=== PATIENT | female | born 1940 | race Caucasian/White ===

== ENCOUNTER → 2016-09-27 | Outpatient (CLI) | payer OTHER ==
[~2016-09-27] MED LIST: AMLO-110 PO; ASPI325T39 PO; CALCTAB5 PO; CLON0.2T11 PO; FURO20TA PO; HYDR25TA5 PO; METO25TA56 PO; MONT1TAB3 PO; POTA12PO5 PO; PRLSR20 PO
--- NOTE | 2016-09-27 10:23 | DIAGNOSTIC IMAGING REPORT ---
CHEST 2 VIEWS ROUTINE CLINICAL HISTORY: 785.6,793.11 adenopathy. Lung nodule. COMPARISON STUDY: 09/01/2015 FINDINGS: Potential subtle increase of a 6 mm nodule peripheral aspect right upper lung. Clinical nodularity peripheral aspect left upper lung. Repeat CT of chest is suggested as follow-up. IMPRESSION: Possible progressive pulmonary nodularity versus overlap artifact. CT of chest is suggested as follow-up. Electronically signed by: Lance Mac M.D. 09/27/2016 10:21 AM Dictated Date/Time: 09/27/2016 10:01 AM
== END | disposition home or self-care (01) ==
LOC: C.RADBBURG 23:49
PROVIDERS: ATTEND Physician Assistant
DX: R59.0 Localized enlarged lymph nodes (principal); R91.1 Solitary pulmonary nodule

== ENCOUNTER → 2016-10-11 | Outpatient (CLI) | payer OTHER ==
[~2016-10-11] MED LIST changes: +OPTIRAY 320 IV PRN
--- NOTE | 2016-10-11 15:12 | DIAGNOSTIC IMAGING REPORT ---
CHEST CT WITH CONTRAST CT DOSE: 602.13 mGy.cm HISTORY: Hilar lymphadenopathy. TECHNIQUE: Multiaxial CT images of the chest were performed following the intravenous administration of contrast. COMPARISON: Chest CT 06/20/2014. FINDINGS: There is a new irregular density within the right upper lobe on image 66 of 276 which demonstrates both a linear and multinodular components. The dominant nodule measures 1 cm and appear slightly spiculated. Stable 3 mm nodule within the right upper lobe on image 79 and a stable 4 mm nodule within the superior segment of the right lower lobe on image 89. Decrease in size in the linear and nodular density within the right middle lobe which abuts the major fissure. The central airways are patent. No pleural effusions. No pneumothorax. Normal caliber thoracic aorta. A few scattered hypodense lesions within the liver are not significantly changed. Dominant lesion measures 1.5 cm. These favor cysts. The spleen and adrenal glands are unremarkable. Stable 1.8 cm left breast nodule. The heart is normal in size. Mitral and aortic valve calcifications. The main pulmonary arteries are patent. No significant mediastinal or hilar lymphadenopathy. Stable heterogeneous thyroid gland. IMPRESSION: 1. There is a new irregular density within the right upper lobe which demonstrates both linear and multinodular components. This has a similar appearance to the previously described nodules and may represent a small focus of inflammatory/infectious change. However, [address] follow-up is recommended to ensure resolution. 2. Decrease in size of the linear/nodular density within the right middle lobe. Therefore, this is likely benign. 3. No change in 1.7 cm left breast nodule. Electronically signed by: Omar Orourke M.D. 10/11/2016 3:10 PM Dictated Date/Time: 10/11/2016 2:58 PM
--- NOTE | 2016-10-17 17:17 | Procedure Note ---
Procedure Note Date of Service Oct 17, 2016. Procedure Note Pulmonary function study Date of Study: 10/11/2016 Reading is based off ATS criteria. Spirometry: Mild obstructive ventilatory disease with an FEV1 98% Bronchodilator response: No significant bronchodilator response noted Lung Volumes: Signs of severe hyperinflation with a total lung capacity of 220 % and RV of 380% Diffusion: Within normal limits Interpretation: Mild obstructive ventilatory disease with notable signs of hyperinflation
== END | disposition home or self-care (01) ==
LOC: C.RC 13:40
PROVIDERS: ATTEND Physician Assistant
DX: R59.0 Localized enlarged lymph nodes (principal); R91.8 Other nonspecific abnormal finding of lung field; N63 Unspecified lump in breast

== ENCOUNTER → 2017-06-19 | Outpatient (CLI) | payer OTHER ==
--- NOTE | 2017-06-19 11:40 | DIAGNOSTIC IMAGING REPORT ---
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 Images are reviewed in the axial, sagittal, and coronal planes. IV contrast was administered without complication. A dose lowering technique was utilized adhering to the principles of ALARA. CT DOSE: 1007.71 mGy.cm FINDINGS: Thyroid: There is a 3.5 cm substernal thyroid nodule. Thoracic aorta: The ascending thoracic aorta measures 3.8 cm. Pulmonary vasculature: The pulmonary trunk is normal in caliber. There are no central filling defects identified to suggest pulmonary embolus. Note that this examination was not protocoled for the evaluation of pulmonary emboli. HEART: The heart is normal in size and configuration, without pericardial effusion. Lungs and pleural spaces: There is an irregularly marginated 1 cm right upper lobe pulmonary nodule, unchanged from the preceding examination. There is a stable 2.5 mm right middle lobe pulmonary nodule. There is no lobar consolidation. There are no significant pleural effusions. There is mild subpleural reticulation. Mediastinum: Mediastinal lymph nodes remain the upper limits of normal in size [place]: Hilar lymph nodes are the upper limits of normal in size Axilla: There is no evidence of pathologic axillary lymphadenopathy Upper abdomen: There is stable hypodense hepatic lesions, likely represent cysts. Skeletal structures: There are no lytic or blastic osseous lesions. There is a stable left breast nodule. IMPRESSION: 1. Stable irregularly marginated right upper lobe pulmonary nodule measuring 1 cm 2. Mediastinal and hilar lymph nodes remain at the upper limits of normal in size Electronically signed by: Roc Brantley M.D. 06/19/2017 11:38 AM Dictated Date/Time: 06/19/2017 11:32 AM
== END | disposition home or self-care (01) ==
LOC: C.CTS 10:36
PROVIDERS: ATTEND Physician Assistant
DX: D86.9 Sarcoidosis, unspecified (principal); R91.1 Solitary pulmonary nodule

== ENCOUNTER 2020-02-24 14:31 | Inpatient (IN) ==
[2020-02-24] MEDS ORDERED: dilTIAZem HCl 5 MG/ML 5 ML VIAL IV STA ×2 (14:50→16:24)
[2020-02-24] MEDS ORDERED: SODIUM CHLORIDE 0.9% 1000ML 1,000 ML IV SCH (15:00)
[2020-02-24 15:08] LABS: Basophils # (auto) 0.01 K/uL (0-0.2); Basophils % (auto) 0.1 %; Eosinophils # (auto) 0.09 K/uL (0-0.5); Eosinophils % (auto) 1.3 %; Hematocrit (blood only) 41.3 % (37-47); Immature Granulocytes # (auto) 0.01 K/uL (0.00-0.02); Immature Granulocytes % (auto) 0.1 %; Lymphocytes # (auto) 1.23 K/uL (1.2-3.4); Mean Corpuscular Hemoglobin 31.7 pg (25-34); Mean Corpuscular Hgb Conc 33.9 g/dL (32-36); Mean Corpuscular Volume 93.4 fL (80-100); Mean Platelet Volume 10.5 fL (7.4-10.4); Monocytes # (auto) 0.54 K/uL (0.11-0.59); Monocytes % (auto) 7.9 %; Neutrophils # (auto) 4.94 K/uL (1.4-6.5); Neutrophils % (auto) 72.6 %; Platelet Count 250 K/uL (130-400); RDW Coefficient of Variation 13.2 % (11.5-14.5); RDW Standard Deviation 45.3 fL (36.4-46.3); Red Blood Count 4.42 M/uL (4.2-5.4); White Blood Count 6.82 K/uL (4.8-10.8)
--- NOTE | 2020-02-24 15:17 | XRay Report ---
XR chest 1V portable CLINICAL HISTORY: atrial flutter COMPARISON STUDY: 05/06/2019 FINDINGS: The heart is normal in size. There is calcification of the mitral valve annulus. There is s ubtle interstitial thickening. There is no lobar consolidation. There are no pleural effusions.[ IMPRESSION: 1. Subtle interstitial thickening likely chronic. No evidence of lobar consolidation ACT 112: Negative or not required by law. Electronically signed by: Roc Brantley M.D. 02/24/2020 3:16 PM
[2020-02-24 15:38] LABS: Albumin Level 3.6 gm/dl (3.4-5.0); BUN Creatinine Ratio 17.2 (10-20); Calcium 9.1 mg/dl (8.5-10.1); Creatinine Clr Calc Pharmacy 51.6 ml/min; Est GFR (African American) 58.7; Est GFR (Non-African American) 50.6; Magnesium 1.9 mg/dl (1.8-2.4); Potassium 3.9 mmol/L (3.5-5.1)
[2020-02-24 15:49] LABS: Bilirubin,Total 0.5 mg/dl (0.2-1); Globulin 3.7 gm/dl (2.5-4.0); Phosphorus 3.2 mg/dl (2.5-4.9); Thyroid Stimulating Hormone 0.876 uIu/ml (0.300-4.500); Total Protein 7.3 gm/dl (6.4-8.2)
--- NOTE | 2020-02-24 16:49 | Electrocardiogram Report ---
Test Reason : Blood Pressure : / mmHG Vent. Rate : 141 BPM Atrial Rate : 141 BPM P-R Int : 124 ms QRS Dur : 078 ms QT Int : 304 ms P-R-T Axes : 080 050 087 degrees QTc Int : 465 ms Atrial flutter with 2 to 1 block Low voltage QRS Cannot rule out Anterior infarct , age undetermined Abnormal ECG When compared with ECG of 19-FEB-1997 09:31, Atrial flutter is now Present Vent. rate has increased BY 90 BPM Confirmed by Jimbo Ferraro ([id number]) on 02/24/2020 4:49:20 PM Referred By: Confirmed By:Jimbo Ferraro
[2020-02-24] MEDS ORDERED: dilTIAZem HCl 5 MG/ML 5 ML VIAL IV ONE (17:58)
[2020-02-24] MEDS ORDERED: METOPROLOL TARTRATE 1 MG/ML VIAL IV STA (18:21)
--- NOTE | 2020-02-24 18:53 | Emergency Department Note ---
History of Present Illness General Chief complaint: Tachycardia Stated complaint: TACHYCARDIA Source: patient, family ( at bedside) and RN notes reviewed Mode of arrival: ambulatory Limitations: no limitations History of Present Illness Provider complaint: Tachycardia Maximum Pain Intensity: 2 This patient is a 79-year-old female who presents emergency department with complaints of elevated heart rate. Patient states she noticed it several days ago because of her Fitbit. She notices only shortness of breath with exertion such as climbing up the hill in front of her house. She denies any chest discomfort or palpitations. She denies any nausea, vomiting or diaphoresis. The patient does admit to some discomfort in the right jaw "only when my heart rate is very high." Patient follows with Dr. Leos of cardiology for a history of atrial flutter. She states she had an ablation 2 years ago. Patient states she has been taking her medications as prescribed and does not believe she is missed any dosing. She is anticoagulated with apixaban. Home Medications Home Medications Medication Instructions Recorded Confirmed Type omega-3 acid ethyl esters 1 gram 1 cap PO HS cap 12/20/18 02/24/20 History capsule potassium chloride 10 mEq 10 meq PO QAM tab 12/20/18 02/24/20 History tablet,extended release multivitamin 1 tab PO QAM 02/04/19 02/24/20 History nystatin 100,000 unit/gram topical 1 appln TOP BID #30 gm 02/04/19 02/24/20 Rx powder apixaban 5 mg tablet 5 mg PO BID tab 04/24/19 02/24/20 History hydrochlorothiazide 25 mg tablet 25 mg PO QAM tab 04/24/19 02/24/20 History metoprolol succinate 100 mg 100 mg PO HS tab 04/24/19 02/24/20 History tablet,extended release 24 hr pantoprazole 20 mg tablet,delayed 20 mg PO QAM tab 04/24/19 02/24/20 History release furosemide 20 mg tablet 20 mg PO DAILY PRN 04/29/19 02/24/20 History amlodipine 10 mg tablet 10 mg PO QAM #90 tab 12/05/19 02/24/20 Rx montelukast 10 mg tablet 10 mg PO QAM #90 tab 01/06/20 02/24/20 Rx tamsulosin 0.4 mg PO QAM 02/24/20 02/24/20 History timolol maleate 1 drp OPB HS 02/24/20 02/24/20 History valsartan 80 mg PO QAM 02/24/20 02/24/20 History amiodarone 200 mg PO BIDM 30 Days #60 tab 02/26/20 Rx amoxicillin 500 mg PO BID 5 Days #10 cap 02/26/20 Rx cephalexin [Keflex] 500 mg PO Q12H 5 Days #10 cap 02/27/20 Rx Allergies Allergy/AdvReac Type Severity Reaction Status Date / Time lisinopril Allergy Unknown Cough Verified 02/24/20 16:12 codeine AdvReac Mild NAUSEA AND Verified 02/24/20 16:12 VOMITING morphine AdvReac Mild NAUSEA AND Verified 02/24/20 16:12 VOMITING Past Med/Surg History Medical History Bladder tumor CAD (coronary artery disease) Mild on cardiac cath (2013) Dyslipidemia GERD (gastroesophageal reflux disease) controlled Glaucoma History of cardioversion History of kidney stones Hypertension Morbid obesity Osteoarthritis Paroxysmal atrial fibrillation Prediabetes Renal lesion UTI (urinary tract infection) Surgical History History of cardiac cath 2013 & 2005 - [facility] - NO STENTS History of cardiac radiofrequency ablation History of cholecystectomy History of colonoscopy History of esophagogastroduodenoscopy (EGD) History of hysterectomy with unilateral oophorectomy History of left knee surgery History of lithotripsy History of surgery on left wrist X 2 History of tooth extraction History of total bilateral knee replacement S/P bladder tumor excision with fulguration Family History Mother Atrial fibrillation Stroke Father No problems noted. Brother Lung cancer Brother Lung cancer Sister Lung cancer Other No family history of adverse response to anesthesia Social History Smoking Status: Never smoker Second Hand Exposure: No; Hx Alcohol Use: No Hx Substance Use: No Preferred Language: Yakut Communication Ability: Effective Printing Agent Required: No Beliefs That Will Affect Care: None Current Living Situation: Spouse Feels Safe at Home: Yes Assistive Devices: Glasses Review of Systems See HPI for pertinent positives & negatives. and A total of 10 systems reviewed and were otherwise negative Physical Exam Vital Signs Vital Signs - 24 hr 02/24/20 14:34 02/24/20 14:40 02/24/20 14:50 Temperature 36.9 C Temperature Source Oral Oral Pulse Rate 144 H Pulse Rate from SpO2 Sensor Pulse Rhythm Regular Pulse Strength Normal Respiratory Rate 20 Respiratory Effort / Characteristics Non-Labored Spontaneous Respiratory Depth Normal Respiratory Pattern Regular Blood Pressure 109/76 Blood Pressure Mean 87 Blood Pressure Position Sitting Pulse Oximetry 96 Oxygen Delivery Method Room Air Room Air Room Air Sepsis Recent Fever Within 48 Hours No Sepsis New/Unexplained Change in Mental Status No Sepsis Action Taken by Nursing No Action Required 02/24/20 14:57 02/24/20 15:00 02/24/20 15:15 Temperature Temperature Source Pulse Rate 139 H 140 H 139 H Pulse Rate from SpO2 Sensor Pulse Rhythm Pulse Strength Respiratory Rate 20 15 22 Respiratory Effort / Characteristics Respiratory Depth Respiratory Pattern Blood Pressure 102/76 107/74 103/75 Blood Pressure Mean 84 90 88 Blood Pressure Position Pulse Oximetry Oxygen Delivery Method Sepsis Recent Fever Within 48 Hours Sepsis New/Unexplained Change in Mental Status Sepsis Action Taken by Nursing 02/24/20 15:30 02/24/20 15:45 02/24/20 16:00 Temperature Temperature Source Pulse Rate 139 H 139 H 138 H Pulse Rate from SpO2 Sensor Pulse Rhythm Pulse Strength Respiratory Rate 17 16 16 Respiratory Effort / Characteristics Respiratory Depth Respiratory Pattern Blood Pressure 117/87 113/86 111/82 Blood Pressure Mean 95 92 98 Blood Pressure Position Pulse Oximetry Oxygen Delivery Method Sepsis Recent Fever Within 48 Hours Sepsis New/Unexplained Change in Mental Status Sepsis Action Taken by Nursing 02/24/20 16:15 02/24/20 16:49 02/24/20 17:00 Temperature Temperature Source Pulse Rate 139 H 137 H 137 H Pulse Rate from SpO2 Sensor 139 H 137 H Pulse Rhythm Pulse Strength Respiratory Rate 21 19 18 Respiratory Effort / Characteristics Respiratory Depth Respiratory Pattern Blood Pressure 116/86 121/93 135/96 Blood Pressure Mean 92 104 103 Blood Pressure Position Pulse Oximetry 97 97 Oxygen Delivery Method Sepsis Recent Fever Within 48 Hours Sepsis New/Unexplained Change in Mental Status Sepsis Action Taken by Nursing 02/24/20 17:15 02/24/20 17:30 02/24/20 17:45 Temperature Temperature Source Pulse Rate 136 H 136 H 137 H Pulse Rate from SpO2 Sensor 136 H 137 H 137 H Pulse Rhythm Pulse Strength Respiratory Rate 23 12 19 Respiratory Effort / Characteristics Respiratory Depth Respiratory Pattern Blood Pressure 119/95 110/85 125/99 Blood Pressure Mean 105 103 110 Blood Pressure Position Pulse Oximetry 97 99 97 Oxygen Delivery Method Room Air Room Air Sepsis Recent Fever Within 48 Hours Sepsis New/Unexplained Change in Mental Status Sepsis Action Taken by Nursing 02/24/20 18:00 02/24/20 18:15 02/24/20 18:30 Temperature Temperature Source Pulse Rate 137 H 118 H 118 H Pulse Rate from SpO2 Sensor 137 H 107 H 117 H Pulse Rhythm Pulse Strength Respiratory Rate 19 19 16 Respiratory Effort / Characteristics Respiratory Depth Respiratory Pattern Blood Pressure 116/93 100/77 109/81 Blood Pressure Mean 99 84 93 Blood Pressure Position Pulse Oximetry 97 97 96 Oxygen Delivery Method Sepsis Recent Fever Within 48 Hours Sepsis New/Unexplained Change in Mental Status Sepsis Action Taken by Nursing 02/24/20 18:45 02/24/20 19:00 02/24/20 19:15 Temperature Temperature Source Pulse Rate 125 H 117 H 135 H Pulse Rate from SpO2 Sensor 119 H 130 H 135 H Pulse Rhythm Pulse Strength Respiratory Rate 24 21 20 Respiratory Effort / Characteristics Respiratory Depth Respiratory Pattern Blood Pressure 108/86 119/78 126/92 Blood Pressure Mean 90 89 96 Blood Pressure Position Pulse Oximetry 97 95 96 Oxygen Delivery Method Sepsis Recent Fever Within 48 Hours Sepsis New/Unexplained Change in Mental Status Sepsis Action Taken by Nursing Vital signs reviewed. General: Well-appearing 79 yo female, in no significant distress. HEENT: No scleral icterus, PERRLA, neck supple. Atraumatic. Cardiovascular: Tachycardic and regular, no extra sounds. Pulmonary: Clear to auscultation bilaterally, normal work of breathing. Abdomen: Soft, obese, nontender, nondistended, positive bowel sounds. Musculoskeletal: Atraumatic, no peripheral edema. Neurologic: Patient awake alert and oriented x 3 Skin: Warm, dry, no rash Course Administered Medications Discontinued Medications Acetaminophen (Acetaminophen 325 Mg Tab) 650 mg PO Q4H PRN PRN Reason: Pain or Fever Stop: 03/25/20 21:29 Last Admin: 02/26/20 06:16 Dose: 650 mg Documented by: [id number] Admin: 02/25/20 14:44 Dose: 650 mg Documented by: [id number] Amiodarone HCl (Amiodarone Iv Bolus & Drip) 1 ea IV NOW STA; Protocol Stop: 02/24/20 20:08 Last Admin: 02/24/20 22:15 Dose: Not Given Documented by: [id number] Amlodipine Besylate (Amlodipine Besylate 5 Mg Tab) 10 mg PO QAM RESHMA Stop: 03/26/20 08:59 Last Admin: 02/26/20 09:46 Dose: 10 mg Documented by: [id number] Admin: 02/25/20 07:49 Dose: 10 mg Documented by: [id number] Apixaban (Apixaban 5 Mg Tablet) 5 mg PO BID RESHMA Stop: 03/25/20 21:29 Last Admin: 02/26/20 09:46 Dose: 5 mg Documented by: [id number] Admin: 02/25/20 19:57 Dose: 5 mg Documented by: [id number] Admin: 02/25/20 07:48 Dose: 5 mg Documented by: [id number] Admin: 02/24/20 22:24 Dose: 5 mg Documented by: [id number] Diltiazem HCl (Diltiazem Hcl 5 Mg/Ml 5 Ml Vial) 10 mg IV NOW STA Stop: 02/24/20 14:51 Last Admin: 02/24/20 14:57 Dose: 10 mg Documented by: [id number] Cosigned by: [id number] Diltiazem HCl (Diltiazem Hcl 5 Mg/Ml 5 Ml Vial) 20 mg IV NOW STA Stop: 02/24/20 16:25 Last Admin: 02/24/20 17:25 Dose: 10 mg Documented by: [id number] Cosigned by: [id number] Diltiazem HCl (Diltiazem Hcl 5 Mg/Ml 5 Ml Vial) 10 mg IV ONCE ONE Stop: 02/24/20 17:59 Last Admin: 02/24/20 17:59 Dose: 10 mg Documented by: [id number] Cosigned by: [id number] Fish Oil ([place]-3 (Purified Fish Oil) 1 Gm Cap) 1 gm PO HS RESHMA Stop: 03/25/20 21:39 Last Admin: 02/25/20 19:59 Dose: 1 gm Documented by: [id number] Admin: 02/24/20 22:25 Dose: 1 gm Documented by: [id number] Sodium Chloride (Nss 1000ml) 1,000 mls @ 100 mls/hr IV .Q10H RESHMA Stop: 02/25/20 00:59 Last Infusion: 02/25/20 01:09 Dose: 0 mls/hr Documented by: [id number] Admin: 02/24/20 14:57 Dose: 100 mls/hr Documented by: [id number] Amiodarone HCl/Dextrose (Nexterone / D5w) 150 mg in 100 mls @ 600 mls/hr IV NOW STA Stop: 02/24/20 20:16 Last Infusion: 02/24/20 21:07 Dose: 0 mls/hr Documented by: [id number] Cosigned by: [id number] Admin: 02/24/20 20:56 Dose: 600 mls/hr Documented by: [id number] Cosigned by: [id number] Amiodarone HCl/Dextrose (Nexterone / D5w) 360 mg in 200 mls @ 33.333 mls/hr IV ONE ONE Stop: 02/25/20 02:06 Last Infusion: 02/25/20 03:39 Dose: 0 mls/hr Documented by: [id number] Cosigned by: [id number] Admin: 02/24/20 21:13 Dose: 33.3 mls/hr Documented by: [id number] Cosigned by: [id number] Amiodarone HCl/Dextrose (Nexterone / D5w) 360 mg in 200 mls @ 16.667 mls/hr IV .Q12H RESHMA Stop: 03/26/20 02:01 Last Infusion: 02/26/20 10:00 Dose: 0 mg/min, 0 mls/hr Documented by: [id number] Cosigned by: [id number] Admin: 02/26/20 01:32 Dose: 0.5 mg/min, 16.7 mls/hr Documented by: [id number] Cosigned by: [id number] Infusion: 02/26/20 01:30 Dose: 0.5 mg/min, 16.7 mls/hr Documented by: [id number] Cosigned by: [id number] Admin: 02/25/20 13:31 Dose: 0.5 mg/min, 16.7 mls/hr Documented by: [id number] Cosigned by: [id number] Infusion: 02/25/20 13:31 Dose: 0.5 mg/min, 16.7 mls/hr Documented by: [id number] Cosigned by: [id number] Admin: 02/25/20 02:02 Dose: 0.5 mg/min, 16.7 mls/hr Documented by: [id number] Cosigned by: [id number] Metoprolol Succinate (Metoprolol Succ 50mg Ext Rel Tab) 100 mg PO HS [facility] Stop: 03/25/20 21:29 Last Admin: 02/25/20 19:58 Dose: 100 mg Documented by: [id number] Admin: 02/24/20 22:25 Dose: 100 mg Documented by: [id number] Metoprolol Tartrate (Metoprolol Tartrate 1 Mg/Ml Vial) 5 mg IV NOW STA Stop: 02/24/20 18:22 Last Admin: 02/24/20 18:41 Dose: 5 mg Documented by: [id number] Miscellaneous (Stat Iv Infusion Titration Per Protocol) 1 ea N/A NOW STA Stop: 02/24/20 20:08 Last Admin: 02/24/20 22:15 Dose: Not Given Documented by: [id number] Montelukast Sodium (Montelukast Sodium 10 Mg Tablet) 10 mg PO [facility] Stop: 03/26/20 08:59 Last Admin: 02/26/20 09:48 Dose: 10 mg Documented by: [id number] Admin: 02/25/20 07:49 Dose: 10 mg Documented by: [id number] Multivitamins (Multivitamin Tab) 1 tab PO [facility] Stop: 03/26/20 08:59 Last Admin: 02/26/20 09:46 Dose: 1 tab Documented by: [id number] Admin: 02/25/20 07:49 Dose: 1 tab Documented by: [id number] Nystatin (Nystatin Powder 15gm Btl) 1 appln EXT BID [facility] Stop: 03/25/20 21:29 Last Admin: 02/26/20 09:48 Dose: 1 appln Documented by: [id number] Admin: 02/25/20 19:57 Dose: 1 appln Documented by: [id number] Admin: 02/25/20 07:50 Dose: 1 appln Documented by: [id number] Admin: 02/24/20 22:23 Dose: 1 appln Documented by: [id number] Ondansetron HCl (Ondansetron Inj 2 Mg/Ml 2 Ml Vial) 4 mg IV Q6H PRN PRN Reason: Nausea Stop: 03/25/20 21:29 Last Admin: 02/25/20 15:36 Dose: 4 mg Documented by: [id number] Pantoprazole Sodium (Pantoprazole 40 Mg Tab) [facility] [place] Stop: 03/26/20 08:59 Last Admin: 02/26/20 09:47 Dose: 20 mg Documented by: [id number] Admin: 02/25/20 07:49 Dose: 20 mg Documented by: [id number] Potassium Chloride (Potassium Chloride 10 Meq Tabcr) 10 meq PO [facility] Stop: 03/26/20 08:59 Last Admin: 02/26/20 09:47 Dose: 10 meq Documented by: [id number] Admin: 02/25/20 09:52 Dose: 10 meq Documented by: [id number] Tamsulosin HCl (Tamsulosin Hcl 0.4 Mg Cap) 0.4 mg PO [facility] Stop: 03/26/20 08:59 Last Admin: 02/26/20 09:46 Dose: 0.4 mg Documented by: [id number] Admin: 02/25/20 07:49 Dose: 0.4 mg Documented by: [id number] Timolol Maleate (Timolol Maleate 0.25% Op Soln 5 Ml Btl) 1 drops OPB HS [facility] Stop: 03/25/20 21:29 Last Admin: 02/25/20 19:58 Dose: 1 drops Documented by: [id number] Admin: 02/24/20 22:23 Dose: 1 drops Documented by: [id number] Valsartan (Valsartan 80 Mg Tab) 80 mg PO [facility] Stop: 03/26/20 08:59 Last Admin: 02/26/20 09:48 Dose: 80 mg Documented by: [id number] Admin: 02/25/20 07:49 Dose: 80 mg Documented by: [id number] Critical Care Time Critical Care Time: Yes Total Critical Care Time: 45 I have personally spent greater than 45 minutes of critical care time in the direct management of this patient. This includes bedside care, interpretation of diagnostic studies, and testing, discussion with consultants, patient, and family members, and other required patient management activities. This 45 minutes is in excess of all separately billable procedures. Medical Decision Making Differential Diagnosis Premature contractions, electrolyte abnormality, cardiac dysrhythmia, thyroid dysfunction, pulmonary embolism, infection, gastrointestinal, as well as other p athologies. Medical Records Attestation: I reviewed the patient's medical records. Home Medications Current Medication List: was personally reviewed by me Laboratory Data Attestation: I reviewed the patient's lab results. Result diagrams: 02/26/20 05:26 02/26/20 05:26 Lab Results 02/24/20 02/24/20 02/24/20 Range/Units 14:50 14:50 14:50 WBC 6.82 (4.8-10.8) K/uL RBC 4.42 (4.2-5.4) M/uL Hgb 14.0 (12.0-16.0) g/dL Hct 41.3 (37-47) % MCV 93.4 (80-100) fL MCH 31.7 (25-34) pg MCHC 33.9 (32-36) g/dL RDW Std Deviation 45.3 (36.4-46.3) fL RDW Coeff of Twan 13.2 (11.5-14.5) % Plt Count 250 (130-400) K/uL MPV 10.5 H (7.4-10.4) fL Immature Gran % (Auto) 0.1 % Neut % (Auto) 72.6 % Lymph % (Auto) 18.0 % [place] % (Auto) 7.9 % Eos % (Auto) 1.3 % Baso % (Auto) 0.1 % Neut # (Auto) 4.94 (1.4-6.5) K/uL Lymph # (Auto) 1.23 (1.2-3.4) K/uL [place] # (Auto) 0.54 (0.11-0.59) K/uL Eos # (Auto) 0.09 (0-0.5) K/uL Baso # (Auto) 0.01 (0-0.2) K/uL Immature Gran # (Auto) 0.01 (0.00-0.02) K/uL Sodium 137 (136-145) mmol/L Potassium 3.9 (3.5-5.1) mmol/L Chloride 105 (98-107) mmol/L Carbon Dioxide 25 (21-32) mmol/L Anion Gap 8.0 (3-11) BUN 18 (7-18) mg/dl Creatinine 1.06 (0.6-1.2) mg/dl Est Cr Clr Drug Dosing 51.6 ml/min Est GFR ( Amer) 58.7 Est GFR (Non-Af Amer) 50.6 BUN/Creatinine Ratio 17.2 (10-20) Glucose 118 H (70-99) mg/dl Calcium 9.1 (8.5-10.1) mg/dl Phosphorus 3.2 (2.5-4.9) mg/dl Magnesium 1.9 (1.8-2.4) mg/dl Total Bilirubin 0.5 (0.2-1) mg/dl AST 12 L (15-37) U/L ALT 20 (12-78) U/L Alkaline Phosphatase 57 (45-117) U/L Troponin I < 0.015 (0-0.045) ng/ml Total Protein 7.3 (6.4-8.2) gm/dl Albumin 3.6 (3.4-5.0) gm/dl Globulin 3.7 (2.5-4.0) gm/dl Albumin/Globulin Ratio 1.0 (0.9-2) TSH 0.876 (0.300-4.500) uIu/ml Imaging Data Radiologist's Impression: XR chest 1V portable CLINICAL HISTORY: atrial flutter COMPARISON STUDY: 05/06/2019 FINDINGS: The heart is normal in size. There is calcification of the mitral valve annulus. There is subtle interstitial thickening. There is no lobar consolidation. There are no pleural effusions.[ IMPRESSION: 1. Subtle interstitial thickening likely chronic. No evidence of lobar consolidation ACT 112: Negative or not required by law. Electronically signed by: Roc Brantley M.D. 02/24/2020 3:16 PM Dictated: 02/24/201514Transcribed: 02/24/201514 ECG Data Attestation: I personally reviewed and interpreted this ECG as follows: Indication: + tachycardia Rate (beats per minute): 141 Rhythm: + atrial flutter (2:1) ECG Intervals/blocks: + Normal QT-c (465); no Normal QRS (low voltage) ECG [place]: + Normal ECG Findings: + Q waves (Anterior); no PACs and no PVCs Blood Pressure Blood Pressure Findings: Normal blood pressure Blood Pressure Disposition: did not require urgent referral MDM Narrative This pt was evaluated and appeared to be in no distress. IV access was obtained and lab work was drawn. An order for cardiac monitoring was placed and pt was noted to be in a rapid atrial flutter at 140 bpm. She was medicated with Cardizem 10 mg IV with little response. A second dose of Cardizem 20 mg IV was given with some improvement. Pt remained in a rapid atrial flutter. Pt's labwork is reassuring with normal magnesium and potassium. Troponin in neg. CXR is significant for subtle interstitial thickening, likely chronic. EKG confirms rapid atrial flutter, no acute ischemia. Pt was given 5 mg IV metoprolol. The hospitalist service was consulted for admission. Pt is already anticoagulated. She is aware of the plan and agrees. Impression & Plan Atrial flutter with rapid ventricular response Discharge Plan Visit Data Chief Complaint: Tachycardia Stated Complaint: TACHYCARDIA ED Provider: Bailey Jacome Discharge Problem: Atrial flutter with rapid ventricular response Patient Disposition: Admitted As Inpatient Discharge Instructions Interventions: ED Discharge Assessment Last Done: 02/24/20 21:15
--- NOTE | 2020-02-24 19:01 | History & Physical Report ---
Date of Service February 24, 2020 Assessment & Plan (1) Atrial flutter with rapid ventricular response: Start Amiodarone IV bolus and drip NPO after midnight in case she requires cardioversion tomorrow if she doesn't spontaneously convert Continue metoprolol succinate 100mg PO HS Anticoagulation with Eliquis 5mg PO BID Consult cardiology (2) CAD (coronary artery disease): Mild per prior coronary angiogram. No significant worsening of symptoms to day therefore I do not suspect ACS. (3) Sarcoidosis: Weaned off prednisone approximately 1 year ago and significant increase in fatigue and morning stiffness since then. Recommend outpatient follow up with PCP, consider rheumatology referral. (4) Fatigue: As above for sarcoidosis. No significant worsening over last 2 days to suspect atrial flutter causing this but difficult to rule out. (5) GERD (gastroesophageal reflux disease): Continue pantoprazole 20mg PO daily (6) Sleep apnea: Mild per patient although significant weight gain since testing approximately 1 year ago. Did not tolerated CPAP (7) Renal lesion: Currently under investigation by urology. Continue tamsulosin - presumably for ureteral outlet obstruction. (8) DVT prophylaxis: Continue her susual Eliquis 5mg PO BID History of Present Illness Chief Complaint: Atrial flutter with RVR Primary Care Provider: [place] Effie Barba is a 79 year old female who presents to the ER on the advice of her sales trainee (Dr Leos) for ongoing intermittent jaw pain for the past 2 days and atrial flutter with rapid ventricular response. She has known paroxysmal atrial flutter which started 3 years ago. Approximately 2 years ago she [facility] few days in hospital couldn't get her rate controlled. She subsequently had an ablation following this and has no known atrial flutter episodes up until this Spring. In the Spring her longest episode was 4 hours however and spontaneously felt she converted at home. The only way she can tell her heart rate is going fast a lot of the time is through her fitbit watch which she recently started wearing again. Previous episodes have been triggered by drinking cold drinks. On this occasion she has been having occasional dry heaving episodes related to right sided back pain possibly related to muscle spasms vs. ongoing renal ureteral problems under urology. She reports intermittent jaw pain over the last 2 days concerning for anginal equivalent pain by her sales trainee although there was not worsening of pain today, initial troponin negative and she is not having any pain at the present time which appears to occur when her heart rate goes under 135-140 bpm. In the ER she was given a total 30mg IV diltiazem and 5mg IV metoprolol with change in rate due to more variable block to 110-120 bpm. I discussed her case with Dr Jiang and advised starting on IV amiodarone drip which will be started in the ER. Allergies Allergy/AdvReac Type Severity Reaction Status Date / Time lisinopril Allergy Unknown Cough Verified 02/24/20 16:12 codeine AdvReac Mild NAUSEA AND Verified 02/24/20 16:12 VOMITING morphine AdvReac Mild NAUSEA AND Verified 02/24/20 16:12 VOMITING Home Medications Home Medications Medication Instructions Recorded Confirmed Type omega-3 acid ethyl esters 1 gram 1 cap PO HS cap 12/20/18 02/24/20 History capsule potassium chloride 10 mEq 10 meq PO QAM tab 12/20/18 02/24/20 History tablet,extended release multivitamin 1 tab PO QAM 02/04/19 02/24/20 History nystatin 100,000 unit/gram topical 1 appln TOP BID #30 gm 02/04/19 02/24/20 Rx powder apixaban 5 mg tablet 5 mg PO BID tab 04/24/19 02/24/20 History hydrochlorothiazide 25 mg tablet 25 mg PO QAM tab 04/24/19 02/24/20 History metoprolol succinate 100 mg 100 mg PO HS tab 04/24/19 02/24/20 History tablet,extended release 24 hr pantoprazole 20 mg tablet,delayed 20 mg PO QAM tab 04/24/19 02/24/20 History release furosemide 20 mg tablet 20 mg PO DAILY PRN 04/29/19 02/24/20 History amlodipine 10 mg tablet 10 mg PO QAM #90 tab 12/05/19 02/24/20 Rx montelukast 10 mg tablet 10 mg PO QAM #90 tab 01/06/20 02/24/20 Rx tamsulosin 0.4 mg PO QAM 02/24/20 02/24/20 History timolol maleate 1 drp OPB HS 02/24/20 02/24/20 History valsartan 80 mg PO QAM 02/24/20 02/24/20 History Past Med/Surg History Medical History Bladder tumor CAD (coronary artery disease) Mild on cardiac cath (2013) Dyslipidemia GERD (gastroesophageal reflux disease) controlled Glaucoma History of cardioversion History of kidney stones Hypertension Morbid obesity Osteoarthritis Paroxysmal atrial fibrillation Prediabetes Renal lesion UTI (urinary tract infection) Surgical History History of cardiac cath 2013 & 2005 - [facility] - NO STENTS History of cardiac radiofrequency ablation History of cholecystectomy History of colonoscopy History of esophagogastroduodenoscopy (EGD) History of hysterectomy with unilateral oophorectomy History of left knee surgery History of lithotripsy History of surgery on left wrist X 2 History of tooth extraction History of total bilateral knee replacement S/P bladder tumor excision with fulguration Family History Mother Atrial fibrillation Stroke Father No problems noted. Brother Lung cancer Brother Lung cancer Sister Lung cancer Other No family history of adverse response to anesthesia Social History Smoking Status: Never smoker Second Hand Exposure: No; Do You Dip or Chew Tobacco: No; Tobacco Cessation Education Requested by Patient: No Hx Alcohol Use: No Hx Substance Use: No Preferred Language: [place] Communication Ability: Effective Electrician Chief Required: No Beliefs That Will Affect Care: None Current Living Situation: Spouse Other Information That Helps Us Care for You: No Feels Safe at Home: Yes Safety Concerns: Feels Safe At This Time Assistive Devices: Glasses Assistive Devices Comment: On patients face Review of Systems Review of Systems: All systems reviewed & are unremarkable except as noted in HPI & below Constitutional: + fatigue Cardiovascular: Additional Comments: Intermittent jaw pain, none so far in ER at rest Musculoskeletal: + joint pain and + stiffness Morning stiffness of joints Physical Exam Constitutional: well developed and well nourished; no acute distress Eyes: PERRL, conjunctivae normal, anicteric sclerae ENMT: external ear and nose normal, oropharynx normal Neck: trachea midline, no thyromegaly Respiratory: normal respiratory effort, lungs clear to auscultation Cardiovascular: Rate/Rhythm: + tachycardic and + irregularly irregular Heart Sounds: no murmur Vessels: no JVD Extremities: normal capillary refill and + pedal edema (trace ankles); no calf tenderness Gastrointestinal (Abdomen): normal bowel sounds, soft, nontender, no hepatosplenomegaly Musculoskeletal: no cyanosis or clubbing, extremities motor strength 5/5 Skin: no rashes, warm and dry Neurologic: moves all extremities and awake; not confused Psychiatric: A+Ox3, euthymic affect Lymphatic: no cervical or axillary lymphadenopathy Results & Data Results & [facility] ([facility]) Vital Signs (Past 12 Hours) Vital Signs Temp Pulse Resp BP Pulse Ox 02/24/20 18:30 118 H 16 109/81 96 02/24/20 18:15 118 H 19 100/77 97 02/24/20 18:00 137 H 19 116/93 97 02/24/20 17:45 137 H 19 125/99 97 02/24/20 17:30 136 H 12 110/85 99 02/24/20 17:15 136 H 23 119/95 97 02/24/20 17:00 137 H 18 135/96 97 02/24/20 16:49 137 H 19 121/93 97 02/24/20 16:15 139 H 21 116/86 02/24/20 16:00 138 H 16 111/82 02/24/20 15:45 139 H 16 113/86 02/24/20 15:30 139 H 17 117/87 02/24/20 15:15 139 H 22 103/75 02/24/20 15:00 140 H 15 107/74 02/24/20 14:57 139 H 20 102/76 02/24/20 14:34 36.9 C 144 H 20 109/76 96 Diagnostic Findings XR chest 1V portable IMPRESSION: 1. Subtle interstitial thickening likely chronic. No evidence of lobar consolidation ECG Rate (beats per minute): 141 Rhythm: atrial flutter (2:1 blok) Findings: no acute ischemic change Comparison ECG Date: from (March 01, 1997) Change: the following changes noted (Atrial flutter now present) Code Status & VTE Plan Code Status Full as discussed with the patient VTE Prophylaxis Plan VTE Prophylaxis will be ordered: Yes PG Care Time/CCT Total # of Minutes Spent Total Time Spent with Patient: Total time spent is greater than 50% in coordination of care (as documented) at patient's floor/unit and/or counseling patient: Coding Level of Care Code 15175 Initial Inpt Care Lvl 3 Diagnoses Atrial flutter with rapid ventricular response I48.92 CAD (coronary artery disease) I25.10 Sarcoidosis D86.9 Fatigue R53.83 GERD (gastroesophageal reflux disease) K21.9 Sleep apnea G47.30 Renal lesion N28.9 DVT prophylaxis Z29.9
[2020-02-24] MEDS ORDERED: AMIODARONE IV BOLUS & DRIP IV STA (20:07)
[2020-02-24] MEDS ORDERED: STAT IV Infusion **Titration per Protocol STA (20:07)
[2020-02-24] MEDS ORDERED: AMIODARONE / D5W 360 MG/200 ML BAG IV ONE (20:07)
[2020-02-24] MEDS ORDERED: 0.2 MICRON FILTER SET 1 EA IV ONE (20:07)
[2020-02-24] MEDS ORDERED: AMIODARONE / D5W 150 MG/100 ML BAG IV STA (20:07)
[2020-02-24] MEDS ORDERED: ONDANSETRON INJ 2 MG/ML 2 ML VIAL IV PRN (21:30)
[2020-02-24] MEDS ORDERED: ALUMINUM/MAGNESIUM SUSP 30 ML UDC PO PRN (21:30)
[2020-02-24] MEDS ORDERED: INFLUENZA VIRUS QUAD VACCINE 0.5 ML SYR IM ONE (22:10)
[2020-02-24] MEDS ORDERED: INFLUENZA ADMINISTRATION CHARGE ONE (22:10)
[2020-02-24] MEDS: NYSTATIN POWDER 15GM BTL EXT SCH (22:23)
[2020-02-24] MEDS: TIMOLOL MALEATE 0.25% OP SOLN 5 ML BTL OPB SCH (22:23)
[2020-02-24] MEDS: APIXABAN 5 MG TABLET PO SCH (22:24)
[2020-02-24] MEDS: METOPROLOL SUCC 50MG EXT REL TAB PO SCH (22:25)
[2020-02-24] MEDS: OMEGA-3 (PURIFIED FISH OIL) 1 GM CAP PO SCH (22:25)
[2020-02-25] MEDS: AMIODARONE / D5W 360 MG/200 ML BAG IV SCH ×2 (02:02→13:31)
--- NOTE | 2020-02-25 07:37 | Hospitalist Progress Note ---
Date of Service February 25, 2020 Assessment & Plan (1) Atrial flutter with rapid ventricular response: Patient is a 79F with PMhx Atrial Flutter s/p ablation, Hypotension, Sarcoidosis, GERD who presented initially after a 2 day history of elevated heart rates. She had been seen by her wood crafter Dr. Leos who noted her to be in Atrial flutter with RVR on 02/24/20 and was directed to the ED for further evaluation and treatment. Atrial Flutter with RVR -History of A flutter with RVR with prior ablation 2 years ago -Was found to be in A flutter in office and ED -Given IV Diltiazem and Lopressor in ED which did not necessarily slow her rate -Started on Amiodarone gtt after bolus -- since transitioned to IV amiodarone -Cardiology consulted -Patient underwent Cardioversion today to good effect and conversion to sinus -Patient already on chronic coagulation with Eliquis 5mg BID -Continue Metoprolol succinate 100mg qd CAD -Continue Metoprolol -Continue Fish oil -Continue Valsartan Hypertension -Continue Norvasc -Continue Metoprolol -Continue Valsartan GERD -Pantoprazole 20mg QD Asthma -Continue Singulair Dispo: PCU Tele FEN: HH diet DVT: Eliquis Code: Full Admission and Anticipated Discharge Date Admission Date: February 24, 2020 Supervising Physician Co-Signing Physician Notes I personally examined the patient and verified all partida points of history and exam, discussed case, and agree with decision making with Dr Oliveira. feeling ok but when i see her rates are still up. only real sx she could attribute is fatigue. later has cardioversion and feels better vitals noted nad heent nc at mmm breathing unlabored cardio irreg irreg tachy aflutter / RVR - failing meds for rate control, anticipate cardioversion today. otherwise as above Subjective Patient evaluated at the bedside. Patient noting that other than some fatigue, low back pain and possible burning with urination she has no other complaints. States she does not feel any chest pain, palpitations, or SOB. Notes a history of atrial flutter that required ablation roughly 2 years ago. Review of Systems Constitutional: + fatigue; no fever and no chills Eyes: no worsening vision Ear, Nose, Mouth, Throat: no dizziness Respiratory: no cough, no dyspnea and no pain on inspiration Cardiovascular: no chest pain, no dyspnea and no palpitations Gastrointestinal: no abdominal pain, no nausea, no vomiting, no constipation and no diarrhea/loose stools Genitourinary: Patient unsure whether or not fully having burning with urination. Musculoskeletal: + back pain Physical Exam Constitutional: well developed and well nourished; no acute distress Eyes: PERRL, conjunctivae normal, anicteric sclerae ENMT: external ear and nose normal, oropharynx normal Neck: trachea midline, no thyromegaly Respiratory: normal respiratory effort, lungs clear to auscultation Cardiovascular: Rate/Rhythm: + tachycardic Heart Sounds: normal S1 and normal S2; no murmur Vessels: no JVD Gastrointestinal (Abdomen): Inspection/Auscultation: abdomen normal to inspection and normal bowel sounds; abdomen not distended Percussion/Palpation: + abdomen tender (slight TTP in the lower R quadrant) Psychiatric: A+Ox3, euthymic affect Results & Data Results & Data ([facility]) Vital Signs (Past 12 Hours) Vital Signs Temp Pulse Pulse Resp BP BP Pulse Ox 02/25/20 04:05 36.5 C 129 H 18 123/82 95 02/25/20 00:16 135 H 02/24/20 23:20 36.5 C 91 H 18 110/77 94 02/24/20 21:42 36.6 C 135 H 18 136/89 02/24/20 21:01 139 H 13 123/98 02/24/20 20:45 138 H 22 120/97 97 02/24/20 20:30 136 H 17 127/91 96 02/24/20 20:15 136 H 18 131/91 95 02/24/20 20:00 137 H 18 120/92 96 02/24/20 19:45 135 H 26 H 120/94 95 Resident Activity Tracking Resident Involvement: Resident Care Provided Care Provided: Adult Hospital Medicine
[2020-02-25 07:39] LABS: Basophils # (auto) 0.02 K/uL (0-0.2); Basophils % (auto) 0.3 %; Eosinophils # (auto) 0.18 K/uL (0-0.5); Hematocrit (blood only) 38.4 % (37-47); Hemoglobin 12.7 g/dL (12.0-16.0); Immature Granulocytes # (auto) 0.01 K/uL (0.00-0.02); Immature Granulocytes % (auto) 0.2 %; Lymphocytes # (auto) 1.01 K/uL (1.2-3.4); Mean Corpuscular Hemoglobin 31.4 pg (25-34); Mean Platelet Volume 10.1 fL (7.4-10.4); Monocytes # (auto) 0.56 K/uL (0.11-0.59); Monocytes % (auto) 9.4 %; Neutrophils # (auto) 4.16 K/uL (1.4-6.5); Neutrophils % (auto) 70.1 %; Platelet Count 230 K/uL (130-400); RDW Coefficient of Variation 13.4 % (11.5-14.5); RDW Standard Deviation 46.8 fL (36.4-46.3); Red Blood Count 4.04 M/uL (4.2-5.4); White Blood Count 5.94 K/uL (4.8-10.8)
[2020-02-25 07:41] LABS: Mean Corpuscular Hgb Conc 33.1 g/dL (32-36)
[2020-02-25] MEDS: APIXABAN 5 MG TABLET PO SCH ×2 (07:48→19:57)
[2020-02-25] MEDS: TAMSULOSIN HCL 0.4 MG CAP PO SCH (07:49)
[2020-02-25] MEDS: VALSARTAN 80 MG TAB PO SCH (07:49)
[2020-02-25] MEDS: PANTOprazole 40 MG TAB PO SCH (07:49)
[2020-02-25] MEDS: MULTIVITAMIN TAB PO SCH (07:49)
[2020-02-25] MEDS: amLODIPine BESYLATE 5 MG TAB PO SCH (07:49)
[2020-02-25] MEDS: MONTELUKAST SODIUM 10 MG TABLET PO SCH (07:49)
[2020-02-25] MEDS: NYSTATIN POWDER 15GM BTL EXT SCH ×2 (07:50→19:57)
[2020-02-25 08:04] LABS: BUN Creatinine Ratio 16.1 (10-20); Blood Urea Nitrogen 16 mg/dl (7-18); Calcium 8.3 mg/dl (8.5-10.1); Carbon Dioxide 28 mmol/L (21-32); Chloride 104 mmol/L (98-107); Creatinine Clr Calc Pharmacy 53.6 ml/min; Est GFR (African American) 61.4; Glucose 129 mg/dl (70-99); Potassium 3.7 mmol/L (3.5-5.1); Sodium 137 mmol/L (136-145)
[2020-02-25 08:08] LABS: Troponin I < 0.015 ng/ml (0-0.045)
--- NOTE | 2020-02-25 09:38 | Cardiology Consultation ---
Date of Consultation February 25, 2020 Assessment & Plan (1) Atrial flutter with rapid ventricular response: Mrs. Barba is a 79-year-old female with a history of Paroxysmal Atrial Fibrillation, Paroxysmal Atrial Flutter, Hypertension, Type 2 Diabetes Mellitus, Obesity, Peripheral Vascular Disease, Sarcoidosis, Sleep Apnea, Mild Non- Obstructive CAD, Dyslipidemia, and GERD who seen acutely by Dr. Leos as an outpatient on 02/24/2020 secondary to Atrial Flutter with RVR -- she was tachycardic x 2 days with HR's in the 140's with an associated right jaw pain that was concerning for an anginal equivalent symptom. EKG was done in the office and it showed atrial flutter at a rate of [address] abnormalities. Thus she was referred for admission, further evaluation and treatment. Patient initially received IV diltiazem which did not slow her rate, and she also received IV Lopressor which did not necessarily slow her heart rate. She was subsequently started on IV Amiodarone bolus followed by an IV drip. Although she remains in atrial flutter, her ventricular rate is now in the 120's. she denies any jaw discomfort currently -- states that she does not feel poorly in any way today. She is chronically anticoagulated with Eliquis and has not missed any doses. She has not had any symptoms suggestive of stroke or mini stroke either. Fortunately, her ischemic work-up is unremarkable with troponin I levels being undetectable x 2 (<0.015 ng/ml). Her electrolytes are within normal limits as is her thyroid function. Telemetry over night shows atrial flutter with ventricular rates in the 120s. Recommend the following: -- Finish loading IV Amiodarone then convert to oral Amiodarione. -- Continue Eliquis 5 mg b.i.d. -- Continue Metoprolol Succinate ER 100 mg daily. -- Elective electrical cardioversion today if anesthesia able to participate. Present on Admission?: Yes (2) CAD (coronary artery disease): Mild Non-Obstructive CAD on Cardiac Catheterization 2013. -- No evidence of myocardial ischemia despite rapid atrial flutter. -- Continue Metoprolol Succinate ER 100 mg daily. -- Continue [place] 3 Fish Oil Capsules. -- Continue Valsartan 80 mg daily. (3) Chronic anticoagulation: -- On chronic Eliquis 5 mg b.i.d. to reduce the risk of thromboembolic phenomena associated with atrial arrhythmias. -- Patient has not missed any doses. -- Safe to proceed with elective cardioversion. Supervising Physician Co-Signing Physician Notes Patient was seen and examined in the cardiovascular area. Agree with Mr. Vu's assessment. She is in sustained flutter with 2-1 AV conduction, the rate is rapid and it appears to be an atypical flutter. Cardioversion is a reasonable option. I discussed the indications, procedure, risks and alternatives with her and she understands and agrees to proceed. Consent obtained. We will proceed with cardioversion today. History of Present Illness Reason for Consultation: Atrial Flutter with RVR. Attending Physician: Abdulkadir Hare DO History of Present Illness Mrs. Barba Is a 79-year-old female with a history of Paroxysmal Atrial Fibrillation, Paroxysmal Atrial Flutter, Hypertension, Type 2 Diabetes Mellitus, Obesity, Peripheral Vascular Disease, Sarcoidosis, Sleep Apnea, Mild Non- Obstructive CAD, Dyslipidemia, and GERD who seen acutely by Dr. Leos as an outpatient on 02/24/2020 secondary to Atrial Flutter with RVR. She was complaining of an elevated heart rates over the preceding 2 days. Each time she checked it, her heart rate was in the 140s. Along with this, she had an intermittent ache in her right jaw and at times mild lightheadedness. At times she would feel as though her heart rate slowed down, but then it would speed back up. Patient denies any other symptoms associated with this. She denies any associated chest pain, heaviness, tightness, pressure, or discomfort. She denies any associated nausea, vomiting, diaphoresis, or dyspnea. She denies any associated shortness of breath or dyspnea on exertion. EKG was done in the office and it showed atrial flutter at a rate of [address] abnormalities. Patient was referred to [facility] ER for admission and further evaluation. She apparently received IV diltiazem which did not slow her rate, and she also received IV Lopressor which did not necessarily slow her heart rate. She was subsequently started on IV Amiodarone bolus followed by an IV drip. Although she remains in atrial flutter, her ventricular rate is now in the 120's. she denies any jaw discomfort currently -- states that she does not feel poorly in any way today. She is chronically anticoagulated with Eliquis and has not missed any doses. She has not had any symptoms suggestive of stroke or mini stroke either. Thus far, her troponin I levels are undetectable x 2 (<0.015 ng/ml), electrolytes are within normal limits as is her thyroid function. Telemetry over night shows atrial flutter with ventricular rates in the 120s. HISTORICAL BACKGROUND: The patient had no history of a cardiac arrhythmia until February of 2017. At that time she had presented with complaints of chest and jaw pain. She had no palpitations. She was diagnosed with atrial fibrillation with rapid ventricular response. She thinks her heart rate was as high as 240 beats per minute. She was admitted to the hospital. She had spontaneous conversion of her rhythm. She had another episode of similar symptoms May 2017. She was again admitted to the hospital. After undergoing a transesophageal echocardiogram she underwent electrical cardioversion. She subsequently underwent an atrial fibrillation ablation procedure in August of 2017. The patient had received her care at [facility] and [facility]. She had previously been followed by [facility] cardiology. Additional cardiac history includes undergoing a cardiac catheterization procedure in March of 2014. She states she also underwent a cardiac catheterization prior to that. The catheterization in 2013 was reported to reveal only mild nonobstructive CAD. She has a history of hypertension, type 2 diabetes mellitus, and dyslipidemia. She has significant pulmonary disease including history of pulmonary sarcoidosis as well as sleep apnea. Her sleep apnea has been treated with CPAP therapy. She denies history of heart failure, CVA, or thromboembolic event. She has been treated with anticoagulation therapy since diagnosis of atrial fibrillation. She has had no bleeding complications with anticoagulation therapy. She does not smoke cigarettes. She does not drink alcohol. She states her prior episodes of atrial fibrillation were sometimes precipitated by consuming caffeinated beverages or drinking a cold beverage. Allergies Allergy/AdvReac Type Severity Reaction Status Date / Time lisinopril Allergy Unknown Cough Verified 02/24/20 16:12 codeine AdvReac Mild NAUSEA AND Verified 02/24/20 16:12 VOMITING morphine AdvReac Mild NAUSEA AND Verified 02/24/20 16:12 VOMITING Home Medications Home Medications Medication Instructions Recorded Confirmed Type omega-3 acid ethyl esters 1 gram 1 cap PO HS cap 12/20/18 02/24/20 History capsule potassium chloride 10 mEq 10 meq PO QAM tab 12/20/18 02/24/20 History tablet,extended release multivitamin 1 tab PO QAM 02/04/19 02/24/20 History nystatin 100,000 unit/gram topical 1 appln TOP BID #30 gm 02/04/19 02/24/20 Rx powder apixaban 5 mg tablet 5 mg PO BID tab 04/24/19 02/24/20 History hydrochlorothiazide 25 mg tablet 25 mg PO QAM tab 04/24/19 02/24/20 History metoprolol succinate 100 mg 100 mg PO HS tab 04/24/19 02/24/20 History tablet,extended release 24 hr pantoprazole 20 mg tablet,delayed 20 mg PO QAM tab 04/24/19 02/24/20 History release furosemide 20 mg tablet 20 mg PO DAILY PRN 04/29/19 02/24/20 History amlodipine 10 mg tablet 10 mg PO QAM #90 tab 12/05/19 02/24/20 Rx montelukast 10 mg tablet 10 mg PO QAM #90 tab 01/06/20 02/24/20 Rx tamsulosin 0.4 mg PO QAM 02/24/20 02/24/20 History timolol maleate 1 drp OPB HS 02/24/20 02/24/20 History valsartan 80 mg PO QAM 02/24/20 02/24/20 History Patient History Medical History Bladder tumor CAD (coronary artery disease) Mild on cardiac cath (2013) Dyslipidemia GERD (gastroesophageal reflux disease) controlled Glaucoma History of cardioversion History of kidney stones Hypertension Morbid obesity Osteoarthritis Paroxysmal atrial fibrillation Prediabetes Renal lesion UTI (urinary tract infection) Surgical History History of cardiac cath 2013 & 2005 - [facility] - NO STENTS History of cardiac radiofrequency ablation History of cholecystectomy History of colonoscopy History of esophagogastroduodenoscopy (EGD) History of hysterectomy with unilateral oophorectomy History of left knee surgery History of lithotripsy History of surgery on left wrist X 2 History of tooth extraction History of total bilateral knee replacement S/P bladder tumor excision with fulguration Family History Mother Atrial fibrillation Stroke Father No problems noted. Brother Lung cancer Brother Lung cancer Sister Lung cancer Other No family history of adverse response to anesthesia Social History Smoking Status: Never smoker Second Hand Exposure: No; Do You Dip or Chew Tobacco: No; Tobacco Cessation Education Requested by Patient: No Hx Alcohol Use: No Hx Substance Use: No Preferred Language: Pakistani Communication Ability: Effective Glass Sander Required: No Beliefs That Will Affect Care: None Current Living Situation: Spouse Other Information That Helps Us Care for You: No Feels Safe at Home: Yes Safety Concerns: Feels Safe At This Time Assistive Devices: Glasses Assistive Devices Comment: On patients face Physical Exam Physical Exam: GENERAL: Patient in no acute distress. HEENT: Head is atraumatic, normocephalic. EOM's intact. Facies symmetric. No perioral cyanosis. NECK: No JVD. JVP is at the level of the clavicle sitting upright. Carotid upstrokes are + 2 bilaterally. No bruits are noted. CHEST/LUNGS: Clear to auscultation throughout all lung pedro. No wheezes, rales, or crackles. CVS: S1 and S2 are regular, tachcardic at 128 bpm. No obvious murmurs, gallops, or rubs. PMI is nonpalpable. No lifts, heaves, or thrills. No abdominal aortic or renal bruits. ABDOMINAL EXAM: Bowel sounds are present. No masses, organomegaly, or tenderness. EXTREMITIES: No clubbing or cyanosis. Trace pretibial edema bilaterally. Intact radial pulses bilaterally. NEUROLOGIC EXAM: Patient is awake, alert, and oriented. Pleasant and cooperative. Answers questions appropriately. Speech is clear. Normal movement in all 4 extremities. Gait pattern not assessed. TELEMETRY: -- Atrial flutter at rates in the 120's to 130's. Results & Data ([facility]) Vital Signs (Past 12 Hours) Vital Signs Temp Pulse Pulse Resp BP Pulse Ox 02/25/20 07:56 36.6 C 128 H 18 110/81 95 02/25/20 04:05 36.5 C 129 H 18 123/82 95 02/25/20 00:16 135 H 02/24/20 23:20 36.5 C 91 H 18 110/77 94 11/09/20 21:42 36.6 C 135 H 18 136/89 Laboratory Results Laboratory Results - last 24 hr 02/24/20 02/24/20 02/24/20 14:50 14:50 14:50 WBC 6.82 RBC 4.42 Hgb 14.0 Hct 41.3 MCV 93.4 MCH 31.7 MCHC 33.9 RDW Std Deviation 45.3 RDW Coeff of Twan 13.2 Plt Count 250 MPV 10.5 H Immature Gran % (Auto) 0.1 Neut % (Auto) 72.6 Lymph % (Auto) 18.0 [place] % (Auto) 7.9 Eos % (Auto) 1.3 Baso % (Auto) 0.1 Neut # (Auto) 4.94 Lymph # (Auto) 1.23 [place] # (Auto) 0.54 Eos # (Auto) 0.09 Baso # (Auto) 0.01 Immature Gran # (Auto) 0.01 Sodium 137 Potassium 3.9 Chloride 105 Carbon Dioxide 25 Anion Gap 8.0 BUN 18 Creatinine 1.06 Est Cr Clr Drug Dosing 51.6 Est GFR ( Amer) 58.7 Est GFR (Non-Af Amer) 50.6 BUN/Creatinine Ratio 17.2 Glucose 118 H Calcium 9.1 Phosphorus 3.2 Magnesium 1.9 Total Bilirubin 0.5 AST 12 L ALT 20 Alkaline Phosphatase 57 Troponin I < 0.015 Total Protein 7.3 Albumin 3.6 Globulin 3.7 Albumin/Globulin Ratio 1.0 TSH 0.876 Urine Color Urine Appearance Urine pH Ur Specific [place] Urine Protein Urine Glucose (UA) Urine Ketones Urine Blood Urine Nitrite Urine Bilirubin Urine Urobilinogen Ur Leukocyte Esterase 02/25/20 02/25/20 02/25/20 07:28 07:28 08:45 WBC 5.94 RBC 4.04 L Hgb 12.7 Hct 38.4 MCV 95.0 MCH 31.4 MCHC 33.1 RDW Std Deviation 46.8 H RDW Coeff of Twan 13.4 Plt Count 230 MPV 10.1 Immature Gran % (Auto) 0.2 Neut % (Auto) 70.1 Lymph % (Auto) 17.0 [place] % (Auto) 9.4 Eos % (Auto) 3.0 Baso % (Auto) 0.3 Neut # (Auto) 4.16 Lymph # (Auto) 1.01 L [place] # (Auto) 0.56 Eos # (Auto) 0.18 Baso # (Auto) 0.02 Immature Gran # (Auto) 0.01 Sodium 137 Potassium 3.7 Chloride 104 Carbon Dioxide 28 Anion Gap 5.0 BUN 16 Creatinine 1.02 Est Cr Clr Drug Dosing 53.6 Est GFR ( Amer) 61.4 Est GFR (Non-Af Amer) 53.0 BUN/Creatinine Ratio 16.1 Glucose 129 H Calcium 8.3 L Phosphorus Magnesium Total Bilirubin AST ALT Alkaline Phosphatase Troponin I < 0.015 Total Protein Albumin Globulin Albumin/Globulin Ratio TSH Urine Color Pending Urine Appearance Pending Urine pH Pending Ur Specific [place] Pending Urine Protein Pending Urine Glucose (UA) Pending Urine Ketones Pending Urine Blood Pending Urine Nitrite Pending Urine Bilirubin Pending Urine Urobilinogen Pending Ur Leukocyte Esterase Pending Medications Administered Active Medications Generic Name Dose Route Start Last Admin Trade Name Freq PRN Reason Stop Dose Admin Acetaminophen 650 mg 02/24/20 21:30 Acetaminophen 325 Mg Tab PO 03/25/20 21:29 Q4H PRN Pain or Fever Al Hydrox/Mg Hydrox/Simethicone 15 ml 02/24/20 21:30 Aluminum/Magnesium Susp 30 Ml Udc PO 03/25/20 21:29 Q4H PRN Dyspepsia Amlodipine Besylate 10 mg 02/25/20 09:00 02/25/20 07:49 Amlodipine Besylate 5 Mg Tab PO 03/26/20 08:59 10 mg QAM RESHMA Administration Apixaban 5 mg 02/24/20 21:30 02/25/20 07:48 Apixaban 5 Mg Tablet PO 03/25/20 21:29 5 mg BID RESHMA Administration Fish Oil 1 gm 02/24/20 21:40 02/24/20 22:25 [place]-3 (Purified Fish Oil) 1 Gm Cap PO 03/25/20 21:39 1 gm HS RESHMA Administration Amiodarone HCl/Dextrose 360 mg in 200 mls @ 16.667 mls/hr 02/25/20 02:02 02/25/20 02:02 Nexterone / D5w IV 03/26/20 02:01 0.5 mg/min .Q12H RESHMA 16.7 mls/hr Administration 0.5 MG/MIN Metoprolol Succinate 100 mg 02/24/20 21:30 02/24/20 22:25 Metoprolol Succ 50mg Ext Rel Tab PO 03/25/20 21:29 100 mg HS RESHMA Administration Montelukast Sodium 10 mg 02/25/20 09:00 02/25/20 07:49 Montelukast Sodium 10 Mg Tablet PO 03/26/20 08:59 10 mg QAM RESHMA Administration Multivitamins 1 tab 02/25/20 09:00 02/25/20 07:49 Multivitamin Tab PO 03/26/20 08:59 1 tab QAM RESHMA Administration Nystatin 1 appln 02/24/20 21:30 02/25/20 07:50 Nystatin Powder 15gm Btl EXT 03/25/20 21:29 1 appln BID RESHMA Administration Ondansetron HCl 4 mg 02/24/20 21:30 Ondansetron Inj 2 Mg/Ml 2 Ml Vial IV 03/25/20 21:29 Q6H PRN Nausea Pantoprazole Sodium 20 mg 02/25/20 09:00 02/25/20 07:49 Pantoprazole 40 Mg Tab PO 03/26/20 08:59 20 mg QAM RESHMA Administration Potassium Chloride 10 meq 02/25/20 09:00 Potassium Chloride 10 Meq Tabcr PO 03/26/20 08:59 QAM RESHMA Tamsulosin HCl 0.4 mg 02/25/20 09:00 02/25/20 07:49 Tamsulosin Hcl 0.4 Mg Cap PO 03/26/20 08:59 0.4 mg QAM RESHMA Administration Timolol Maleate 1 drops 02/24/20 21:30 02/24/20 22:23 Timolol Maleate 0.25% Op Soln 5 Ml Btl OPB 03/25/20 21:29 1 drops HS RESHMA Administration Valsartan 80 mg 02/25/20 09:00 02/25/20 07:49 Valsartan 80 Mg Tab PO 03/26/20 08:59 80 mg QAM RESHMA Administration PG Care Time/CCT Total # of Minutes Spent Total Time Spent with Patient: Total time spent is greater than 50% in coordination of care (as documented) at patient's floor/unit and/or counseling patient:40 Coding Level of Care Code 68556 Initial Inpt Care Lvl 3 Diagnoses Atrial flutter with rapid ventricular response I48.92 CAD (coronary artery disease) I25.10 Chronic anticoagulation Z79.01
[2020-02-25] MEDS: POTASSIUM CHLORIDE 10 MEQ TABCR PO SCH (09:52)
[2020-02-25 10:14] LABS: Appearance Urine Clear (Clear); Bacteria Urine Automated 4+ (Negative); Bilirubin Urine Negative (Negative); Blood Urine Negative (Negative); Color Urine Yellow; Epithelial Cell Urine Auto >30 /lpf (0-5); Glucose Urine UA Negative (Negative); Ketones Urine Negative (Negative); Leukocyte Esterase Urine 1+ (Negative); Nitrite Urine Positive (Negative); Protein Urine Negative (Negative); RBC Urine Automated 0-4 /hpf (0-4); Specific Gravity Urine 1.026 (1.000-1.030); Urobilinogen Urine Negative (Negative); WBC Urine Automated >30 /hpf (0-5)
[2020-02-25] MEDS ORDERED: PROPOFOL IV EMULSION 10 MG/ML 20 ML VIAL IV ONE (11:49)
[2020-02-25] MEDS ORDERED: LIDOCAINE HCL 2% 2 ML VIAL/AMP(20MG/ML) INFIL ONE (11:49)
[2020-02-25] MEDS ORDERED: PHENYLEPHRINE 100MCG/ML 5ML SYR ONE (11:49)
--- NOTE | 2020-02-25 11:53 | XCELERA ---
[id number]
--- NOTE | 2020-02-25 12:21 | Anesthesiology Consultation ---
Date of Service February 25, 2020 Assessment & Plan Chart Review Chart Review: Acceptable Risk for Surgery and Patient NOT seen in Pre Admission Testing Consults Requested none ASA ASA4 Proposed Anesthesia Anesthesia Type: General History Surgery Operation Date: 02/25/20 12:30 Proposed Procedures p Cardioversion Tube Depatcher w/Anesthesia - Jimbo Ferraor MD Height/Weight Height: 5 ft 1 in Weight: 111.9 kg Allergies Allergy/AdvReac Type Severity Reaction Status Date / Time lisinopril Allergy Unknown Cough Verified 02/24/20 16:12 codeine AdvReac Mild NAUSEA AND Verified 02/24/20 16:12 VOMITING morphine AdvReac Mild NAUSEA AND Verified 02/24/20 16:12 VOMITING Medications Home Medications Medication Instructions Recorded Confirmed Last Taken omega-3 acid ethyl esters 1 gram 1 cap PO HS cap 12/20/18 02/24/20 05/04/19 capsule potassium chloride 10 mEq 10 meq PO QAM tab 12/20/18 02/24/20 05/16/19 08:30 tablet,extended release multivitamin 1 tab PO QAM 02/04/19 02/24/20 05/16/19 08:30 nystatin 100,000 unit/gram topical 1 appln TOP BID #30 gm 02/04/19 02/24/20 Unknown powder apixaban 5 mg tablet 5 mg PO BID tab 04/24/19 02/24/20 05/11/19 hydrochlorothiazide 25 mg tablet 25 mg PO QAM tab 04/24/19 02/24/20 05/16/19 08:30 metoprolol succinate 100 mg 100 mg PO HS tab 04/24/19 02/24/20 05/16/19 22:30 tablet,extended release 24 hr pantoprazole 20 mg tablet,delayed 20 mg PO QAM tab 04/24/19 02/24/20 05/17/19 08:30 release furosemide 20 mg tablet 20 mg PO DAILY PRN 04/29/19 02/24/20 Unknown amlodipine 10 mg tablet 10 mg PO QAM #90 tab 12/05/19 02/24/20 Unknown montelukast 10 mg tablet 10 mg PO QAM #90 tab 01/06/20 02/24/20 Unknown tamsulosin 0.4 mg PO QAM 02/24/20 02/24/20 Unknown timolol maleate 1 drp OPB HS 02/24/20 02/24/20 Unknown valsartan 80 mg PO QAM 02/24/20 02/24/20 Unknown Active Medications Generic Name Dose Route Start Last Admin Trade Name Siddhartha PRN Reason Stop Dose Admin Amlodipine Besylate 10 mg 02/25/20 09:00 02/25/20 07:49 Amlodipine Besylate 5 Mg Tab PO 03/26/20 08:59 10 mg QAM RESHMA Administration Apixaban 5 mg 02/24/20 21:30 02/25/20 07:48 Apixaban 5 Mg Tablet PO 03/25/20 21:29 5 mg BID RESHMA Administration Fish Oil 1 gm 02/24/20 21:40 02/24/20 22:25 [place]ath[place]-3 (Purified Fish Oil) 1 Gm Cap PO 03/25/20 21:39 1 gm HS RESHMA Administration Amiodarone HCl/Dextrose 360 mg in 200 mls @ 16.667 mls/hr 02/25/20 02:02 02/25/20 02:02 Nexterone / D5w IV 03/26/20 02:01 0.5 mg/min .Q12H RESHMA 16.7 mls/hr Administration 0.5 MG/MIN Metoprolol Succinate 100 mg 02/24/20 21:30 02/24/20 22:25 Metoprolol Succ 50mg Ext Rel Tab PO 03/25/20 21:29 100 mg HS RESHMA Administration Montelukast Sodium 10 mg 02/25/20 09:00 02/25/20 07:49 Montelukast Sodium 10 Mg Tablet PO 03/26/20 08:59 10 mg QAM RESHMA Administration Multivitamins 1 tab 02/25/20 09:00 02/25/20 07:49 Multivitamin Tab PO 03/26/20 08:59 1 tab QAM RESHMA Administration Nystatin 1 appln 02/24/20 21:30 02/25/20 07:50 Nystatin Powder 15gm Btl EXT 03/25/20 21:29 1 appln BID RESHMA Administration Pantoprazole Sodium 20 mg 02/25/20 09:00 02/25/20 07:49 Pantoprazole 40 Mg Tab PO 03/26/20 08:59 20 mg QAM RESHMA Administration Potassium Chloride 10 meq 02/25/20 09:00 02/25/20 09:52 Potassium Chloride 10 Meq Tabcr PO 03/26/20 08:59 10 meq QAM RESHMA Administration Tamsulosin HCl 0.4 mg 02/25/20 09:00 02/25/20 07:49 Tamsulosin Hcl 0.4 Mg Cap PO 03/26/20 08:59 0.4 mg QAM RESHMA Administration Timolol Maleate 1 drops 02/24/20 21:30 02/24/20 22:23 Timolol Maleate 0.25% Op Soln 5 Ml Btl OPB 03/25/20 21:29 1 drops HS RESHMA Administration Valsartan 80 mg 02/25/20 09:00 02/25/20 07:49 Valsartan 80 Mg Tab PO 03/26/20 08:59 80 mg QAM RESHMA Administration Past Medical History Medical History Bladder tumor CAD (coronary artery disease) Mild on cardiac cath (2013) Dyslipidemia GERD (gastroesophageal reflux disease) controlled Glaucoma History of cardioversion History of kidney stones Hypertension Morbid obesity Osteoarthritis Paroxysmal atrial fibrillation Prediabetes Renal lesion UTI (urinary tract infection) Exercise / Class Metabolic Activity III < 4 Walking/Shop/Light housework Past Family History Family History Mother Atrial fibrillation Stroke Father No problems noted. Brother Lung cancer Brother Lung cancer Sister Lung cancer Other No family history of adverse response to anesthesia Past Surgical History Surgical History History of cardiac cath 2013 & 2005 - [facility] - NO STENTS History of cardiac radiofrequency ablation History of cholecystectomy History of colonoscopy History of esophagogastroduodenoscopy (EGD) History of hysterectomy with unilateral oophorectomy History of left knee surgery History of lithotripsy History of surgery on left wrist X 2 History of tooth extraction History of total bilateral knee replacement S/P bladder tumor excision with fulguration Past Anesthesia History No Hx of Anesthesia Complications and No Family Hx of Anesthesia Complications History of PONV No Hx of PONV and No Hx of Motion Sickness Social History Smoking Status: Never smoker Do You Dip or Chew Tobacco: No Hx Alcohol Use: No Hx Substance Use: No Physical Exam Vital Signs Last Vital Signs Temp 36.4 C L 02/25/20 11:48 Pulse 128 H 11/10/20 11:48 Resp 18 02/25/20 11:48 BP 122/91 02/25/20 11:48 Pulse Ox 96 02/25/20 11:48 Testing Laboratory Results 02/25/20 07:28 02/25/20 07:28 Urine Color Yellow 02/25/20 08:45 Urine Appearance Clear (Clear) 02/25/20 08:45 Urine pH 5.0 (4.5-7.5) 02/25/20 08:45 Ur Specific [place] 1.026 (1.000-1.030) 02/25/20 08:45 Urine Protein Negative (Negative) 02/25/20 08:45 Urine Glucose (UA) Negative (Negative) 02/25/20 08:45 Urine Ketones Negative (Negative) 02/25/20 08:45 Urine Nitrite Positive (Negative) A 02/25/20 08:45 Ur Leukocyte Esterase 1+ (Negative) H 02/25/20 08:45 Urine WBC (Auto) >30 /hpf (0-5) H 02/25/20 08:45 Urine RBC (Auto) 0-4 /hpf (0-4) 02/25/20 08:45 U Hyaline Cast (Auto) 10-30 /lpf (0-5) H 02/25/20 08:45 U Epithel Cells (Auto) >30 /lpf (0-5) H 02/25/20 08:45 Urine Bacteria (Auto) 4+ (Negative) H 02/25/20 08:45 Electrocardiogram Date: 02/24/20 Findings: + AFIB @ (A flutter @ 141 w/ 2:1 block;low voltage QRS ) Chest X-Ray Date: 02/24/20 Findings: + NAD Echocardiogram Date: 02/25/20 EF: 60% LV Function: normal RWMA: + none Other Findings: + LVH and + diastolic dysfunction Valvular Disease: + MR (mild)
[2020-02-25] MEDS ORDERED: ATROPINE SULFATE 0.1 MG/ML 10ML SYR IV PRN (12:32)
[2020-02-25] MEDS ORDERED: ePHEDrine sulfate 50 MG/ML AMP IV PRN (12:32)
--- NOTE | 2020-02-25 12:35 | Cardioversion ---
Date of Service February 25, 2020 PG Electrical Cardioversion Rp Electrical Cardioversion Report The patient was brought to the laboratory being NPO after midnight and was identified in the laboratory, connected to the recording apparatus including electrocardiographic monitoring, noninvasive blood pressure monitoring and pulse oximetry. Anteroposterior patch electrodes were placed. The patient was anesthetized by the anesthesia department. Once adequate anesthesia was obtained a synchronized biphasic shock was delivered using 50 J with conversion to a sinus rhythm. The patient awoke from the anesthetic without sequela, will be observed briefly and then returned to her room. Coding Level of Care Code Cardioversion, elective Additional Codes Electrical Cardioversion Report ([id number])
--- NOTE | 2020-02-25 12:49 | Anesthesiology Progress Note ---
Date of Service February 25, 2020 Anesthesia Post Procedure Vital Signs Vital Signs: Temp Pulse Pulse Resp BP BP Pulse Ox 02/25/20 12:42 58 L 20 89/58 L 97 02/25/20 12:19 127 H 20 106/84 96 02/25/20 11:48 36.4 C L 128 H 18 122/91 96 02/25/20 07:56 36.6 C 128 H 18 110/81 95 02/25/20 04:05 36.5 C 129 H 18 123/82 95 02/25/20 00:16 135 H 02/24/20 23:20 36.5 C 91 H 18 110/77 94 02/24/20 21:42 36.6 C 135 H 18 136/89 02/24/20 21:01 139 H 13 123/98 02/24/20 20:45 138 H 22 120/97 97 02/24/20 20:30 136 H 17 127/91 96 02/24/20 20:15 136 H 18 131/91 95 02/24/20 20:00 137 H 18 120/92 96 02/24/20 19:45 135 H 26 H 120/94 95 02/24/20 19:30 135 H 21 134/103 H 96 02/24/20 19:15 135 H 20 126/92 96 02/24/20 19:00 117 H 21 119/78 95 02/24/20 18:45 125 H 24 108/86 97 02/24/20 18:30 118 H 16 109/81 96 02/24/20 18:15 118 H 19 100/77 97 02/24/20 18:00 137 H 19 116/93 97 02/24/20 17:45 137 H 19 125/99 97 02/24/20 17:30 136 H 12 110/85 99 02/24/20 17:15 136 H 23 119/95 97 02/24/20 17:00 137 H 18 135/96 97 02/24/20 16:49 137 H 19 121/93 97 02/24/20 16:15 139 H 21 116/86 02/24/20 16:00 138 H 16 111/82 02/24/20 15:45 139 H 16 113/86 02/24/20 15:30 139 H 17 117/87 02/24/20 15:15 139 H 22 103/75 02/24/20 15:00 140 H 15 107/74 02/24/20 14:57 139 H 20 102/76 02/24/20 14:34 36.9 C 144 H 20 109/76 96 Pain Intensity Lower Back: Pain Intensity: 2 Transfer of Care Handoff Completed per policy Notes Mental Status: alert / awake / arousable Patient Amnestic to Procedure: Yes Nausea / Vomiting: adequately controlled Pain: adequately controlled Airway Patency, RR, SpO2: stable & adequate BP & HR: stable & adequate Hydration State: stable & adequate Anesthetic Complications: no major complications apparent
[2020-02-25] MEDS: ACETAMINOPHEN 325 MG TAB PO PRN (14:44)
[2020-02-25] MEDS ORDERED: ONDANSETRON INJ 2 MG/ML 2 ML VIAL IV PRN (15:32)
--- NOTE | 2020-02-25 18:38 | Billing Data ---
Date of Service February 25, 2020 Coding Level of Care Code 00934 Subseq Hosp Care Lvl 3
[2020-02-25] MEDS: TIMOLOL MALEATE 0.25% OP SOLN 5 ML BTL OPB SCH (19:58)
[2020-02-25] MEDS: METOPROLOL SUCC 50MG EXT REL TAB PO SCH (19:58)
[2020-02-25] MEDS: OMEGA-3 (PURIFIED FISH OIL) 1 GM CAP PO SCH (19:59)
[2020-02-26] MEDS: AMIODARONE / D5W 360 MG/200 ML BAG IV SCH (01:32)
[2020-02-26] MEDS: ACETAMINOPHEN 325 MG TAB PO PRN (06:16)
--- NOTE | 2020-02-26 06:40 | Hospitalist Progress Note ---
Date of Service February 26, 2020 Assessment & Plan (1) Atrial flutter with rapid ventricular response: Patient is a 79F with PMhx Atrial Flutter s/p ablation, Hypotension, Sarcoidosis, GERD who presented initially after a 2 day history of elevated heart rates. She had been seen by her instructional design consultant Dr. Leos who noted her to be in Atrial flutter with RVR on 02/24/20 and was directed to the ED for further evaluation and treatment. Atrial Flutter with RVR -History of A flutter with RVR with prior ablation 2 years ago -Was found to be in A flutter in office and ED -Given IV Diltiazem and Lopressor in ED which did not necessarily slow her rate -Started on Amiodarone gtt after bolus -- since transitioned to IV amiodarone -Cardiology consulted -Patient underwent Cardioversion today to good effect and conversion to sinus -Patient already on chronic coagulation with Eliquis 5mg BID -Continue Metoprolol succinate 100mg qd CAD -Continue Metoprolol -Continue Fish oil -Continue Valsartan Hypertension -Continue Norvasc -Continue Metoprolol -Continue Valsartan GERD -Pantoprazole 20mg QD Asthma -Continue Singulair Dispo: PCU Tele FEN: diet DVT: Eliquis Code: Full Admission and Anticipated Discharge Date Admission Date: February 24, 2020 Results & Data Results & Data ([facility]) Vital Signs (Past 12 Hours) Vital Signs Temp Pulse Pulse Pulse Pulse Resp BP 02/26/20 03:25 36.7 C 67 16 115/68 02/26/20 01:12 63 02/25/20 23:42 36.7 C 66 18 103/57 L 02/25/20 19:04 36.6 C 64 18 113/74 Pulse Ox 02/26/20 03:25 94 02/26/20 01:12 02/25/20 23:42 94 02/25/20 19:04 97
[2020-02-26 07:07] LABS: Basophils # (auto) 0.01 K/uL (0-0.2); Basophils % (auto) 0.2 %; Eosinophils # (auto) 0.09 K/uL (0-0.5); Eosinophils % (auto) 1.4 %; Hematocrit (blood only) 36.2 % (37-47); Hemoglobin 12.1 g/dL (12.0-16.0); Immature Granulocytes # (auto) 0.01 K/uL (0.00-0.02); Immature Granulocytes % (auto) 0.2 %; Lymphocytes # (auto) 1.12 K/uL (1.2-3.4); Lymphocytes % (auto) 17.9 %; Mean Corpuscular Hemoglobin 31.9 pg (25-34); Mean Corpuscular Hgb Conc 33.4 g/dL (32-36); Mean Corpuscular Volume 95.5 fL (80-100); Mean Platelet Volume 10.9 fL (7.4-10.4); Monocytes # (auto) 0.61 K/uL (0.11-0.59); Monocytes % (auto) 9.8 %; Neutrophils % (auto) 70.5 %; Platelet Count 248 K/uL (130-400); RDW Coefficient of Variation 13.5 % (11.5-14.5); RDW Standard Deviation 46.9 fL (36.4-46.3); Red Blood Count 3.79 M/uL (4.2-5.4); White Blood Count 6.24 K/uL (4.8-10.8)
[2020-02-26 07:11] LABS: BUN Creatinine Ratio 16.9 (10-20); Calcium 8.5 mg/dl (8.5-10.1); Creatinine Clr Calc Pharmacy 43.6 ml/min; Est GFR (African American) 48.1; Est GFR (Non-African American) 41.5; Potassium 3.8 mmol/L (3.5-5.1)
[2020-02-26] MEDS: MULTIVITAMIN TAB PO SCH (09:46)
[2020-02-26] MEDS: amLODIPine BESYLATE 5 MG TAB PO SCH (09:46)
[2020-02-26] MEDS: TAMSULOSIN HCL 0.4 MG CAP PO SCH (09:46)
[2020-02-26] MEDS: APIXABAN 5 MG TABLET PO SCH (09:46)
[2020-02-26] MEDS: POTASSIUM CHLORIDE 10 MEQ TABCR PO SCH (09:47)
[2020-02-26] MEDS: PANTOprazole 40 MG TAB PO SCH (09:47)
[2020-02-26] MEDS: NYSTATIN POWDER 15GM BTL EXT SCH (09:48)
[2020-02-26] MEDS: VALSARTAN 80 MG TAB PO SCH (09:48)
[2020-02-26] MEDS: MONTELUKAST SODIUM 10 MG TABLET PO SCH (09:48)
--- NOTE | 2020-02-26 09:50 | Cardiology Progress Note ---
Date of Service February 26, 2020 Assessment & Plan (1) Atrial flutter with rapid ventricular response: Assessment & Plan (1) Atrial flutter with rapid ventricular response: Mrs. Barba is a 79-year-old female with a history of Paroxysmal Atrial Fibrillation, Paroxysmal Atrial Flutter, Hypertension, Type 2 Diabetes Mellitus, Obesity, Peripheral Vascular Disease, Sarcoidosis, Sleep Apnea, Mild Non- Obstructive CAD, Dyslipidemia, and GERD who seen acutely by Dr. Leos as an outpatient on 02/24/2020 secondary to Atrial Flutter with RVR -- she was tachycardic x 2 days with HR's in the 140's with an associated right jaw pain that was concerning for an anginal equivalent symptom. EKG was done in the office and it showed atrial flutter at a rate of [address] abnormalities. Thus she was referred for admission, further evaluation and treatment. Patient initially received IV diltiazem which did not slow her rate, and she also received IV Lopressor which did not necessarily slow her heart rate. She was subsequently started on IV Amiodarone bolus followed by an IV drip. Although she remains in atrial flutter, her ventricular rate is now in the 120's. she denies any jaw discomfort currently -- states that she does not feel poorly in any way today. She is chronically anticoagulated with Eliquis and has not missed any doses. She has not had any symptoms suggestive of stroke or mini stroke either. Fortunately, she underwent a successful Cardioversion from A-Flutter to NSR 02/25/2020 -- received 50 Joules of synchronized biphasic energy. No complications. She has maintained a normal sinus rhythm since that time. She offers no complaints today and is anxious to go home. Recommend the following: -- Convert to oral Amiodarione 200 mg daily. -- Continue Eliquis 5 mg b.i.d. -- Continue Metoprolol Succinate ER 100 mg daily. -- Stable for discharge to home today. -- Keep schedule appointment with Dr. Leos next week. Present on Admission?: Yes (2) CAD (coronary artery disease): Mild Non-Obstructive CAD on Cardiac Catheterization 2013. -- No evidence of myocardial ischemia despite rapid atrial flutter. -- Continue Metoprolol Succinate ER 100 mg daily. -- Continue [place] 3 Fish Oil Capsules. -- Continue Valsartan 80 mg daily. (3) Chronic anticoagulation: -- Continue chronic Eliquis 5 mg b.i.d. to reduce the risk of thromboembolic phenomena associated with atrial arrhythmias. Admission and Anticipated Discharge Date Admission Date: February 24, 2020 Supervising Physician Co-Signing Physician Notes Agree with Mr. Matt Vu's assessment. She has remained in sinus rhythm following cardioversion yesterday. Stable for discharge from my standpoint. Subjective Mrs. Barba underwent a successful Cardioversion from A-Flutter to NSR yesterday -- received 50 Joules of synchronized biphasic energy. No complications. She has maintained a normal sinus rhythm since that time. She offers no complaints today and is anxious to go home. Physical Exam Physical Exam: GENERAL: Patient in no acute distress. HEENT: Head is atraumatic, normocephalic. EOM's intact. Facies symmetric. No perioral cyanosis. NECK: No JVD. JVP is at the level of the clavicle sitting upright. Carotid upstrokes are + 2 bilaterally. No bruits are noted. CHEST/LUNGS: Clear to auscultation throughout all lung pedro. No wheezes, rales, or crackles. CVS: S1 and S2 are regular at 60 bpm. No obvious murmurs, gallops, or rubs. PMI is nonpalpable. No lifts, heaves, or thrills. No abdominal aortic or renal bruits. ABDOMINAL EXAM: Bowel sounds are present. No masses, organomegaly, or tenderness. EXTREMITIES: No clubbing or cyanosis. Trace pretibial edema bilaterally. Intact radial pulses bilaterally. NEUROLOGIC EXAM: Patient is awake, alert, and oriented. Pleasant and cooperative. Answers questions appropriately. Speech is clear. Normal movement in all 4 extremities. Gait pattern not assessed. TELEMETRY: -- NSR in 60 to 80 bpm range. Results & Data ([facility]) Vital Signs (Past 12 Hours) Vital Signs Temp Pulse Pulse Pulse Pulse Resp BP 02/26/20 07:35 36.7 C 63 18 114/64 02/26/20 03:25 36.7 C 67 16 115/68 02/26/20 01:12 63 02/25/20 23:42 36.7 C 66 18 103/57 L Pulse Ox 02/26/20 07:35 92 02/26/20 03:25 94 02/26/20 01:12 02/25/20 23:42 94 Laboratory Results Laboratory Results - last 24 hr 02/25/20 02/25/20 02/25/20 08:45 11:08 11:08 WBC RBC Hgb Hct MCV MCH MCHC RDW Std Deviation RDW Coeff of Twan Plt Count MPV Immature Gran % (Auto) Neut % (Auto) Lymph % (Auto) [place] % (Auto) Eos % (Auto) Baso % (Auto) Neut # (Auto) Lymph # (Auto) [place] # (Auto) Eos # (Auto) Baso # (Auto) Immature Gran # (Auto) Sodium Potassium Chloride Carbon Dioxide Anion Gap BUN Creatinine Est Cr Clr Drug Dosing Est GFR ( Amer) Est GFR (Non-Af Amer) BUN/Creatinine Ratio Glucose Calcium Urine Color Yellow Urine Appearance Clear Urine pH 5.0 Ur Specific [place] 1.026 Urine Protein Negative Urine Glucose (UA) Negative Urine Ketones Negative Urine Blood Negative Urine Nitrite Positive A Urine Bilirubin Negative Urine Urobilinogen Negative Ur Leukocyte Esterase 1+ H Urine WBC (Auto) >30 H Urine RBC (Auto) 0-4 U Hyaline Cast (Auto) 10-30 H U Epithel Cells (Auto) >30 H Urine Bacteria (Auto) 4+ H COVID-19 Eval Order Covid19 IDNow [facility] SARS-CoV-2, RNA, NAAT NEGATIVE 02/26/20 02/26/20 05:26 05:26 WBC 6.24 RBC 3.79 L Hgb 12.1 Hct 36.2 L MCV 95.5 MCH 31.9 MCHC 33.4 RDW Std Deviation 46.9 H RDW Coeff of Twan 13.5 Plt Count 248 MPV 10.9 H Immature Gran % (Auto) 0.2 Neut % (Auto) 70.5 Lymph % (Auto) 17.9 [place] % (Auto) 9.8 Eos % (Auto) 1.4 Baso % (Auto) 0.2 Neut # (Auto) 4.40 Lymph # (Auto) 1.12 L [place] # (Auto) 0.61 H Eos # (Auto) 0.09 Baso # (Auto) 0.01 Immature Gran # (Auto) 0.01 Sodium 137 Potassium 3.8 Chloride 102 Carbon Dioxide 28 Anion Gap 6.0 BUN 21 H Creatinine 1.25 H Est Cr Clr Drug Dosing 43.6 Est GFR ( Amer) 48.1 Est GFR (Non-Af Amer) 41.5 BUN/Creatinine Ratio 16.9 Glucose 112 H Calcium 8.5 Urine Color Urine Appearance Urine pH Ur Specific [place] Urine Protein Urine Glucose (UA) Urine Ketones Urine Blood Urine Nitrite Urine Bilirubin Urine Urobilinogen Ur Leukocyte Esterase Urine WBC (Auto) Urine RBC (Auto) U Hyaline Cast (Auto) U Epithel Cells (Auto) Urine Bacteria (Auto) COVID-19 Eval Order SARS-CoV-2, RNA, NAAT Medications Administered Active Medications Generic Name Dose Route Start Last Admin Trade Name Freq PRN Reason Stop Dose Admin Acetaminophen 650 mg 02/24/20 21:30 02/26/20 06:16 Acetaminophen 325 Mg Tab PO 03/25/20 21:29 650 mg Q4H PRN Administration Pain or Fever Al Hydrox/Mg Hydrox/Simethicone 15 ml 02/24/20 21:30 Aluminum/Magnesium Susp 30 Ml Udc PO 03/25/20 21:29 Q4H PRN Dyspepsia Amiodarone HCl 200 mg 02/26/20 17:00 Amiodarone 200 Mg Tab PO 03/27/20 16:59 BIDM RESHMA Amlodipine Besylate 10 mg 02/25/20 09:00 02/25/20 07:49 Amlodipine Besylate 5 Mg Tab PO 03/26/20 08:59 10 mg QAM RESHMA Administration Apixaban 5 mg 02/24/20 21:30 02/25/20 19:57 Apixaban 5 Mg Tablet PO 03/25/20 21:29 5 mg BID RESHMA Administration Fish Oil 1 gm 02/24/20 21:40 02/25/20 19:59 [place]-3 (Purified Fish Oil) 1 Gm Cap PO 03/25/20 21:39 1 gm HS RESHMA Administration Metoprolol Succinate 100 mg 02/24/20 21:30 02/25/20 19:58 Metoprolol Succ 50mg Ext Rel Tab PO 03/25/20 21:29 100 mg HS RESHMA Administration Montelukast Sodium 10 mg 02/25/20 09:00 02/25/20 07:49 Montelukast Sodium 10 Mg Tablet PO 03/26/20 08:59 10 mg QAM RESHMA Administration Multivitamins 1 tab 02/25/20 09:00 02/25/20 07:49 Multivitamin Tab PO 03/26/20 08:59 1 tab QAM RESHMA Administration Nystatin 1 appln 02/24/20 21:30 02/25/20 19:57 Nystatin Powder 15gm Btl EXT 03/25/20 21:29 1 appln BID RESHMA Administration Ondansetron HCl 4 mg 02/24/20 21:30 02/25/20 15:36 Ondansetron Inj 2 Mg/Ml 2 Ml Vial IV 03/25/20 21:29 4 mg Q6H PRN Administration Nausea Ondansetron HCl 4 mg 02/25/20 15:32 Ondansetron Inj 2 Mg/Ml 2 Ml Vial IV 03/26/20 15:31 Q6H PRN Nausea Pantoprazole Sodium 20 mg 02/25/20 09:00 02/25/20 07:49 Pantoprazole 40 Mg Tab PO 03/26/20 08:59 20 mg QAM RESHMA Administration Potassium Chloride 10 meq 02/25/20 09:00 02/25/20 09:52 Potassium Chloride 10 Meq Tabcr PO 03/26/20 08:59 10 meq QAM RESHMA Administration Tamsulosin HCl 0.4 mg 02/25/20 09:00 02/25/20 07:49 Tamsulosin Hcl 0.4 Mg Cap PO 03/26/20 08:59 0.4 mg QAM RESHMA Administration Timolol Maleate 1 drops 02/24/20 21:30 02/25/20 19:58 Timolol Maleate 0.25% Op Soln 5 Ml Btl OPB 03/25/20 21:29 1 drops HS RESHMA Administration Valsartan 80 mg 02/25/20 09:00 02/25/20 07:49 Valsartan 80 Mg Tab PO 03/26/20 08:59 80 mg QAM RESHMA Administration PG Care Time/CCT Total # of Minutes Spent Total Time Spent with Patient: Total time spent is greater than 50% in coordination of care (as documented) at patient's floor/unit and/or counseling patient:25 Coding Level of Care Code 01397 Subseq Hosp Care Lvl 3 Diagnoses Atrial flutter with rapid ventricular response I48.92
--- NOTE | 2020-02-26 10:52 | Discharge Summary ---
Date of Service February 26, 2020 Admission HPI Per Admitting Provider Effie Barba is a 79 year old female who presents to the ER on the advice of her slab worker (Dr Leos) for ongoing intermittent jaw pain for the past 2 days and atrial flutter with rapid ventricular response. She has known paroxysmal atrial flutter which started 3 years ago. Approximately 2 years [facility] couldn't get her rate controlled. She subsequently had an ablation following this and has no known atrial flutter episodes up until this Spring. In the Spring her longest episode was 4 hours however and spontaneously felt she converted at home. The only way she can tell her heart rate is going fast a lot of the time is through her fitbit watch which she recently started wearing again. Previous episodes have been triggered by drinking cold drinks. On this occasion she has been having occasional dry heaving episodes related to right sided back pain possibly related to muscle spasms vs. ongoing renal ureteral problems under urology. She reports intermittent jaw pain over the last 2 days concerning for anginal equivalent pain by her slab worker although there was not worsening of pain today, initial troponin negative and she is not having any pain at the present time which appears to occur when her heart rate goes under 135-140 bpm. In the ER she was given a total 30mg IV diltiazem and 5mg IV metoprolol with change in rate due to more variable block to 110-120 bpm. I discussed her case with Dr Jiang and advised starting on IV amiodarone drip which will be started in the ER. Admission Exam Per Admitting Provider Constitutional: well developed and well nourished; no acute distress Eyes: PERRL, conjunctivae normal, anicteric sclerae ENMT: external ear and nose normal, oropharynx normal Neck: trachea midline, no thyromegaly Respiratory: normal respiratory effort, lungs clear to auscultation Cardiovascular: Rate/Rhythm: + tachycardic and + irregularly irregular Heart Sounds: no murmur Vessels: no JVD Extremities: normal capillary refill and + pedal edema (trace ankles); no calf tenderness Gastrointestinal (Abdomen): normal bowel sounds, soft, nontender, no hepatosplenomegaly Musculoskeletal: no cyanosis or clubbing, extremities motor strength 5/5 Skin: no rashes, warm and dry Neurologic: moves all extremities and awake; not confused Psychiatric: A+Ox3, euthymic affect Lymphatic: no cervical or axillary lymphadenopathy Principal Diagnosis aflutter RVR Discharge Exam Constitutional well developed and well nourished; no acute distress Eyes PERRL, conjunctivae normal, anicteric sclerae ENMT external ear and nose normal, oropharynx normal Neck trachea midline, no thyromegaly Respiratory normal respiratory effort, lungs clear to auscultation Cardiovascular Rate/Rhythm: + tachycardic Heart Sounds: normal S1 and normal S2; no murmur Vessels: no JVD Gastrointestinal (Abdomen) Inspection/Auscultation: abdomen normal to inspection and normal bowel sounds; abdomen not distended Percussion/Palpation: abdomen soft; abdomen nontender Psychiatric A+Ox3, euthymic affect Discharge Data Allergies Allergy/AdvReac Type Severity Reaction Status Date / Time lisinopril Allergy Unknown Cough Verified 02/24/20 16:12 codeine AdvReac Mild NAUSEA AND Verified 02/24/20 16:12 VOMITING morphine AdvReac Mild NAUSEA AND Verified 02/24/20 16:12 VOMITING Consultations 02/24/20 18:22 ED Decision to Admit Stat 02/24/20 21:30 Consult Cardiology Routine 02/25/20 10:23 Consult Anesthesiology Routine Procedures Performed Operation Date: 02/25/20 12:30 Actual Procedures p Cardioversion - Jimbo Ferraro MD Hospital Course (1) Atrial flutter with rapid ventricular response: Patient is a 79F with PMhx Atrial Flutter s/p ablation, Hypotension, Sarcoidosis, GERD who presented initially after a 2 day history of elevated heart rates. She had been seen by her slab worker Dr. Leos who noted her to be in Atrial flutter with RVR on 02/24/20 and was directed to the ED for further evaluation and treatment. Atrial Flutter with RVR -History of A flutter with RVR with prior ablation 2 years ago -Was found to be in A flutter in office and ED -Given IV Diltiazem and Lopressor in ED which did not necessarily slow her rate -Started on Amiodarone gtt after bolus -- since transitioned to oral Amiodarone 200mg BID to continue after discharge -Cardiology consulted -Patient underwent Cardioversion to good effect and conversion to sinus -Patient already on chronic coagulation with Eliquis 5mg BID -Continued Metoprolol succinate 100mg qd UTI -Symptomatic with dysuria -+Nitrates and culture -Amoxicillin 500mg BID x5 days given after discharge CAD -Continue Metoprolol -Continue Fish oil -Continue Valsartan Hypertension -Continue Norvasc -Continue Metoprolol -Continue Valsartan GERD -Pantoprazole 20mg QD Asthma -Continue Singulair Total Time Total Time Spent Total Time Spent (In Minutes): <30 Discharge Plan Discharge Items Patient Disposition: Home - Self-Care Reason For Visit: ATRIAL FLUTTER WITH RVR Discharge Diagnosis: Atrial Flutter with AVR Activity: Per Instructions section Non-emergency contact: Primary Care Provider and Accounts Supervisor Call non-emergency contact if: you have any medication questions and your symptoms worsen Follow-up/Referrals: Ramakrishna Leos Jr, MD, [facility] [Physician] - 03/05/20 11:30 am [place] [Primary Care Provider] - (PLEASE CALL THE OFFICE TO SCHEDULE YOUR FOLLOW-UP APPOINTMENT) Diet: Regular Addtl Attending Provider Instructions: Ms. Barba, It was our pleasure caring for you at [facility] from 02/23- 02/26/20 for your atrial flutter with RVR. Please see below for a summary of your care. Atrial Flutter -You had presented to the hospital with a rapid heart rate, found to be Atrial Flutter -You were given IV medications to help lower your heart rate and were started on an Amiodarone drip to help with that as well. -You underwent a cardioversion which converted your heart rate to sinus -We are sending you home on oral Amiodarone, please take this as prescribed -Amiodarone 200mg by mouth twice a day until adjusted by Dr. Leos. UTI -You had noted that your urinary burning had worsened and that it felt like you had a UTI -Urinalysis showed nitrates and culture showed >100CFU of Gram Negative Bacteria on culture -Please order picker/assembler and take Amoxicillin 500mg twice a day by mouth for 5 days Coronary Artery Disease -Continue your home Metoprolol -Continue your home Fish Oil -Continue your home Valsartan GERD -Continue your home Pantoprazole 20mg Hypertension -Continue your home Norvasc -Continue your home Metoprolol -Continue your home Valsartan Asthma -Continue your home Singulair Please continue to take your other home medications as prescribed Please keep your appointment with Dr. Leos on 03/05/20 at 11:30AM Please follow up with your PCP in the next 1 week Pending Studies at Discharge: No Stand-Alone Forms: My [facility], Smoking Cessation Medications and DC Order Prescriptions: New amiodarone 200 mg Tablet 200 mg PO BIDM 30 Days Qty: 60 RF: 0 amoxicillin 500 mg capsule 500 mg PO BID 5 Days Qty: 10 RF: 0 Continued amlodipine 10 mg tablet 10 mg PO QAM Qty: 90 RF: 3 potassium chloride 10 mEq tablet extended release 10 meq PO QAM RF: 0 omega-3 acid ethyl esters 1 gram capsule 1 cap PO HS RF: 0 apixaban 5 mg tablet 5 mg PO BID RF: 0 hydrochlorothiazide 25 mg tablet 25 mg PO QAM RF: 0 metoprolol succinate 100 mg tablet extended release 24 hr 100 mg PO HS RF: 0 pantoprazole 20 mg tablet,delayed release (DR/EC) 20 mg PO QAM RF: 0 montelukast 10 mg tablet 10 mg PO QAM Qty: 90 RF: 1 multivitamin [Daily Multi-Vitamin] tablet 1 tab PO QAM RF: 0 nystatin 100,000 unit/gram powder 1 appln TOP BID Qty: 30 RF: 3 furosemide 20 mg tablet 20 mg PO DAILY PRN (Reason: Fluid Retention) RF: 0 timolol maleate 0.5 % drops 1 drp OPB HS RF: 0 valsartan 80 mg tablet 80 mg PO QAM RF: 0 tamsulosin 0.4 mg capsule 0.4 mg PO QAM RF: 0 Discharge Orders: Discharge Order (Routine); Ordered 02/26/20 Ordered By: Dyllan Oliveira Admission Data Admit Date/Time: 02/24/20 19:19 Attending Provider: Abdulkadir Hare Admit Provider: Oskar Xiao Primary Care Provider: [place] Other Providers: Oskar Xiao ; Fred Jiang ; Jessie Blue ; Josseline Hernández ; Khushboo Cmaacho ; Yamini Lora ; Elsa Guerin ; Cara Perdomo ; Dany Retana ; Jus Carl ; Leoncio Souza ; Omar Mcpherson ; Jes Mcpherson ; Ancelmo Mueller ; Mary Kay Candelaria ; Gilmar Hairston ; Neil Akhtar ; Young Bain ; Minesh Sweet ; Iraida Meade ; Lance Kent ; Lexi Oropeza ; Sherita Kent ; Eduardo Berry ; Ninoska Nunes ; Jt Aguilar ; Karla Funez ; Carri Hahn ; Ninoska Mcmahon ; Nuria Mijares ; Crow Dietz ; Etelvina Bradford ; Danni Banks ; Terri Blood ; Bailey Sheikh ; Govind Sheikh V ; Caleb Aquino ; Khushboo Mahoney ; Dedrick Marks ; Saud Kessler ; Eva Wilkerson ; Giovanna Prescott ; Govind Griffiths ; Julián Meade ; Nghia Hopkins ; Terri Miller ; Tigist Virgen ; Cricket Miranda ; Ino Sweet ; Adelaide Desouza ; Fred Haji ; Kady Stockton ; Shreyas Vanegas ; Brandon Joiner ; Sherita Uribe. Other Interventions: Discharge Summary Assessment (RN) Last Done: 02/26/20 11:06 Supervising Physician Co-Signing Physician Notes I personally examined the patient and verified all partida points of history and exam, discussed case, and agree with decision making with Dr Oliveira. feeling better feels up to going home cardiology input appreciated. vitals noted nad heent nc at mmm breathing unlabored sinus ~60 aflutter RVR - sx fatigue, maybe a little jaw discomfort. refractory to med management --> cardioverted - better/stable for home. discussed outpt monitoring. Resident Activity Tracking Resident Involvement: Resident Care Provided Care Provided: Adult Hospital Medicine
[2020-02-26 10:59] VITALS: BP 123/69; TEMP 97.9; O2SAT 93
[2020-02-26 11:10] VITALS: PULSE 63
--- NOTE | 2020-02-26 15:52 | Electrocardiogram Report ---
Test Reason : Blood Pressure : / mmHG Vent. Rate : 065 BPM Atrial Rate : 065 BPM P-R Int : 200 ms QRS Dur : 096 ms QT Int : 440 ms P-R-T Axes : 077 031 096 degrees QTc Int : 458 ms Sinus rhythm with Premature atrial complexes Abnormal QRS-T angle, consider primary T wave abnormality Abnormal ECG When compared with ECG of 24-FEB-2020 14:40, Sinus rhythm has replaced Atrial flutter with 2 to 1 block Confirmed by Jimbo Ferraro ([id number]) on 02/26/2020 3:51:51 PM Referred By: Ramakrishna Leos Confirmed By:Jimbo Ferraro
[2020-02-26] MEDS ORDERED: AMIODARONE 200 MG TAB PO SCH (17:00)
--- NOTE | 2020-02-26 17:41 | Billing Data ---
Date of Service February 26, 2020 Coding Level of Care Code D/C Day Management <30 mins
== END 2020-02-26 12:58 | disposition home or self-care (01) | DRG 309 ==
LOC: ED 14:31 → SUATTDRO 19:19 → 2E 19:19
DX: N28.9 Disorder of kidney and ureter, unspecified; I25.10 Atherosclerotic heart disease of native coronary artery without angina pectoris; Z68.42 Body mass index [BMI] 45.0-49.9, adult; G47.30 Sleep apnea, unspecified; Z88.8 Allergy status to other drugs, medicaments and biological substances; I48.92 Unspecified atrial flutter; Z79.899 Other long term (current) drug therapy; J45.909 Unspecified asthma, uncomplicated; Z98.890 Other specified postprocedural states; Z88.5 Allergy status to narcotic agent; I48.0 Paroxysmal atrial fibrillation; E66.9 Obesity, unspecified; Z79.01 Long term (current) use of anticoagulants; Z82.49 Family history of ischemic heart disease and other diseases of the circulatory system; K21.9 Gastro-esophageal reflux disease without esophagitis; N39.0 Urinary tract infection, site not specified; I10 Essential (primary) hypertension; D86.9 Sarcoidosis, unspecified

== ENCOUNTER 2021-03-21 01:01 | Inpatient (IN) ==
--- NOTE | 2021-03-21 01:12 | Emergency Department Note ---
Impression & Plan Chest pain Admission ED Provider Note HPI: The patient is a 80-year-old female with history of atrial fibrillation, on Eliquis, history of coronary artery disease (mild disease on catheterization in 2013), presents the emergency department with a chief complaint of chest pain. Patient states that she awoke approximately 2 hours ago with some substernal chest discomfort that radiated to the left side of her shoulder and jaw. She states it was relatively severe at the time. EMS was contacted, patient was given nitroglycerin x3 as well as aspirin, she was also given a subsequent dose of fentanyl for her pain. On arrival here to the ED she states that her pain is improved. EKG performed at the bedside shows evidence of mild ST elevation isolated to lead III. Patient is otherwise saturating well on room air, she is in no acute distress on my initial evaluation. ROS: -Cardio: Chest pain *10 point review systems was conducted and is otherwise negative unless stated above *Outpatient medications and allergy history reviewed PE: General: Alert, NAD HEENT: Normocephalic, atraumatic, trachea midline Eyes: Extraocular eye movement is intact, no scleral erythema Pulmonary: Clear to auscultation bilaterally, no wheezing Cardio: Regular rate and rhythm GI: Abdomen is soft, nontender : No suprapubic tenderness MSK: No evidence of trauma or malformation of the extremities, no edema Skin: No evidence of rash Neuro: Alert, no focal deficits Psychiatric: Cooperative feed adviser: - An order was placed for continuous cardiac monitoring - Patient was noted to be in sinus rhythm with rate of 70 EKG: Rate: 69 Rhythm: Sinus rhythm Intervals: Within normal limits ST changes: Less than [address] elevation in lead III, otherwise no ST elevation Time: 0107 Medical Decision Making: Patient presented to the emergency department the chief complaint of chest pain. On arrival here to the ED she states her pain is improved from previous. She was given aspirin and sublingual nitroglycerin in route via EMS. Arrival here to the ED she is saturating well on room air, she is otherwise in no acute distress. EKG does not show any acute ischemic changes, isolated minimal ST elevation in lead III appears similar to EKG obtained in February 2020, troponin returned negative x1 (detectable at 0.025). I do not see any evidence of widened mediastinum or pneumothorax on chest x-ray. On my reassessment the patient states that she feels improved from previous although she still does have some mild chest discomfort, at this time given her age and risk factors I do believe it would be appropriate to admit her to the hospital for serial tr ending of troponins and likely cardiology consultation. Case was discussed with the on-call hospitalist Dr. Morales, and the patient was admitted to a telemetry bed for further management. COVID-19 test is pending. * Diagnosis: Chest pain * Disposition: Admission Lance Franks DO Emergency Medicine Past Med/Surg History Medical History (Reviewed 01/14/21 @ 13:20 by Ramakrishna Leos Jr, MD, [facility]) Atrial flutter CAD (coronary artery disease) Dyslipidemia GERD (gastroesophageal reflux disease) Glaucoma History of cardioversion History of kidney stones Hypertension Morbid obesity Osteoarthritis Paroxysmal atrial fibrillation Prediabetes Recurrent UTI Renal lesion Sarcoidosis Sleep apnea Urge incontinence of urine Urinary frequency Urinary urgency Surgical History (Reviewed 01/14/21 @ 13:20 by Ramakrishna Leos Jr, MD, [facility]) History of cardiac cath History of cardiac radiofrequency ablation History of cholecystectomy History of colonoscopy History of esophagogastroduodenoscopy (EGD) History of hysterectomy with unilateral oophorectomy History of left knee surgery History of lithotripsy History of surgery on left wrist History of tooth extraction History of total bilateral knee replacement S/P bladder tumor excision with fulguration Family History Mother Atrial fibrillation Stroke Father No problems noted. Brother Lung cancer Brother Lung cancer Sister Lung cancer Other No family history of adverse response to anesthesia Social History (Reviewed 01/14/21 @ 13:20 by Ramakrishna Leos Jr, MD, [facility]) Smoking Status: Never smoker Second Hand Exposure: No; Hx Alcohol Use: No Hx Substance Use: No Preferred Language: Spanish Communication Ability: Effective Visual Impairment: No Limitations Dining Room Host/Hostess Required: No Beliefs That Will Affect Care: None Current Living Situation: Spouse Feels Safe at Home: Yes Assistive Devices: Glasses Allergies Allergies Allergy/AdvReac Type Severity Reaction Status Date / Time lisinopril Allergy Unknown Cough Verified 03/21/21 01:38 codeine AdvReac Mild NAUSEA AND Verified 03/21/21 01:38 VOMITING morphine AdvReac Mild NAUSEA AND Verified 03/21/21 01:38 VOMITING Home Meds Home Medications Medication Instructions Recorded Confirmed omega-3 acid ethyl esters 1 gram 1 cap PO HS cap 12/20/18 03/21/21 capsule multivitamin (Daily Multi-Vitamin) 1 tab PO QAM 02/04/19 03/21/21 hydrochlorothiazide 25 mg tablet 25 mg PO QAM tab 04/24/19 03/21/21 pantoprazole 20 mg tablet,delayed 20 mg PO QAM tab 04/24/19 03/21/21 release furosemide 20 mg tablet 20 mg PO DAILY PRN 04/29/19 03/21/21 timolol maleate 0.5 % eye drops 1 drp OPB HS 02/24/20 03/21/21 cholecalciferol (vitamin D3) 50 2,000 unit PO QAM cap 04/07/20 03/21/21 mcg (2,000 unit) capsule amiodarone 200 mg tablet 100 mg PO HS 11/18/20 03/21/21 cephalexin 250 mg capsule 250 mg PO HS 11/18/20 03/21/21 potassium citrate 10 mEq (1,080 10 meq PO QAM 03/21/21 03/21/21 mg) tablet,extended release Previous Rx's Medication Instructions Recorded nystatin 100,000 unit/gram topical 1 appln TOP BID #30 gm 02/04/19 powder oxybutynin chloride 5 mg tablet 5 mg PO Q8H PRN #20 tab 11/23/20 montelukast 10 mg tablet 10 mg PO HS #90 tab 11/30/20 amlodipine 10 mg tablet 10 mg PO QAM #90 tab 12/22/20 valsartan 80 mg tablet 80 mg PO QAM #90 tab 12/24/20 apixaban 5 mg tablet 5 mg PO BID #180 tab 01/15/21 tamsulosin 0.4 mg capsule 0.4 mg PO HS #30 cap 02/24/21 Results & Data (ED) Vital Signs Vital Signs - 24 hr 03/21/21 01:10 03/21/21 01:12 03/21/21 01:30 Temperature 36.6 C Temperature Source Oral Pulse Rate 120 H 71 71 Pulse Rate from SpO2 Sensor 81 72 Pulse Rhythm Regular Respiratory Rate 17 16 18 Respiratory Depth Normal Blood Pressure 117/75 Blood Pressure Mean 89 Blood Pressure Position Lying Pulse Oximetry 93 95 95 Oxygen Delivery Method Room Air Room Air Sepsis Recent Fever Within 48 Hours No Sepsis New/Unexplained Change in Mental Status No Sepsis Action Taken by Nursing No Action Required 03/21/21 02:00 Temperature Temperature Source Pulse Rate 66 Pulse Rate from SpO2 Sensor 67 Pulse Rhythm Respiratory Rate 20 Respiratory Depth Blood Pressure Blood Pressure Mean Blood Pressure Position Pulse Oximetry 92 Oxygen Delivery Method Sepsis Recent Fever Within 48 Hours Sepsis New/Unexplained Change in Mental Status Sepsis Action Taken by Nursing Laboratory Data Result diagrams: 03/21/21 01:10 03/21/21 01:10 Lab Results 03/21/21 03/21/21 03/21/21 Range/Units 01:10 01:10 01:10 WBC 8.38 (4.8-10.8) K/uL RBC 4.07 L (4.2-5.4) M/uL Hgb 13.0 (12.0-16.0) g/dL Hct 38.8 (37-47) % MCV 95.3 (80-100) fL MCH 31.9 (25-34) pg MCHC 33.5 (32-36) g/dL RDW Std Deviation 46.9 H (36.4-46.3) fL RDW Coeff of Twan 13.5 (11.5-14.5) % Plt Count 246 (130-400) K/uL MPV 11.1 H (7.4-10.4) fL Immature Gran % (Auto) 0.1 % Neut % (Auto) 79.5 % Lymph % (Auto) 12.8 % [place] % (Auto) 6.6 % Eos % (Auto) 0.8 % Baso % (Auto) 0.2 % Neut # (Auto) 6.66 H (1.4-6.5) K/uL Lymph # (Auto) 1.07 L (1.2-3.4) K/uL [place] # (Auto) 0.55 (0.11-0.59) K/uL Eos # (Auto) 0.07 (0-0.5) K/uL Baso # (Auto) 0.02 (0-0.2) K/uL Immature Gran # (Auto) 0.01 (0.00-0.02) K/uL PT 10.9 (9.0-12.0) Seconds INR 1.1 (0.9-1.1) APTT 31.0 (21.0-31.0) Seconds PTT Ratio 1.2 Sodium 136 (136-145) mmol/L Potassium 3.8 (3.5-5.1) mmol/L Chloride 105 (98-107) mmol/L Carbon Dioxide 27 (21-32) mmol/L Anion Gap 4.0 (3-11) BUN 27 H (7-18) mg/dl Creatinine 1.19 (0.6-1.2) mg/dl Est Cr Clr Drug Dosing Not Reportable Est GFR ( Amer) 50.6 ml/min Est GFR (Non-Af Amer) 43.7 ml/min BUN/Creatinine Ratio 22.9 H (10-20) Glucose 158 H (70-99) mg/dl Calcium 8.9 (8.5-10.1) mg/dl Total Bilirubin 0.4 (0.2-1) mg/dl AST 10 L (15-37) U/L ALT 27 (12-78) Alkaline Phosphatase 84 (45-117) U/L Troponin I 0.025 (0-0.045) ng/ml Total Protein 7.2 (6.4-8.2) gm/dl Albumin 3.4 (3.4-5.0) gm/dl Globulin 3.8 (2.5-4.0) gm/dl Albumin/Globulin Ratio 0.9 (0.9-2) Lipase 78 (73-393) U/L SARS-CoV-2, RNA, NAAT (NEGATIVE) 03/21/21 Range/Units 02:15 WBC (4.8-10.8) K/uL RBC (4.2-5.4) M/uL Hgb (12.0-16.0) g/dL Hct (37-47) % MCV (80-100) fL MCH (25-34) pg MCHC (32-36) g/dL RDW Std Deviation (36.4-46.3) fL RDW Coeff of Twan (11.5-14.5) % Plt Count (130-400) K/uL MPV (7.4-10.4) fL Immature Gran % (Auto) % Neut % (Auto) % Lymph % (Auto) % [place] % (Auto) % Eos % (Auto) % Baso % (Auto) % Neut # (Auto) (1.4-6.5) K/uL Lymph # (Auto) (1.2-3.4) K/uL [place] # (Auto) (0.11-0.59) K/uL Eos # (Auto) (0-0.5) K/uL Baso # (Auto) (0-0.2) K/uL Immature Gran # (Auto) (0.00-0.02) K/uL PT (9.0-12.0) Seconds INR (0.9-1.1) APTT (21.0-31.0) Seconds PTT Ratio Sodium (136-145) mmol/L Potassium (3.5-5.1) mmol/L Chloride (98-107) mmol/L Carbon Dioxide (21-32) mmol/L Anion Gap (3-11) BUN (7-18) mg/dl Creatinine (0.6-1.2) mg/dl Est Cr Clr Drug Dosing Est GFR ( Amer) ml/min Est GFR (Non-Af Amer) ml/min BUN/Creatinine Ratio (10-20) Glucose (70-99) mg/dl Calcium (8.5-10.1) mg/dl Total Bilirubin (0.2-1) mg/dl AST (15-37) U/L ALT (12-78) Alkaline Phosphatase (45-117) U/L Troponin I (0-0.045) ng/ml Total Protein (6.4-8.2) gm/dl Albumin (3.4-5.0) gm/dl Globulin (2.5-4.0) gm/dl Albumin/Globulin Ratio (0.9-2) Lipase (73-393) U/L SARS-CoV-2, RNA, NAAT NEGATIVE (NEGATIVE) Discharge Plan Visit Data Chief Complaint: Chest Pain Stated Complaint: CHEST PAIN ED Provider: Lance Franks Discharge Problem: Chest pain Forms Stand Alone Forms: [facility] Prescriptions Prescriptions: No Action montelukast 10 mg tablet 10 mg PO HS Qty: 90 RF: 1 amlodipine 10 mg tablet 10 mg PO QAM Qty: 90 RF: 3 valsartan 80 mg tablet 80 mg PO QAM Qty: 90 RF: 3 tamsulosin 0.4 mg capsule 0.4 mg PO HS Qty: 30 RF: 2 omega-3 acid ethyl esters 1 gram capsule 1 cap PO HS RF: 0 hydrochlorothiazide 25 mg tablet 25 mg PO QAM RF: 0 pantoprazole 20 mg tablet,delayed release (DR/EC) 20 mg PO QAM RF: 0 apixaban 5 mg tablet 5 mg PO BID Qty: 180 RF: 3 multivitamin [Daily Multi-Vitamin] tablet 1 tab PO QAM RF: 0 nystatin 100,000 unit/gram powder 1 appln TOP BID Qty: 30 RF: 3 furosemide 20 mg tablet 20 mg PO DAILY PRN (Reason: Fluid Retention) RF: 0 cholecalciferol (vitamin D3) 50 mcg (2,000 unit) capsule 2,000 unit PO QAM RF: 0 timolol maleate 0.5 % drops 1 drp OPB HS RF: 0 amiodarone 200 mg tablet 100 mg PO HS RF: 0 cephalexin 250 mg capsule 250 mg PO HS RF: 0 oxybutynin chloride 5 mg tablet 5 mg PO Q8H PRN (Reason: bladder spasms) Qty: 20 RF: 0 potassium citrate 10 mEq (1,080 mg) tablet extended release 10 meq PO QAM RF: 0 Referrals Referrals: [place] [Primary Care Provider] - Discharge Problem: Chest pain Qualifiers: Chest pain type: unspecified Qualified Code(s): R07.9 - Chest pain, unspecified
[2021-03-21 01:32] LABS: Basophils # (auto) 0.02 K/uL (0-0.2); Basophils % (auto) 0.2 %; Eosinophils # (auto) 0.07 K/uL (0-0.5); Eosinophils % (auto) 0.8 %; Hematocrit (blood only) 38.8 % (37-47); Immature Granulocytes # (auto) 0.01 K/uL (0.00-0.02); Immature Granulocytes % (auto) 0.1 %; Lymphocytes # (auto) 1.07 K/uL (1.2-3.4); Lymphocytes % (auto) 12.8 %; Mean Corpuscular Hemoglobin 31.9 pg (25-34); Mean Corpuscular Hgb Conc 33.5 g/dL (32-36); Mean Corpuscular Volume 95.3 fL (80-100); Mean Platelet Volume 11.1 fL (7.4-10.4); Monocytes # (auto) 0.55 K/uL (0.11-0.59); Monocytes % (auto) 6.6 %; Neutrophils # (auto) 6.66 K/uL (1.4-6.5); Neutrophils % (auto) 79.5 %; Platelet Count 246 K/uL (130-400); RDW Coefficient of Variation 13.5 % (11.5-14.5); RDW Standard Deviation 46.9 fL (36.4-46.3); Red Blood Count 4.07 M/uL (4.2-5.4); White Blood Count 8.38 K/uL (4.8-10.8)
[2021-03-21 01:41] LABS: INR 1.1 (0.9-1.1); Partial Thromboplastin Ratio 1.2; Prothrombin Time 10.9 Seconds (9.0-12.0)
[2021-03-21 01:51] LABS: Alanine Aminotransferase 27 (12-78); Albumin Level 3.4 gm/dl (3.4-5.0); Aspartate Aminotransferase 10 U/L (15-37); BUN Creatinine Ratio 22.9 (10-20); Blood Urea Nitrogen 27 mg/dl (7-18); Calcium 8.9 mg/dl (8.5-10.1); Carbon Dioxide 27 mmol/L (21-32); Chloride 105 mmol/L (98-107); Est GFR (African American) 50.6 ml/min; Est GFR (Non-African American) 43.7 ml/min; Glucose 158 mg/dl (70-99); Lipase 78 U/L (73-393); Potassium 3.8 mmol/L (3.5-5.1); Sodium 136 mmol/L (136-145)
[2021-03-21 01:56] LABS: Albumin Globulin Ratio 0.9 (0.9-2); Alkaline Phosphatase 84 U/L (45-117); Bilirubin,Total 0.4 mg/dl (0.2-1); Globulin 3.8 gm/dl (2.5-4.0); Total Protein 7.2 gm/dl (6.4-8.2); Troponin I 0.025 ng/ml (0-0.045)
[2021-03-21] MEDS ORDERED: MoRPHine SULFATE 2 MG/ML CARP IV PRN (03:34)
[2021-03-21] MEDS ORDERED: ACETAMINOPHEN 325 MG TAB PO PRN (04:22)
[2021-03-21] MEDS ORDERED: ONDANSETRON INJ 2 MG/ML 2 ML VIAL IV PRN (04:22)
[2021-03-21] MEDS ORDERED: NITROGLYCERIN SL 0.4 MG/TAB TAB SL PRN (04:22)
[2021-03-21] MEDS ORDERED: OXYBUTYNIN CHLORIDE 5 MG TAB PO PRN (04:22)
[2021-03-21 04:49] LABS: Magnesium 2.2 mg/dl (1.8-2.4)
--- NOTE | 2021-03-21 05:36 | History & Physical Report ---
Date of Service March 21, 2021 Assessment & Plan (1) Chest pain: Plan: Rule out ACS -Trend troponin -Telemetry monitoring -2D echo in AM -Heparin gtt should troponin increase (2) Paroxysmal atrial fibrillation: Plan: Chronic. Rate controlled -Continue Apixaban -Continue Amiodarone (3) GERD (gastroesophageal reflux disease): Plan: Chronic -Continue Protonix (4) Dyslipidemia: Plan: Chronic -Hold fish oil (5) Hypertension: Plan: Chronic -Continue Amlodipine, HCTZ, Valsartan -Continue to monitor Plan: Keflex daily for UTI suppression Admission and Anticipated Discharge Date Admission Date: March 21, 2021 History of Present Illness Chief Complaint: chest pain Primary Care Provider: [place] Effie Barba is a 80yo female with HTN, HLP, CAD, Atrial fibrillation on anticoagulation with Apixaban presenting with chest pain. Patient was sleeping - woke from sleep with severe, sharp chest pain on left side with radiation to her jaw and left arm. She had associated jaw tightness, no diaphoresis/dizziness/nausea. Had a similar experience years ago - was told it was gas/GI in nature Follows with Dr. Leos - last seen 01/14/21 Cardiac catheterization in 2013 with mild, nonobstructive disease Patient states that she gets SOB with exertion, more pronounced over the last se veral weeks. No additional complaints Allergies Allergy/AdvReac Type Severity Reaction Status Date / Time lisinopril Allergy Unknown Cough Verified 03/21/21 01:38 codeine AdvReac Mild NAUSEA AND Verified 03/21/21 01:38 VOMITING morphine AdvReac Mild NAUSEA AND Verified 03/21/21 01:38 VOMITING Home Medications Medication Instructions Recorded Confirmed Type omega-3 acid ethyl esters 1 gram 1 cap PO HS cap 12/20/18 03/21/21 History capsule multivitamin (Daily Multi-Vitamin) 1 tab PO QAM 02/04/19 03/21/21 History nystatin 100,000 unit/gram topical 1 appln TOP BID #30 gm 02/04/19 03/21/21 Rx powder hydrochlorothiazide 25 mg tablet 25 mg PO QAM tab 04/24/19 03/21/21 History pantoprazole 20 mg tablet,delayed 20 mg PO QAM tab 04/24/19 03/21/21 History release furosemide 20 mg tablet 20 mg PO DAILY PRN 04/29/19 03/21/21 History timolol maleate 0.5 % eye drops 1 drp OPB HS 02/24/20 03/21/21 History cholecalciferol (vitamin D3) 50 2,000 unit PO QAM cap 04/07/20 03/21/21 History mcg (2,000 unit) capsule amiodarone 200 mg tablet 100 mg PO HS 11/18/20 03/21/21 History cephalexin 250 mg capsule 250 mg PO HS 11/18/20 03/21/21 History oxybutynin chloride 5 mg tablet 5 mg PO Q8H PRN #20 tab 11/23/20 03/21/21 Rx montelukast 10 mg tablet 10 mg PO HS #90 tab 11/30/20 03/21/21 Rx amlodipine 10 mg tablet 10 mg PO QAM #90 tab 12/22/20 03/21/21 Rx valsartan 80 mg tablet 80 mg PO QAM #90 tab 12/24/20 03/21/21 Rx apixaban 5 mg tablet 5 mg PO BID #180 tab 01/15/21 03/21/21 Rx tamsulosin 0.4 mg capsule 0.4 mg PO HS #30 cap 02/24/21 03/21/21 Rx potassium citrate 10 mEq (1,080 10 meq PO QAM 03/21/21 03/21/21 History mg) tablet,extended release Past Med/Surg History Medical History Atrial flutter CAD (coronary artery disease) Dyslipidemia GERD (gastroesophageal reflux disease) Glaucoma History of cardioversion History of kidney stones Hypertension Morbid obesity Osteoarthritis Paroxysmal atrial fibrillation Prediabetes Recurrent UTI Renal lesion Sarcoidosis Sleep apnea Urge incontinence of urine Urinary frequency Urinary urgency Surgical History History of cardiac cath History of cardiac radiofrequency ablation History of cholecystectomy History of colonoscopy History of esophagogastroduodenoscopy (EGD) History of hysterectomy with unilateral oophorectomy History of left knee surgery History of lithotripsy History of surgery on left wrist History of tooth extraction History of total bilateral knee replacement S/P bladder tumor excision with fulguration Family History Mother Atrial fibrillation Stroke Father No problems noted. Brother Lung cancer Brother Lung cancer Sister Lung cancer Other No family history of adverse response to anesthesia Social History Smoking Status: Never smoker Second Hand Exposure: No; Hx Alcohol Use: No Hx Substance Use: No Preferred Language: Burmese Communication Ability: Effective Visual Impairment: No Limitations Telephoto Engineer Required: No Beliefs That Will Affect Care: None Current Living Situation: Spouse Feels Safe at Home: Yes Assistive Devices: Glasses Review of Systems Review of Systems: All systems reviewed & are unremarkable except as noted in HPI & below Physical Exam Physical Exam: General: patient resting comfortably, NAD, non-toxic in appearance, AA&O x 4 Skin: warm, dry, intact, no rashes or lesions HEENT: NC/AT, PERRL, EOMI, anicteric sclera, conjunctiva without injection, external ear normal to inspection and nontender, nares patent, moist mucus membranes, dentition intact, no oropharyngeal lesions, neck supple, trachea midline, no LAD, no thyromegaly, no JVD Heart: +S1/S2, regular, no m/r/g, reproducible chest pain with chest wall compression Lungs: equal air entry bilaterally, no rales/rhonchi/wheezes Abd: +BS, soft, NT/ND, no masses/organomegaly/ascites Ext: warm, 2+ pulses in UE/LE bilaterally, no clubbing/cyanosis or edema Neuro: nonfocal, patient AA&O x 4, speech intact, no facial droop, moving all extremities on command with equal strength 5/5 Results & Data Results & Data ([facility]) Vital Signs (Past 12 Hours) Vital Signs Temp Pulse Resp BP Pulse Ox 03/21/21 05:00 55 L 17 150/90 H 94 03/21/21 04:30 53 L 15 97 03/21/21 04:00 53 L 16 118/80 95 03/21/21 03:30 61 18 94 03/21/21 03:00 59 L 16 95 03/21/21 02:30 67 16 94 03/21/21 02:00 66 20 92 03/21/21 01:30 71 18 95 03/21/21 01:12 36.6 C 71 16 117/75 95 03/21/21 01:10 120 H 17 93 Laboratory Results Laboratory Results WBC 8.38 K/uL (4.8-10.8) 03/21/21 01:10 RBC 4.07 M/uL (4.2-5.4) L 03/21/21 01:10 Hgb 13.0 g/dL (12.0-16.0) 03/21/21 01:10 Hct 38.8 % (37-47) 03/21/21 01:10 MCV 95.3 fL (80-100) 03/21/21 01:10 MCH 31.9 pg (25-34) 03/21/21 01:10 MCHC 33.5 g/dL (32-36) 03/21/21 01:10 RDW Std Deviation 46.9 fL (36.4-46.3) H 03/21/21 01:10 RDW Coeff of Twan 13.5 % (11.5-14.5) 03/21/21 01:10 Plt Count 246 K/uL (130-400) 03/21/21 01:10 MPV 11.1 fL (7.4-10.4) H 03/21/21 01:10 Immature Gran % (Auto) 0.1 % 03/21/21 01:10 Neut % (Auto) 79.5 % 03/21/21 01:10 Lymph % (Auto) 12.8 % 03/21/21 01:10 [place] % (Auto) 6.6 % 03/21/21 01:10 Eos % (Auto) 0.8 % 03/21/21 01:10 Baso % (Auto) 0.2 % 03/21/21 01:10 Neut # (Auto) 6.66 K/uL (1.4-6.5) H 03/21/21 01:10 Lymph # (Auto) 1.07 K/uL (1.2-3.4) L 03/21/21 01:10 [place] # (Auto) 0.55 K/uL (0.11-0.59) 03/21/21 01:10 Eos # (Auto) 0.07 K/uL (0-0.5) 03/21/21 01:10 Baso # (Auto) 0.02 K/uL (0-0.2) 03/21/21 01:10 Immature Gran # (Auto) 0.01 K/uL (0.00-0.02) 03/21/21 01:10 PT 10.9 Seconds (9.0-12.0) 03/21/21 01:10 INR 1.1 (0.9-1.1) 03/21/21 01:10 APTT 31.0 Seconds (21.0-31.0) 03/21/21 01:10 PTT Ratio 1.2 03/21/21 01:10 Sodium 136 mmol/L (136-145) 03/21/21 01:10 Potassium 3.8 mmol/L (3.5-5.1) 03/21/21 01:10 Chloride 105 mmol/L (98-107) 03/21/21 01:10 Carbon Dioxide 27 mmol/L (21-32) 03/21/21 01:10 Anion Gap 4.0 (3-11) 03/21/21 01:10 BUN 27 mg/dl (7-18) H 03/21/21 01:10 Creatinine 1.19 mg/dl (0.6-1.2) 03/21/21 01:10 Est Cr Clr Drug Dosing Not Reportable 03/21/21 01:10 Est GFR ( Amer) 50.6 ml/min 03/21/21 01:10 Est GFR (Non-Af Amer) 43.7 ml/min 03/21/21 01:10 BUN/Creatinine Ratio 22.9 (10-20) H 03/21/21 01:10 Glucose 158 mg/dl (70-99) H 03/21/21 01:10 Calcium 8.9 mg/dl (8.5-10.1) 03/21/21 01:10 Magnesium 2.2 mg/dl (1.8-2.4) 03/21/21 01:10 Total Bilirubin 0.4 mg/dl (0.2-1) 03/21/21 01:10 AST 10 U/L (15-37) L 03/21/21 01:10 ALT 27 (12-78) 03/21/21 01:10 Alkaline Phosphatase 84 U/L (45-117) 03/21/21 01:10 Troponin I 0.025 ng/ml (0-0.045) 03/21/21 01:10 Total Protein 7.2 gm/dl (6.4-8.2) 03/21/21 01:10 Albumin 3.4 gm/dl (3.4-5.0) 03/21/21 01:10 Globulin 3.8 gm/dl (2.5-4.0) 03/21/21 01:10 Albumin/Globulin Ratio 0.9 (0.9-2) 03/21/21 01:10 Lipase 78 U/L (73-393) 03/21/21 01:10 SARS-CoV-2, RNA, NAAT NEGATIVE (NEGATIVE) 03/21/21 02:15 ECG Additional Comments: appears similar to prior Code Status & VTE Plan VTE Prophylaxis Plan VTE Prophylaxis will be ordered: Yes PG Care Time/CCT Total # of Minutes Spent Total Time Spent with Patient: Total time spent is greater than 50% in coordination of care (as documented) at patient's floor/unit and/or counseling patient: Coding Level of Care Code INT OBSERVATION CARE 50M LVL 2 Diagnoses Chest pain R07.9 Chest pain type: unspecified Paroxysmal atrial fibrillation I48.0 GERD (gastroesophageal reflux disease) K21.9 Dyslipidemia E78.5 Hypertension I10 (1) Chest pain Chest pain type: unspecified Qualified Code(s): R07.9 - Chest pain, unspecified
[2021-03-21] MEDS ORDERED: METOPROLOL TARTRATE 1 MG/ML VIAL IV STA ×2 (08:46→14:20)
[2021-03-21] MEDS ORDERED: VALSARTAN 80 MG TAB PO SCH (09:00)
[2021-03-21] MEDS ORDERED: PANTOprazole 40 MG TAB PO SCH ×2 (09:00)
[2021-03-21] MEDS ORDERED: APIXABAN 5 MG TABLET PO SCH (09:00)
[2021-03-21] MEDS ORDERED: amLODIPine BESYLATE 5 MG TAB PO SCH (09:00)
[2021-03-21] MEDS ORDERED: hydroCHLOROthiazide 25 MG TAB PO SCH (09:00)
[2021-03-21] MEDS ORDERED: HEPARIN SODIUM/DEXTROSE 25,000 UNITS/500 ML BAG IV SCH (09:15)
--- NOTE | 2021-03-21 10:17 | XRay Report ---
XR chest 1V portable CLINICAL HISTORY: Atypical chest pain. COMPARISON STUDY: Chest radiograph March 05, 2020. FINDINGS: Lung volumes are normal. Lungs are clear. There is no pneumothorax or pleural effusion. Car diac size is stable. Mediastinal contours are normal. There is no evidence for pulmonary edema. IMPRESSION: No acute cardiopulmonary findings. No change in appearance of the chest. ACT 112: Negative or not required by law. Electronically signed by: Grady Brand M.D. 03/21/2021 10:16 AM
--- NOTE | 2021-03-21 10:38 | History & Physical Bridge Note ---
Date of Service March 21, 2021 History & Physical Bridge Note I have examined the patient, reviewed the History & Physical and in the interval since the performance of the History & Physical I have noted the following changes of clinical significance: Patient presented with chest pain awakening her from sleep, rated 11/10. EKG ST slight elevations V3, low voltage QRS, prolonged QT Got Nitro and ASA in ER and states pain currently a 2/10, L chest and radiation to L arm and jaw. Got up to use bathroom and passed some gas and noted prior issues felt to be GI related. Discussed elevated troponin to 1.29 from 0.025 and concerns for ACS Consulted Dr Mckeon, Dr Argueta -- Dr Argueta to see today Given metoprolol tartrate 2.5mg IV x 1 now (holding amlodipine due to issues with bradycardia/fatigue but take demand issue off) Hx paroxysmal afib on Eliquis 2.5mg BID and she states Dr Leos aware and that is what she has been and "should be taking". Has been NSR 60-70s on monitor She did not get Eliquis this morning as conversation with Dr. Mckeon --> placed on Heparin gtt for now Trend 3rd trop Echo pending Nitro SL prn CP EKG c CP Morphine prn pain available if needed Held AM amlodipine, HCTZ in event of cath, Cr and BP stable and given BB IV 2.5mg x1 as above Remains NPO at this time Prior cath 2013 mild, nonobstructive CAD at that time VSS at this time -- BP 130/80, pulse 65bpm, 20RR, 36.7C, 95% on RA Continue to monitor on telemetry-- if needed cath, move to PCU post-cath. Cards consult pending Add Lipid, A1c to AM labs (prior 6.16 July 2020, lipid panel previously acceptable) Supplemental O2 to maintain sats -- currently 95% on RA Supervising Physician Co-Signing Physician Notes chart reviewed, case d/w Blessing Guan PAC. agree w above
--- NOTE | 2021-03-21 11:02 | Communication Note ---
Date of Service: March 21, [address] Kendall Petit to eat now, make NPO after midnight and will add on for cath in AM
[2021-03-21] MEDS: Heparin IV Adult Wt-Based Low-Dose *NO* Bolus Protocol IV SCH ×2 (11:14→11:53)
--- NOTE | 2021-03-21 11:49 | Cardiology Consultation ---
Date of Consultation March 21, 2021 Assessment & Plan (1) Chest pain: -symptoms concerning for unstable angina pectoris. -agree with heparin drip. -consider addition of a beta-tahir. -would proceed with a cardiac catheterization tomorrow morning. (2) CAD (coronary artery disease): -nonobstructive disease at time of catheterization in March 2014. -proceed with cardiac catheterization as above. (3) Paroxysmal atrial fibrillation: -remains in normal sinus rhythm at this time. -continue amiodarone. -would place Eliquis on hold for upcoming cardiac catheterization. History of Present Illness Attending Physician: Abdulkadir Hare DO History of Present Illness Mrs. Barba is an 82-year-old female admitted earlier today with a chest pain syndrome. This consultation was ordered to assist in her cardiac management. Of note, patient typically follows with Dr. Leos in the outpatient setting. The patient was in her usual state of health until early this morning when she was awakened from a sound sleep with a sharp left-sided chest pain that radiated to her jaw and left upper extremity. She also had associated nausea but no shortness of breath or diaphoresis. Her symptoms persisted, therefore, she presented to the emergency room for further care., intravenous morphine, and intravenous heparin. The patient was diagnosed with nonobstructive coronary artery disease at the time of a cardiac catheterization in March 2014. She has done well from a cardiac perspective since that time. She also carries a history of paroxysmal atrial fibrillation which has been treated with rhythm control and long-term anticoagulation. Currently, patient is resting comfortably in bed without complaints. Past medical and surgical history 1. Nonobstructive coronary artery disease-March 2014 2. Hypertension 3. Mild LVH 4. Hypercholesterolemia 5. Paroxysmal atrial fibrillation 6. Diabetes mellitus 7. Peripheral vascular disease 8. GERD 9. Obesity 10. Obstructive sleep apnea 11. Sarcoidosis 12. Nephrolithiasis 13. DJD 14. Glaucoma 15. Cholecystectomy 16. Hysterectomy 17. Left wrist surgery x2 18. Bilateral TKR 19. Bladder tumor excision Social history , lives with her No tobacco alcohol Family history No early coronary artery disease Review systems A 10 review systems was undertaken and negative except that described above. Allergies Allergy/AdvReac Type Severity Reaction Status Date / Time lisinopril Allergy Unknown Cough Verified 03/21/21 01:38 codeine AdvReac Mild NAUSEA AND Verified 03/21/21 01:38 VOMITING morphine AdvReac Mild NAUSEA AND Verified 03/21/21 01:38 VOMITING Home Medications Medication Instructions Recorded Confirmed Type omega-3 acid ethyl esters 1 gram 1 cap PO HS cap 12/20/18 03/21/21 History capsule multivitamin (Daily Multi-Vitamin) 1 tab PO QAM 02/04/19 03/21/21 History nystatin 100,000 unit/gram topical 1 appln TOP BID #30 gm 02/04/19 03/21/21 Rx powder hydrochlorothiazide 25 mg tablet 25 mg PO QAM tab 04/24/19 03/21/21 History pantoprazole 20 mg tablet,delayed 20 mg PO QAM tab 04/24/19 03/21/21 History release furosemide 20 mg tablet 20 mg PO DAILY PRN 04/29/19 03/21/21 History timolol maleate 0.5 % eye drops 1 drp OPB HS 02/24/20 03/21/21 History cholecalciferol (vitamin D3) 50 2,000 unit PO QAM cap 04/07/20 03/21/21 History mcg (2,000 unit) capsule amiodarone 200 mg tablet 100 mg PO HS 11/18/20 03/21/21 History cephalexin 250 mg capsule 250 mg PO HS 11/18/20 03/21/21 History oxybutynin chloride 5 mg tablet 5 mg PO Q8H PRN #20 tab 11/23/20 03/21/21 Rx montelukast 10 mg tablet 10 mg PO HS #90 tab 11/30/20 03/21/21 Rx amlodipine 10 mg tablet 10 mg PO QAM #90 tab 12/22/20 03/21/21 Rx valsartan 80 mg tablet 80 mg PO QAM #90 tab 12/24/20 03/21/21 Rx apixaban 5 mg tablet 5 mg PO BID #180 tab 01/15/21 03/21/21 Rx tamsulosin 0.4 mg capsule 0.4 mg PO HS #30 cap 02/24/21 03/21/21 Rx potassium citrate 10 mEq (1,080 10 meq PO QAM 03/21/21 03/21/21 History mg) tablet,extended release Patient History Medical History Atrial flutter CAD (coronary artery disease) Dyslipidemia GERD (gastroesophageal reflux disease) Glaucoma History of cardioversion History of kidney stones Hypertension Morbid obesity Osteoarthritis Paroxysmal atrial fibrillation Prediabetes Recurrent UTI Renal lesion Sarcoidosis Sleep apnea Urge incontinence of urine Urinary frequency Urinary urgency Surgical History History of cardiac cath History of cardiac radiofrequency ablation History of cholecystectomy History of colonoscopy History of esophagogastroduodenoscopy (EGD) History of hysterectomy with unilateral oophorectomy History of left knee surgery History of lithotripsy History of surgery on left wrist History of tooth extraction History of total bilateral knee replacement S/P bladder tumor excision with fulguration Family History Mother Atrial fibrillation Stroke Father No problems noted. Brother Lung cancer Brother Lung cancer Sister Lung cancer Other No family history of adverse response to anesthesia Social History Smoking Status: Never smoker Second Hand Exposure: No; Hx Alcohol Use: No Hx Substance Use: No Preferred Language: Kiswahili Communication Ability: Effective Visual Impairment: No Limitations Chainstitch Binder Required: No Beliefs That Will Affect Care: None Current Living Situation: Spouse Feels Safe at Home: Yes Assistive Devices: Glasses Physical Exam Physical Exam: In general is well-developed well-nourished white no acute distress. HEENT exam is negative. Neck is supple with full carotid upstrokes. There are no carotid bruits. Jugular is pressure is flat at 90. There is no thyromegaly. Cardiovascular exam reveals a regular rhythm with normal sinus 2. Heart sounds are distant. No obvious murmurs. Lungs are clear without rales, rhonchi or wheezes. Abdomen is soft and nontender without bruits. Extremities reveal intact radial artery pulses bilaterally. There is no peripheral edema. Results & Data ([facility]) Vital Signs (Past 12 Hours) Vital Signs Temp Pulse Pulse Resp BP BP BP 03/21/21 11:01 36.6 C 59 L 18 166/93 H 03/21/21 09:38 65 130/80 03/21/21 08:15 70 03/21/21 07:46 36.7 C 70 20 131/81 03/21/21 06:35 36.5 C 76 18 149/89 H 03/21/21 05:00 55 L 17 150/90 H 03/21/21 04:30 53 L 15 03/21/21 04:00 53 L 16 118/80 03/21/21 03:30 61 18 03/21/21 03:00 59 L 16 03/21/21 02:30 67 16 03/21/21 02:00 66 20 03/21/21 01:30 71 18 03/21/21 01:12 36.6 C 71 16 117/75 03/21/21 01:10 120 H 17 Pulse Ox 03/21/21 11:01 96 03/21/21 09:38 03/21/21 08:15 03/21/21 07:46 95 03/21/21 06:35 95 03/21/21 05:00 94 03/21/21 04:30 97 03/21/21 04:00 95 03/21/21 03:30 94 03/21/21 03:00 95 03/21/21 02:30 94 03/21/21 02:00 92 03/21/21 01:30 95 03/21/21 01:12 95 03/21/21 01:10 93 Laboratory Results CBC notes hemoglobin 13.0, hematocrit 30.8, white count 8.4, platelet count [id number]. Electrolytes note a sodium of 136, potassium 3.8, chloride 105, bicarb 27, BUN 27, creatinine 1.1, and glucose 158. Initial troponin was 0.025 with follow-up by 1.29. Diagnostic Findings EKG notes normal sinus rhythm with frequent PACs. Chest x-ray shows no acute disease. PG Care Time/CCT Total # of Minutes Spent Total Time Spent with Patient: Total time spent is greater than 50% in coordination of care (as documented) at patient's floor/unit and/or counseling patient: Coding Level of Care Code 52325 Initial Inpt Care Lvl 3 Diagnoses Chest pain R07.9 Chest pain type: unspecified CAD (coronary artery disease) I25.10 Paroxysmal atrial fibrillation I48.0 (1) Chest pain Chest pain type: unspecified Qualified Code(s): R07.9 - Chest pain, unspecified
--- NOTE | 2021-03-21 12:53 | XCELERA ---
[id number]
--- NOTE | 2021-03-21 13:06 | Electrocardiogram Report ---
Test Reason : Blood Pressure : / mmHG Vent. Rate : 069 BPM Atrial Rate : 069 BPM P-R Int : 180 ms QRS Dur : 096 ms QT Int : 442 ms P-R-T Axes : 069 030 085 degrees QTc Int : 473 ms Sinus rhythm with marked sinus arrhythmia Nonspecific ST abnormality Abnormal ECG When compared with ECG of 25-FEB-2020 15:25, Premature atrial complexes are no longer Present Confirmed by Johnathan Argueta ([id number]) on 03/21/2021 1:05:31 PM Referred By: REFERRED SELF Confirmed By:Johnathan Argueta
--- NOTE | 2021-03-21 13:10 | Electrocardiogram Report ---
Test Reason : Blood Pressure : / mmHG Vent. Rate : 075 BPM Atrial Rate : 075 BPM P-R Int : 184 ms QRS Dur : 104 ms QT Int : 438 ms P-R-T Axes : 065 053 050 degrees QTc Int : 489 ms Normal sinus rhythm Low voltage QRS Prolonged QT Abnormal ECG When compared with ECG of 21-MAR-2021 01:07, (unconfirmed) No significant change was found Confirmed by Johnathan Argueta ([id number]) on 03/21/2021 1:09:57 PM Referred By: REFERRED SELF Confirmed By:Johnathan Argueta
[2021-03-21] MEDS ORDERED: METOPROLOL TARTRATE 25 MG TAB PO SCH (14:30)
[2021-03-21] MEDS: NYSTATIN POWDER 15GM BTL EXT SCH ×2 (14:54→19:33)
[2021-03-21 16:39] LABS: Partial Thromboplastin Ratio 1.4; Partial Thromboplastin Time 37.4 Seconds (21.0-31.0)
[2021-03-21] MEDS ORDERED: HEPARIN SOD (PORCINE) 1000 UNIT/ML IV ONE (17:29)
[2021-03-21] MEDS ORDERED: TAMSULOSIN HCL 0.4 MG CAP PO SCH (21:00)
[2021-03-21] MEDS ORDERED: TIMOLOL MALEATE 0.5% OP SOLN 5 ML BTL OPB SCH (21:00)
[2021-03-21] MEDS ORDERED: cephALEXin 250 MG CAP PO SCH (21:00)
[2021-03-21] MEDS ORDERED: AMIODARONE 200 MG TAB PO SCH (21:00)
[2021-03-21] MEDS ORDERED: MONTELUKAST SODIUM 10 MG TABLET PO SCH (21:00)
[2021-03-22 00:29] LABS: Partial Thromboplastin Ratio 2.4
[2021-03-22 00:30] LABS: Partial Thromboplastin Time 62.5 Seconds (21.0-31.0)
[2021-03-22] MEDS ORDERED: fentaNYL citrate 100 MCG/2 ML VIAL ONE (08:00)
[2021-03-22] MEDS ORDERED: MIDAZOLAM HCL 1 MG/ML 2ML VIAL ONE (08:00)
[2021-03-22] MEDS ORDERED: niCARdipine HCL INJ 2.5 MG/ML 10 ML AMP ONE (08:00)
[2021-03-22] MEDS ORDERED: HEPARIN (PORCINE) 1000 UNIT/ML 10 ML (CATH LAB USE ONLY) ONE (08:00)
[2021-03-22] MEDS ORDERED: NITROGLYCERIN/D5W 100MCG/ML 20ML SYR ONE (08:06)
--- NOTE | 2021-03-22 08:16 | Pre Anesthesia Assessment ---
Date of Service March 22, 2021 Pre Sedation Assessment Vital Signs Temp Pulse Pulse Pulse Resp BP BP 03/22/21 07:49 62 16 141/84 H 03/22/21 07:20 70 03/22/21 03:06 97.5 F L 72 16 132/73 03/21/21 23:32 98.1 F 67 18 149/80 H 03/21/21 22:58 68 03/21/21 19:58 98.2 F 69 18 148/79 H 03/21/21 15:30 98.2 F 55 L 18 03/21/21 15:05 58 L 03/21/21 11:01 97.9 F 59 L 18 166/93 H 03/21/21 09:38 65 130/80 BP Pulse Ox 03/22/21 07:49 94 03/22/21 07:20 03/22/21 03:06 93 03/21/21 23:32 95 03/21/21 22:58 03/21/21 19:58 95 03/21/21 15:30 132/70 94 03/21/21 15:05 03/21/21 11:01 96 03/21/21 09:38 Cardiovascular RRR, no murmur, no edema Respiratory normal respiratory effort, lungs clear to auscultation Pre-Sedation Airway Assessment Smoking Status: Never smoker Hx Sleep Apnea: No Hx Difficult Intubation: No Short, Thick Neck: No Thyromental Distance: > or= 3.5 Finger Breadths Oral Cavity: + Dental Abnormalities Mallampati Class: IV ASA: ASA4 NPO Status Date of Last Intake of Fluids: 03/21/21 Time of Last Intake of Fluids: 21:00 Date of Last Intake of Solid Food: 03/21/21 Time of Last Intake of Solid Foods: 18:30 Procedure Planning Contraindications for Sedation: none Current Medications Reviewed: Yes Notes The planned sedation has been discussed with the patient. Informed Consent was obtained. I have identified the patient, determined the appropriateness of sedation and have assessed the patient immediately prior to the procedure. All medicine(s) and interventions are by my order.
--- NOTE | 2021-03-22 09:02 | Post Anesthesia Assessment ---
Date of Service March 22, 2021 Post Sedation Assessment Vital Signs Temp Pulse Pulse Pulse Resp BP BP 03/22/21 07:49 62 16 141/84 H 03/22/21 07:25 98.8 F 93 H 16 121/76 03/22/21 07:20 70 03/22/21 03:06 97.5 F L 72 16 132/73 03/21/21 23:32 98.1 F 67 18 149/80 H 03/21/21 22:58 68 03/21/21 19:58 98.2 F 69 18 148/79 H 03/21/21 15:30 98.2 F 55 L 18 03/21/21 15:05 58 L 03/21/21 11:01 97.9 F 59 L 18 166/93 H 03/21/21 09:38 65 130/80 BP Pulse Ox 03/22/21 07:49 94 03/22/21 07:25 94 03/22/21 07:20 03/22/21 03:06 93 03/21/21 23:32 95 03/21/21 22:58 03/21/21 19:58 95 03/21/21 15:30 132/70 94 03/21/21 15:05 03/21/21 11:01 96 03/21/21 09:38 Recovery Score Activity: Moves 4 extremities Respiration: Deep Breath/Cough Circulation: +/-20% PreAnes Value Consciousness: Fully Awake Oxygen Saturation: O2 needed for >90% Discharge Sedation Level of Care: Fast Track Phase II Post Sedation Plan On clinical assessment, the patient appears to have tolerated the sedation without complications. Patient is recovering as anticipated. Patient will continue to be monitored by nursing and may be discharged when sedation discharge criteria are met per below protocol. Upon Completions of procedure up to 15 minutes continue every 5 minute vital signs and the P.A.R. score; then discharge to a Phase I or Fast Track to Phase II per the following guidelines: * Discharge Patient to appropriate Phase II area if PAR is 8 or greater or return to pre- procedure baseline. The post - procedure orders will be as directed. * If PAR score is less than 8 or not return to pre-procedure baseline then patient will follow Phase I monitoring till PAR is reached for Phase II. The Phase I may be done in procedure room or may call to secure a Phase I area. * If naloxone or flumazenil are used for reversal, hold in Phase I for continued monitoring from when last reversal dose was given for a minimum of 60 minutes or longer pending the nurse and/or physician discretion of patient condition before discharge to Phase II. Please call the Sedation Physician to re-evaluate and complete post-note for discharge to Phase II area. Do NOT discharge from procedure sedation or Phase 1 until post- sedation evaluation note is complete by procedure /sedation MD Sedation Discharge Instructions to be given to the patient at discharge to home.
--- NOTE | 2021-03-22 09:03 | Cardiac Catheterization ---
[facility] Data: Felled Seam Operator Chainstitch Cardiac Status Clinical evaluation leading to the procedure CAD Presenation: Non STEMI Anginal Classification: CCS IV Heart Failure: No Cardiogenic Shock within 24 Hours: No Cardiac Arrest within 24 Hours: No Imaging Studies Past 6 Months: Yes Stress Studies Past 6 Months: No Diagnostic Physicians Name: Maldonado Mckeon MD Status: Elective Closure Device Percutaneous Entry Location: Radial Closure Device: Radial Band Recommendations: Medical Therapy and/or Counseling Intraprocedure Events Significant Disection: No Perforation: No Cardiac Cath Procedure Full Procedure Date March 22, 2021 Pre-Procedure Diagnosis Pre-Procedure Diagnosis: Non STEMI AUC Score AUC Score: 8 Post-Procedure Diagnosis Post-Procedure Diagnosis: Mild CAD and Elevated Intracardiac Pressures Procedure(s) Performed Procedure(s) Performed: Coronary Angiography and Left Heart Cath Lost Charge Card Clerk Maldonado Mckeon MD Cigar Head Puncher(s) Senior Administrator Support Estimated Blood Loss Estimated Blood Loss: 5 Medication(s) Medication(s): Fentanyl, Heparin, Lidocaine 1%, Nicardipine, Nitroglycerin and Versed Summary of Findings Indication: High risk NSTEMI Access: 6 Fr right radial artery Catheters: [place] Findings: LM -Short, almost separate ostia, no significant disease. LAD -medium caliber, proximal luminal irregularities. Small distal vessel with mild diffuse disease wraps around apex. Medium D1 with 50% ostial disease. Circumflex -medium caliber, no significant disease. Medium OM 2, OM 3 tortuous without disease. RCA -dominant, large caliber, 30% mid segment disease. Medium PDA, PLB's with mild disease. LVEDP -26 Arterial Closure: TR band Summary: 1. Mild nonobstructive coronary artery disease -30% mid RCA 50% ostial first diagonal 2. Elevated intracardiac filling pressure Recommendations: Suspect troponin elevation secondary to transient small vessel obstructive disease vs vasospasm vs atrial fibrillation with RVR. Continue ASCVD risk factor modification Gentle diuresis Can resume anticoagulation with Apixaban tomorrow Hemodynamics Rest Ao:: 120/56/87 Final Ao: 134/64/93 LV: 137/26 Recommendations Recommendations: Medical Therapy and/or Counseling Specimens Specimens: None Radiation Exposure (mGy) 342 Contrast (mls) 40 Fluids (cc crystalloids) Fluids (cc crystalloids): 70 Drains Drains: none Anesthesia moderate [id number] Procedural Complication(s) None Disposition Felled Seam Operator Chainstitch Holding/Recovery I attest to the content of the Intraoperative Record and any orders documented therein. Any exceptions are noted below. [facility] Card Cath Procedure Codes Cardiac Catheterization Procedure 1: Cardiovascular Cath Procedures: 33239 Coronaries and LHC (+/-LV) Moderate Sedation Procedure 1: Sedation/Anesthesia: 79819 Mod Sedation by the same physician;Init15 Min Child Age 5 & Up PG Care Time/CCT Total # of Minutes Spent Total Time Spent with Patient: Total time spent is greater than 50% in coordination of care (as documented) at patient's floor/unit and/or counseling patient:
--- NOTE | 2021-03-22 11:20 | Discharge Summary ---
Date of Service March 22, 2021 Admission HPI Per Admitting Provider Effie Barba is a 80yo female with HTN, HLP, CAD, Atrial fibrillation on anticoagulation with Apixaban presenting with chest pain. Patient was sleeping - woke from sleep with severe, sharp chest pain on left side with radiation to her jaw and left arm. She had associated jaw tightness, no diaphoresis/dizziness/nausea. Had a similar experience years ago - was told it was gas/GI in nature Follows with Dr. Leos - last seen 01/14/21 Cardiac catheterization in 2013 with mild, nonobstructive disease Patient states that she gets SOB with exertion, more pronounced over the last several weeks. No additional complaints Principal Diagnosis Suspected noncardiac chest pain, elevated troponin due to suspected atrial fibrillation with rapid ventricular rate Discharge Exam General-alert and oriented x3, no fevers, no chills HEENT-head atraumatic and normocephalic, TMs intact bilaterally, pupils equal and reactive to light, extraocular muscles intact Neck-no lymphadenopathy or thyromegaly, trachea midline Chest-clear to auscultation percussion. No rales wheezing or rhonchi Cardiac-regular rate and rhythm, normal S1 and S2, no murmurs Abdomen-normal bowel sounds, nontender, no hepatosplenomegaly Extremities-no cyanosis, clubbing, or edema Neuro-cranial nerves II through XII intact, motor and sensory function within normal limits, strength symmetrical 5/5, no focal deficits Psych-normal affect, normal mood Discharge Data Allergies Allergy/AdvReac Type Severity Reaction Status Date / Time codeine AdvReac Mild NAUSEA AND Verified 03/21/21 01:38 VOMITING lisinopril AdvReac Mild Cough Verified 03/22/21 07:09 morphine AdvReac Mild NAUSEA AND Verified 03/21/21 01:38 VOMITING Consultations 03/21/21 03:26 ED Decision to Admit Stat 03/21/21 08:32 Consult Cardiology Stat 03/21/21 08:42 Consult Cardiology Routine Procedures Performed Operation Date: 03/22/21 08:00 Actual Procedures s Cineradiography w/Routine Exam - Fred Mckeon MD p Cath, Left with Cors and Vent - Fred Mckeon MD Ordered Studies 03/22/21 07:11 CL Cath Imgs for PACS use only Routine Hospital Course (1) Chest pain: Ruled out ACS with noncritical heart cath 03/22 -troponin elevation suspected forn atrial fib with transient RVR -Telemetry monitoring -2D echo negative for RWMA -Heparin gtt discontinued (2) Paroxysmal atrial fibrillation: Chronic. Transient RVR probably caused troponin elevation. -Continue Apixaban -Continue Amiodarone (3) GERD (gastroesophageal reflux disease): Chronic -Continue Protonix (4) Dyslipidemia: Chronic -resume fish oil at discharge (5) Hypertension: Chronic -Continue Amlodipine, HCTZ, Valsartan -Continue to monitor Keflex daily for UTI suppression Total Time Total Time Spent Total Time Spent (In Minutes): 35 Discharge Plan Discharge Items Patient Disposition: Home - Self-Care Reason For Visit: CHEST PAIN Discharge Diagnosis: Noncardiac chest pain, atrial fibrillation with rapid ventricular rate (transient), troponin elevation Activity: Resume your previous activity Non-emergency contact: Primary Care Provider Call non-emergency contact if: you have any medication questions Follow-up/Referrals: [place] [Primary Care Provider] - Diet: Heart Healthy Addtl Attending Provider Instructions: Take aspirin 81 mg daily along with other medications. Use sublingual nitroglycerin as needed for chest discomfort as directed Pending Studies at Discharge: No Stand-Alone Forms: My shopa, Smoking Cessation Medications and DC Order Prescriptions: New nitroglycerin [Nitrostat] 0.4 mg Tablet, Sublingual 0.4 mg sublingual Q5M PRN (Reason: chest pain) Qty: 25 RF: 0 aspirin [Aspirin Low Dose] 81 mg tablet,delayed release (DR/EC) 81 mg PO DAILY Qty: 100 RF: 0 Continued montelukast 10 mg tablet 10 mg PO HS Qty: 90 RF: 1 amlodipine 10 mg tablet 10 mg PO QAM Qty: 90 RF: 3 valsartan 80 mg tablet 80 mg PO QAM Qty: 90 RF: 3 tamsulosin 0.4 mg capsule 0.4 mg PO HS Qty: 30 RF: 2 omega-3 acid ethyl esters 1 gram capsule 1 cap PO HS RF: 0 hydrochlorothiazide 25 mg tablet 25 mg PO QAM RF: 0 pantoprazole 20 mg tablet,delayed release (DR/EC) 20 mg PO QAM RF: 0 apixaban 5 mg tablet 5 mg PO BID Qty: 180 RF: 3 multivitamin [Daily Multi-Vitamin] tablet 1 tab PO QAM RF: 0 nystatin 100,000 unit/gram powder 1 appln TOP BID Qty: 30 RF: 3 furosemide 20 mg tablet 20 mg PO DAILY PRN (Reason: Fluid Retention) RF: 0 cholecalciferol (vitamin D3) 50 mcg (2,000 unit) capsule 2,000 unit PO QAM RF: 0 timolol maleate 0.5 % drops 1 drp OPB HS RF: 0 amiodarone 200 mg tablet 100 mg PO HS RF: 0 cephalexin 250 mg capsule 250 mg PO HS RF: 0 oxybutynin chloride 5 mg tablet 5 mg PO Q8H PRN (Reason: bladder spasms) Qty: 20 RF: 0 potassium citrate 10 mEq (1,080 mg) tablet extended release 10 meq PO QAM RF: 0 Discharge Orders: Discharge Order (Routine); Ordered 03/22/21 Ordered By: Tavares Mercado Admission Data Admit Date/Time: 03/21/21 10:43 Attending Provider: Tavares Mercado Admit Provider: Etelvina Morales Primary Care Provider: [place] Other Providers: Etelvina Morales ; Johnathan Argueta ; Fred Mckeon Coding Level of Care Code 71330 OBS Care - Discharge Diagnoses Chest pain R07.9 Chest pain type: unspecified Paroxysmal atrial fibrillation I48.0 GERD (gastroesophageal reflux disease) K21.9 Dyslipidemia E78.5 Hypertension I10 Time Spent (min) 35
== END 2021-03-22 13:18 | disposition home or self-care (01) | DRG 287 ==
LOC: EDINP 01:01 → ED 01:01 → SUATTDRO 03:34 → EDINP 05:21 → 2N 06:25 → SUATTDRO 10:43

== ENCOUNTER 2023-12-27 14:30 | Inpatient (IN) ==
--- NOTE | 2023-12-27 14:42 | Emergency Department Note ---
Impression & Plan Atrial fibrillation with RVR, Acute heart failure with preserved ejection fraction ED Provider Note NAME: WALLACE RFENCH AGE: 83 SEX: F : 1940 ARRIVES VIA: Walk-In INFORMANT: Patient, ED PROVIDER(S): Mac Felix MD CHIEF COMPLAINT: Shortness of breath, leg swelling MEDICAL DECISION MAKING: Patient presented due to concern for increasing shortness of breath left lower extremity weeping and atrial fibrillation. The patient was ordered IV Lasix and IV Lopressor. Blood work was obtained. Patient's EKG did show A-fib with RVR. The patient has a normal white count H&H and platelet count. The patient's kidney function is unremarkable. BNP 306 troponin negative. TSH normal. Patient's urinalysis shows some blood and whites along with leuks. Patient denies any current symptoms at this time. Critical Care: I have personally spent 36 minutes of critical care time in direct management of this patient. This includes bedside care, interpretation of diagnostic studies, and testing, discussion with consultants, patient, and family members, and other require inpatient management activities. This 36 minutes is in excess of all separately billable procedures. Discussion w/ other healthcare providers: ALIE Tomas PA-C and Dr. Hung inpatient medicine service Prior outside records reviewed Patient is on Eliquis. The patient does follow with [facility] cardiology. I did review a cardioversion note from September 28. Post cardioversion EKG showed sinus. Patient reports that she does not know when she is in A-fib. Patient reports that she is on Eliquis. I did review part of her wellness visit from Dr. Martínez from September 04, 2023. Patient was seen for Medicare annual wellness exam history of dyslipidemia NSTEMI DEXA small atrial fib and flutter CAD GERD hypertension. Differential diagnosis: Reactive airway disease, pneumonia, pneumothorax, COPD, CHF, ACS, pulmonary embolism, musculoskeletal, GERD as well as other pathologies were considered. Diagnostics, as interpreted by me: ECG: A-fib RVR, rate 128, normal axis. No obvious ST elevations. Cardiac monitoring: An order was placed for continuous cardiac monitoring. The monitor shows a rate of 122 with tachycardic and irregular irregular rhythm. Patient was placed on pulse oximetry Medical decision rules: None Imaging studies: I informally interpreted the patient's chest x-ray without obvious pneumonia or pneumothorax with formal report to follow. HPI: Patient presents after being seen in primary care clinic and was referred here for further evaluation and treatment for ongoing shortness of breath worsening leg swelling and weight gain. The patient states that she has had about a 12 pound weight gain with worsening exertional dyspnea ongoing the last several weeks. Patient states that she did have a recent renal biopsy and does not yet know the results but did report that she was told to stop taking her diuretics for about 4 to 5 days. Patient denies any increase in salt or processed foods in the diet. Patient denies any chest pains. The patient is also reported that she has had some weeping emanating from the left lower extremity which she only noticed as her pants are getting wet. Patient states that she is compliant with her medications. Patient denies any cough or fever. Patient does complain of MOSLEY significant PND.Patient did go to clinic today and was referred here. PAST MEDICAL HISTORY: See Below PAST SURGICAL HISTORY: See Below SOCIAL HISTORY: See Below HOME MEDICATIONS: See Below ALLERGIES: See Below VITALS: See Below PHYSICAL EXAMINATION: GENERAL: NAD, non-toxic. Wearing glasses. EYE EXAM: Normal conjunctiva. PERRL, no anisocoria and EOM's grossly intact w/o pain. OROPHARYNX: Moist mucus membranes, grossly normal dentition. NECK: Trachea midline, no stridor. Supple, no nuchal rigidity, no adenopathy, non-tender. No signs of meningismus. FROM of the neck with good chin to chest and neck extension. Positive hepatojugular reflux. LUNGS: Clear to auscultation. Normal chest wall mechanics. HEART: Tachycardic and irregularly irregular, no MRG. ABDOMEN: Abdomen soft, non-tender, no masses, no rebound or guarding. BACK: No CVA TTP. SKIN: No rashes and no bruising. UPPER EXTREMITIES: Upper extremities are grossly normal. LOWER EXTREMITIES: Grossly normal, bilateral lower extremity edema although nonpitting, clear weepage of fluid in the left lower extremity. NEURO EXAM: A&O x3, cranial nerves II-XII grossly intact, normal speech, moves all 4 extremities. Past Med/Surg History Problem List (Updated 12/29/23 @ 07:54 by Mac Felix MD) Morbid obesity with BMI of 45.0-49.9, adult History of cardioversion x4 HTN (hypertension) Atrial fibrillation with RVR (Acute) Acute heart failure with preserved ejection fraction (Acute) Encounter for pre-operative examination Hematuria Kidney mass Lymphadenopathy, hilar Per remote 2019 records Medical History Atrial fibrillation Cardioversion September 2023 Left ear hearing loss Per records Venous reflux Paroxysmal atrial flutter Peripheral vascular disease Morbid obesity Renal lesion Dr. Bronson monitoring GERD (gastroesophageal reflux disease) Dyslipidemia CAD (coronary artery disease) Non-obstructive > follows with Dr. Leos Hx of solitary pulmonary nodule PVD (peripheral vascular disease) Hx of non-ST elevation myocardial infarction (NSTEMI) (2020) pt unaware/denies > states was just an angina attack Osteoarthritis Lumbar stenosis with neurogenic claudication Type 2 diabetes mellitus Diet controlled, no meds Peripheral edema Asthma "Mild" No inhaler Paroxysmal atrial fibrillation Taking Eliquis/metoprolol Follows with [facility] cardio Urge incontinence of urine Urinary frequency Urinary urgency Sarcoidosis Follows with [facility] pulm Sleep apnea Does not tolerate CPAP History of kidney stones Glaucoma Surgical History History of cystoscopy S/P bladder tumor excision with fulguration History of cholecystectomy History of tooth extraction History of left knee surgery History of total bilateral knee replacement History of surgery on left wrist x2 History of hysterectomy with unilateral oophorectomy History of lithotripsy History of esophagogastroduodenoscopy (EGD) History of colonoscopy History of cardiac cath 2020, 2013, 2005- no stents History of cardiac radiofrequency ablation 2020 Family History Mother Atrial fibrillation Stroke Father No problems noted. Brother Lung cancer Brother Lung cancer Sister Lung cancer Other No family history of adverse response to anesthesia Social History Smoking Status: Never smoker Second Hand Exposure: No; Do You Dip or Chew Tobacco: No; Hx Alcohol Use: No Hx Substance Use: No Preferred Language: Sami Communication Ability: Effective Visual Impairment: No Limitations Military Analyst Required: No Beliefs That Will Affect Care: None marital status: Current Living Situation: Spouse current occupational status: retired How many Children do You have: 4 Feels Safe at Home: Yes Safety Concerns: Feels Safe At This Time Childhood Exposure to Second-Hand Smoke: No caffeine: Yes Dental Care, Regularly: Yes Physical Activity Frequency: Does not Exercise Seatbelt Use: always Sunscreen Use: No Assistive Devices: Cane Allergies Allergies Allergy/AdvReac Type Severity Reaction Status Date / Time codeine AdvReac Intermediate N/V Verified 12/27/23 17:23 lisinopril AdvReac Intermediate Cough Verified 12/27/23 17:23 morphine AdvReac Intermediate N/V Verified 12/27/23 17:23 Home Meds Home Medications Medication Instructions Recorded Confirmed multivitamin (Daily Multi-Vitamin 1 tab PO QAM 02/04/19 12/27/23 tablet) timolol maleate 0.5 % eye drops 1 drp OPB HS 02/24/20 12/27/23 cholecalciferol (vitamin D3) 50 2,000 unit PO QAM 04/07/20 12/27/23 mcg (2,000 unit) capsule amiodarone 200 mg tablet (Pacerone) 100 mg PO Q OTHER DAY 08/25/23 12/27/23 clotrimazole-betamethasone 1 1 applic topical HS PRN skin 08/25/23 12/27/23 %-0.05 % topical cream irritation nystatin 100,000 unit/gram topical 1 applic topical TID PRN Skin 08/25/23 12/27/23 powder Irritation aspirin 81 mg tablet,delayed 81 mg PO HS 12/11/23 12/27/23 release (Bailee Low Dose Aspirin) rosuvastatin 5 mg tablet 5 mg PO HS 12/11/23 12/27/23 valsartan 160 mg tablet (Diovan) 160 mg PO HS 12/11/23 12/27/23 apixaban 5 mg tablet (Eliquis) 5 mg PO BID 12/21/23 12/27/23 montelukast 10 mg tablet 10 mg PO HS 12/21/23 12/27/23 (Singulair) Previous Rx's Medication Instructions Recorded nitroglycerin 0.4 mg sublingual 0.4 mg sublingual Q5M PRN chest 03/22/21 tablet (Nitrostat) pain #25 tabs pantoprazole 20 mg tablet,delayed 20 mg PO QAM #90 tabs 11/23/22 release potassium citrate 10 mEq (1,080 10 meq PO BID #180 tabs 11/23/22 mg) tablet,extended release amlodipine 10 mg tablet 10 mg PO QAM #90 tabs 02/01/23 metoprolol tartrate 25 mg tablet 25 mg PO BID #180 tabs 09/12/23 hydrochlorothiazide 25 mg tablet 25 mg PO QAM #90 tabs 10/10/23 furosemide 20 mg tablet 20 mg PO DAILY PRN Fluid Retention 10/17/23 #90 tabs phenazopyridine 200 mg tablet 200 mg PO Q8H PRN pain #10 tabs 12/21/23 (Pyridium) tamsulosin 0.4 mg capsule 0.4 mg PO HS #30 caps 12/21/23 Results & Data (ED) Vital Signs Vital Signs - 24 hr 12/27/23 14:36 Temperature 36.6 C Temperature Source Temporal Artery Scan Pulse Rate 143 H Respiratory Rate 20 Blood Pressure 129/83 Blood Pressure Mean 98 Pulse Oximetry 94 Oxygen Delivery Method Room Air Sepsis Recent Fever Within 48 Hours No Sepsis New/Unexplained Change in Mental Status N/A Sepsis Action Taken by Nursing No Action Required Home Medications Current Medication List: was personally reviewed by me Laboratory Data Attestation: I reviewed the patient's lab results. 12/28/23 06:19 12/28/23 06:19 Lab Results 12/27/23 12/27/23 Range/Units 14:50 16:22 WBC 6.21 (4.8-10.8) K/ul RBC 4.53 (4.20-5.40) M/uL Hgb 14.2 (12.0-16.0) g/dl Hct 42.6 (37.0-47.0) % MCV 94.0 (80.0-100.0) fL MCH 31.3 (25.0-34.0) pg MCHC 33.3 (32.0-36.0) g/dL RDW Std Deviation 44.7 (36.4-46.3) fL RDW Coeff of Twan 13.1 (11.5-14.5) % Plt Count 232 (130-400) K/uL MPV 10.8 (9.4-12.4) fL Immature Gran % (Auto) 0.6 % Neut % (Auto) 69.2 % Lymph % (Auto) 16.1 % [place] % (Auto) 11.8 % Eos % (Auto) 1.8 % Baso % (Auto) 0.5 % Neut # (Auto) 4.30 (1.40-6.50) K/uL Lymph # (Auto) 1.00 L (1.20-3.40) K/uL [place] # (Auto) 0.73 H (0.11-0.59) K/uL Eos # (Auto) 0.11 (0.00-0.50) K/uL Baso # (Auto) 0.03 (0.00-0.20) K/uL Immature Gran # (Auto) 0.04 (0.01-0.20) K/uL PT 11.5 (9.0-12.0) Seconds INR 1.1 (0.9-1.1) APTT 26 (21-31) Seconds PTT Ratio 1.0 Sodium 139 (136-145) mmol/L Potassium 3.4 L (3.5-5.1) mmol/L Chloride 102 (98-107) mmol/L Carbon Dioxide 25 (21-32) mmol/L Anion Gap 12 H (3-11) BUN 18 (6-23) mg/dl Creatinine 1.10 (0.6-1.2) mg/dl Est Cr Clr Drug Dosing 47.4 ml/min Est GFR ( Amer) 54.5 ml/min Est GFR (Non-Af Amer) 47.0 ml/min BUN/Creatinine Ratio 16.4 (10-20) Glucose 154 H (70-99(Fasting)) mg/dl Calcium 9.3 (8.6-10.3) mg/dl Phosphorus 2.4 L (2.5-4.9) mg/dl Magnesium 1.7 (1.7-2.4) mg/dl Total Bilirubin 0.8 (0.2-1.0) mg/dl AST 17 (13-39) U/L ALT 18 (7-52) U/L Alkaline Phosphatase 56 (34-104) U/L Troponin I High Sens 4.0 (0-14) pg/ml B-Natriuretic Peptide 306 H (0-100) pg/ml Total Protein 6.9 (6.0-8.3) gm/dl Albumin 4.2 (3.4-5.0) gm/dl Globulin 2.7 (2.5-4.0) gm/dl Albumin/Globulin Ratio 1.6 (0.9-2) TSH 1.518 (0.300-4.500) uIu/ml Urine Color Yellow Urine Appearance Clear (Clear) Urine pH 6.5 (4.5-7.5) Ur Specific [place] 1.008 (1.000-1.030) Urine Protein Negative (Negative) Urine Glucose (UA) Negative (Negative) Urine Ketones Negative (Negative) Urine Blood 3+ H (Negative) Urine Nitrite Negative (Negative) Urine Bilirubin Negative (Negative) Urine Urobilinogen Negative (Negative) Ur Leukocyte Esterase 2+ H (Negative) Urine WBC (Auto) 6-10 H (0-5) /hpf Urine RBC (Auto) >20 H (0-2) /hpf U Hyaline Cast (Auto) 0-2 (0-2) /lpf U Epithel Cells (Auto) 0-2 (0-2) /hpf Urine Bacteria (Auto) None Seen (None Seen) Administered Medications Amiodarone HCl (Amiodarone 200 Mg Tab) [address] [facility] Stop: 01/27/24 09:44 Last Admin: 12/28/23 10:43 Dose: 200 mg Documented By: JORDAN Apixaban (Apixaban 5 Mg Tablet) 5 mg PO BID [facility] Stop: 01/26/24 20:59 Last Admin: 12/28/23 20:50 Dose: 5 mg Documented By: Admin: 12/28/23 08:49 Dose: 5 mg Documented By: Admin: 12/27/23 21:47 Dose: 5 mg Documented By: CAREN Aspirin (Aspirin 81 Mg Ectab) 81 mg PO HS [facility] Stop: 01/26/24 20:59 Last Admin: 12/28/23 20:50 Dose: 81 mg Documented By: Admin: 12/27/23 21:48 Dose: 81 mg Documented By: CAREN Furosemide (Furosemide 40 Mg/4 Ml Vial) [address] [facility] Stop: 01/27/24 08:59 Last Admin: 12/28/23 08:50 Dose: 40 mg Documented By: JORDAN Hydrochlorothiazide (Hydrochlorothiazide 25 Mg Tab) [address] [facility] Stop: 01/27/24 08:59 Last Admin: 12/28/23 08:48 Dose: 25 mg Documented By: JORDAN Metoprolol Tartrate (Metoprolol Tartrate 25 Mg Tab) 25 mg PO BID [facility] Stop: 01/26/24 20:59 Last Admin: 12/28/23 20:51 Dose: 25 mg Documented By: Admin: 12/28/23 08:49 Dose: 25 mg Documented By: Admin: 12/27/23 22:00 Dose: 25 mg Documented By: CAREN Montelukast Sodium (Montelukast Sodium 10 Mg Tablet) 10 mg PO [facility] Stop: 01/26/24 20:59 Last Admin: 12/28/23 20:51 Dose: 10 mg Documented By: Admin: 12/27/23 21:53 Dose: 10 mg Documented By: CAREN Pantoprazole Sodium (Pantoprazole 40 Mg Tab) 40 mg PO QA [facility] Stop: 01/27/24 08:59 Last Admin: 12/28/23 08:49 Dose: 40 mg Documented By: JORDAN Potassium Chloride (Potassium Chloride Crtab 20 Meq Tabcr) 20 meq PO BID [facility] Stop: 01/26/24 20:59 Last Admin: 12/28/23 20:55 Dose: 20 meq Documented By: Admin: 12/28/23 08:51 Dose: 20 meq Documented By: Admin: 12/27/23 22:03 Dose: 20 meq Documented By: CAERN Rosuvastatin Calcium (Rosuvastatin Calcium 5 Mg Tab) 5 mg PO [facility] Stop: 01/26/24 20:59 Last Admin: 12/28/23 20:50 Dose: 5 mg Documented By: Admin: 12/27/23 21:50 Dose: 5 mg Documented By: CAREN Tamsulosin HCl (Tamsulosin Hcl 0.4 Mg Cap) 0.4 mg PO [facility] Stop: 01/26/24 20:59 Last Admin: 12/28/23 20:50 Dose: 0.4 mg Documented By: Admin: 12/27/23 21:51 Dose: 0.4 mg Documented By: CAREN Valsartan (Valsartan 80 Mg Tab) 160 mg PO [facility] Stop: 01/26/24 20:59 Last Admin: 12/28/23 21:18 Dose: 160 mg Documented By: Admin: 12/27/23 21:54 Dose: 160 mg Documented By: CAREN Vitamin D (Cholecalciferol 25 Mcg (1000 Units) Tab) 50 mcg PO QAM [facility] Stop: 01/27/24 08:59 Last Admin: 12/28/23 08:50 Dose: 50 mcg Documented By: JORDAN Discontinued Medications Amiodarone HCl (Amiodarone 200 Mg Tab) 100 mg PO Q48H [facility] Stop: 01/27/24 20:59 Last Admin: 12/27/23 21:48 Dose: 100 mg Documented By: CAREN Furosemide (Furosemide 40 Mg/4 Ml Vial) 40 mg IV ONE ONE Stop: 12/27/23 15:03 Last Admin: 12/27/23 15:13 Dose: 40 mg Documented By: JOO Magnesium Sulfate/Dextrose (Magnesium Sulfate / D5w) 1 gm in 100 mls @ 50 mls/hr IV ONE ONE Stop: 12/28/23 00:14 Last Infusion: 12/28/23 02:54 Dose: Infused Documented By: Admin: 12/28/23 00:51 Dose: 50 mls/hr Documented By: CAREN Metoprolol Tartrate (Metoprolol Tartrate 1 Mg/Ml Vial) 5 mg IV NOW STA Stop: 12/27/23 15:03 Last Admin: 12/27/23 15:13 Dose: 5 mg Documented By: JOO Potassium Chloride (Potassium Chloride Crtab 20 Meq Tabcr) 40 meq PO NOW STA Stop: 12/28/23 09:36 Last Admin: 12/28/23 10:45 Dose: 40 meq Documented By: JORDAN Imaging Data Radiologist's Impression: Chest X-Ray 12/27/23 15:02 XR chest 1V portable CLINICAL HISTORY: Dyspnea. COMPARISON STUDY: Chest radiograph August 25, 2023. FINDINGS: Lung volumes are normal. Lungs are clear. There is no pneumothorax or pleural effusion. Cardiomegaly is unchanged. Mitral annular calcification is again noted. Mediastinal contours are normal. There is no evidence for pulmonary edema. IMPRESSION: No acute cardiopulmonary findings. ACT 112: Negative or not required by law. Electronically signed by: Grady Brand M.D. 12/27/2023 4:02 PM Discharge Plan Visit Data Chief Complaint: Referred by Doctor Stated Complaint: REFERRED BY /HEART/L LEG DRAINING ED Provider: Mac Felix Discharge Problem: Atrial fibrillation with RVR, Acute heart failure with preserved ejection fraction Patient Disposition: Admitted As Inpatient Discharge Instructions Interventions: ED Discharge Assessment Last Done: 12/27/23 18:30
[2023-12-27] MEDS: FUROSEMIDE 40 MG/4 ML VIAL IV ONE (15:13)
[2023-12-27] MEDS: METOPROLOL TARTRATE 1 MG/ML VIAL IV STA (15:13)
[2023-12-27 15:23] LABS: Basophils # (auto) 0.03 K/uL (0.00-0.20); Basophils % (auto) 0.5 %; Eosinophils # (auto) 0.11 K/uL (0.00-0.50); Eosinophils % (auto) 1.8 %; Hematocrit (blood only) 42.6 % (37.0-47.0); Hemoglobin 14.2 g/dl (12.0-16.0); Immature Granulocytes # (auto) 0.04 K/uL (0.01-0.20); Immature Granulocytes % (auto) 0.6 %; Lymphocytes % (auto) 16.1 %; Mean Corpuscular Hemoglobin 31.3 pg (25.0-34.0); Mean Corpuscular Hgb Conc 33.3 g/dL (32.0-36.0); Mean Platelet Volume 10.8 fL (9.4-12.4); Monocytes # (auto) 0.73 K/uL (0.11-0.59); Monocytes % (auto) 11.8 %; Neutrophils % (auto) 69.2 %; Platelet Count 232 K/uL (130-400); RDW Coefficient of Variation 13.1 % (11.5-14.5); RDW Standard Deviation 44.7 fL (36.4-46.3); Red Blood Count 4.53 M/uL (4.20-5.40); White Blood Count 6.21 K/ul (4.8-10.8)
[2023-12-27 15:40] LABS: Albumin Globulin Ratio 1.6 (0.9-2); Albumin Level 4.2 gm/dl (3.4-5.0); BUN Creatinine Ratio 16.4 (10-20); Bilirubin,Total 0.8 mg/dl (0.2-1.0); Calcium 9.3 mg/dl (8.6-10.3); Creatinine Clr Calc Pharmacy 47.4 ml/min; Est GFR (African American) 54.5 ml/min; Globulin 2.7 gm/dl (2.5-4.0); Magnesium 1.7 mg/dl (1.7-2.4); Phosphorus 2.4 mg/dl (2.5-4.9); Potassium 3.4 mmol/L (3.5-5.1); Total Protein 6.9 gm/dl (6.0-8.3)
[2023-12-27 15:51] LABS: INR 1.1 (0.9-1.1); Partial Thromboplastin Time 26 Seconds (21-31); Prothrombin Time 11.5 Seconds (9.0-12.0)
--- NOTE | 2023-12-27 16:04 | XRay Report ---
XR chest 1V portable CLINICAL HISTORY: Dyspnea. COMPARISON STUDY: Chest radiograph August 25, 2023. FINDINGS: Lung volumes are normal. Lungs are clear. There is no pneumothorax or pleural effusion. Car diomegaly is unchanged. Mitral annular calcification is again noted. Mediastinal contours are normal. There is no evidence for pulmonary edema. IMPRESSION: No acute cardiopulmonary findings. ACT 112: Negative or not required by law. Electronically signed by: Grady Brand M.D. 12/27/2023 4:02 PM
--- NOTE | 2023-12-27 16:22 | History & Physical Report ---
Date of Service December 27, 2023 Assessment & Plan (1) Atrial fibrillation with RVR: Plan: Patient presented at the behest of her PCP on 12/26 due to concern elevated heart rate and CHF flare A-fib RVR up to 143 bpm on arrival Patient was last cardioverted in September 2023 TSH ordered, pending Metoprolol 5 mg IV q6h as needed for heart rate >120bpm Continue metoprolol Continue amiodarone HS (patient takes it every other day; last taken the evening of 12/25) Continuous telemetry monitoring Will make NPO at midnight in the event cardioversion is required A.m. CBC, BMP, mag (2) Acute heart failure with preserved ejection fraction: Plan: 12 pound weight gain; worsening LE edema and MOSLEY x 3 days Last echocardiogram in March 2021 revealed LVEF at 55 to 60% Repeat echocardiogram planned for the morning of 12/27 (once patient's heart rate is under control) CXR without signs of pulmonary edema BNP elevated at 306 (most recently 243 on 09/04/2023) Daily weights Strict I&O monitoring Heart healthy, low-sodium diet (1800 mL fluid restriction) Increase Lasix from 20mg daily --> 40mg IV QAM Increase K 10->20mEq BID Continue HCTZ 25mg p.o. daily (3) Hematuria: Plan: Stent placed with Dr. Bronson on 12/20 Patient was discharged on ciprofloxacin 500 mg p.o. x 5 days 3+ blood on UA She does endorse gross hematuria and dysuria Hgb 14.2 on arrival Will continue Eliquis for now in the setting of A-fib RVR (4) HTN (hypertension): Plan: Continue metoprolol, valsartan Hold amlodipine in the setting of significant lower extremity edema and hypotension in the ED Plan Disposition: Admit to PCU telemetry DNR/DNI Heart healthy, low-sodium diet (1800 mL fluid restriction) VTE PPx: On Eliquis History of Present Illness Chief Complaint: Referred by Doctor Primary Care Provider: DO Effie Prasad is an 83-year-old female with PMH of atrial fibrillation (on Eliquis), T2DM, asthma, urge incontinence, recurrent UTIs, sleep apnea, glaucoma, CAD, dyslipidemia, GERD, and renal lesion. She presented on 12/26 at the behest of her PCP for rapid heart rate and worsening MOSLEY. Patient reports that she went to her PCP due to weight being in her left lower extremity. Her lower extremities have been swelling over the past 3 days. She also notes a 12 pound weight gain recently; she is unsure of timeline, but she has gained 3 pounds over the past week despite not eating much. Patient does watch her salt intake. She notes that she has trouble breathing only with exertion; never at rest. SOB is also present when she lies flat on her back; she notes this can lead to wheezing. She ambulates with a cane at baseline. She does have a history of atrial fibrillation, but is not sure when she goes into a fast rhythm. She denies any chest palpitations. Sick contacts include being around the baby yesterday. No supplemental oxygen at baseline. No CPAP at night. No history of cellulitis on the legs, and she notes that her dog sometimes sleeps across her legs and they at 1 point thought it was poison elizabet. No history of DVTs and she reports good compliance with her Eliquis. Patient normally takes Lasix 20 mg p.o. as needed, but reports she has been taking it daily over the last several days due to lower extremity edema. Additionally, patient had a stent placed last and has not been having dark urine/blood in urine, as well as dysuria and burning with urination since. Patient denies smoking, tobacco use, recent alcohol use. Patient is tachycardic at 143 bpm and hypotensive at 94/80 at time of admission. ED course: Metoprolol 5 mg IV Lasix 40 mg IV ROS: Patient endorses MOSLEY, LE edema, constipation after stent placement (resolved), burning with urination, dysuria, blood in urine, and neuropathy in the hands and feet. Patient denies fever, chills, night-sweats, dizziness/lightheadedness with walking, BRAVO, chest pain, chest palpitations, SOB at rest, cough, pleuritic CP, abdominal pain, and N/V/D. Allergies Allergy/AdvReac Type Severity Reaction Status Date / Time codeine AdvReac Intermediate N/V Verified 12/27/23 17:23 lisinopril AdvReac Intermediate Cough Verified 12/27/23 17:23 morphine AdvReac Intermediate N/V Verified 12/27/23 17:23 Home Medications Medication Instructions Recorded Confirmed Type multivitamin (Daily Multi-Vitamin 1 tab PO QAM 02/04/19 12/27/23 History tablet) timolol maleate 0.5 % eye drops 1 drp OPB HS 02/24/20 12/27/23 History cholecalciferol (vitamin D3) 50 2,000 unit PO QAM 04/07/20 12/27/23 History mcg (2,000 unit) capsule nitroglycerin 0.4 mg sublingual 0.4 mg sublingual Q5M PRN chest 03/22/21 12/27/23 Rx tablet (Nitrostat) pain #25 tabs pantoprazole 20 mg tablet,delayed 20 mg PO QAM #90 tabs 11/23/22 12/27/23 Rx release potassium citrate 10 mEq (1,080 10 meq PO BID #180 tabs 11/23/22 12/27/23 Rx mg) tablet,extended release amlodipine 10 mg tablet 10 mg PO QAM #90 tabs 02/01/23 12/27/23 Rx amiodarone 200 mg tablet (Pacerone) 100 mg PO Q OTHER DAY 08/25/23 12/27/23 History clotrimazole-betamethasone 1 1 applic topical HS PRN skin 08/25/23 12/27/23 History %-0.05 % topical cream irritation nystatin 100,000 unit/gram topical 1 applic topical TID PRN Skin 08/25/23 12/27/23 History powder Irritation metoprolol tartrate 25 mg tablet 25 mg PO BID #180 tabs 09/12/23 12/27/23 Rx hydrochlorothiazide 25 mg tablet 25 mg PO QAM #90 tabs 10/10/23 12/27/23 Rx furosemide 20 mg tablet 20 mg PO DAILY PRN Fluid Retention 10/17/23 12/27/23 Rx #90 tabs aspirin 81 mg tablet,delayed 81 mg PO HS 12/11/23 12/27/23 History release (Bailee Low Dose Aspirin) rosuvastatin 5 mg tablet 5 mg PO HS 12/11/23 12/27/23 History valsartan 160 mg tablet (Diovan) 160 mg PO HS 12/11/23 12/27/23 History apixaban 5 mg tablet (Eliquis) 5 mg PO BID 12/21/23 12/27/23 History montelukast 10 mg tablet 10 mg PO HS 12/21/23 12/27/23 History (Singulair) phenazopyridine 200 mg tablet 200 mg PO Q8H PRN pain #10 tabs 12/21/23 12/27/23 Rx (Pyridium) tamsulosin 0.4 mg capsule 0.4 mg PO HS #30 caps 12/21/23 12/27/23 Rx Past Med/Surg History Problem List (Updated 12/27/23 @ 17:07 by Omar Tomas PA-C) History of cardioversion x4 HTN (hypertension) Atrial fibrillation with RVR Acute heart failure with preserved ejection fraction Encounter for pre-operative examination Hematuria Kidney mass Lymphadenopathy, hilar Per remote 2019 records Medical History (Updated 12/27/23 @ 17:07 by Omar Tomas PA-C) Atrial fibrillation Cardioversion September 2023 Left ear hearing loss Per records Venous reflux Paroxysmal atrial flutter Peripheral vascular disease Morbid obesity Renal lesion Dr. Bronson monitoring GERD (gastroesophageal reflux disease) Dyslipidemia CAD (coronary artery disease) Non-obstructive > follows with Dr. Leos Hx of solitary pulmonary nodule PVD (peripheral vascular disease) Hx of non-ST elevation myocardial infarction (NSTEMI) (2020) pt unaware/denies > states was just an angina attack Osteoarthritis Lumbar stenosis with neurogenic claudication Type 2 diabetes mellitus Diet controlled, no meds Peripheral edema Asthma "Mild" No inhaler Paroxysmal atrial fibrillation Taking Eliquis/metoprolol Follows with [facility] cardio Urge incontinence of urine Urinary frequency Urinary urgency Sarcoidosis Follows with [facility] pulm Sleep apnea Does not tolerate CPAP History of kidney stones Glaucoma Surgical History (Updated 12/27/23 @ 17:07 by Omar Tomas PA-C) History of cystoscopy S/P bladder tumor excision with fulguration History of cholecystectomy History of tooth extraction History of left knee surgery History of total bilateral knee replacement History of surgery on left wrist x2 History of hysterectomy with unilateral oophorectomy History of lithotripsy History of esophagogastroduodenoscopy (EGD) History of colonoscopy History of cardiac cath 2020, 2013, 2005- no stents History of cardiac radiofrequency ablation 2020 Family History Mother Atrial fibrillation Stroke Father No problems noted. Brother Lung cancer Brother Lung cancer Sister Lung cancer Other No family history of adverse response to anesthesia Social History Smoking Status: Never smoker Second Hand Exposure: No; Do You Dip or Chew Tobacco: No; Hx Alcohol Use: No Hx Substance Use: No Preferred Language: Danish Communication Ability: Effective Visual Impairment: No Limitations Post Form Remover Required: No Beliefs That Will Affect Care: None marital status: Current Living Situation: Spouse current occupational status: retired How many Children do You have: 4 Feels Safe at Home: Yes Safety Concerns: Feels Safe At This Time Childhood Exposure to Second-Hand Smoke: No caffeine: Yes Dental Care, Regularly: Yes Physical Activity Frequency: Does not Exercise Seatbelt Use: always Sunscreen Use: No Assistive Devices: Cane and Glasses Review of Systems Review of Systems: See HPI above Physical Exam Physical Exam: General: no acute distress; pleasant affect; non-toxic appearing; well- nourished; cooperative; SpO2 98% on RA HEENT: normocephalic, atraumatic; no scleral icterus; PERRLA; vision and hearing grossly intact Neck: supple; no lymphadenopathy; trachea midline Skin: warm, dry without signs of tenting; no cyanosis; no rashes, bruising, lesions, or erythema noted CV: chest wall NTP; irregularly irregular rhythm tachycardic around 135 bpm; S1/S2 normal; no murmurs/rubs/gallops; pulses intact and symmetric at radial, DP, and PT Lungs: no acute respiratory distress; symmetrical chest wall expansion; clear breath sounds across all lung pedro w/o adventitious sounds; no wheezing ABD: Soft, NTP; BS present; no rebound/guarding; no distention MSK: no tics or fasciculations; +1 pitting edema in the lower extremities bilaterally; nonerythematous; weeping noted on the lateral aspect of the left lower extremity Neuro: A&Ox3; normal mood and affect; fluent speech; no focal deficits; sensation grossly intact in the LEs b/l Results & Data Results & Data Vital Signs (Past 12 Hours) Vital Signs Temp Pulse Pulse Resp BP BP Pulse Ox 12/27/23 15:13 143 H 94/80 L 12/27/23 15:08 130 H 94/80 L 12/27/23 15:07 127 H 107/83 12/27/23 15:03 141 H 12/27/23 14:36 36.6 C 143 H 20 129/83 94 O2 Del Method 12/27/23 15:13 12/27/23 15:08 12/27/23 15:07 12/27/23 15:03 12/27/23 14:36 Room Air Laboratory Results Abnormal lab results 12/27/23 Range/Units 14:50 Lymph # (Auto) 1.00 L (1.20-3.40) K/uL Gregg # (Auto) 0.73 H (0.11-0.59) K/uL Potassium 3.4 L (3.5-5.1) mmol/L Anion Gap 12 H (3-11) Glucose 154 H (70-99(Fasting)) mg/dl Phosphorus 2.4 L (2.5-4.9) mg/dl B-Natriuretic Peptide 306 H (0-100) pg/ml Diagnostic Findings Chest X-Ray 12/27/23 15:02 XR chest 1V portable CLINICAL HISTORY: Dyspnea. COMPARISON STUDY: Chest radiograph August 25, 2023. FINDINGS: Lung volumes are normal. Lungs are clear. There is no pneumothorax or pleural effusion. Cardiomegaly is unchanged. Mitral annular calcification is again noted. Mediastinal contours are normal. There is no evidence for pulmonary edema. IMPRESSION: No acute cardiopulmonary findings. ACT 112: Negative or not required by law. Electronically signed by: Grady Brand M.D. 12/27/2023 4:02 PM ECG Additional Comments: ECG revealed atrial fibrillation with RVR at 128 bpm; QTc 505 (caution use of QT prolonging agents) Code Status & VTE Plan Code Status DNR/DNI VTE Prophylaxis Plan VTE Prophylaxis will be ordered: Yes Supervising Physician Co-Signing Physician Notes Patient seen and examined, chart reviewed, case discussed with Omar Tomas PA-C and I agree with the assessment and plan as above except as otherwise noted Labs and images reviewed Effie is a 83-year-old female with a past medical history of type II DM, CAD, paroxysmal A-fib on Eliquis, KAT, recurrent UTIs, hyperlipidemia who is seen as an outpatient for? Sepsis due to either UTI versus cellulitis, and office concern for A-fib with RVR with acute on chronic heart failure with weight gain and edema noted, was referred to the ER for further care. In the ER she reports 12 pound weight gain, worsened exertional dyspnea over several weeks, has not been taking her diuretics for several days after a renal biopsy was taken. She has also left lower extremity weeping from fluid accumulation. She is hypotensive 94/80, tachycardic in the 140s. Received Lasix and metoprolol in the ER. She does not have a leukocytosis. BNP is elevated at 306, troponin is normal. Chest x-ray is without acute findings. EKG is A-fib with RVR. Review of nephrology note, s/p cystoscopy with right uteroscopy, ureteral stent placement, ureteral biopsy due to renal lesion. Path review from 12/20 ureteral samples show minute fragments of vaguely polypoid urothelium, extremely small and show some chronic inflammation and polypoid architecture although with features of low-grade lesion not definitively seen Agree with A-fib RVR treatment as above. Clinically is volume elevated, will continue diuresis as noted. PG Care Time/CCT Total # of Minutes Spent Total Time Spent with Patient: Total time spent is greater than 50% in coordination of care (as documented) at patient's floor/unit and/or counseling patient: Coding [place] [address] INT INP/OBS CARE 3/75MIN Patient Type Established Medical Decision Making High Complexity Diagnoses Atrial fibrillation with RVR I48.91 Acute heart failure with preserved ejection fraction I50.31 Hematuria R31.9 HTN (hypertension) I10
[2023-12-27 16:59] LABS: Appearance Urine Clear (Clear); Bacteria Urine Automated None Seen (None Seen); Bilirubin Urine Negative (Negative); Blood Urine 3+ (Negative); Cast Urine Automated 0-2 /lpf (0-2); Color Urine Yellow; Epithelial Cell Urine Auto 0-2 /hpf (0-2); Glucose Urine UA Negative (Negative); Ketones Urine Negative (Negative); Leukocyte Esterase Urine 2+ (Negative); Nitrite Urine Negative (Negative); Protein Urine Negative (Negative); RBC Urine Automated >20 /hpf (0-2); Specific Gravity Urine 1.008 (1.000-1.030); Urobilinogen Urine Negative (Negative); pH Urine 6.5 (4.5-7.5)
[2023-12-27 17:45] LABS: Thyroid Stimulating Hormone 1.518 uIu/ml (0.300-4.500)
[2023-12-27] MEDS ORDERED: METOPROLOL TARTRATE 1 MG/ML VIAL IV PRN (18:25)
[2023-12-27] MEDS: APIXABAN 5 MG TABLET PO SCH (21:47)
[2023-12-27] MEDS: ASPIRIN 81 MG ECTAB PO SCH (21:48)
[2023-12-27] MEDS: AMIODARONE 200 MG TAB PO SCH (21:48)
[2023-12-27] MEDS: ROSUVASTATIN CALCIUM 5 MG TAB PO SCH (21:50)
[2023-12-27] MEDS: TAMSULOSIN HCL 0.4 MG CAP PO SCH (21:51)
[2023-12-27] MEDS: MONTELUKAST SODIUM 10 MG TABLET PO SCH (21:53)
[2023-12-27] MEDS: VALSARTAN 80 MG TAB PO SCH (21:54)
[2023-12-27] MEDS: METOPROLOL TARTRATE 25 MG TAB PO SCH (22:00)
[2023-12-27] MEDS: POTASSIUM CHLORIDE CRTAB 20 MEQ TABCR PO SCH (22:03)
[2023-12-27] MEDS: MAGNESIUM SULFATE / D5W 1 GM/100 ML BAG IV ONE (22:15)
[2023-12-28] MEDS: MAGNESIUM SULFATE / D5W 1 GM/100 ML BAG IV ONE (00:51)
[2023-12-28 07:39] LABS: Basophils # (auto) 0.03 K/uL (0.00-0.20); Basophils % (auto) 0.5 %; Eosinophils # (auto) 0.19 K/uL (0.00-0.50); Eosinophils % (auto) 3.3 %; Hematocrit (blood only) 37.1 % (37.0-47.0); Hemoglobin 12.8 g/dl (12.0-16.0); Immature Granulocytes # (auto) 0.03 K/uL (0.01-0.20); Immature Granulocytes % (auto) 0.5 %; Lymphocytes # (auto) 1.16 K/uL (1.20-3.40); Lymphocytes % (auto) 20.4 %; Mean Corpuscular Hemoglobin 31.9 pg (25.0-34.0); Mean Corpuscular Hgb Conc 34.5 g/dL (32.0-36.0); Mean Corpuscular Volume 92.5 fL (80.0-100.0); Mean Platelet Volume 10.7 fL (9.4-12.4); Monocytes # (auto) 0.86 K/uL (0.11-0.59); Monocytes % (auto) 15.1 %; Neutrophils # (auto) 3.42 K/uL (1.40-6.50); Neutrophils % (auto) 60.2 %; Platelet Count 211 K/uL (130-400); RDW Coefficient of Variation 13.1 % (11.5-14.5); RDW Standard Deviation 44.5 fL (36.4-46.3); Red Blood Count 4.01 M/uL (4.20-5.40); White Blood Count 5.69 K/ul (4.8-10.8)
[2023-12-28 08:00] LABS: Calcium 8.8 mg/dl (8.6-10.3); Creatinine Clr Calc Pharmacy 49.3 ml/min; Est GFR (Non-African American) 49.2 ml/min; Magnesium 2.2 mg/dl (1.7-2.4); Potassium 3.3 mmol/L (3.5-5.1)
[2023-12-28] MEDS: hydroCHLOROthiazide 25 MG TAB PO SCH (08:48)
[2023-12-28] MEDS: PANTOprazole 40 MG TAB PO SCH (08:49)
[2023-12-28] MEDS: FUROSEMIDE 40 MG/4 ML VIAL IV SCH (08:50)
[2023-12-28] MEDS: CHOLECALCIFEROL 25 MCG (1000 UNITS) TAB PO SCH (08:50)
--- NOTE | 2023-12-28 09:20 | Cardiology Consultation ---
Date of Consultation December 28, 2023 Assessment & Plan (1) Atrial fibrillation with RVR: (2) Acute heart failure with preserved ejection fraction: Plan Mrs. Barba is an 83-year-old female with a history of CAD s/p NSTEMI, Paroxysmal Atrial Flutter, Paroxysmal Atrial Fibrillation, PAD, Prediabetes, Hypertension, Dyslipidemia, GERD, Arthritis, Asthma, Sleep Apnea, and Sarcoidosis who presented on 12/27/23 for further evaluation and treatment of ongoing A-Fib with RVR, shortness of breath, worsening leg edema, and weight gain. The patient has had about a 12 pound weight gain with worsening exertional dyspnea over the last several weeks. Leading up to her recent renal biopsy she was told to stop taking her diuretics for about 4 to 5 days. Patient underwent her last successful cardioversion on 09/29/23 and maintained a sinus rhythm for about 2 months before reverting back into A-Fib about a month ago. Patient follows with Dr. Leos and did have a change where she had been taking 100 mg of Amiodarone every day and was switched to every other day as the patient was noted to be bradycardic with heart rates in the 40s and 50s. This medication dosage was changed on 08/11/23. Her workup reveals an elevated BNP of 306 pg/mL, but she does not have any evidence of pulmonary edema or pulmonary vascular congestion on her chest x-ray. EKG show AFib with RVR and low voltage QRS complexes, cannot rule out an age indeterminate anterior infarct. CBC with diff shows a Hgb of 12.8 g/dL, Hct 37.1%, WBC # is 5.69. Her serum potassium level is currently low at 3.3 mmol/L creatinine 1.06 mg/dL, BUN 18 mg/dL, and she is hyperglycemic at 130 mg/dL. High sensitivity troponin I is normal at 4.0 pg/mL. Patient offers no complaints at the present time. She does have some exertional dyspnea, and her legs remain swollen. Patient has not experienced any angina pectoris, she is mildly hypervolemic but does not have any evidence of pulmonary edema. Patient has not had any neurologic symptoms suggestive of stroke or mini stroke. She has been compliant with her medications. She has not missed any doses of Eliquis. Recommend the followin. Increase Amiodarone 200 mg daily beginning now, at discharge we can decrease this to 100 mg daily in an effort to keep her in a normal sinus rhythm. 2. She is hypokalemic, given additional 40 mEq of Potassium Chloride now. 3. Consider elective electrical cardioversion tomorrow if she remains in atrial fibrillation with RVR. 4. Continue exterminator helper anticoagulation. History of Present Illness Attending Physician: Gabriel Villeda MD History of Present Illness Mrs. Barba is an 83-year-old female with a history of CAD s/p NSTEMI, Paroxysmal Atrial Flutter, Paroxysmal Atrial Fibrillation, PAD, Prediabetes, Hypertension, Dyslipidemia, GERD, Arthritis, Asthma, Sleep Apnea, and Sarcoidosis who presented on 12/27/23 for further evaluation and treatment of ongoing A-Fib with RVR, shortness of breath, worsening leg edema, and weight gain. The patient has had about a 12 pound weight gain with worsening exertional dyspnea over the last several weeks. Leading up to her recent renal biopsy she was told to stop taking her diuretics for about 4 to 5 days. Patient underwent her last successful cardioversion on 09/29/23 and maintained a sinus rhythm for about 2 months before reverting back into A-Fib about a month ago. Patient follows with Dr. Leos and did have a change where she had been taking 100 mg of Amiodarone every day and was switched to every other day as the patient was noted to be bradycardic with heart rates in the 40s and 50s. This medication dosage was changed on 08/11/23. Her workup reveals an elevated BNP of 306 pg/mL, but she does not have any evidence of pulmonary edema or pulmonary vascular congestion on her chest x-ray. EKG show AFib with RVR and low voltage QRS complexes, cannot rule out an age indeterminate anterior infarct. CBC with diff shows a Hgb of 12.8 g/dL, Hct 37.1%, WBC # is 5.69. Her serum potassium level is currently low at 3.3 mmol/L creatinine 1.06 mg/dL, BUN 18 mg/dL, and she is hyperglycemic at 130 mg/dL. High sensitivity troponin I is normal at 4.0 pg/mL. Patient offers no complaints at the present time. She does have some exertional dyspnea, and her legs remain swollen. She denies any exertional chest pain, heaviness, tightness, pressure, or discomfort. She denies any exertional neck, jaw, back, or arm pain. She has not had any orthopnea or PND. She denies any syncope or near-syncope. Patient has not had any neurologic symptoms suggestive of stroke or mini stroke. She has been compliant with her medications. She has not missed any doses of Eliquis. Allergies Allergy/AdvReac Type Severity Reaction Status Date / Time codeine AdvReac Intermediate N/V Verified 12/27/23 17:23 lisinopril AdvReac Intermediate Cough Verified 12/27/23 17:23 morphine AdvReac Intermediate N/V Verified 12/27/23 17:23 Home Medications Medication Instructions Recorded Confirmed Type multivitamin (Daily Multi-Vitamin 1 tab PO QAM 02/04/19 12/27/23 History tablet) timolol maleate 0.5 % eye drops 1 drp OPB HS 02/24/20 12/27/23 History cholecalciferol (vitamin D3) 50 2,000 unit PO QAM 04/07/20 12/27/23 History mcg (2,000 unit) capsule nitroglycerin 0.4 mg sublingual 0.4 mg sublingual Q5M PRN chest 03/22/21 12/27/23 Rx tablet (Nitrostat) pain #25 tabs pantoprazole 20 mg tablet,delayed 20 mg PO QAM #90 tabs 11/23/22 12/27/23 Rx release potassium citrate 10 mEq (1,080 10 meq PO BID #180 tabs 11/23/22 12/27/23 Rx mg) tablet,extended release amlodipine 10 mg tablet 10 mg PO QAM #90 tabs 02/01/23 12/27/23 Rx amiodarone 200 mg tablet (Pacerone) 100 mg PO Q OTHER DAY 08/25/23 12/27/23 History clotrimazole-betamethasone 1 1 applic topical HS PRN skin 08/25/23 12/27/23 History %-0.05 % topical cream irritation nystatin 100,000 unit/gram topical 1 applic topical TID PRN Skin 08/25/23 12/27/23 History powder Irritation metoprolol tartrate 25 mg tablet 25 mg PO BID #180 tabs 09/12/23 12/27/23 Rx hydrochlorothiazide 25 mg tablet 25 mg PO QAM #90 tabs 10/10/23 12/27/23 Rx furosemide 20 mg tablet 20 mg PO DAILY PRN Fluid Retention 10/17/23 12/27/23 Rx #90 tabs aspirin 81 mg tablet,delayed 81 mg PO HS 12/11/23 12/27/23 History release (Bailee Low Dose Aspirin) rosuvastatin 5 mg tablet 5 mg PO HS 12/11/23 12/27/23 History valsartan 160 mg tablet (Diovan) 160 mg PO HS 12/11/23 12/27/23 History apixaban 5 mg tablet (Eliquis) 5 mg PO BID 12/21/23 12/27/23 History montelukast 10 mg tablet 10 mg PO HS 12/21/23 12/27/23 History (Singulair) phenazopyridine 200 mg tablet 200 mg PO Q8H PRN pain #10 tabs 12/21/23 12/27/23 Rx (Pyridium) tamsulosin 0.4 mg capsule 0.4 mg PO HS #30 caps 12/21/23 12/27/23 Rx Patient History Medical History Atrial fibrillation Cardioversion September 2023 Left ear hearing loss Per records Venous reflux Paroxysmal atrial flutter Peripheral vascular disease Morbid obesity Renal lesion Dr. Bronson monitoring GERD (gastroesophageal reflux disease) Dyslipidemia CAD (coronary artery disease) Non-obstructive > follows with Dr. Leos Hx of solitary pulmonary nodule PVD (peripheral vascular disease) Hx of non-ST elevation myocardial infarction (NSTEMI) (2020) pt unaware/denies > states was just an angina attack Osteoarthritis Lumbar stenosis with neurogenic claudication Type 2 diabetes mellitus Diet controlled, no meds Peripheral edema Asthma "Mild" No inhaler Paroxysmal atrial fibrillation Taking Eliquis/metoprolol Follows with [facility] cardio Urge incontinence of urine Urinary frequency Urinary urgency Sarcoidosis Follows with [facility] pulm Sleep apnea Does not tolerate CPAP History of kidney stones Glaucoma Surgical History History of cystoscopy S/P bladder tumor excision with fulguration History of cholecystectomy History of tooth extraction History of left knee surgery History of total bilateral knee replacement History of surgery on left wrist x2 History of hysterectomy with unilateral oophorectomy History of lithotripsy History of esophagogastroduodenoscopy (EGD) History of colonoscopy History of cardiac cath 2020, 2013, 2005- no stents History of cardiac radiofrequency ablation 2020 Family History Mother Atrial fibrillation Stroke Father No problems noted. Brother Lung cancer Brother Lung cancer Sister Lung cancer Other No family history of adverse response to anesthesia Social History Smoking Status: Never smoker Second Hand Exposure: No; Do You Dip or Chew Tobacco: No; Hx Alcohol Use: No Hx Substance Use: No Preferred Language: Pashto Communication Ability: Effective Visual Impairment: No Limitations Classification Control Clerk Required: No Beliefs That Will Affect Care: None marital status: Current Living Situation: Spouse current occupational status: retired How many Children do You have: 4 Feels Safe at Home: Yes Safety Concerns: Feels Safe At This Time Childhood Exposure to Second-Hand Smoke: No caffeine: Yes Dental Care, Regularly: Yes Physical Activity Frequency: Does not Exercise Seatbelt Use: always Sunscreen Use: No Assistive Devices: Cane and Glasses Physical Exam Physical Exam: Pulse is 130 and irregularly irregular. GENERAL: Patient in no acute distress. HEENT: Head is atraumatic, normocephalic. EOM's intact. Facies symmetric. No perioral cyanosis. NECK: No JVD. JVP is above the clavicle sitting upright. Carotid upstrokes are + 2 bilaterally without bruits. CHEST/LUNGS: Clear to auscultation throughout all lung pedro. No wheezes, rales, or crackles. CVS: S1 and S2 are irregularly irregular and distant without murmurs, gallops, or rubs. PMI is nonpalpable. No lifts, heaves, or thrills. No abdominal aortic or renal bruits. ABDOMINAL EXAM: Bowel sounds are present. EXTREMITIES: No clubbing or cyanosis. Bilateral non-pitting edema. Intact radial pulses bilaterally. NEUROLOGIC EXAM: Patient is awake, alert, and oriented. Pleasant and cooperative. Answers questions appropriately. Speech is clear. DONOR RELATIONS COORDINATOR: -- A-Fib overnight with heart rates in t he 130s and 140's. -- Occasional PVC's vs aberrantly conduc abigail beats. Results & Data Vital Signs (Past 12 Hours) Vital Signs Temp Pulse Pulse Resp BP BP Pulse Ox 12/28/23 07:10 36.8 C 117 H 17 112/75 96 12/28/23 06:10 143 H 12/28/23 02:50 37.1 C 120 H 18 99/65 L 94 12/28/23 00:00 12/27/23 23:07 37 C 122 H 18 94/71 L 93 O2 Del Method 12/28/23 07:10 Room Air 12/28/23 06:10 12/28/23 02:50 Room Air 12/28/23 00:00 Room Air 12/27/23 23:07 Room Air Laboratory Results Laboratory Results - last 24 hr 12/27/23 12/27/23 12/28/23 14:50 16:22 06:19 WBC 6.21 5.69 RBC 4.53 4.01 L Hgb 14.2 12.8 Hct 42.6 37.1 MCV 94.0 92.5 MCH 31.3 31.9 MCHC 33.3 34.5 RDW Std Deviation 44.7 44.5 RDW Coeff of Twan 13.1 13.1 Plt Count 232 211 MPV 10.8 10.7 Immature Gran % (Auto) 0.6 0.5 Neut % (Auto) 69.2 60.2 Lymph % (Auto) 16.1 20.4 [place] % (Auto) 11.8 15.1 Eos % (Auto) 1.8 3.3 Baso % (Auto) 0.5 0.5 Neut # (Auto) 4.30 3.42 Lymph # (Auto) 1.00 L 1.16 L [place] # (Auto) 0.73 H 0.86 H Eos # (Auto) 0.11 0.19 Baso # (Auto) 0.03 0.03 Immature Gran # (Auto) 0.04 0.03 PT 11.5 INR 1.1 APTT 26 PTT Ratio 1.0 Sodium 139 138 Potassium 3.4 L 3.3 L Chloride 102 101 Carbon Dioxide 25 29 Anion Gap 12 H 8 BUN 18 18 Creatinine 1.10 1.06 Est Cr Clr Drug Dosing 47.4 49.3 Est GFR ( Amer) 54.5 57.0 Est GFR (Non-Af Amer) 47.0 49.2 BUN/Creatinine Ratio 16.4 17.0 Glucose 154 H 130 H Calcium 9.3 8.8 Phosphorus 2.4 L Magnesium 1.7 2.2 Total Bilirubin 0.8 AST 17 ALT 18 Alkaline Phosphatase 56 Troponin I High Sens 4.0 B-Natriuretic Peptide 306 H Total Protein 6.9 Albumin 4.2 Globulin 2.7 Albumin/Globulin Ratio 1.6 TSH 1.518 Urine Color Yellow Urine Appearance Clear Urine pH 6.[address] 1.008 Urine Protein Negative Urine Glucose (UA) Negative Urine Ketones Negative Urine Blood 3+ H Urine Nitrite Negative Urine Bilirubin Negative Urine Urobilinogen Negative Ur Leukocyte Esterase 2+ H Urine WBC (Auto) 6-10 H Urine RBC (Auto) >20 H U Hyaline Cast (Auto) 0-2 U Epithel Cells (Auto) 0-2 Urine Bacteria (Auto) None Seen Diagnostic Findings CXR 12/27/23: Lung volumes are normal. Lungs are clear. There is no pneumothorax or pleural effusion. Cardiomegaly is unchanged. Mitral annular calcification is again noted. Mediastinal contours are normal. There is no evidence for pulmonary edema. IMPRESSION: -- No acute cardiopulmonary findings. Medications Administered Medication List Apixaban (Apixaban 5 Mg Tablet) 5 mg PO BID [facility] Stop: 01/26/24 20:59 Last Admin: 12/28/23 08:49 Dose: 5 mg Documented By: Admin: 12/27/23 21:47 Dose: 5 mg Documented By: CAREN Aspirin (Aspirin 81 Mg Ectab) [address] [facility] Stop: 01/26/24 20:59 Last Admin: 12/27/23 21:48 Dose: 81 mg Documented By: CAREN Furosemide (Furosemide 40 Mg/4 Ml Vial) 40 mg IV [facility] Stop: 01/27/24 08:59 Last Admin: 12/28/23 08:50 Dose: 40 mg Documented By: JORDAN Hydrochlorothiazide (Hydrochlorothiazide 25 Mg Tab) 25 mg PO QAM [facility] Stop: 01/27/24 08:59 Last Admin: 12/28/23 08:48 Dose: 25 mg Documented By: JORDAN Metoprolol Tartrate (Metoprolol Tartrate 25 Mg Tab) 25 mg PO BID [facility] Stop: 01/26/24 20:59 Last Admin: 12/28/23 08:49 Dose: 25 mg Documented By: Admin: 12/27/23 22:00 Dose: 25 mg Documented By: CAREN Montelukast Sodium (Montelukast Sodium 10 Mg Tablet) 10 mg PO [facility] Stop: 01/26/24 20:59 Last Admin: 12/27/23 21:53 Dose: 10 mg Documented By: CAREN Pantoprazole Sodium (Pantoprazole 40 Mg Tab) 40 mg PO QAM [facility] Stop: 01/27/24 08:59 Last Admin: 12/28/23 08:49 Dose: 40 mg Documented By: JORDAN Potassium Chloride (Potassium Chloride Crtab 20 Meq Tabcr) 20 meq PO BID [facility] Stop: 01/26/24 20:59 Last Admin: 12/28/23 08:51 Dose: 20 meq Documented By: Admin: 12/27/23 22:03 Dose: 20 meq Documented By: CAREN Rosuvastatin Calcium (Rosuvastatin Calcium 5 Mg Tab) [address] [facility] Stop: 01/26/24 20:59 Last Admin: 12/27/23 21:50 Dose: 5 mg Documented By: CAREN Tamsulosin HCl (Tamsulosin Hcl 0.4 Mg Cap) 0.4 mg PO [facility] Stop: 01/26/24 20:59 Last Admin: 12/27/23 21:51 Dose: 0.4 mg Documented By: CAREN Valsartan (Valsartan 80 Mg Tab) [address] [facility] Stop: 01/26/24 20:59 Last Admin: 12/27/23 21:54 Dose: 160 mg Documented By: CAREN Vitamin D (Cholecalciferol 25 Mcg (1000 Units) Tab) 50 mcg PO QA [facility] Stop: 01/27/24 08:59 Last Admin: 12/28/23 08:50 Dose: 50 mcg Documented By: JORDAN Discontinued Medications Amiodarone HCl (Amiodarone 200 Mg Tab) 100 mg PO Q48H [facility] Stop: 01/27/24 20:59 Last Admin: 12/27/23 21:48 Dose: 100 mg Documented By: CAREN Furosemide (Furosemide 40 Mg/4 Ml Vial) 40 mg IV ONE ONE Stop: 12/27/23 15:03 Last Admin: 12/27/23 15:13 Dose: 40 mg Documented By: JOO Magnesium Sulfate/Dextrose (Magnesium Sulfate / D5w) 1 gm in 100 mls @ 50 mls/ hr IV ONE ONE Stop: 12/28/23 00:14 Last Infusion: 12/28/23 02:54 Dose: Infused Documented By: Admin: 12/28/23 00:51 Dose: 50 mls/hr Documented By: CAREN Metoprolol Tartrate (Metoprolol Tartrate 1 Mg/Ml Vial) 5 mg IV NOW STA Stop: 12/27/23 15:03 Last Admin: 12/27/23 15:13 Dose: 5 mg Documented By: JOO PG Care Time/CCT Total # of Minutes Spent Total Time Spent with Patient: Total time spent is greater than 50% in coordination of care (as documented) at patient's floor/unit and/or counseling patient:42 Coding [place] [address] INT INP/OBS CARE 2/55MIN Patient Type Established History Comprehensive Exam Comprehensive Medical Decision Making Moderate Complexity Diagnoses Atrial fibrillation with RVR I48.91 Acute heart failure with preserved ejection fraction I50.31 Time Spent (min) 62
[2023-12-28] MEDS: AMIODARONE 200 MG TAB PO SCH (10:43)
[2023-12-28] MEDS: POTASSIUM CHLORIDE CRTAB 20 MEQ TABCR PO STA (10:45)
--- NOTE | 2023-12-28 12:43 | XCELERA ---
[id number]
--- NOTE | 2023-12-28 14:18 | Electrocardiogram Report ---
Test Reason : Blood Pressure : */* mmHG Vent. Rate : 128 BPM Atrial Rate : * BPM P-R Int : * ms QRS Dur : 102 ms QT Int : 346 ms P-R-T Axes : * 34 148 degrees QTcB Int : 505 ms Atrial fibrillation with rapid ventricular response Low voltage QRS Poor R wave progression, consider anterior NC vs. lead placement vs. LVH Abnormal ECG When compared with ECG of 29-Sep-2023 08:02, Atrial fibrillation has replaced Sinus rhythm Vent. rate has increased by 68 bpm Nonspecific T wave abnormality now evident in Inferior leads Confirmed by Johnathan Argueta ([id number]) on 12/28/2023 2:18:26 PM Referred By: REFERRED SELF Confirmed By: Johnathan Argueta
--- NOTE | 2023-12-28 14:38 | Hospitalist Progress Note ---
Date of Service December 28, 2023 Assessment & Plan (1) Atrial fibrillation with RVR: Plan: Patient presented at the behest of her PCP on 12/26 due to concern elevated heart rate and CHF flare A-fib RVR up to 143 bpm on arrival Patient was last cardioverted in September 2023 TSH normal Metoprolol 5 mg IV q6h as needed for heart rate >120bpm Continue metoprolol Cardiology involved Patient is being given amiodarone 200 mg p.o. every morning per cardiology recommendation Potassium repleted Continuous telemetry monitoring If she does not convert, electric cardioversion will be considered tomorrow (2) Acute heart failure with preserved ejection fraction: Plan: 12 pound weight gain; worsening LE edema and MOSLEY x 3 days Last echocardiogram in March 2021 revealed LVEF at 55 to 60% Echocardiogram 12/27 shows normal EF CXR without signs of pulmonary edema BNP elevated at 306 (most recently 243 on 09/04/2023) Daily weights Strict I&O monitoring Heart healthy, low-sodium diet (1800 mL fluid restriction) Continue Lasix 40mg IV QAM Potassium repleted Continue HCTZ 25mg p.o. daily (3) Hematuria: Plan: Stent placed with Dr. Bronson on 12/20 Patient was discharged on ciprofloxacin 500 mg p.o. x 5 days Patient says that her urine has cleared up today and is no more bloody appearing Continue Eliquis in the setting of rapid A-fib (4) HTN (hypertension): Plan: Continue metoprolol, valsartan Hold amlodipine in the setting of significant lower extremity edema and hyp otension in the ED (5) Morbid obesity with BMI of 45.0-49.9, adult: Plan DNR/DNI Heart healthy, low-sodium diet (1800 mL fluid restriction) VTE PPx: On Eliquis Admission and Anticipated Discharge Date Admission Date: December 27, 2023 Subjective Patient says she feels better overall. She feels like her leg swelling is improving. She is still in rapid atrial fibrillation although she denies any palpitations or dizziness. She has no hematuria today. "It was leftover from the recent urologic procedure" Review of Systems Review of Systems: All systems reviewed & are unremarkable except as noted in Subjective Physical Exam Physical Exam: General: Awake, conversant, morbidly obese Heart: S1, S2/irregularly irregular rhythm fast rate, no murmur rubs or gallops Lungs: Diminished breath sounds bilaterally. Normal effort Abdomen: Soft/nontender/nondistended. No hepatosplenomegaly Extremities: No clubbing/cyanosis. 1-2+ pitting bilateral edema Behavior: Appropriate, cooperative Results & Data Results & Data Vital Signs (Past 12 Hours) Vital Signs Temp Pulse Pulse Resp BP BP Pulse Ox 12/28/23 14:27 36.4 C L 133 H 17 95/63 L 96 12/28/23 10:55 36.7 C 110 H 19 84/49 L 95 12/28/23 07:10 36.8 C 117 H 17 112/75 96 12/28/23 06:10 143 H 12/28/23 02:50 37.1 C 120 H 18 99/65 L 94 O2 Del Method 12/28/23 14:27 Room Air 12/28/23 10:55 Room Air 12/28/23 07:10 Room Air 12/28/23 06:10 12/28/23 02:50 Room Air Laboratory Results Abnormal lab results 12/27/23 12/27/23 12/28/23 Range/Units 14:50 16:22 06:19 RBC 4.01 L (4.20-5.40) M/uL Lymph # (Auto) 1.00 L 1.16 L (1.20-3.40) K/uL [place] # (Auto) 0.73 H 0.86 H (0.11-0.59) K/uL Potassium 3.4 L 3.3 L (3.5-5.1) mmol/L Anion Gap 12 H (3-11) Glucose 154 H 130 H (70-99(Fasting)) mg/dl Phosphorus 2.4 L (2.5-4.9) mg/dl B-Natriuretic Peptide 306 H (0-100) pg/ml Urine Blood 3+ H (Negative) Ur Leukocyte Esterase 2+ H (Negative) Urine WBC (Auto) 6-10 H (0-5) /hpf Urine RBC (Auto) >20 H (0-2) /hpf Diagnostic Findings Chest X-Ray 12/27/23 15:02 XR chest 1V portable CLINICAL HISTORY: Dyspnea. COMPARISON STUDY: Chest radiograph August 25, 2023. FINDINGS: Lung volumes are normal. Lungs are clear. There is no pneumothorax or pleural effusion. Cardiomegaly is unchanged. Mitral annular calcification is again noted. Mediastinal contours are normal. There is no evidence for pulmonary edema. IMPRESSION: No acute cardiopulmonary findings. ACT 112: Negative or not required by law. Electronically signed by: Grady Brand M.D. 12/27/2023 4:02 PM PG Care Time/CCT Total # of Minutes Spent Total Time Spent with Patient: Total time spent is greater than 50% in coordination of care (as documented) at patient's floor/unit and/or counseling patient: Coding Level of Care Code 09895 SUB INP/OBS CARE 2/35MIN Diagnoses Atrial fibrillation with RVR I48.91 Acute heart failure with preserved ejection fraction I50.31 Hematuria R31.9 HTN (hypertension) I10 Morbid obesity with BMI of 45.0-49.9, adult E66.01; Z68.42
[2023-12-29 08:27] LABS: Basophils # (auto) 0.04 K/uL (0.00-0.20); Basophils % (auto) 0.7 %; Eosinophils # (auto) 0.18 K/uL (0.00-0.50); Eosinophils % (auto) 3.2 %; Hematocrit (blood only) 38.2 % (37.0-47.0); Immature Granulocytes # (auto) 0.03 K/uL (0.01-0.20); Immature Granulocytes % (auto) 0.5 %; Lymphocytes # (auto) 1.04 K/uL (1.20-3.40); Lymphocytes % (auto) 18.8 %; Mean Corpuscular Hemoglobin 31.6 pg (25.0-34.0); Mean Corpuscular Volume 92.7 fL (80.0-100.0); Mean Platelet Volume 10.6 fL (9.4-12.4); Monocytes % (auto) 12.6 %; Neutrophils # (auto) 3.55 K/uL (1.40-6.50); Neutrophils % (auto) 64.2 %; Platelet Count 215 K/uL (130-400); RDW Coefficient of Variation 13.2 % (11.5-14.5); RDW Standard Deviation 44.9 fL (36.4-46.3); Red Blood Count 4.12 M/uL (4.20-5.40); White Blood Count 5.54 K/ul (4.8-10.8)
[2023-12-29 08:53] LABS: BUN Creatinine Ratio 19.7 (10-20); Calcium 8.6 mg/dl (8.6-10.3); Creatinine Clr Calc Pharmacy 44.1 ml/min; Est GFR (African American) 50.6 ml/min; Est GFR (Non-African American) 43.7 ml/min; Potassium 3.7 mmol/L (3.5-5.1)
[2023-12-29] MEDS ORDERED: 0.2 MICRON FILTER SET 1 EACH IV ONE ×2 (09:12→09:13)
[2023-12-29] MEDS: AMIODARONE / D5W 360 MG/200 ML BAG IV ONE (09:31)
--- NOTE | 2023-12-29 12:32 | Cardiology Progress Note ---
Date of Service December 29, 2023 Assessment & Plan (1) Atrial fibrillation with RVR: (2) Acute heart failure with preserved ejection fraction: Plan Mrs. Barba is an 83-year-old female with a history of CAD s/p NSTEMI, Paroxysmal Atrial Flutter, Paroxysmal Atrial Fibrillation, PAD, Prediabetes, Hypertension, Dyslipidemia, GERD, Arthritis, Asthma, Sleep Apnea, and Sarcoidosis who presented on 12/27/23 for further evaluation and treatment of ongoing A-Fib with RVR, shortness of breath, worsening leg edema, and weight gain. The patient has had about a 12 pound weight gain with worsening exertional dyspnea over the last several weeks. Leading up to her recent renal biopsy she was told to stop taking her diuretics for about 4 to 5 days. Patient underwent her last successful cardioversion on 09/29/23 and maintained a sinus rhythm for about 2 months before reverting back into A-Fib about a month ago. Patient follows with Dr. Leos and did have a change where she had been taking 100 mg of Amiodarone every day and was switched to every other day as the patient was noted to be bradycardic with heart rates in the 40s and 50s. This medication dosage was changed on 08/11/23. Her workup reveals an elevated BNP of 306 pg/mL, but she does not have any evidence of pulmonary edema or pulmonary vascular congestion on her chest x-ray. EKG show AFib with RVR and low voltage QRS complexes, cannot rule out an age indeterminate anterior infarct. CBC with diff shows a Hgb of 12.8 g/dL, Hct 37.1%, WBC # is 5.69. Her serum potassium level is currently low at 3.3 mmol/L creatinine 1.06 mg/dL, BUN 18 mg/dL, and she is hyperglycemic at 130 mg/dL. High sensitivity troponin I is normal at 4.0 pg/mL. Patient remains in AFib with RVR despite the increase in her oral amiodarone dose. Recommend the followin. Hold oral Amiodarone. 2. Begin IV Amiodarone drip. 3. Patient's hypokalemia has been corrected. 4. Consider elective electrical cardioversion tomorrow if she remains in atrial fibrillation with RVR. 5. Continue prison anticoagulation. We will continue to follow while hospitalized and following discharge. Admission and Anticipated Discharge Date Admission Date: December 27, 2023 Subjective Mrs. Barba remains in atrial fibrillation with RVR despite the increase in her oral amiodarone dose. She does have some exertional dyspnea but is otherwise not bothered by her atrial fibrillation. She has not had any chest pain or palpitations. Review of Systems Review of Systems: -- As per HPI. Physical Exam Physical Exam: Pulse is 124 and irregularly irregular. GENERAL: Patient in no acute distress. HEENT: Head is atraumatic, normocephalic. EOM's intact. Facies symmetric. No perioral cyanosis. NECK: No JVD. JVP is not elevated. Carotid upstrokes are + 2 bilaterally without bruits. CHEST/LUNGS: Clear to auscultation throughout all lung pedro. No wheezes, rales, or crackles. CVS: S1 and S2 are irregularly irregular and distant without murmurs, gallops, or rubs. PMI is nonpalpable. No lifts, heaves, or thrills. No abdominal aortic or renal bruits. ABDOMINAL EXAM: Bowel sounds are present. EXTREMITIES: No clubbing or cyanosis. Bilateral non-pitting edema. Intact radial pulses bilaterally. NEUROLOGIC EXAM: Patient is awake, alert, and oriented. Pleasant and cooperative. Answers questions appropriately. Speech is clear. SAFETY RISK LEAD: -- A-Fib overnight with heart rates in t he 120's to 140's. -- Occasional PVC's vs aberrantly conduc abigail beats. Results & Data Vital Signs (Past 12 Hours) Vital Signs Temp Pulse Pulse Resp BP BP Pulse Ox 12/29/23 11:46 36.4 C L 107 H 20 89/56 L 90/63 L 95 12/29/23 11:27 103 H 92/66 L 12/29/23 10:14 12/29/23 08:08 36.7 C 122 H 18 116/80 96 12/29/23 08:06 119 H 12/29/23 03:09 36.7 C 103 H 20 101/71 93 O2 Del Method 12/29/23 11:46 Room Air 12/29/23 11:27 12/29/23 10:14 Room Air 12/29/23 08:08 Room Air 12/29/23 08:06 12/29/23 03:09 Room Air Laboratory Results Laboratory Results - last 24 hr 12/29/23 08:01 WBC 5.54 RBC 4.12 L Hgb 13.0 Hct 38.2 MCV 92.7 MCH 31.6 MCHC 34.0 RDW Std Deviation 44.9 RDW Coeff of [place] 13.2 Plt Count 215 MPV 10.6 Immature Gran % (Auto) 0.5 Neut % (Auto) 64.2 Lymph % (Auto) 18.8 [place] % (Auto) 12.6 Eos % (Auto) 3.2 Baso % (Auto) 0.7 Neut # (Auto) 3.55 Lymph # (Auto) 1.04 L [place] # (Auto) 0.70 H Eos # (Auto) 0.18 Baso # (Auto) 0.04 Immature Gran # (Auto) 0.03 Sodium 137 Potassium 3.7 Chloride 102 Carbon Dioxide 28 Anion Gap 7 BUN 23 Creatinine 1.17 Est Cr Clr Drug Dosing 44.1 Est GFR ( Amer) 50.6 Est GFR (Non-Af Amer) 43.7 BUN/Creatinine Ratio 19.7 Glucose 150 H Calcium 8.6 Medications Administered Medication List Amiodarone HCl (Amiodarone 200 Mg Tab) 200 mg PO QAM [facility] Stop: 01/27/24 09:44 Last Admin: 12/29/23 09:32 Dose: Not Given Documented By: Admin: 12/28/23 10:43 Dose: 200 mg Documented By: JORDAN Apixaban (Apixaban 5 Mg Tablet) 5 mg PO BID [facility]MA Stop: 01/26/24 20:59 Last Admin: 12/29/23 09:24 Dose: 5 mg Documented By: Admin: 12/28/23 20:50 Dose: 5 mg Documented By: Admin: 12/28/23 08:49 Dose: 5 mg Documented By: Admin: 12/27/23 21:47 Dose: 5 mg Documented By: CAREN Aspirin (Aspirin 81 Mg Ectab) 81 mg PO HS RESHMA Stop: 01/26/24 20:59 Last Admin: 12/28/23 20:50 Dose: 81 mg Documented By: Admin: 12/27/23 21:48 Dose: 81 mg Documented By: CAREN Furosemide (Furosemide 40 Mg/4 Ml Vial) 40 mg IV QAM [facility] Stop: 01/27/24 08:59 Last Admin: 12/29/23 09:27 Dose: 40 mg Documented By: Admin: 12/28/23 08:50 Dose: 40 mg Documented By: JORDAN Hydrochlorothiazide (Hydrochlorothiazide 25 Mg Tab) 25 mg PO QAM [facility] Stop: 01/27/24 08:59 Last Admin: 12/29/23 09:26 Dose: 25 mg Documented By: Admin: 12/28/23 08:48 Dose: 25 mg Documented By: JORDAN Amiodarone HCl/Dextrose (Nexterone / D5w) 360 mg in 200 mls @ 33.333 mls/hr IV ONE ONE; Protocol Stop: 12/29/23 15:11 Last Admin: 12/29/23 09:31 Dose: 1 mg/min, 33.3 mls/hr Documented By: FAUSTO Co-signed By: GOYO Metoprolol Tartrate (Metoprolol Tartrate 25 Mg Tab) 25 mg PO BID [facility] Stop: 01/26/24 20:59 Last Admin: 12/29/23 09:24 Dose: 25 mg Documented By: Admin: 12/28/23 20:51 Dose: 25 mg Documented By: Admin: 12/28/23 08:49 Dose: 25 mg Documented By: Admin: 12/27/23 22:00 Dose: 25 mg Documented By: CAREN Montelukast Sodium (Montelukast Sodium 10 Mg Tablet) 10 mg PO HS [facility] Stop: 01/26/24 20:59 Last Admin: 12/28/23 20:51 Dose: 10 mg Documented By: Admin: 12/27/23 21:53 Dose: 10 mg Documented By: CAREN Pantoprazole Sodium (Pantoprazole 40 Mg Tab) 40 mg PO QAM [facility] Stop: 01/27/24 08:59 Last Admin: 12/29/23 09:26 Dose: 40 mg Documented By: Admin: 12/28/23 08:49 Dose: 40 mg Documented By: JORDAN Potassium Chloride (Potassium Chloride Crtab 20 Meq Tabcr) 20 meq PO BID [facility]HMA Stop: 01/26/24 20:59 Last Admin: 12/29/23 09:31 Dose: 20 meq Documented By: Admin: 12/28/23 20:55 Dose: 20 meq Documented By: Admin: 12/28/23 08:51 Dose: 20 meq Documented By: Admin: 12/27/23 22:03 Dose: 20 meq Documented By: CAREN Rosuvastatin Calcium (Rosuvastatin Calcium 5 Mg Tab) 5 mg PO [facility] Stop: 01/26/24 20:59 Last Admin: 12/28/23 20:50 Dose: 5 mg Documented By: Admin: 12/27/23 21:50 Dose: 5 mg Documented By: CAREN Tamsulosin HCl (Tamsulosin Hcl 0.4 Mg Cap) 0.4 mg PO [facility] Stop: 01/26/24 20:59 Last Admin: 12/28/23 20:50 Dose: 0.4 mg Documented By: Admin: 12/27/23 21:51 Dose: 0.4 mg Documented By: CAREN Valsartan (Valsartan 80 Mg Tab) 160 mg PO [facility] Stop: 01/26/24 20:59 Last Admin: 12/28/23 21:18 Dose: 160 mg Documented By: Admin: 12/27/23 21:54 Dose: 160 mg Documented By: CAREN Vitamin D (Cholecalciferol 25 Mcg (1000 Units) Tab) 50 mcg PO QA [facility] Stop: 01/27/24 08:59 Last Admin: 12/29/23 09:25 Dose: 50 mcg Documented By: Admin: 12/28/23 08:50 Dose: 50 mcg Documented By: JORDAN Discontinued Medications Amiodarone HCl (Amiodarone 200 Mg Tab) 100 mg PO Q48H [facility] Stop: 01/27/24 20:59 Last Admin: 12/27/23 21:48 Dose: 100 mg Documented By: CAREN Furosemide (Furosemide 40 Mg/4 Ml Vial) 40 mg IV ONE ONE Stop: 12/27/23 15:03 Last Admin: 12/27/23 15:13 Dose: 40 mg Documented By: JOO Magnesium Sulfate/Dextrose (Magnesium Sulfate / D5w) 1 gm in 100 mls @ 50 mls/hr IV ONE ONE Stop: 12/28/23 00:14 Last Infusion: 12/28/23 02:54 Dose: Infused Documented By: Admin: 12/28/23 00:51 Dose: 50 mls/hr Documented By: CAREN Metoprolol Tartrate (Metoprolol Tartrate 1 Mg/Ml Vial) 5 mg IV NOW STA Stop: 12/27/23 15:03 Last Admin: 12/27/23 15:13 Dose: 5 mg Documented By: JOO Potassium Chloride (Potassium Chloride Crtab 20 Meq Tabcr) 40 meq PO NOW STA Stop: 12/28/23 09:36 Last Admin: 12/28/23 10:45 Dose: 40 meq Documented By: JORDAN PG Care Time/CCT Total # of Minutes Spent Total Time Spent with Patient: Total time spent is greater than 50% in coordination of care (as documented) at patient's floor/unit and/or counseling patient:33 Coding [place] [address] SUB INP/OBS CARE 3/50MIN Patient Type Established History Detailed Exam Detailed Medical Decision Making High Complexity Diagnoses Atrial fibrillation with RVR I48.91 Acute heart failure with preserved ejection fraction I50.31 Time Spent (min) 55
[2023-12-29] MEDS: AMIODARONE / D5W 360 MG/200 ML BAG IV SCH (15:29)
--- NOTE | 2023-12-29 16:03 | Hospitalist Progress Note ---
Date of Service December 29, 2023 Assessment & Plan (1) Atrial fibrillation with RVR: Plan: Patient presented at the behest of her PCP on 12/26 due to concern elevated heart rate and CHF flare A-fib RVR up to 143 bpm on arrival Patient was last cardioverted in September 2023 TSH normal Metoprolol 5 mg IV q6h as needed for heart rate >120bpm Continue metoprolol Cardiology involved Amiodarone was switched from p.o. to IV drip Potassium repleted Continuous telemetry monitoring If she does not convert, electric cardioversion will be considered tomorrow (2) Acute heart failure with preserved ejection fraction: Plan: 12 pound weight gain; worsening LE edema and MOSLEY x 3 days Last echocardiogram in March 2021 revealed LVEF at 55 to 60% Echocardiogram 12/27 shows normal EF CXR without signs of pulmonary edema BNP elevated at 306 (most recently 243 on 09/04/2023) Daily weights Strict I&O monitoring Heart healthy, low-sodium diet (1800 mL fluid restriction) Continue Lasix 40mg IV QAM. Potassium repleted Continue HCTZ 25mg p.o. daily Improving (3) Hematuria: Plan: Stent placed with Dr. Bronson on 12/20 Patient was discharged on ciprofloxacin 500 mg p.o. x 5 days Patient says that her urine has cleared up today and is no more bloody appearing Continue Eliquis in the setting of rapid A-fib (4) HTN (hypertension): Plan: Continue metoprolol, valsartan Hold amlodipine in the setting of significant lower extremity edema and hypotension in the ED (5) Morbid obesity with BMI of 45.0-49.9, adult: Plan DNR/DNI Heart healthy, low-sodium diet (1800 mL fluid restriction) VTE PPx: On Eliquis Admission and Anticipated Discharge Date Admission Date: December 27, 2023 Subjective Patient feels better overall. Leg swelling is improving. Even though her heart rate is still high, she does not feel palpitations. Denies feeling dizzy. Review of Systems Review of Systems: All systems reviewed & are unremarkable except as noted in Subjective Physical Exam Physical Exam: General: Awake, conversant, morbidly obese Heart: S1, S2/irregularly irregular rhythm fast rate, no murmur rubs or gallops Lungs: Diminished breath sounds bilaterally. Normal effort Abdomen: Soft/nontender/nondistended. No hepatosplenomegaly Extremities: No clubbing/cyanosis. 1+ pitting bilateral edema Behavior: Appropriate, cooperative Results & Data Results & Data Vital Signs (Past 12 Hours) Vital Signs Temp Pulse Pulse Resp BP BP Pulse Ox 12/29/23 15:00 36.6 C 115 H 20 110/72 96 12/29/23 11:46 36.4 C L 107 H 20 89/56 L 90/63 L 95 12/29/23 11:27 103 H 92/66 L 12/29/23 10:14 12/29/23 08:08 36.7 C 122 H 18 116/80 96 12/29/23 08:06 119 H O2 Del Method 12/29/23 15:00 Room Air 12/29/23 11:46 Room Air 12/29/23 11:27 12/29/23 10:14 Room Air 12/29/23 08:08 Room Air 12/29/23 08:06 PG Care Time/CCT Total # of Minutes Spent Total Time Spent with Patient: Total time spent is greater than 50% in coordination of care (as documented) at patient's floor/unit and/or counseling patient: Coding Level of Care Code 17183 SUB INP/OBS CARE 2/35MIN Diagnoses Atrial fibrillation with RVR I48.91 Acute heart failure with preserved ejection fraction I50.31 Hematuria R31.9 HTN (hypertension) I10 Morbid obesity with BMI of 45.0-49.9, adult E66.01; Z68.42
[2023-12-30] MEDS: ondansetron HCL 6 MG in DEXTROSE 5% 50 ML IV PRN (02:14)
[2023-12-30 08:07] LABS: Basophils # (auto) 0.04 K/uL (0.00-0.20); Basophils % (auto) 0.6 %; Eosinophils # (auto) 0.17 K/uL (0.00-0.50); Eosinophils % (auto) 2.5 %; Hematocrit (blood only) 38.4 % (37.0-47.0); Hemoglobin 13.1 g/dl (12.0-16.0); Immature Granulocytes # (auto) 0.02 K/uL (0.01-0.20); Immature Granulocytes % (auto) 0.3 %; Lymphocytes # (auto) 1.02 K/uL (1.20-3.40); Lymphocytes % (auto) 14.8 %; Mean Corpuscular Hemoglobin 31.6 pg (25.0-34.0); Mean Corpuscular Hgb Conc 34.1 g/dL (32.0-36.0); Mean Corpuscular Volume 92.5 fL (80.0-100.0); Mean Platelet Volume 10.7 fL (9.4-12.4); Monocytes # (auto) 0.71 K/uL (0.11-0.59); Monocytes % (auto) 10.3 %; Neutrophils # (auto) 4.91 K/uL (1.40-6.50); Neutrophils % (auto) 71.5 %; Platelet Count 221 K/uL (130-400); RDW Standard Deviation 43.8 fL (36.4-46.3); Red Blood Count 4.15 M/uL (4.20-5.40); White Blood Count 6.87 K/ul (4.8-10.8)
[2023-12-30 08:24] LABS: BUN Creatinine Ratio 21.4 (10-20); Calcium 8.7 mg/dl (8.6-10.3); Creatinine Clr Calc Pharmacy 40.9 ml/min; Est GFR (African American) 46.3 ml/min; Est GFR (Non-African American) 39.9 ml/min; Potassium 3.8 mmol/L (3.5-5.1)
--- NOTE | 2023-12-30 12:50 | Cardiology Progress Note ---
Date of Service December 30, 2023 Assessment & Plan (1) Atrial fibrillation with RVR: (2) SSS (sick sinus syndrome): (3) HTN (hypertension): Plan 1. Atrial fibrillation: She has had recurrent atrial fibrillation following reduction in amiodarone (done due to bradycardia). With this reduction she has had atrial fibrillation with a rapid heart rate. Attempts to control the heart rate include intravenous amiodarone, as well as low-dose metoprolol tartrate. AV blocking medications are limited by hypotension (although asymptomatic at rest). I am going to add digoxin to her regimen. There is an interaction with amiodarone or digoxin levels elevate but if we watch levels that should not be an issue. 2. Tachybradycardia syndrome: She has tachycardia when in atrial fibrillation and with control of her arrhythmia (or with AV marianne blocking medications) she has significant bradycardia. If we cannot control her rate without increasing her medications to the point where she has symptomatic bradycardia she would be a candidate for a pacemaker. Even though her bradycardia may be related to the medications it still justifies pacemaker implantation. The only other option would be atrial fibrillation ablation, but that is not necessarily effective and we will possibly have the same situation after so I am not inclined to do that. 3. Hypertension: Here in the hospital her blood pressure has been low not high. Admission and Anticipated Discharge Date Admission Date: December 27, 2023 Subjective Chart reviewed and patient examined. She is feeling well, she is resting in her bedside chair eating lunch. She has had no awareness of her heart rhythm, she does not feel the atrial fibrillation. Her blood pressure is low but she does not seem to have symptoms related to it. I do not think she has been out of bed much however. Physical Exam Physical Exam: Constitutional: Alert, cooperative and in no distress. HEENT: Unremarkable Neck: No jugular venous distention, carotid pulses are irregular but otherwise normal and equal bilaterally without bruits. Pulmonary: Clear to auscultation bilaterally. Cardiac: Irregular rapid rhythm with no murmur, gallop or rub. Abdomen: Soft, nontender with normal bowel sounds. Extremities: No edema. Neurologic: No focal findings. Skin: No rash, ecchymoses or petechiae. Results & Data Vital Signs (Past 12 Hours) Vital Signs Temp Pulse Pulse Resp BP BP Pulse Ox 12/30/23 11:40 36.7 C 112 H 20 89/63 L 95 12/30/23 08:33 111/76 12/30/23 08:09 36.6 C 61 18 87/61 L 95 12/30/23 07:55 12/30/23 04:04 36.6 C 109 H 16 90/56 L 95 12/30/23 01:07 131 H O2 Del Method 12/30/23 11:40 Room Air 12/30/23 08:33 12/30/23 08:09 Room Air 12/30/23 07:55 Room Air 12/30/23 04:04 Room Air 12/30/23 01:07 Laboratory Results CBC 12/30/23 Range/Units 07:22 WBC 6.87 (4.8-10.8) K/ul RBC 4.15 L (4.20-5.40) M/uL Hgb 13.1 (12.0-16.0) g/dl Hct 38.4 (37.0-47.0) % Plt Count 221 (130-400) K/uL Neut # (Auto) 4.91 (1.40-6.50) K/uL Lymph # (Auto) 1.02 L (1.20-3.40) K/uL [place] # (Auto) 0.71 H (0.11-0.59) K/uL Eos # (Auto) 0.17 (0.00-0.50) K/uL Baso # (Auto) 0.04 (0.00-0.20) K/uL Comprehensive Metabolic Panel 12/30/23 Range/Units 07:22 Sodium 137 (136-145) mmol/L Potassium 3.8 (3.5-5.1) mmol/L Chloride 99 (98-107) mmol/L Carbon Dioxide 30 (21-32) mmol/L BUN 27 H (6-23) mg/dl Creatinine 1.26 H (0.6-1.2) mg/dl Glucose 173 H (70-99(Fasting)) mg/dl Calcium 8.7 (8.6-10.3) mg/dl Intake and Output 12/29/23 12/30/23 12/30/23 22:59 06:59 14:59 Intake Total 519.862 / 1137.555 377.693 / 1137.555 Balance 519.862 / 1137.555 377.693 / 1137.555 Intake: IV 269.862 / 447.555 177.693 / 447.555 Amiodarone / D5w 360 mg In 200 269.862 / 394.555 124.693 / 394.555 ml @ 0.5 MG/MIN 16.667 mls/hr IV .Q12H RESHMA Rx#:[id number] ondansetron HCL 6 mg In 53 / 53 Dextrose 5% 50 ml @ 200 mls/hr IV Q6H PRN Rx#:[id number] Oral 250 / 690 200 / 690 Other: # Unmeasured Voids 2 2 Weight 113.3 kg Diagnostic Findings Telemetry: Atrial fibrillation, heart rate averaging around 120 bpm on telemetry with little change control coordinator the last 24 hours. PG Care Time/CCT Total # of Minutes Spent Total Time Spent with Patient: Total time spent is greater than 50% in coordination of care (as documented) at patient's floor/unit and/or counseling patient: Coding Level of Care Code 03284 SUB INP/OBS CARE 2/35MIN Diagnoses Atrial fibrillation with RVR I48.91 SSS (sick sinus syndrome) I49.5 HTN (hypertension) I10
[2023-12-30] MEDS: DIGOXIN 250 MCG in SYRINGE 9 ML IV STA (14:03)
--- NOTE | 2023-12-30 14:07 | Hospitalist Progress Note ---
Date of Service December 30, 2023 Assessment & Plan (1) Atrial fibrillation with RVR: Plan: Patient presented at the behest of her PCP on 12/26 due to concern elevated heart rate and CHF flare A-fib RVR up to 143 bpm on arrival Patient was last cardioverted in September 2023 TSH normal Metoprolol 5 mg IV q6h as needed for heart rate >120bpm Continue metoprolol Patient has been on amnio drip Cardiology added digoxin. Digoxin levels ordered by cardiology since there is interaction between digoxin and amiodarone. Patient still continues in rapid A-fib. (2) Acute heart failure with preserved ejection fraction: Plan: 12 pound weight gain; worsening LE edema and MOSLEY x 3 days Last echocardiogram in March 2021 revealed LVEF at 55 to 60% Echocardiogram 12/27 shows normal EF CXR without signs of pulmonary edema BNP elevated at 306 (most recently 243 on 09/04/2023) Daily weights Strict I&O monitoring Heart healthy, low-sodium diet (1800 mL fluid restriction) Patient has been getting Lasix 40 mg IV Creatinine and BUN rising. 1.26 and 27 today She got her dose of Lasix IV today I discontinued IV Lasix Monitor BMP prior to further Lasix dosing. She has lost 3 kg since admission Continue HCTZ 25mg p.o. daily Improving (3) Hematuria: Plan: Stent placed with Dr. Bronson on 12/20 Patient was discharged on ciprofloxacin 500 mg p.o. x 5 days Patient says that her urine has cleared up and is no more bloody appearing Continue Eliquis in the setting of rapid A-fib (4) HTN (hypertension): Plan: Continue metoprolol, valsartan Hold amlodipine in the setting of significant lower extremity edema and hypotension in the ED (5) Morbid obesity with BMI of 45.0-49.9, adult: Plan DNR/DNI Heart healthy, low-sodium diet (1800 mL fluid restriction) VTE PPx: On Eliquis Admission and Anticipated Discharge Date Admission Date: December 27, 2023 Subjective Patient denies any palpitations. Feels program professional overall. Leg swelling has improved. No dizziness Review of Systems Review of Systems: All systems reviewed & are unremarkable except as noted in Subjective Physical Exam Physical Exam: General: Awake, conversant, morbidly obese Heart: S1, S2/irregularly irregular rhythm fast rate, no murmur rubs or gallops Lungs: Diminished breath sounds bilaterally. Normal effort Abdomen: Soft/nontender/nondistended. No hepatosplenomegaly Extremities: No clubbing/cyanosis. Trace bilateral edema Behavior: Appropriate, cooperative Results & Data Results & Data Vital Signs (Past 12 Hours) Vital Signs Temp Pulse Resp BP BP Pulse Ox O2 Del Method 12/30/23 11:40 36.7 C 112 H 20 89/63 L 95 Room Air 12/30/23 08:33 111/76 12/30/23 08:09 36.6 C 61 18 87/61 L 95 Room Air 12/30/23 07:55 Room Air 12/30/23 04:04 36.6 C 109 H 16 90/56 L 95 Room Air Laboratory Results Abnormal lab results 12/30/23 Range/Units 07:22 RBC 4.15 L (4.20-5.40) M/uL Lymph # (Auto) 1.02 L (1.20-3.40) K/uL [place] # (Auto) 0.71 H (0.11-0.59) K/uL BUN 27 H (6-23) mg/dl Creatinine 1.26 H (0.6-1.2) mg/dl BUN/Creatinine Ratio 21.4 H (10-20) Glucose 173 H (70-99(Fasting)) mg/dl PG Care Time/CCT Total # of Minutes Spent Total Time Spent with Patient: Total time spent is greater than 50% in coordination of care (as documented) at patient's floor/unit and/or counseling patient: Coding Level of Care Code 14783 SUB INP/OBS CARE 2/35MIN Diagnoses Atrial fibrillation with RVR I48.91 Acute heart failure with preserved ejection fraction I50.31 Hematuria R31.9 HTN (hypertension) I10 Morbid obesity with BMI of 45.0-49.9, adult E66.01; Z68.42
[2023-12-30] MEDS: DIGOXIN 250 MCG in SYRINGE 9 ML IV ONE (15:50)
[2023-12-30] MEDS ORDERED: DIGOXIN 250 MCG in SYRINGE 9.5 ML IV ONE (16:00)
--- NOTE | 2023-12-31 11:44 | Cardiology Progress Note ---
Date of Service December 31, 2023 Assessment & Plan (1) Atrial fibrillation with RVR: (2) SSS (sick sinus syndrome): (3) HTN (hypertension): Plan 1. Atrial fibrillation: She has had recurrent atrial fibrillation following reduction in amiodarone (done due to bradycardia). With this reduction she has had atrial fibrillation with a rapid heart rate. Attempts to control the heart rate include intravenous amiodarone, as well as low-dose metoprolol tartrate. AV blocking medications are limited by hypotension (although asymptomatic at rest). I did add digoxin to her regimen. After 0.5 mg of intravenous digoxin yesterday her level of 0.9 today, we probably do not want it much higher than that. There is an interaction with amiodarone or digoxin levels elevate but if we watch levels that should not be an issue. I am going to start 0.125 mg Monday and Monday. I am going to schedule cardioversion for tomorrow morning, I will discontinue the intravenous amiodarone and switch to oral in preparation. She will be n.p.o. after midnight. Hopefully when we convert her rhythm her rate will not be too slow, but I would prefer to do that here then have her convert spontaneously at home with no monitoring. 2. Tachybradycardia syndrome: She has tachycardia when in atrial fibrillation and with control of her arrhythmia (or with AV marianne blocking medications) she has significant bradycardia. If we cannot control her rate without increasing her medications to the point where she has symptomatic bradycardia she would be a candidate for a pacemaker. Even though her bradycardia may be related to the medications it still justifies pacemaker implantation. The only other option would be atrial fibrillation ablation, but that is not necessarily effective and we will possibly have the same situation after so I am not inclined to do that. 3. Hypertension: Here in the hospital her blood pressure has been low not high. Admission and Anticipated Discharge Date Admission Date: December 27, 2023 Physical Exam Physical Exam: Constitutional: Alert, cooperative and in no distress. HEENT: Unremarkable Neck: No jugular venous distention, carotid pulses are irregular but otherwise normal and equal bilaterally without bruits. Pulmonary: Clear to auscultation bilaterally. Cardiac: Irregular rapid rhythm with no murmur, gallop or rub. Abdomen: Soft, nontender with normal bowel sounds. Extremities: No edema. Neurologic: No focal findings. Skin: No rash, ecchymoses or petechiae. Results & Data Vital Signs (Past 12 Hours) Vital Signs Temp Pulse Pulse Resp BP BP Pulse Ox 12/31/23 09:00 110/80 12/31/23 08:07 12/31/23 08:05 36.7 C 62 18 95/61 L 92 12/31/23 08:00 114 H 12/31/23 03:43 36.7 C 118 H 18 122/68 95 12/31/23 00:21 114 H O2 Del Method 12/31/23 09:00 12/31/23 08:07 Room Air 12/31/23 08:05 Room Air 12/31/23 08:00 12/31/23 03:43 Room Air 12/31/23 00:21 Laboratory Results Intake and Output 12/30/23 12/31/23 12/31/23 22:59 06:59 14:59 Intake Total 200 / 809.503 249.503 / 809.503 Balance 200 / 809.503 249.503 / 809.503 Intake: IV 200 / 449.503 249.503 / 449.503 Amiodarone / D5w 360 mg In 200 200 / 396.503 196.503 / 396.503 ml @ 0.5 MG/MIN 16.667 mls/hr IV .Q12H [facility] Rx#:[id number] ondansetron HCL 6 mg In 53 / 53 Dextrose 5% 50 ml @ 200 mls/hr IV Q6H PRN Rx#:[id number] Other: # Unmeasured Voids 2 2 Diagnostic Findings Digoxin level is 0.9 this morning after 0.5 mg of digoxin. Telemetry: Atrial fibrillation, rate a little bit better at around 100 bpm. PG Care Time/CCT Total # of Minutes Spent Total Time Spent with Patient: Total time spent is greater than 50% in coordination of care (as documented) at patient's floor/unit and/or counseling patient: Coding Level of Care Code 59894 SUB INP/OBS CARE 3/50MIN Diagnoses Atrial fibrillation with RVR I48.91 SSS (sick sinus syndrome) I49.5 HTN (hypertension) I10
[2023-12-31] MEDS ORDERED: Nursing to Pharmacy Communication SCH (12:00)
--- NOTE | 2023-12-31 12:23 | Hospitalist Progress Note ---
Date of Service December 31, 2023 Assessment & Plan (1) Atrial fibrillation with RVR: Plan: Patient presented at the behest of her PCP on 12/26 due to concern elevated heart rate and CHF flare A-fib RVR up to 143 bpm on arrival Patient was last cardioverted in September 2023 TSH normal Metoprolol 5 mg IV q6h as needed for heart rate >120bpm Continue metoprolol Patient has been on amnio drip Cardiology added digoxin. Digoxin levels ordered by cardiology since there is interaction between digoxin and amiodarone. Patient still continues in rapid A-fib. Plan is for cardioversion tomorrow (2) Acute heart failure with preserved ejection fraction: Plan: 12 pound weight gain; worsening LE edema and MOSLEY x 3 days Last echocardiogram in March 2021 revealed LVEF at 55 to 60% Echocardiogram 12/27 shows normal EF CXR without signs of pulmonary edema BNP elevated at 306 (most recently 243 on 09/04/2023) Daily weights Strict I&O monitoring Heart healthy, low-sodium diet (1800 mL fluid restriction) Patient has been getting Lasix 40 mg IV Creatinine and BUN rising. 1.26 and 27 today She got her dose of Lasix IV today I discontinued IV Lasix Monitor BMP prior to further Lasix dosing. She has lost 3 kg since admission Continue HCTZ 25mg p.o. daily Improving (3) Hematuria: Plan: Stent placed with Dr. Bronson on 12/20 Patient was discharged on ciprofloxacin 500 mg p.o. x 5 days Patient says that her urine has cleared up and is no more bloody appearing Continue Eliquis in the setting of rapid A-fib (4) HTN (hypertension): Plan: Continue metoprolol, valsartan Hold amlodipine in the setting of significant lower extremity edema and hypotension in the ED (5) Morbid obesity with BMI of 45.0-49.9, adult: Plan DNR/DNI Heart healthy, low-sodium diet (1800 mL fluid restriction) VTE PPx: On Eliquis Admission and Anticipated Discharge Date Admission Date: December 27, 2023 Subjective patient seen and examined,feels about the same Review of Systems Review of Systems: All systems reviewed are negative, apart from the ones contained in the history. Physical Exam Physical Exam: The patient is awake, alert and oriented 3, well developed and well nourished, normocephalic and atraumatic, lying in bed and in no acute distress. HEENT--PERRL, EOMI, mucous membranes and oropharynx mildly dry Neck--supple. No JVD. No bruits. Thyroid normal, trachea midline, no adenopathy. Heart--normal S1 and S2. No murmurs, rubs or gallops. Lungs--clear bilaterally, no respiratory distress, no accessory muscle use. Abdomen--normal bowel sounds and soft. Extremities--no cyanosis or clubbing. No edema. Dermatologic--normal skin turgor, normal color, no abnormal lymph nodes, no rash. Neurologic--cranial nerves II through XII grossly intact. Rheumatologic--normal range of motion. Psychiatric--normal affect. Results & Data Results & Data Vital Signs (Past 12 Hours) Vital Signs Temp Pulse Pulse Resp BP BP Pulse Ox 12/31/23 11:52 97.9 F 102 H 20 100/69 96 12/31/23 09:00 110/80 12/31/23 08:07 12/31/23 08:05 98.1 F 62 18 95/61 L 92 12/31/23 08:00 114 H 12/31/23 03:43 98.1 F 118 H 18 122/68 95 O2 Del Method 12/31/23 11:52 Room Air 12/31/23 09:00 12/31/23 08:07 Room Air 12/31/23 08:05 Room Air 12/31/23 08:00 12/31/23 03:43 Room Air PG Care Time/CCT Total # of Minutes Spent Total Time Spent with Patient: Total time spent is greater than 50% in coordination of care (as documented) at patient's floor/unit and/or counseling patient: Coding Level of Care Code 28759 SUB INP/OBS CARE 2/35MIN Diagnoses Atrial fibrillation with RVR I48.91 Acute heart failure with preserved ejection fraction I50.31 Hematuria R31.9 HTN (hypertension) I10 Morbid obesity with BMI of 45.0-49.9, adult E66.01; Z68.42 Time Spent (min) 35
[2023-12-31] MEDS: AMIODARONE 200 MG TAB PO ONE (13:15)
[2023-12-31] MEDS: ACETAMINOPHEN 325 MG TAB PO PRN (17:55)
--- NOTE | 2024-01-01 07:23 | Anesthesiology Consultation ---
Date of Service January 01, 2024 Assessment & Plan Chart Review Chart Review: Acceptable Risk for Surgery and Patient NOT seen in Pre Admission Testing Consults Requested none History Surgery Operation Date: 01/01/24 07:30 Proposed Procedures p Cardioversion w/Anesthesia Sedation - Jimbo Ferraro MD Height/Weight Height: 5 ft 1 in Weight: 114.3 kg Allergies Allergy/AdvReac Type Severity Reaction Status Date / Time codeine AdvReac Intermediate N/V Verified 12/27/23 17:23 lisinopril AdvReac Intermediate Cough Verified 12/27/23 17:23 morphine AdvReac Intermediate N/V Verified 12/27/23 17:23 Medications Home Medications Medication Instructions Recorded Confirmed Last Taken multivitamin (Daily Multi-Vitamin 1 tab PO QAM 02/04/19 12/27/23 12/20/23 10:00 tablet) timolol maleate 0.5 % eye drops 1 drp OPB HS 02/24/20 12/27/23 12/20/23 22:00 cholecalciferol (vitamin D3) 50 2,000 unit PO QAM 04/07/20 12/27/23 12/20/23 10:00 mcg (2,000 unit) capsule nitroglycerin 0.4 mg sublingual 0.4 mg sublingual Q5M PRN chest 03/22/21 12/27/23 Unknown tablet (Nitrostat) pain #25 tabs pantoprazole 20 mg tablet,delayed 20 mg PO QAM #90 tabs 11/23/22 12/27/23 12/20/23 10:00 release potassium citrate 10 mEq (1,080 10 meq PO BID #180 tabs 11/23/22 12/27/23 12/20/23 10:00 mg) tablet,extended release amlodipine 10 mg tablet 10 mg PO QAM #90 tabs 02/01/23 12/27/23 12/21/23 07:00 amiodarone 200 mg tablet (Pacerone) 100 mg PO Q OTHER DAY 08/25/23 12/27/23 12/20/23 22:00 clotrimazole-betamethasone 1 1 applic topical HS PRN skin 08/25/23 12/27/23 08/24/23 %-0.05 % topical cream irritation nystatin 100,000 unit/gram topical 1 applic topical TID PRN Skin 08/25/23 12/27/23 12/18/23 10:00 powder Irritation metoprolol tartrate 25 mg tablet 25 mg PO BID #180 tabs 09/12/23 12/27/23 12/21/23 07:00 hydrochlorothiazide 25 mg tablet 25 mg PO QAM #90 tabs 10/10/23 12/27/23 12/20/23 10:00 furosemide 20 mg tablet 20 mg PO DAILY PRN Fluid Retention 10/17/23 12/27/23 12/20/23 10:00 #90 tabs aspirin 81 mg tablet,delayed 81 mg PO HS 12/11/23 12/27/23 12/20/23 22:00 release (Bailee Low Dose Aspirin) rosuvastatin 5 mg tablet 5 mg PO HS 12/11/23 12/27/23 12/20/23 22:00 valsartan 160 mg tablet (Diovan) 160 mg PO HS 12/11/23 12/27/23 12/19/23 22:00 apixaban 5 mg tablet (Eliquis) 5 mg PO BID 12/21/23 12/27/23 12/16/23 22:00 montelukast 10 mg tablet 10 mg PO HS 12/21/23 12/27/23 12/20/23 22:00 (Singulair) phenazopyridine 200 mg tablet 200 mg PO Q8H PRN pain #10 tabs 12/21/23 12/27/23 Unknown (Pyridium) tamsulosin 0.4 mg capsule 0.4 mg PO HS #30 caps 12/21/23 12/27/23 Unknown Active Medications Generic Name Dose Route Start Last Admin Trade Name Freq PRN Reason Stop Dose Admin Acetaminophen 650 mg 12/27/23 18:25 12/31/23 17:55 Acetaminophen 325 Mg Tab PO 01/26/24 18:24 650 mg Q4H PRN Administration Pain or Fever Amiodarone HCl 200 mg 12/28/23 09:45 12/29/23 09:32 Amiodarone 200 Mg Tab PO 01/27/24 09:44 Not Given QAM RESHMA Apixaban 5 mg 12/27/23 21:00 12/31/23 20:05 Apixaban 5 Mg Tablet PO 01/26/24 20:59 5 mg BID RESHMA Administration Aspirin 81 mg 12/27/23 21:00 12/31/23 20:05 Aspirin 81 Mg Ectab PO 01/26/24 20:59 81 mg HS RESHMA Administration Hydrochlorothiazide 25 mg 12/28/23 09:00 12/31/23 09:03 Hydrochlorothiazide 25 Mg Tab PO 01/27/24 08:59 25 mg QAM RESHMA Administration Ondansetron HCl 6 mg/ Dextrose 53 mls @ 200 mls/hr 12/30/23 01:46 12/31/23 18:28 IV 01/29/24 01:45 Infused Q6H PRN Infusion Nausea And Vomiting Metoprolol Tartrate 25 mg 12/27/23 21:00 12/31/23 20:11 Metoprolol Tartrate 25 Mg Tab PO 01/26/24 20:59 25 mg BID RESHMA Administration Montelukast Sodium 10 mg 12/27/23 21:00 12/31/23 20:06 Montelukast Sodium 10 Mg Tablet PO 01/26/24 20:59 10 mg HS RESHMA Administration Pantoprazole Sodium 40 mg 12/28/23 09:00 12/31/23 09:01 Pantoprazole 40 Mg Tab PO 01/27/24 08:59 40 mg QAM RESHMA Administration Potassium Chloride 20 meq 12/27/23 21:00 12/31/23 20:11 Potassium Chloride Crtab 20 Meq Tabcr PO 01/26/24 20:59 20 meq BID RESHMA Administration Rosuvastatin Calcium 5 mg 12/27/23 21:00 12/31/23 20:07 Rosuvastatin Calcium 5 Mg Tab PO 01/26/24 20:59 5 mg HS RESHMA Administration Tamsulosin HCl 0.4 mg 12/27/23 21:00 12/31/23 20:07 Tamsulosin Hcl 0.4 Mg Cap PO 01/26/24 20:59 0.4 mg HS RESHMA Administration Valsartan 160 mg 12/27/23 21:00 12/31/23 20:08 Valsartan 80 Mg Tab PO 01/26/24 20:59 160 mg HS RESHMA Administration Vitamin D 50 mcg 12/28/23 09:00 12/31/23 09:02 Cholecalciferol 25 Mcg (1000 Units) Tab PO 01/27/24 08:59 50 mcg QAM RESHMA Administration NPO Date Last Intake of Fluids: 12/31/23 Time Last Intake of Fluids: 23:40 Past Medical History Medical History Atrial fibrillation Cardioversion September 2023 Left ear hearing loss Per records Venous reflux Paroxysmal atrial flutter Peripheral vascular disease Morbid obesity Renal lesion Dr. Bronson monitoring GERD (gastroesophageal reflux disease) Dyslipidemia CAD (coronary artery disease) Non-obstructive > follows with Dr. Leos Hx of solitary pulmonary nodule PVD (peripheral vascular disease) Hx of non-ST elevation myocardial infarction (NSTEMI) (2020) pt unaware/denies > states was just an angina attack Osteoarthritis Lumbar stenosis with neurogenic claudication Type 2 diabetes mellitus Diet controlled, no meds Peripheral edema Asthma "Mild" No inhaler Paroxysmal atrial fibrillation Taking Eliquis/metoprolol Follows with [facility] cardio Urge incontinence of urine Urinary frequency Urinary urgency Sarcoidosis Follows with [facility] pulm Sleep apnea Does not tolerate CPAP History of kidney stones Glaucoma Past Family History Family History Mother Atrial fibrillation Stroke Father No problems noted. Brother Lung cancer Brother Lung cancer Sister Lung cancer Other No family history of adverse response to anesthesia Past Surgical History Surgical History History of cystoscopy S/P bladder tumor excision with fulguration History of cholecystectomy History of tooth extraction History of left knee surgery History of total bilateral knee replacement History of surgery on left wrist x2 History of hysterectomy with unilateral oophorectomy History of lithotripsy History of esophagogastroduodenoscopy (EGD) History of colonoscopy History of cardiac cath 2020, 2013, 2005- no stents History of cardiac radiofrequency ablation 2020 Social History Smoking Status: Never smoker Do You Dip or Chew Tobacco: No Hx Alcohol Use: No Hx Substance Use: No substance use type: does not use Physical Exam Vital Signs Last Vital Signs Temp 36.4 C L 01/01/24 03:00 Pulse 93 H 01/01/24 03:00 Resp 16 01/01/24 03:00 BP 109/68 01/01/24 03:00 Pulse Ox 93 01/01/24 03:00 O2 Del Method Room Air 01/01/24 03:00 Testing Laboratory Results 12/30/23 07:22 12/30/23 07:22 PT 11.5 Seconds (9.0-12.0) 12/27/23 14:50 INR 1.1 (0.9-1.1) 12/27/23 14:50 APTT 26 Seconds (21-31) 12/27/23 14:50 Urine Color Yellow 12/27/23 16:22 Urine Appearance Clear (Clear) 12/27/23 16:22 Urine pH 6.5 (4.5-7.5) 12/27/23 16:22 Ur Specific [place] 1.008 (1.000-1.030) 12/27/23 16:22 Urine Protein Negative (Negative) 12/27/23 16:22 Urine Glucose (UA) Negative (Negative) 12/27/23 16:22 Urine Ketones Negative (Negative) 12/27/23 16:22 Urine Nitrite Negative (Negative) 12/27/23 16:22 Ur Leukocyte Esterase 2+ (Negative) H 12/27/23 16:22 Urine WBC (Auto) 6-10 /hpf (0-5) H 12/27/23 16:22 Urine RBC (Auto) >20 /hpf (0-2) H 12/27/23 16:22 U Hyaline Cast (Auto) 0-2 /lpf (0-2) 12/27/23 16:22 U Epithel Cells (Auto) 0-2 /hpf (0-2) 12/27/23 16:22 Urine Bacteria (Auto) None Seen (None Seen) 12/27/23 16:22
--- NOTE | 2024-01-01 07:59 | Cardioversion ---
Date of Service January 01, 2024 PG Electrical Cardioversion Rp Electrical Cardioversion Report The patient was brought to the laboratory being NPO after midnight and was identified in the laboratory, connected to the recording apparatus including electrocardiographic monitoring, noninvasive blood pressure monitoring and pulse oximetry. Anteroposterior patch electrodes were placed. The patient was anesthetized by the anesthesia department. Once adequate anesthesia was obtained a synchronized biphasic shock was delivered using 200 J with conversion to a slow irregular sinus bradycardia. The patient awoke from the anesthetic without sequela, will be observed briefly and then returned to her room. Coding Level of Care Code 42179 CARDIOVERSION, ELECTIVE Additional Codes Electrical Cardioversion Report ([id number])
--- NOTE | 2024-01-01 08:07 | Anesthesiology Progress Note ---
Date of Service January 01, 2024 Anesthesia Post Procedure Vital Signs Vital Signs: Temp Pulse Pulse Pulse Resp BP BP 01/01/24 08:04 38 L 14 88/53 L 01/01/24 08:00 43 L 12 85/54 L 01/01/24 07:58 51 L 79/48 L 01/01/24 07:55 103 H 16 108/79 01/01/24 07:20 85 16 97/78 L 01/01/24 03:00 36.4 C L 93 H 16 109/68 12/31/23 22:45 36.9 C 93 H 20 100/62 12/31/23 21:48 107 H 12/31/23 20:07 36.4 C L 104 H 16 125/86 12/31/23 16:07 36.6 C 96 H 18 121/89 12/31/23 14:46 102 H 12/31/23 11:52 36.6 C 102 H 20 100/69 12/31/23 09:00 110/80 12/31/23 08:07 Pulse Ox O2 Del Method O2 Flow Rate 01/01/24 08:04 98 Oxymask 8 01/01/24 08:00 93 Oxymask 8 01/01/24 07:58 93 Oxymask 8 01/01/24 07:55 93 Oxymask 8 01/01/24 07:20 94 Room Air 01/01/24 03:00 93 Room Air 12/31/23 22:45 95 Room Air 12/31/23 21:48 12/31/23 20:07 94 Room Air 12/31/23 16:07 96 Room Air 12/31/23 14:46 12/31/23 11:52 96 Room Air 12/31/23 09:00 12/31/23 08:07 Room Air Transfer of Care Handoff Completed per policy Notes Mental Status: alert / awake / arousable Patient Amnestic to Procedure: Yes Nausea / Vomiting: adequately controlled Pain: adequately controlled Airway Patency, RR, SpO2: stable & adequate BP & HR: stable & adequate Hydration State: stable & adequate Anesthetic Complications: no major complications apparent and Pt Satisfied with anesthetic care
[2024-01-01] MEDS ORDERED: ePHEDrine sulfate 50 MG/5 ML SYR ONE (08:12)
[2024-01-01] MEDS ORDERED: PHENYLEPHRINE 100MCG/ML 10ML SYR IV ONE (08:12)
[2024-01-01] MEDS ORDERED: PROPOFOL IV EMULSION 10 MG/ML 20 ML VIAL IV ONE (08:12)
[2024-01-01 09:26] LABS: Hematocrit (blood only) 39.3 % (37.0-47.0); Hemoglobin 13.3 g/dl (12.0-16.0); Mean Corpuscular Hemoglobin 31.6 pg (25.0-34.0); Mean Corpuscular Hgb Conc 33.8 g/dL (32.0-36.0); Mean Corpuscular Volume 93.3 fL (80.0-100.0); Mean Platelet Volume 10.7 fL (9.4-12.4); Platelet Count 216 K/uL (130-400); RDW Coefficient of Variation 12.6 % (11.5-14.5); RDW Standard Deviation 43.4 fL (36.4-46.3); Red Blood Count 4.21 M/uL (4.20-5.40); White Blood Count 5.65 K/ul (4.8-10.8)
[2024-01-01 09:42] LABS: BUN Creatinine Ratio 17.5 (10-20); Calcium 8.8 mg/dl (8.6-10.3); Creatinine Clr Calc Pharmacy 50.3 ml/min; Est GFR (Non-African American) 50.9 ml/min; Potassium 3.7 mmol/L (3.5-5.1)
[2024-01-01] MEDS: PROCHLORPERAZINE 5 MG in SYRINGE 4 ML IV PRN (12:27)
--- NOTE | 2024-01-01 13:30 | Cardiology Progress Note ---
Date of Service January 01, 2024 Assessment & Plan (1) Atrial fibrillation with RVR: (2) SSS (sick sinus syndrome): (3) HTN (hypertension): Plan 1. Atrial fibrillation: She has had recurrent atrial fibrillation following reduction in amiodarone (done due to bradycardia). With this reduction she has had atrial fibrillation with a rapid heart rate. Attempts to control the heart rate include intravenous amiodarone, as well as low-dose metoprolol tartrate. AV blocking medications are limited by hypotension (although asymptomatic at rest). I did add digoxin to her regimen. After 0.5 mg of intravenous digoxin yesterday her level of 0.9 yesterday, we probably do not want it much higher than that. There is an interaction with amiodarone or digoxin levels elevate but if we watch levels that should not be an issue. I did start 0.125 mg Monday and Monday. 2. Tachybradycardia syndrome: She has tachycardia when in atrial fibrillation and with control of her arrhythmia (or with AV marianne blocking medications) she has significant bradycardia. We could not control her rate without increasing her medications to the point where she had symptomatic bradycardia, she is now on a higher dose of amiodarone which we will continue to accumulate in her system and it was decreased due to symptomatic bradycardia. I believe she is a candidate for a pacemaker. Even though her bradycardia may be related to the medications it still justifies pacemaker implantation. The only other option would be repeat atrial fibrillation ablation, but that is not necessarily effective and we will possibly have the same situation after so I am not inclined to do that. I discussed pacemaker implantation with her, it has been discussed before, and I suspect she will feel better with an appropriate heart rate and we can better control or prevent atrial fibrillation if we do not have to worry about bradycardia. She would like to proceed so I will work on making those arrangements. 3. Hypertension: Here in the hospital her blood pressure has been mostly low during atrial fibrillation and now has normalized following conversion, at least on a few readings. Admission and Anticipated Discharge Date Admission Date: December 27, 2023 Subjective She underwent cardioversion this morning and remains out of atrial fibrillation. She has sinus bradycardia with occasional junctional beats. She does not feel poorly, but does not feel very energetic either. She does not have any chest discomfort. She is having difficulty with nausea at the moment, evidently she has had that for quite a few years so that is nothing new. Physical Exam Physical Exam: Constitutional: Alert, cooperative and in no distress. HEENT: Unremarkable Neck: No jugular venous distention, carotid pulses are normal and equal bilaterally without bruits. Pulmonary: Clear to auscultation bilaterally. Cardiac: Regular slow rhythm with no murmur, gallop or rub. Abdomen: Soft, nontender with normal bowel sounds. Extremities: No edema. Neurologic: No focal findings. Skin: No rash, ecchymoses or petechiae. Results & Data Vital Signs (Past 12 Hours) Vital Signs Temp Pulse Pulse Pulse Resp BP BP 01/01/24 11:57 36.2 C L 57 L 18 127/78 01/01/24 08:30 52 L 16 109/57 L 01/01/24 08:23 49 L 16 89/53 L 01/01/24 08:08 46 L 16 88/48 L 01/01/24 08:04 38 L 14 88/53 L 01/01/24 08:00 43 L 12 85/54 L 01/01/24 07:58 51 L 79/48 L 01/01/24 07:55 103 H 16 108/79 01/01/24 07:20 85 16 97/78 L 01/01/24 03:00 36.4 C L 93 H 16 109/68 Pulse Ox O2 Del Method O2 Flow Rate 01/01/24 11:57 97 Room Air 01/01/24 08:30 94 Room Air 01/01/24 08:23 96 Room Air 01/01/24 08:08 99 Nasal Cannula 6 01/01/24 08:04 98 Oxymask 8 01/01/24 08:00 93 Oxymask 8 01/01/24 07:58 93 Oxymask 8 01/01/24 07:55 93 Oxymask 8 01/01/24 07:20 94 Room Air 01/01/24 03:00 93 Room Air Laboratory Results CBC 01/01/24 Range/Units 09:00 WBC 5.65 (4.8-10.8) K/ul RBC 4.21 (4.20-5.40) M/uL Hgb 13.3 (12.0-16.0) g/dl Hct 39.3 (37.0-47.0) % Plt Count 216 (130-400) K/uL Comprehensive Metabolic Panel 01/01/24 Range/Units 09:00 Sodium 137 (136-145) mmol/L Potassium 3.7 (3.5-5.1) mmol/L Chloride 100 (98-107) mmol/L Carbon Dioxide 30 (21-32) mmol/L BUN 18 (6-23) mg/dl Creatinine 1.03 (0.6-1.2) mg/dl Glucose 145 H (70-99(Fasting)) mg/dl Calcium 8.8 (8.6-10.3) mg/dl Intake and Output 12/31/23 01/01/24 01/01/24 22:59 06:59 14:59 Intake Total 447.833 / 1273.161 225.328 / 1273.161 53 / 53 Balance 447.833 / 1273.161 225.328 / 1273.161 53 53 Intake: IV 247.833 / 473.161 225.328 / 473.161 53 / 53 Amiodarone / D5w 360 mg In 200 194.833 / 420.161 225.328 / 420.161 ml @ 0.5 MG/MIN 16.667 mls/hr IV .Q12H [facility] Rx#:[id number] ondansetron HCL 6 mg In 53 / 53 53 / 53 Dextrose 5% 50 ml @ 200 mls/hr IV Q6H PRN Rx#:[id number] Oral 200 / 800 Other: Other Intake Source NPO # Unmeasured Voids 2 1 Weight 114.3 kg 114.3 kg Weight Measurement Method Standing Scale Patient Weight 01/02/24 06:59 Weight 114.3 kg Diagnostic Findings Telemetry: Atrial fibrillation with a rapid heart rate until cardioversion, sinus bradycardia with junctional beat since. PG Care Time/CCT Total # of Minutes Spent Total Time Spent with Patient: Total time spent is greater than 50% in coordination of care (as documented) at patient's floor/unit and/or counseling patient: Coding Level of Care Code 09286 SUB INP/OBS CARE 3/50MIN Diagnoses Atrial fibrillation with RVR I48.91 SSS (sick sinus syndrome) I49.5 HTN (hypertension) I10
--- NOTE | 2024-01-01 14:15 | Hospitalist Progress Note ---
Date of Service January 01, 2024 Assessment & Plan (1) Atrial fibrillation with RVR: Plan: She is now s/p cardioversion Currently sinus bradycardia with occasional junctional rhythm Cardiology thinks she may benefit from a pacemaker Patient is agreeable (2) Acute heart failure with preserved ejection fraction: Plan: 12 pound weight gain; worsening LE edema and MOSLEY x 3 days, worsened by afib w rv r Last echocardiogram in March 2021 revealed LVEF at 55 to 60% Echocardiogram 12/27 shows normal EF CXR without signs of pulmonary edema BNP elevated at 306 (most recently 243 on 09/04/2023) Daily weights Strict I&O monitoring Heart healthy, low-sodium diet (1800 mL fluid restriction) Patient has been getting Lasix 40 mg IV Creatinine and BUN rising. 1.26 and 27 today She got her dose of Lasix IV today I discontinued IV Lasix Monitor BMP prior to further Lasix dosing. She has lost 3 kg since admission Continue HCTZ 25mg p.o. daily Improving (3) Hematuria: Plan: Stent placed with Dr. Bronson on 12/20 Patient was discharged on ciprofloxacin 500 mg p.o. x 5 days Patient says that her urine has cleared up and is no more bloody appearing Continue Eliquis in the setting of rapid A-fib (4) HTN (hypertension): Plan: Continue metoprolol, valsartan Hold amlodipine in the setting of significant lower extremity edema and hypotension in the ED (5) Morbid obesity with BMI of 45.0-49.9, adult: Plan DNR/DNI Heart healthy, low-sodium diet (1800 mL fluid restriction) VTE PPx: On Eliquis Admission and Anticipated Discharge Date Admission Date: December 27, 2023 Subjective patient seen and examined, she is now s/p cardioversion Review of Systems Review of Systems: All systems reviewed are negative, apart from the ones contained in the history. Physical Exam Physical Exam: The patient is awake, alert and oriented 3, well developed and well nourished, normocephalic and atraumatic, lying in bed and in no acute distress. HEENT--PERRL, EOMI, mucous membranes and oropharynx mildly dry Neck--supple. No JVD. No bruits. Thyroid normal, trachea midline, no adenopathy. Heart--normal S1 and S2. No murmurs, rubs or gallops. Lungs--clear bilaterally, no respiratory distress, no accessory muscle use. Abdomen--normal bowel sounds and soft. Extremities--no cyanosis or clubbing. No edema. Dermatologic--normal skin turgor, normal color, no abnormal lymph nodes, no rash. Neurologic--cranial nerves II through XII grossly intact. Rheumatologic--normal range of motion. Psychiatric--normal affect. Results & Data Results & Data Vital Signs (Past 12 Hours) Vital Signs Temp Pulse Pulse Pulse Resp BP BP 01/01/24 14:11 61 16 100/60 01/01/24 11:57 97.2 F L 57 L 18 127/78 01/01/24 09:35 52 L 16 108/70 01/01/24 09:05 52 L 16 100/61 01/01/24 08:50 52 L 16 100/59 L 01/01/24 08:30 52 L 16 109/57 L 01/01/24 08:23 49 L 16 89/53 L 01/01/24 08:08 46 L 16 88/48 L 01/01/24 08:04 38 L 14 88/53 L 01/01/24 08:00 43 L 12 85/54 L 01/01/24 07:58 51 L 79/48 L 01/01/24 07:55 103 H 16 108/79 01/01/24 07:20 85 16 97/78 L 01/01/24 03:00 97.5 F L 93 H 16 109/68 Pulse Ox O2 Del Method O2 Flow Rate 01/01/24 14:11 97 Room Air 01/01/24 11:57 97 Room Air 01/01/24 09:35 96 Room Air 01/01/24 09:05 96 Room Air 01/01/24 08:50 95 Room Air 01/01/24 08:30 94 Room Air 01/01/24 08:23 96 Room Air 01/01/24 08:08 99 Nasal Cannula 6 01/01/24 08:04 98 Oxymask 8 01/01/24 08:00 93 Oxymask 8 01/01/24 07:58 93 Oxymask 8 01/01/24 07:55 93 Oxymask 8 01/01/24 07:20 94 Room Air 01/01/24 03:00 93 Room Air PG Care Time/CCT Total # of Minutes Spent Total Time Spent with Patient: Total time spent is greater than 50% in coordination of care (as documented) at patient's floor/unit and/or counseling patient: Coding Level of Care Code 51919 SUB INP/OBS CARE 2/35MIN Diagnoses Atrial fibrillation with RVR I48.91 Acute heart failure with preserved ejection fraction I50.31 Hematuria R31.9 HTN (hypertension) I10 Morbid obesity with BMI of 45.0-49.9, adult E66.01; Z68.42 Time Spent (min) 35
[2024-01-01] MEDS: LACTATED RINGER'S 1,000 ML IV SCH (14:37)
[2024-01-01] MEDS: DIGOXIN 0.125 MG TAB PO SCH (17:42)
[2024-01-02] MEDS: ACETAMINOPHEN 1,000 MG/100 ML VIAL IV PRN (01:02)
[2024-01-02] MEDS ORDERED: ceFAZolin 330 MG/ML 1 GM VIAL IV SCH (06:00)
--- NOTE | 2024-01-02 06:55 | Electrocardiogram Report ---
Test Reason : Blood Pressure : */* mmHG Vent. Rate : 49 BPM Atrial Rate : 49 BPM P-R Int : 226 ms QRS Dur : 96 ms QT Int : 518 ms P-R-T Axes : 67 73 100 degrees QTcB Int : 467 ms Sinus bradycardia with marked sinus arrhythmia with 1st degree A-V block Low voltage QRS Cannot rule out Anterior infarct (cited on or before 27-Dec-2023) Abnormal ECG When compared with ECG of 27-Dec-2023 15:19, Sinus rhythm has replaced Atrial fibrillation Vent. rate has decreased by 79 bpm Nonspecific T wave abnormality no longer evident in Inferior leads Confirmed by Jimbo Ferraro ([id number]) on 01/02/2024 6:55:08 AM Referred By: REFERRED SELF Confirmed By: Jimbo Ferraro
[2024-01-02 07:45] LABS: BUN Creatinine Ratio 18.1 (10-20); Calcium 8.7 mg/dl (8.6-10.3); Creatinine Clr Calc Pharmacy 44.6 ml/min; Est GFR (African American) 51.1 ml/min; Est GFR (Non-African American) 44.1 ml/min; Potassium 3.8 mmol/L (3.5-5.1)
--- NOTE | 2024-01-02 08:21 | Pre Anesthesia Assessment ---
Date of Service January 02, 2024 Pre Sedation Assessment Vital Signs Temp Pulse Pulse Pulse Resp BP BP 01/02/24 07:15 50 L 01/02/24 06:58 54 L 18 111/49 L 01/02/24 03:00 37.1 C 54 L 18 115/75 01/01/24 23:47 53 L 01/01/24 22:50 36.9 C 68 18 114/70 01/01/24 19:48 36.7 C 58 L 18 109/71 01/01/24 17:42 52 L 01/01/24 15:40 36.6 C 68 18 107/70 01/01/24 14:11 61 16 100/60 01/01/24 12:35 60 16 127/70 01/01/24 11:57 36.2 C L 57 L 18 127/78 01/01/24 11:35 66 16 128/78 01/01/24 10:35 75 16 108/70 01/01/24 10:05 55 L 16 107/58 L 01/01/24 09:35 52 L 16 108/70 01/01/24 09:05 52 L 16 100/61 01/01/24 08:50 52 L 16 100/59 L 01/01/24 08:30 52 L 16 109/57 L 01/01/24 08:23 49 L 16 89/53 L Pulse Ox O2 Del Method 01/02/24 07:15 01/02/24 06:58 95 Room Air 01/02/24 03:00 92 Room Air 01/01/24 23:47 01/01/24 22:50 95 Room Air 01/01/24 19:48 94 Room Air 01/01/24 17:42 01/01/24 15:40 93 Room Air 01/01/24 14:11 97 Room Air 01/01/24 12:35 97 Room Air 01/01/24 11:57 97 Room Air 01/01/24 11:35 97 Room Air 01/01/24 10:35 96 Room Air 01/01/24 10:05 96 Room Air 01/01/24 09:35 96 Room Air 01/01/24 09:05 96 Room Air 01/01/24 08:50 95 Room Air 01/01/24 08:30 94 Room Air 01/01/24 08:23 96 Room Air Cardiovascular RRR, no murmur, no edema Respiratory normal respiratory effort, lungs clear to auscultation Pre-Sedation Airway Assessment Smoking Status: Never smoker Hx Sleep Apnea: No Hx Difficult Intubation: No Short, Thick Neck: Yes Thyromental Distance: < 3.5 Finger Breadths Oral Cavity: + WNL Mallampati Class: III ASA: ASA3 NPO Status Date of Last Intake of Fluids: 01/01/24 Date of Last Intake of Solid Food: 01/01/24 Procedure Planning Contraindications for Sedation: none Current Medications Reviewed: Yes Notes The planned sedation has been discussed with the patient. Informed Consent was obtained. I have identified the patient, determined the appropriateness of sedation and have assessed the patient immediately prior to the procedure. All medicine(s) and interventions are by my order.
--- NOTE | 2024-01-02 08:23 | History & Physical Bridge Note ---
Date of Service January 02, 2024 History & Physical Bridge Note I have examined the patient, reviewed the History & Physical and in the interval since the performance of the History & Physical I have noted the following changes of clinical significance: no changes noted. I reviewed the indications, procedure, risks and alternatives with the patient, and answered all questions. Patient understands and agrees to the procedure. Consent obtained. I also reviewed the risks and use of sedation, patient understands and consent obtained.
[2024-01-02] MEDS: LIDOCAINE 1% LOCAL 20 ML VIAL ONE (09:16)
[2024-01-02] MEDS: VANCOMYCIN HCL 1000MG/20ML VIAL ONE (09:17)
[2024-01-02] MEDS: WATER, STERILE FOR INJ 10 ML VIAL ONE (09:33)
[2024-01-02] MEDS: ceFAZolin 330 MG/ML 1 GM VIAL ONE (09:34)
[2024-01-02] MEDS: fentaNYL citrate PF 100 MCG/2 ML VIAL ONE ×2 (09:43→10:28)
[2024-01-02] MEDS: MIDAZOLAM HCL 5 MG/ML 1 ML VIAL ONE (09:44)
[2024-01-02] MEDS ORDERED: ACETAMINOPHEN W/CODEINE #3 1 TAB PO PRN (10:29)
--- NOTE | 2024-01-02 10:29 | Electrophysiology Report ---
Date of Service January 02, 2024 Electrophysiology Procedure Electrophysiology Procedure Report Preoperative diagnosis: Sick sinus syndrome Postoperative diagnosis: Same Procedure: Left subclavian venogram Dual-chamber left bundle branch pacemaker implantation Surgeon: Jimbo Ferraro MD Estimated blood loss: 20 cc Complications: None Disposition: Non Destructive Testing Specialist recovery Procedure details: After obtaining informed consent for the procedure, the patient was brought to the laboratory and prepped and draped in the standard sterile manner. Dye was injected the left arm IV site to opacify the left subclavian vein. The subclavian vein was identified and found to be free of obstruction. The left prepectoral region was anesthetized with 1% lidocaine local anesthetic and left axillary venipuncture was performed by percutaneous technique and a guidewire placed through the left subclavian vein into the superior vena cava. The area was further infiltrated with 1% lidocaine local anesthetic and a 5 cm incision was made parallel to the left clavicle and 2 cm below it and carried down to the anterior pectoralis fascia. A pacemaker pocket was formed by blunt dissection anterior to the pectoralis fascia and a vancomycin-soaked sponge was placed in the pocket. A 9 [place] Med[employer] lead introducer was placed over the guidewire into the left subclavian vein, the dilator and guidewire were removed and a bipolar active fixation steroid tipped atrial lead was advanced through the introducer into the superior vena cava. A guidewire was placed through the introducer and the introducer was stripped from the lead and guidewire. A 7 [place] Medtronic lead introducer was placed over the guidewire into the left subclavian vein, the dilator and guidewire were removed. A C315 His 02 septal sheath was advanced through the introducer over a guidewire and advanced into the right ventricular outflow tract. The guidewire and dilator were removed and the sheath was positioned in a mid septal location. A bipolar active fixation steroid tipped ventricular lead was advanced through the introducer and rotated to advance the screw into the septum. Septal penetration was confirmed by electrogram morphology. Pacing and sensing thresholds were evaluated in bipolar configuration and are noted on the data sheet. The septal sheath was stripped away from the lead. A guidewire was placed back through the introducer and the introducer was removed over the the guidewire. Using a curved stylette the atrial lead was positioned in the region of the atrial appendage and the screw extended fixing the lead in position. Pacing and sensing thresholds were evaluated in bipolar configuration and are recorded on the implant data sheet. Once the leads were in position they were attached to the anterior pectoralis fascia using 2 sutures of 2-0 silk around each lead collar. The vancomycin soaked sponge was removed from the pocket, hemostasis was obtained, the pacemaker was attached to the leads and placed in the pocket with the leads coiled beneath it. The incision was closed with a running double subcutaneous closure of 3-0 Vicryl absorbable suture, followed by running subcuticular skin closure of 4-0 Vicryl absorbable suture. Bacitracin ointment was placed on the incision and a dressing applied. [facility] [place] Electrophysiology codes Indication for Procedure (1) SSS (sick sinus syndrome): Pacing Procedure 1: Pacin Insert/Replace Pacer A & V Miscellaneous Procedures Procedure 1: EP Miscellaneous: 34561 Contrast injection for venography Procedure 2: EP Miscellaneous: 37756-99 Vengraphy, extremity PG Moderate Sedation Codes Moderate Sedation Codes Procedure 1: Sedation/Anesthesia: 98700 Mod Sedation by the same physician;Init15 Min Child Age 5 & Up Procedure 2: Sedation/Anesthesia: 34387 Mod Sedation by the same physician; Ea [id number] Minutes
[2024-01-02] MEDS: ceFAZolin 3000MG 3,000 MG/72.5 ML BAG IV SCH (11:25)
[2024-01-02] MEDS: METOPROLOL TARTRATE 25 MG TAB PO SCH (11:26)
[2024-01-02] MEDS: traMADol HCL 50 MG TABLET PO PRN (11:33)
--- NOTE | 2024-01-02 12:52 | Hospitalist Progress Note ---
Date of Service January 02, 2024 Assessment & Plan (1) Atrial fibrillation with RVR: Plan: She had cardioversion on 01/01/24, but still sinus bradycardia with occasional junctional rhythm She is now s/p Dual-chamber left bundle branch pacemaker implantation Appreciate cardiology and ectrophyssiology (2) Acute heart failure with preserved ejection fraction: Plan: Presents with a 12 pound weight gain; worsening LE edema and MOSLEY x 3 days, worsened by afib w rvr Last echocardiogram in March 2021 revealed LVEF at 55 to 60% Echocardiogram 12/27 shows normal EF CXR without signs of pulmonary edema BNP elevated at 306 (most recently 243 on 09/04/2023) Got a dose of lasix Will continue to monitor I/o daily weights Give Lasix as much as BP can tolerate (3) Hematuria: Plan: Stent placed with Dr. Bronson on 12/20 Patient was discharged on ciprofloxacin 500 mg p.o. x 5 days Patient says that her urine has cleared up and is no more bloody appearing Continue Eliquis in the setting of rapid A-fib (4) HTN (hypertension): Plan: Continue metoprolol, valsartan Hold amlodipine in the setting of significant lower extremity edema and hypotension in the ED (5) Morbid obesity with BMI of 45.0-49.9, adult: Plan Hopefully d/c in the next 24 hrs DNR/DNI Heart healthy, low-sodium diet (1800 mL fluid restriction) VTE PPx: On Eliquis Admission and Anticipated Discharge Date Admission Date: December 27, 2023 Subjective patient seen and examined, she is now s/p cardioversion, going for a pacemaker insertion Review of Systems Review of Systems: All systems reviewed are negative, apart from the ones contained in the history. Physical Exam Physical Exam: The patient is awake, alert and oriented 3, well developed and well nourished, normocephalic and atraumatic, lying in bed and in no acute distress. HEENT--PERRL, EOMI, mucous membranes and oropharynx mildly dry Neck--supple. No JVD. No bruits. Thyroid normal, trachea midline, no adenopathy. Heart--normal S1 and S2. No murmurs, rubs or gallops. Lungs--clear bilaterally, no respiratory distress, no accessory muscle use. Abdomen--normal bowel sounds and soft. Extremities--no cyanosis or clubbing. No edema. Dermatologic--normal skin turgor, normal color, no abnormal lymph nodes, no rash. Neurologic--cranial nerves II through XII grossly intact. Rheumatologic--normal range of motion. Psychiatric--normal affect. Results & Data Results & Data Vital Signs (Past 12 Hours) Vital Signs Temp Pulse Pulse Pulse Resp BP Pulse Ox 01/02/24 12:30 97.7 F 70 17 110/65 95 01/02/24 12:14 97.3 F L 70 16 106/67 91 01/02/24 11:44 98.1 F 70 16 113/69 93 01/02/24 11:14 97.3 F L 70 17 106/66 95 01/02/24 11:00 97.3 F L 70 16 110/70 96 01/02/24 10:45 70 18 145/65 H 94 01/02/24 10:30 70 18 129/60 93 01/02/24 07:15 50 L 01/02/24 06:58 54 L 18 111/49 L 95 01/02/24 03:00 98.8 F 54 L 18 115/75 92 O2 Del Method 01/02/24 12:30 Room Air 01/02/24 12:14 Room Air 01/02/24 11:44 Room Air 01/02/24 11:14 Room Air 01/02/24 11:00 Room Air 01/02/24 10:45 Room Air 01/02/24 10:30 Room Air 01/02/24 07:15 01/02/24 06:58 Room Air 01/02/24 03:00 Room Air PG Care Time/CCT Total # of Minutes Spent Total Time Spent with Patient: Total time spent is greater than 50% in coordination of care (as documented) at patient's floor/unit and/or counseling patient: Coding Level of Care Code 76703 SUB INP/OBS CARE 2/35MIN Diagnoses Atrial fibrillation with RVR I48.91 Acute heart failure with preserved ejection fraction I50.31 Hematuria R31.9 HTN (hypertension) I10 Morbid obesity with BMI of 45.0-49.9, adult E66.01; Z68.42 Time Spent (min) 35
--- NOTE | 2024-01-02 15:52 | Post Anesthesia Assessment ---
Date of Service January 02, 2024 Post Sedation Assessment Vital Signs Temp Pulse Pulse Pulse Resp BP Pulse Ox 01/02/24 14:15 69 01/02/24 13:00 36.4 C L 71 16 98/64 L 95 01/02/24 12:30 36.5 C 70 17 110/65 95 01/02/24 12:14 36.3 C L 70 16 106/67 91 01/02/24 11:44 36.7 C 70 16 113/69 93 01/02/24 11:14 36.3 C L 70 17 106/66 95 01/02/24 11:00 36.3 C L 70 16 110/70 96 01/02/24 10:45 70 18 145/65 H 94 01/02/24 10:30 70 18 129/60 93 01/02/24 07:15 50 L 01/02/24 06:58 54 L 18 111/49 L 95 01/02/24 03:00 37.1 C 54 L 18 115/75 92 01/01/24 23:47 53 L 01/01/24 22:50 36.9 C 68 18 114/70 95 01/01/24 19:48 36.7 C 58 L 18 109/71 94 01/01/24 17:42 52 L O2 Del Method 01/02/24 14:15 01/02/24 13:00 Room Air 01/02/24 12:30 Room Air 01/02/24 12:14 Room Air 01/02/24 11:44 Room Air 01/02/24 11:14 Room Air 01/02/24 11:00 Room Air 01/02/24 10:45 Room Air 01/02/24 10:30 Room Air 01/02/24 07:15 01/02/24 06:58 Room Air 01/02/24 03:00 Room Air 01/01/24 23:47 01/01/24 22:50 Room Air 01/01/24 19:48 Room Air 01/01/24 17:42 Recovery Score Activity: Moves 4 extremities Respiration: Deep Breath/Cough Circulation: +/-20% PreAnes Value Consciousness: Fully Awake Oxygen Saturation: > 92% On Room Air Post Anesthesia Score: 10 Discharge Sedation Level of Care: Fast Track Phase II Post Sedation Plan On clinical assessment, the patient appears to have tolerated the sedation without complications. Patient is recovering as anticipated. Patient will continue to be monitored by nursing and may be discharged when sedation discharge criteria are met per below protocol. Upon Completions of procedure up to 15 minutes continue every 5 minute vital signs and the P.A.R. score; then discharge to a Phase I or Fast Track to Phase II per the following guidelines: * Discharge Patient to appropriate Phase II area if PAR is 8 or greater or return to pre- procedure baseline. The post - procedure orders will be as directed. * If PAR score is less than 8 or not return to pre-procedure baseline then patient will follow Phase I monitoring till PAR is reached for Phase II. The Phase I may be done in procedure room or may call to secure a Phase I area. * If naloxone or flumazenil are used for reversal, hold in Phase I for continued monitoring from when last reversal dose was given for a minimum of 60 minutes or longer pending the nurse and/or physician discretion of patient condition before discharge to Phase II. Please call the Sedation Physician to re-evaluate and complete post-note for discharge to Phase II area. Do NOT discharge from procedure sedation or Phase 1 until post- sedation evaluation note is complete by procedure /sedation MD Sedation Discharge Instructions to be given to the patient at discharge to home.
--- NOTE | 2024-01-03 08:02 | XRay Report ---
XR chest 2V PA/lateral CLINICAL HISTORY: Pacemaker insertion. COMPARISON STUDY: Chest CT June 19, 2017. Chest radiograph December 27, 2023. FINDINGS: There is no pneumothorax following placement of a dual-lead left subclavian pacer. Cardiome partha is unchanged. There is no evidence for pulmonary edema. No pleural effusion is present. There is no consolidation. IMPRESSION: No pneumothorax placement of a dual-lead left subclavian pacemaker. ACT 112: Negative or not required by law. Electronically signed by: Grady Brand M.D. 01/03/2024 8:00 AM
--- NOTE | 2024-01-03 10:33 | Cardiology Progress Note ---
Date of Service January 03, 2024 Assessment & Plan (1) SSS (sick sinus syndrome): Plan 1. Atrial fibrillation: She has had recurrent atrial fibrillation following reduction in amiodarone (done due to bradycardia). With this reduction she has had atrial fibrillation with a rapid heart rate. Attempts to control the heart rate include intravenous amiodarone, as well as low-dose metoprolol tartrate. AV blocking medications are limited by hypotension (although asymptomatic at rest). I did add digoxin to her regimen. After 0.5 mg of intravenous digoxin yesterday her level of 0.9 yesterday, we probably do not want it much higher than that. There is an interaction with amiodarone or digoxin levels elevate but if we watch levels that should not be an issue. I did start 0.125 mg Monday and Monday. At discharge I would continue amiodarone 200 mg daily, metoprolol tartrate 25 mg twice a day and digoxin 0.125 mg Monday and Monday. We can adjust these medications as an outpatient. 2. Tachybradycardia syndrome: She has tachycardia when in atrial fibrillation and with control of her arrhythmia (or with AV marianne blocking medications) she has significant bradycardia. We could not control her rate without increasing her medications to the point where she had symptomatic bradycardia, she is now on a higher dose of amiodarone which we will continue to accumulate in her system and it was decreased due to symptomatic bradycardia. She therefore required a pacemaker to support her heart rate and allow treatment of her tachycardia. 3. Hypertension: Here in the hospital her blood pressure has been mostly low during atrial fibrillation, she has not had hypertension. 4. Postop day #1: She is doing well following pacemaker implantation yesterday. The chest x-ray looks good, the pacemaker appears to be functioning well and she is stable for discharge. Admission and Anticipated Discharge Date Admission Date: December 27, 2023 Subjective She is feeling well today, she does not have any significant incisional discomfort. Physical Exam Physical Exam: Her surgical site is clean and dry, no ecchymosis, no swelling or tenderness. Cardiac rhythm is regular with no rub Lungs are clear Results & Data Vital Signs (Past 12 Hours) Vital Signs Temp Pulse Resp BP Pulse Ox O2 Del Method 01/03/24 07:43 37.0 C 71 18 100/62 91 Room Air 01/03/24 02:43 36.5 C 70 18 106/68 94 Room Air 01/02/24 22:36 36.6 C 70 18 119/72 94 Room Air Laboratory Results Intake and Output 01/02/24 01/03/24 01/03/24 22:59 06:59 14:59 Other: # Unmeasured Voids 1 Diagnostic Findings Telemetry: Normal pacer function with continuous atrial pacing appropriately Chest x-ray: Good lead position, no pneumothorax Pacemaker evaluation: Excellent pacing good sensing characteristics PG Care Time/CCT Total # of Minutes Spent Total Time Spent with Patient: Total time spent is greater than 50% in coordination of care (as documented) at patient's floor/unit and/or counseling patient: Coding Level of Care Code 27738 Post Operative Follow-Up Diagnoses SSS (sick sinus syndrome) I49.5 CPT Codes Dual Lead Pacemaker System - 08413 ([id number])
[2024-01-03] MEDS ORDERED: HYDROmorphone INJ 1 MG/ML SYRINGE IV PRN (14:14)
--- NOTE | 2024-01-03 14:36 | Urology Consultation ---
Date of Consultation January 03, 2024 Assessment & Plan (1) Ureteral stent present: (2) Flank pain: Plan 83yo/F admitted with Afib RVR s/p pacemaker implantation yesterday. Urology has been asked to evaluate patient due to ureteral stent pain. She is s/p Cystoscopy with Right Ureteroscopy, Ureteral Dilation, Ureteral Stent Insertion, Ureteral Biopsy, and dilation of infundibulum of mid pole calyx on 12/21/[address] Bronson. Patient reports intermittent right flank pain which is possibly secondary to the right ureteral stent. She denies urinary symptoms or issues. A CT abdomen pelvis has been ordered per primary. Would recommend continuing Flomax. It sounds as though she may be having spasms, so could also consider addition of oxybutynin. Continue supportive care and pain management as needed. Will await CT results. Will send a message to our office to reschedule her postoperative follow-up with Dr. Bronson. Urology will follow. History of Present Illness Attending Physician: Dyllan Marcial MD History of Present Illness 83 year old female who is currently admitted with Afib RVR s/p pacemaker implantation yesterday. Urology has been consulted for ureteral stent pain. Patient is s/p Cystoscopy with Right Ureteroscopy, Ureteral Dilation, Ureteral Stent Insertion, Ureteral Biopsy, and dilation of infundibulum of mid pole calyx on 12/21/[address] Bronson. Chart reviewed. Afebrile with stable vitals. Labs reviewed (01/01/24): WBC 5.65, Hgb 13.3, Creatinine 1.16 Urinalysis (12/27/23): 3+Blood, 2+LE, 6-10 WBC, >20RBC Patient seen at bedside this afternoon. Awake, resting in bedside chair on arrival. No acute distress. She reports intermittent episodes of right flank pain. Feels like a "spasm." The pain lasts approximately 2 hours and will resolve with pain medicine and a heating pad. She also endorses nausea with the pain. Denies fever, chills, vomiting. Voiding without issue. Denies hematuria or dysuria. She was scheduled for follow-up with Dr. Bronson yesterday 01/01, but this was canceled due to her being inpatient. Allergies Allergy/AdvReac Type Severity Reaction Status Date / Time codeine AdvReac Intermediate N/V Verified 12/27/23 17:23 lisinopril AdvReac Intermediate Cough Verified 12/27/23 17:23 morphine AdvReac Intermediate N/V Verified 12/27/23 17:23 Home Medications Medication Instructions Recorded Confirmed Type multivitamin (Daily Multi-Vitamin 1 tab PO QAM 02/04/19 12/27/23 History tablet) timolol maleate 0.5 % eye drops 1 drp OPB HS 02/24/20 12/27/23 History cholecalciferol (vitamin D3) 50 2,000 unit PO QAM 04/07/20 12/27/23 History mcg (2,000 unit) capsule nitroglycerin 0.4 mg sublingual 0.4 mg sublingual Q5M PRN chest 03/22/21 12/27/23 Rx tablet (Nitrostat) pain #25 tabs pantoprazole 20 mg tablet,delayed 20 mg PO QAM #90 tabs 11/23/22 12/27/23 Rx release potassium citrate 10 mEq (1,080 10 meq PO BID #180 tabs 11/23/22 12/27/23 Rx mg) tablet,extended release clotrimazole-betamethasone 1 1 applic topical HS PRN skin 08/25/23 12/27/23 History %-0.05 % topical cream irritation nystatin 100,000 unit/gram topical 1 applic topical TID PRN Skin 08/25/23 12/27/23 History powder Irritation metoprolol tartrate 25 mg tablet 25 mg PO BID #180 tabs 09/12/23 12/27/23 Rx hydrochlorothiazide 25 mg tablet 25 mg PO QAM #90 tabs 10/10/23 12/27/23 Rx furosemide 20 mg tablet 20 mg PO DAILY PRN Fluid Retention 10/17/23 12/27/23 Rx #90 tabs aspirin 81 mg tablet,delayed 81 mg PO HS 12/11/23 12/27/23 History release (Bailee Low Dose Aspirin) rosuvastatin 5 mg tablet 5 mg PO HS 12/11/23 12/27/23 History valsartan 160 mg tablet (Diovan) 160 mg PO HS 12/11/23 12/27/23 History apixaban 5 mg tablet (Eliquis) 5 mg PO BID 12/21/23 12/27/23 History montelukast 10 mg tablet 10 mg PO HS 12/21/23 12/27/23 History (Singulair) phenazopyridine 200 mg tablet 200 mg PO Q8H PRN pain #10 tabs 12/21/23 12/27/23 Rx (Pyridium) tamsulosin 0.4 mg capsule 0.4 mg PO HS #30 caps 12/21/23 12/27/23 Rx amiodarone 200 mg tablet (Pacerone) 200 mg PO DAILY #30 tabs 01/03/24 Rx digoxin 125 mcg (0.125 mg) tablet 125 mcg PO UD #20 tabs 01/03/24 Rx Patient History Medical History Atrial fibrillation Cardioversion September 2023 Left ear hearing loss Per records Venous reflux Paroxysmal atrial flutter Peripheral vascular disease Morbid obesity Renal lesion Dr. Bronson monitoring GERD (gastroesophageal reflux disease) Dyslipidemia CAD (coronary artery disease) Non-obstructive > follows with Dr. Leos Hx of solitary pulmonary nodule PVD (peripheral vascular disease) Hx of non-ST elevation myocardial infarction (NSTEMI) (2020) pt unaware/denies > states was just an angina attack Osteoarthritis Lumbar stenosis with neurogenic claudication Type 2 diabetes mellitus Diet controlled, no meds Peripheral edema Asthma "Mild" No inhaler Paroxysmal atrial fibrillation Taking Eliquis/metoprolol Follows with [facility] cardio Urge incontinence of urine Urinary frequency Urinary urgency Sarcoidosis Follows with [facility] pulm Sleep apnea Does not tolerate CPAP History of kidney stones Glaucoma Surgical History History of cystoscopy S/P bladder tumor excision with fulguration History of cholecystectomy History of tooth extraction History of left knee surgery History of total bilateral knee replacement History of surgery on left wrist x2 History of hysterectomy with unilateral oophorectomy History of lithotripsy History of esophagogastroduodenoscopy (EGD) History of colonoscopy History of cardiac cath 2020, 2013, 2005- no stents History of cardiac radiofrequency ablation 2020 Family History Mother Atrial fibrillation Stroke Father No problems noted. Brother Lung cancer Brother Lung cancer Sister Lung cancer Other No family history of adverse response to anesthesia Social History Smoking Status: Never smoker Second Hand Exposure: No; Do You Dip or Chew Tobacco: No; Hx Alcohol Use: No Hx Substance Use: No Preferred Language: Azerbaijani Communication Ability: Effective Visual Impairment: No Limitations Association Executive Required: No Beliefs That Will Affect Care: None marital status: Current Living Situation: Spouse current occupational status: retired How many Children do You have: 4 Feels Safe at Home: Yes Childhood Exposure to Second-Hand Smoke: No caffeine: Yes Dental Care, Regularly: Yes Physical Activity Frequency: Does not Exercise Seatbelt Use: always Sunscreen Use: No Assistive Devices: Cane Review of Systems Review of Systems: All systems reviewed & are unremarkable except as noted in HPI & below Physical Exam Constitutional: no acute distress Respiratory: no respiratory distress and no labored breathing Musculoskeletal: Head/Neck/Chest: normocephalic Skin: No visible rashes or lesions to exposed skin areas Neurologic: moves all extremities and awake Psychiatric: A+Ox3, euthymic affect Results & Data Vital Signs (Past 12 Hours) Vital Signs Temp Pulse Pulse Pulse Resp BP BP 01/03/24 13:00 36.8 C 70 70 18 114/74 99/63 L 01/03/24 10:50 36.8 C 70 18 99/63 L 01/03/24 09:00 70 01/03/24 07:43 37.0 C 71 18 100/62 01/03/24 02:43 36.5 C 70 18 106/68 Pulse Ox O2 Del Method 01/03/24 13:00 93 01/03/24 10:50 93 Room Air 01/03/24 09:00 01/03/24 07:43 91 Room Air 01/03/24 02:43 94 Room Air PG Care Time/CCT Total # of Minutes Spent Total Time Spent with Patient: Total time spent is greater than 50% in coordination of care (as documented) at patient's floor/unit and/or counseling patient: Coding Level of Care Code 66962 INT INP/OBS CARE 2/55MIN Diagnoses Ureteral stent present Z96.0 Flank pain R10.9
[2024-01-03] MEDS: oxyBUTYnin chloride 5 MG TAB PO STA (16:30)
--- NOTE | 2024-01-03 17:45 | Hospitalist Progress Note ---
Date of Service January 03, 2024 Assessment & Plan (1) Atrial fibrillation with RVR: Plan: She had cardioversion on 01/01/24, but still sinus bradycardia with occasional junctional rhythm She is now s/p Dual-chamber left bundle branch pacemaker implantation Appreciate cardiology and ectrophyssiology (2) Acute heart failure with preserved ejection fraction: Plan: Presents with a 12 pound weight gain; worsening LE edema and MOSLEY x 3 days, worsened by afib w rvr Last echocardiogram in March 2021 revealed LVEF at 55 to 60% Echocardiogram 12/27 shows normal EF CXR without signs of pulmonary edema BNP elevated at 306 (most recently 243 on 09/04/2023) Got a dose of lasix Will continue to monitor I/o daily weights Give Lasix as much as BP can tolerate (3) Hematuria: Plan: Stent placed with Dr. Bronson on 12/20 Patient was discharged on ciprofloxacin 500 mg p.o. x 5 days Persistent colicky pain has been intermittent is pending CT scan abdomen pelvis urine culture sent and ceftriaxone begun Urology consult oxybutynin started [facility] will hold dose in case any procedures will be required it has been on hold since prior to the pacemaker placement (4) HTN (hypertension): Plan: Continue metoprolol, valsartan Hold amlodipine in the setting of significant lower extremity edema and hypotension in the ED (5) Morbid obesity with BMI of 45.0-49.9, adult: Plan Hopefully d/c in the next 24 hrs DNR/DNI Heart healthy, low-sodium diet (1800 mL fluid restriction) VTE PPx: [facility] Admission and Anticipated Discharge Date Admission Date: December 27, 2023 Subjective Patient was feeling well after her cardioversion pacemaker placement when she developed colicky right-sided abdominal pain associate with nausea and vomiting radiating from her flank down to her groin. Patient has had a ureteral stent placed December 20 with biopsy of abnormal renal contour on CT scan. Initial biopsy pathology results are negative for malignancy. Patient states since the stent placement she has had intermittent colicky waves lasting up to 2 hours of similar pain at home. She has not any dysuria or bloody urine. Her pain did subside after parenteral opiates and oxybutynin urology was subsequently current consulted and discharge was canceled Physical Exam Physical Exam: Awake alert appropriate. Patient was uncomfortable. Patient had right CVA tenderness. She did not have acute abdomen. Her pacemaker site was clean dry and intact there was some bruising Card exam was regular without a systolic murmur Lungs were clear with good air movement Results & Data Results & Data Vital Signs (Past 12 Hours) Vital Signs Temp Pulse Pulse Pulse Resp BP BP 01/03/24 16:30 70 01/03/24 16:00 70 01/03/24 16:00 98.2 F 70 18 112/51 L 01/03/24 13:00 98.2 F 70 70 18 114/74 99/63 L 01/03/24 10:50 98.2 F 70 18 99/63 L 01/03/24 09:00 70 01/03/24 07:43 98.6 F 71 18 100/62 Pulse Ox O2 Del Method 01/03/24 16:30 01/03/24 16:00 01/03/24 16:00 96 Room Air 01/03/24 13:00 93 01/03/24 10:50 93 Room Air 01/03/24 09:00 01/03/24 07:43 91 Room Air PG Care Time/CCT Total # of Minutes Spent Total Time Spent with Patient: Total time spent is greater than 50% in coordination of care (as documented) at patient's floor/unit and/or counseling patient: Coding Level of Care Code 04263 SUB INP/OBS CARE 3/50MIN Diagnoses Atrial fibrillation with RVR I48.91 Acute heart failure with preserved ejection fraction I50.31 Hematuria R31.9 HTN (hypertension) I10 Morbid obesity with BMI of 45.0-49.9, adult E66.01; Z68.42
[2024-01-03] MEDS: cefTRIAXone SODIUM 2,000 MG/50 ML BAG IV SCH (18:49)
--- NOTE | 2024-01-03 18:56 | CT Scan Report ---
ABDOMEN AND PELVIS CT WITHOUT CONTRAST CT DOSE: 1366.67 mGy.cm HISTORY: Status post placement of a right ureteral stent eval ureteral stent for placement/hydro TECHNIQUE: Multiaxial CT images of the abdomen and pelvis were performed without contrast. A dose lo wering technique was utilized adhering to the principles of ALARA. COMPARISON STUDY: CT 10/23/2023 FINDINGS: Cardiomegaly with mitral annular and coronary artery calcifications. Partially imaged pacer leads. Mild bibasilar atelectasis versus scarring. No free air. The unenhanced spleen, atrophic panc reas and adrenal glands are unremarkable. Cholecystectomy. Hepatic cysts redemonstrated. Portable thinning of the kidneys. Left-sided renal cyst redemonstrated. 2.5 cm partially exophytic an terior interpolar right renal lesion and 2 cm interpolar right renal lesion seen on images 147 and 15 0 of series 3 respectively are unchanged from prior. 2 cm hypodense lesion of the inferior pole right kidney is unchanged. A right ureteral stent appears to be in satisfactory positioning. No ureteral c alculi or hydronephrosis. Partial decompressed urinary bladder. Hysterectomy. Atherosclerosis of the aorta without aneurysm. Tiny hiatal hernia. Colonic diverticulosis. Normal appendix. Severe left hip osteoarthritis. No acute fracture. IMPRESSION: 1. Satisfactory positioning of the right ureteral stent without hydronephrosis. 2. Stable size of the right renal lesions, better evaluated on the contrast-enhanced study from 024. 3. Colonic diverticulosis without acute diverticulitis. 4. Additional incidental findings as above. ACT 112: Negative or not required by law. The above report was generated using voice recognition software. It may contain grammatical, syntax o r spelling errors. Electronically signed by: Neftaly Pina M.D. 01/03/2024 6:54 PM
[2024-01-03] MEDS: oxyBUTYnin chloride 5 MG TAB PO PRN (21:18)
[2024-01-04] MEDS: HYDROmorphone INJ 0.5 MG/0.5 ML SYR IV PRN (03:44)
[2024-01-04 08:02] VITALS: RESP 18
[2024-01-04 08:08] LABS: Hematocrit (blood only) 37.9 % (37.0-47.0); Hemoglobin 12.6 g/dl (12.0-16.0); Mean Corpuscular Hemoglobin 31.5 pg (25.0-34.0); Mean Corpuscular Hgb Conc 33.2 g/dL (32.0-36.0); Mean Corpuscular Volume 94.8 fL (80.0-100.0); Mean Platelet Volume 10.5 fL (9.4-12.4); Platelet Count 205 K/uL (130-400); RDW Coefficient of Variation 13.1 % (11.5-14.5); RDW Standard Deviation 45.8 fL (36.4-46.3); White Blood Count 8.95 K/ul (4.8-10.8)
[2024-01-04 08:22] LABS: BUN Creatinine Ratio 18.4 (10-20); Calcium 9.1 mg/dl (8.6-10.3); Creatinine Clr Calc Pharmacy 52.8 ml/min; Est GFR (African American) 62.7 ml/min; Est GFR (Non-African American) 54.1 ml/min; Potassium 4.2 mmol/L (3.5-5.1)
[2024-01-04 11:49] VITALS: TEMP 97.5; O2SAT 92
[2024-01-04 12:06] VITALS: BP 114/74; PULSE 68
--- NOTE | 2024-01-04 15:01 | Urology Progress Note ---
Date of Service January 04, 2024 Assessment & Plan (1) Ureteral stent present: (2) Flank pain: Plan 83yo/F admitted with Afib RVR s/p pacemaker implantation yesterday. Urology has been asked to evaluate patient due to ureteral stent pain. She is s/p Cystoscopy with Right Ureteroscopy, Ureteral Dilation, Ureteral Stent Insertion, Ureteral Biopsy, and dilation of infundibulum of mid pole calyx on 12/21/[address] Bronson. Patient reported intermittent right flank pain. She is afebrile with stable vitals. Labs today show no leukocytosis and normal renal function. A CT abdomen pelvis was obtained and shows satisfactory positioning of the right ureteral stents, no hydronephrosis. Her pain is currently well-controlled. Would continue Flomax, PRN oxybutynin, and PRN analgesics for stent management. Will arrange follow-up and stent removal with our service, likely tomorrow if she is discharged today. Expected clinical course reviewed with patient, all questions were answered. Urology will sign-off. Please call with any questions or concerns. Admission and Anticipated Discharge Date Admission Date: December 27, 2023 Subjective Patient seen at bedside today No acute distress Pain is well-controlled at present Denies fever, chills, nausea, vomiting Voiding without issue Review of Systems Constitutional: as per Subjective / HPI Genitourinary: as per Subjective / HPI Physical Exam Constitutional: no acute distress Respiratory: no respiratory distress and no labored breathing Neurologic: moves all extremities and awake Psychiatric: A+Ox3, euthymic affect Results & Data Vital Signs (Past 12 Hours) Vital Signs Temp Pulse Pulse Pulse Resp BP BP 01/04/24 12:06 36.4 C L 68 70 18 114/74 134/85 01/04/24 11:48 36.4 C L 70 18 134/85 01/04/24 07:58 36.7 C 71 18 114/74 01/04/24 07:58 01/04/24 07:52 70 01/04/24 03:35 37.1 C 68 16 129/73 01/04/24 00:46 70 Pulse Ox O2 Del Method 01/04/24 12:06 92 01/04/24 11:48 92 Room Air 01/04/24 07:58 95 Room Air 01/04/24 07:58 Room Air 01/04/24 07:52 01/04/24 03:35 93 Room Air 01/04/24 00:46 PG Care Time/CCT Total # of Minutes Spent Total Time Spent with Patient: Total time spent is greater than 50% in coordination of care (as documented) at patient's floor/unit and/or counseling patient: Coding Level of Care Code 16447 SUB INP/OBS CARE 2/35MIN Diagnoses Ureteral stent present Z96.0 Flank pain R10.9
--- NOTE | 2024-01-04 15:12 | Discharge Summary ---
Discharge Summary Date of Service January 04, 2024 Principal Dx & Hospital Course #1 = Principal Diagnosis (1) Atrial fibrillation with RVR: She had cardioversion on 01/01/24, but still sinus bradycardia with occasional junctional rhythm She is now s/p Dual-chamber left bundle branch pacemaker implantation Appreciate cardiology and ectrophyssiology (2) Acute heart failure with preserved ejection fraction: Presents with a 12 pound weight gain; worsening LE edema and MOSLEY x 3 days, worsened by afib w rvr Last echocardiogram in March 2021 revealed LVEF at 55 to 60% Echocardiogram 12/27 shows normal EF CXR without signs of pulmonary edema continues on hydrochlorothiazide and Lasix prn (3) Hematuria: Stent placed with Dr. Bronson on 12/20 Patient was discharged on ciprofloxacin 500 mg p.o. x 5 days Persistent colicky pain has been intermittent is pending CT scan abdomen pelvis shows stent in good placement urine culture sent no growth on prelim culture antibiotic stopped Urology consult oxybutynin started, plans to remove stent tomorrow will have stent removed 01/04, has prn Ditropan and oxycodone/zofran if pain returns (4) HTN (hypertension): Continue metoprolol, valsartan stopped amlodipine (5) Morbid obesity with BMI of 45.0-49.9, adult: Plan DNR/DNI Notes For Next Care Provider will need to keep eye on HFpEF may need more defined daily lasix dose Admission HPI Per Admitting Provider Effie is an 83-year-old female with PMH of atrial fibrillation (on Eliquis), T2DM, asthma, urge incontinence, recurrent UTIs, sleep apnea, glaucoma, CAD, dyslipidemia, GERD, and renal lesion. She presented on 12/26 at the behest of her PCP for rapid heart rate and worsening MOSLEY. Patient reports that she went to her PCP due to weight being in her left lower extremity. Her lower e xtremities have been swelling over the past 3 days. She also notes a 12 pound weight gain recently; she is unsure of timeline, but she has gained 3 pounds over the past week despite not eating much. Patient does watch her salt intake. She notes that she has trouble breathing only with exertion; never at rest. SOB is also present when she lies flat on her back; she notes this can lead to wheezing. She ambulates with a cane at baseline. She does have a history of atrial fibrillation, but is not sure when she goes into a fast rhythm. She denies any chest palpitations. Sick contacts include being around the baby yesterday. No supplemental oxygen at baseline. No CPAP at night. No history of cellulitis on the legs, and she notes that her dog sometimes sleeps across her legs and they at 1 point thought it was poison elizabet. No history of DVTs and she reports good compliance with her Eliquis. Patient normally takes Lasix 20 mg p.o. as needed, but reports she has been taking it daily over the last several days due to lower extremity edema. Additionally, patient had a stent placed last and has not been having dark urine/blood in urine, as well as dysuria and burning with urination since. Patient denies smoking, tobacco use, recent alcohol use. Patient is tachycardic at 143 bpm and hypotensive at 94/80 at time of admission. ED course: Metoprolol 5 mg IV Lasix 40 mg IV ROS: Patient endorses MOSLEY, LE edema, constipation after stent placement (resolved), burning with urination, dysuria, blood in urine, and neuropathy in the hands and feet. Patient denies fever, chills, night-sweats, dizziness/lightheadedness with walking, BRAVO, chest pain, chest palpitations, SOB at rest, cough, pleuritic CP, abdominal pain, and N/V/D. Discharge Exam awake and alert, cardiac is regular lungs are clear abd is soft and non tender Discharge Plan Discharge Items Patient Disposition: Home - Home Health Services Reason For Visit: A FIB RVR, CHF EXACERBATION Discharge Diagnosis: irregular heart beat with need for electrical cardioversion implantation of pacemaker for heart rhythm control Activity: Per Instructions section Activity Comment: per pacemaker restrictions initially Bathing: Keep incision dry Non-emergency contact: Primary Care Provider and Bottoming Machine Operator Call non-emergency contact if: your symptoms worsen, your wound has increased redness, your wound has increased drainage and your wound pain has increased Follow-up/Referrals: Jimbo Ferraro MD [Physician] - 01/05/24 10:00 am Cortes Bronson DO [Physician] - 01/05/24 2:30 pm Dyllan Oliveira DO [Primary Care Provider] - 01/10/24 11:30 am Diet: Heart Healthy Add Attending Provider Instructions: please report to Urology for stent removal 01/05/24 You are scheduled for stent removal in the urology clinic at [place] with Dr. Bronson on 01/05/24 at 2:30PM. ACTIVITY RECOMMENDATIONS: * Do not raise affected arm over head for 2 weeks. SPECIAL CARE INSTRUCTIONS: * If bleeding occurs, apply direct pressure to area for 5 minutes. * Call your doctor if you have severe pain, fever, drainage or bleeding at site. * Keep dressing on and dry for 48 hours then remove. * Keep any scheduled doctor's appointment. * Implant Card - hand held device with website information given. SKIN IRRITATION: * You may experience some redness and/or swelling in the area where radiation was administered. If any skin irritation occurs, please contact your family physician. FOLLOW UP VISIT: Keep any scheduled doctor appointments. Addtl Supply Chain Specialist Provider Instructions: Medication Instructions: Your condition is typically treated with an anticoagulant. Anticoagulants will thin your blood to help prevent new clots. * You should take her medication exactly as directed. * Never skip a dose. * Never take a double dose. If you miss a dose, take it as soon as you rem ember. Call your Primary Care doctor if you experience any of the following: * Swelling or Pain in your leg * Sudden, continuous pain deep in a muscle * Pain that worsens when you are active or when you stand still for a long time * Chest Pain * Sudden Shortness of Breath * Rapid or pounding heart beat * Fainting * Dizziness * Cough with blood or bloody sputum * Sweating more than normal * Bruises * Heavy or uncontrolled bleeding * Blood in your urine, stool or vomit * Black or tarry stools Caring for Your Self at Home: * Avoid sitting, standing or lying down for long periods without moving your legs and feet * When traveling by car, stop to get out and move around at least once every 3 hours * On long airplane, train or bus rides, get up and move around when possible * If you can't get up, wiggle your toes and tighten your calves to keep your blood moving Follow Up: It is important for you to keep your follow up appointments with your medical provider. Pending Studies at Discharge: No Stand-Alone Forms: [facility], Smoking Cessation Medications and DC Order Prescriptions: New digoxin 125 mcg (0.125 mg) tablet 125 mcg PO UD Qty: 20 0RF Rx Instructions: one tab po M W F oxycodone 5 mg tablet 5 mg PO TID PRN (Reason: pain) Qty: 20 0RF ondansetron 4 mg tablet,disintegrating 4 mg PO TID PRN (Reason: nausea and vomiting) 5 Days Qty: 15 0RF oxybutynin chloride 5 mg Tablet 5 mg PO BID PRN (Reason: bladder spasms) Qty: 10 0RF Continued pantoprazole 20 mg tablet,delayed release (DR/EC) 20 mg PO QAM Qty: 90 3RF potassium citrate 10 mEq (1,080 mg) tablet extended release 10 meq PO BID Qty: 180 3RF hydrochlorothiazide 25 mg tablet 25 mg PO QAM Qty: 90 3RF furosemide 20 mg tablet 20 mg PO DAILY PRN (Reason: Fluid Retention) Qty: 90 3RF metoprolol tartrate 25 mg tablet 25 mg PO BID Qty: 180 3RF multivitamin [Daily Multi-Vitamin] tablet 1 tab PO QAM cholecalciferol (vitamin D3) 50 mcg (2,000 unit) capsule 2,000 unit PO QAM timolol maleate 0.5 % drops 1 drp OPB HS nitroglycerin [Nitrostat] 0.4 mg Tablet, Sublingual 0.4 mg sublingual Q5M PRN (Reason: chest pain) Qty: 25 0RF clotrimazole-betamethasone 1-0.05 % cream 1 applic topical HS PRN (Reason: skin irritation ) Rx Instructions: Apply small/pea-sized amount topically before bed nystatin 100,000 unit/gram powder 1 applic topical TID PRN (Reason: Skin Irritation) aspirin [Bailee Low Dose Aspirin] 81 mg tablet,delayed release (DR/EC) 81 mg PO HS valsartan [Diovan] 160 mg tablet 160 mg PO HS rosuvastatin 5 mg tablet 5 mg PO HS montelukast [Singulair] 10 mg tablet 10 mg PO HS Eliquis 5 mg tablet 5 mg PO BID tamsulosin 0.4 mg capsule 0.4 mg PO HS Qty: 30 0RF Changed amiodarone [Pacerone] 200 mg tablet 200 mg PO DAILY Qty: 30 5RF Rx Instructions: 100 mg orally every other day; HS Held phenazopyridine [Pyridium] 200 mg tablet 200 mg PO Q8H PRN (Reason: pain) Qty: 10 0RF Hold Instructions: Provider's Order Discontinued amlodipine 10 mg tablet 10 mg PO QAM Qty: 90 3RF Discharge Orders: Discharge Order (Routine); Ordered 01/04/24 Ordered By: Dyllan Marcial Admission Data Admit Date/Time: 12/27/23 16:56 Attending Provider: Dyllan Marcial Admit Provider: Edgard Hung Primary Care Provider: Dyllan Oliveira Other Providers: Edgard Hung; Ramakrishna Leos Jr; Josseline Hernández; Khushboo Camacho; Yamini Lora; Cara Perdomo; Dany Retana; Jus Carl; Leoncio Souza; Omar Mcpherson; Jes Mcpherson; Ancelmo Mueller; Mary Kay Candelaria; Gilmar Hairston; Neil Akhtar; Young Bain; Minesh Sweet; Iraida Meade; Lance Kent; Sherita Kent; Eduardo Berry; Ninoska Nunes; Jt Aguilar; Karla Alex; Carri Hahn; Crow Dietz; Etelvina Bradford; Danni Banks; Terri Blood; Bailey Sheikh; Govind Sheikh V; Caleb Aquino; Khushboo Hong; Dedrick Marks; Giovanna Prescott; Govind Griffiths; Julián Meade; Nghia Hopkins; Leigh Ann Wu; Govind Winslow; Prakash Hayes; Poly Rasmussen; Jacques Zuleta; Josefina Salcido; Leana Talavera; Cricket Miranda; Ino Sweet; Adelaide Desouza; Kady Stockton; Shreyas Vanegas; Maldonado Willard; Dany Castle Jr; Sahara Chahal; Vee Perales; Kat Maldonado; Crow Deshpande; Omar Rowley; Jessica Strickland; Vee Veloz; Errol Gtz; Miky Roberto; Cortes Erickson; Jeffrey Palomo; Teresa Mello; Zonia Tim; Annemarie Cueva; Eva Zhao; Jaclyn Lovett; Sherita Pace Other Interventions: Discharge Summary Assessment (RN) Last Done: 01/04/24 12:06 Hospital Stay Data Consultations 12/27/23 16:21 ED Decision to Admit Stat 12/27/23 19:47 Consult Cardiology Routine 12/31/23 12:02 Consult Anesthesiology Routine 01/03/24 14:12 Consult Urology Routine Procedures Performed Operation Date: 01/02/24 07:30 Actual Procedures s Venogram Extremity Unilateral - Jimbo Ferraro MD p Pacer with A/V Leads (Dual) - Jimbo Ferraro MD Diagnostic Imagining Performed 01/02/24 07:00 EP Lab Images for PACS ONCE 01/03/24 14:14 CT Abd and Pelvis [CT abd pelvis wo con] Routine Pending Results Patient Have Any Pending Studies at Discharge: No Discharge Instructions Given to Patient (Per Discharging Provider) please report to Urology for stent removal 01/05/24 You are scheduled for stent removal in the urology clinic at [place] with Dr. Bronson on 01/05/24 at 2:30PM. ACTIVITY RECOMMENDATIONS: * Do not raise affected arm over head for 2 weeks. SPECIAL CARE INSTRUCTIONS: * If bleeding occurs, apply direct pressure to area for 5 minutes. * Call your doctor if you have severe pain, fever, drainage or bleeding at site. * Keep dressing on and dry for 48 hours then remove. * Keep any scheduled doctor's appointment. * Implant Card - hand held device with website information given. SKIN IRRITATION: * You may experience some redness and/or swelling in the area where radiation was administered. If any skin irritation occurs, please contact your family physician. FOLLOW UP VISIT: Keep any scheduled doctor appointments. Total Time Total Time Spent Total Time Spent (In Minutes): It required greater than 30 minutes to prepare this patient for discharge. Coding Level of Care Code 12625 INP/OBS DISCH >30 MIN Diagnoses Atrial fibrillation with RVR I48.91 Acute heart failure with preserved ejection fraction I50.31 Hematuria R31.9 HTN (hypertension) I10 Morbid obesity with BMI of 45.0-49.9, adult E66.01; Z68.42
== END 2024-01-04 14:00 | disposition home or self-care (01) | DRG 242 ==
LOC: ED 14:30 → SUATTDRO 16:56 → 2S 16:56
DX: R31.0 Gross hematuria; D86.9 Sarcoidosis, unspecified; I49.5 Sick sinus syndrome; Z79.82 Long term (current) use of aspirin; E11.51 Type 2 diabetes mellitus with diabetic peripheral angiopathy without gangrene; Z68.42 Body mass index [BMI] 45.0-49.9, adult; E78.5 Hyperlipidemia, unspecified; I50.31 Acute diastolic (congestive) heart failure; R00.1 Bradycardia, unspecified; I11.0 Hypertensive heart disease with heart failure; I25.2 Old myocardial infarction; Z88.5 Allergy status to narcotic agent; Z96.0 Presence of urogenital implants; E66.01 Morbid (severe) obesity due to excess calories; I25.10 Atherosclerotic heart disease of native coronary artery without angina pectoris; Z98.890 Other specified postprocedural states; J45.909 Unspecified asthma, uncomplicated; I48.91 Unspecified atrial fibrillation

== ENCOUNTER 2024-08-13 11:01 | Inpatient (IN) ==
[2024-08-13 11:49] LABS: Basophils # (auto) 0.04 K/uL (0.00-0.20); Basophils % (auto) 0.4 %; Eosinophils # (auto) 0.05 K/uL (0.00-0.50); Eosinophils % (auto) 0.4 %; Hematocrit (blood only) 43.3 % (37.0-47.0); Hemoglobin 14.9 g/dl (12.0-16.0); Immature Granulocytes # (auto) 0.08 K/uL (0.01-0.20); Immature Granulocytes % (auto) 0.7 %; Lymphocytes # (auto) 0.82 K/uL (1.20-3.40); Lymphocytes % (auto) 7.3 %; Mean Corpuscular Hemoglobin 32.1 pg (25.0-34.0); Mean Corpuscular Hgb Conc 34.4 g/dL (32.0-36.0); Mean Corpuscular Volume 93.3 fL (80.0-100.0); Mean Platelet Volume 10.8 fL (9.4-12.4); Monocytes # (auto) 0.76 K/uL (0.11-0.59); Monocytes % (auto) 6.8 %; Neutrophils # (auto) 9.42 K/uL (1.40-6.50); Neutrophils % (auto) 84.4 %; Platelet Count 204 K/uL (130-400); RDW Coefficient of Variation 12.6 % (11.5-14.5); RDW Standard Deviation 42.5 fL (36.4-46.3); Red Blood Count 4.64 M/uL (4.20-5.40); White Blood Count 11.17 K/ul (4.8-10.8)
[2024-08-13 12:11] LABS: Albumin Level 3.9 gm/dl (3.4-5.0); Bilirubin Direct 0.2 mg/dl (0-0.2); Bilirubin,Total 0.6 mg/dl (0.2-1.0); Calcium 9.1 mg/dl (8.6-10.3); Magnesium 2.1 mg/dl (1.7-2.4); Potassium 3.8 mmol/L (3.5-5.1)
[2024-08-13 12:16] LABS: Troponin I High Sensitivity 16.2 pg/ml (0-14)
[2024-08-13 12:17] LABS: BUN Creatinine Ratio 22.9 (10-20); Creatinine Clr Calc Pharmacy 16.6 ml/min; Total Protein 6.9 gm/dl (6.0-8.3)
--- NOTE | 2024-08-13 12:23 | XRay Report ---
XR chest 1V portable CLINICAL HISTORY: Sepsis. COMPARISON STUDY: Chest CT June 19, 2017. Chest radiograph January 03, 2024. FINDINGS: Left subclavian pacer is in place. There is extensive mitral annular calcification. Cardiom ediastinal silhouette is stable. There is no pneumothorax or pleural effusion. There is no evidence f or pulmonary edema. There is no consolidation to suggest pneumonia. IMPRESSION: No acute cardiopulmonary findings. No change in appearance of the chest. ACT 112: Negative or not required by law. Electronically signed by: Grady Brand M.D. 08/13/2024 12:21 PM
--- NOTE | 2024-08-13 13:54 | Emergency Department Note ---
Impression & Plan Complicated urinary tract infection, JOSEPH (acute kidney injury), Nausea, vomiting, and diarrhea, Hypotension ED Provider Note NAME: WALLACE FRENCH AGE: 84 SEX: F : 1940 ARRIVES VIA: Ambulance INFORMANT: Patient, ED PROVIDER(S): Mao Spann MD CHIEF COMPLAINT: Dizziness, nausea vomiting diarrhea HPI: This is a 84-year-old female presenting for lightheadedness, nausea vomiting diarrhea. Patient notes that she had a hip injection about 1 to 2 weeks ago. She notes for the past 2 days she has had new onset of nausea vomiting and diarrhea. Show she feels very weak and tired. She notes chest pain yesterday that is since resolved. She reports no fevers, chills. She reports some slight upper abdominal pain. ROS: See above HPI for pertinent positives & negatives. A total of 10 systems reviewed and were otherwise negative. PAST MEDICAL HISTORY: See Below PAST SURGICAL HISTORY: See Below FAMILY HISTORY: See Below SOCIAL HISTORY: See Below HOME MEDICATIONS: See Below ALLERGIES: See Below VITALS: See Below PHYSICAL EXAMINATION: General: resting comfortably in no acute distress Head: Normocephalic and atraumatic Eyes: Normal inspection, extraocular muscles intact Ear, nose, throat: Normal external exam Neck: Normal range of motion Respiratory: lungs clear to auscultation bilaterally Cardiovascular: Regular rate/rhythm, no murmur GI: soft, nontender, no guarding or rebound Extremities: nontender, moves all extremities Neuro: The patient awake and alert, appropriately conversive, no focal deficits, symmetric faces Skin: Warm, dry, and intact MEDICAL DECISION MAKING: This is a 84-year-old female sent for lightheadedness, nausea vomiting diarrhea. Patient went to her primary care doctor today who found her she had hypotension and sent her here. Patient is somewhat hypotensive 97/66 initially. - Patient no fever or tachycardia here. - Consider possible adrenal suppression due to steroid use. Consider sepsis. - Patient's troponin is elevated 16.2 otherwise she has a leukocytosis to 11.17. Creatinine is newly elevated 2.84. Very mild hyponatremia is noted. - Patient given fluids. Otherwise without significant abdominal pain, will admit to the hospital for fluid resuscitation, JOSEPH, elevated troponin and hypotension. With patient nausea vomiting diarrhea, this could be related to hypovolemia. Differential diagnosis: Gastroenteritis, hypovolemia, sepsis, vasovagal syncope Independent History obtained from: Diagnostics interpreted by me: ECG: ECG independently interpreted by me with chest rhythm at a rate of 71, normal QTc, no ST segment elevations consistent with STEMI criteria, inferolateral T wave inversions Cardiac Monitoring: An order was placed for continuous cardiac monitoring. The monitor shows a rate of 73 with sinus rhythm. Past Med/Surg History Problem List (Updated 08/14/24 @ 14:55 by Mao Spann MD) UTI (urinary tract infection) Colitis Hypotension (Acute) Nausea, vomiting, and diarrhea (Acute) JOSEPH (acute kidney injury) (Acute) Dyslipidemia HTN (hypertension) Encounter for monitoring anti-arrhythmic therapy Paroxysmal atrial fibrillation Taking Eliquis/metoprolol Follows with [facility] cardio Shannan glabrata infection Complicated urinary tract infection (Acute) Recurrent urinary tract infection (Chronic) Incontinence (Chronic) CKD (chronic kidney disease) stage 4, GFR 15-29 ml/min SSS (sick sinus syndrome) Presence of permanent cardiac pacemaker CAD (coronary artery disease) Non-obstructive > follows with Dr. Leos Encounter for monitoring diuretic therapy Encounter for monitoring digoxin therapy Kidney mass Lymphadenopathy, hilar Per remote 2019 records Medical History (Updated 08/14/24 @ 14:55 by Mao Spann MD) Acute heart failure with preserved ejection fraction Colicky pain Atrial fibrillation with RVR Morbid obesity with BMI of 45.0-49.9, adult Hematuria Atrial fibrillation Cardioversion September 2023 Left ear hearing loss Per records Venous reflux Paroxysmal atrial flutter Peripheral vascular disease Morbid obesity Renal lesion Dr. Bronson monitoring GERD (gastroesophageal reflux disease) Hx of solitary pulmonary nodule PVD (peripheral vascular disease) Hx of non-ST elevation myocardial infarction (NSTEMI) (2020) pt unaware/denies > states was just an angina attack Osteoarthritis Lumbar stenosis with neurogenic claudication Type 2 diabetes mellitus Peripheral edema Asthma "Mild" No inhaler Urge incontinence of urine Urinary frequency Urinary urgency Sarcoidosis Follows with [facility] pulm Sleep apnea Does not tolerate CPAP History of kidney stones Glaucoma Surgical History (Updated 07/16/24 @ 09:54 by Ramakrishna Leos Jr, MD, [facility]) History of cardioversion x4 History of cystoscopy S/P bladder tumor excision with fulguration History of cholecystectomy History of tooth extraction History of left knee surgery History of total bilateral knee replacement History of surgery on left wrist x2 History of hysterectomy with unilateral oophorectomy History of lithotripsy History of esophagogastroduodenoscopy (EGD) History of colonoscopy History of cardiac cath 2020, 2013, 2005- no stents History of cardiac radiofrequency ablation 2020 Family History Mother Atrial fibrillation Stroke Father No problems noted. Brother Lung cancer Brother Lung cancer Sister Lung cancer Other No family history of adverse response to anesthesia Social History Smoking Status: Never smoker Second Hand Exposure: No; Do You Dip or Chew Tobacco: No; Hx Alcohol Use: No Hx Substance Use: No Preferred Language: Bahamian Communication Ability: Effective Visual Impairment: No Limitations Culinary Worker Required: No Beliefs That Will Affect Care: None marital status: Current Living Situation: Spouse current occupational status: retired How many Children do You have: 4 Other Information That Helps Us Care for You: No Feels Safe at Home: Yes Safety Concerns: Feels Safe At This Time Childhood Exposure to Second-Hand Smoke: No caffeine: Yes Dental Care, Regularly: Yes Physical Activity Frequency: Does not Exercise Seatbelt Use: always Sunscreen Use: No Assistive Devices: Cane and Walker Allergies Allergies Allergy/AdvReac Type Severity Reaction Status Date / Time codeine AdvReac Intermediate N/V Verified 08/13/24 09:55 lisinopril AdvReac Intermediate Cough Verified 08/13/24 09:55 morphine AdvReac Intermediate N/V Verified 08/13/24 09:55 Home Meds Home Medications Medication Instructions Recorded Confirmed multivitamin (Daily Multi-Vitamin 1 tab PO QAM 02/04/19 08/13/24 tablet) timolol maleate 0.5 % eye drops 1 drp OPB HS 02/24/20 08/13/24 cholecalciferol (vitamin D3) 50 2,000 unit PO QAM 04/07/20 08/13/24 mcg (2,000 unit) capsule nystatin 100,000 unit/gram topical 1 applic topical TID PRN Skin 08/25/23 08/13/24 powder Irritation aspirin 81 mg tablet,delayed 81 mg PO HS 12/11/23 08/13/24 release (Bailee Low Dose Aspirin) valsartan 160 mg tablet (Diovan) 160 mg PO HS 12/11/23 08/13/24 furosemide 20 mg tablet 20 mg PO DAILY PRN Fluid Retention 01/08/24 08/13/24 amoxicillin 500 mg tablet 2,000 mg PO ONCE PRN dental salvador 01/10/24 08/13/24 latanoprost 0.005 % eye drops 1 drp ophthalmic (eye) QPM 01/10/24 08/13/24 ondansetron 4 mg disintegrating 4 mg PO TID PRN n/v 01/10/24 08/13/24 tablet gabapentin 100 mg capsule 100 mg PO UD 08/13/24 08/13/24 Previous Rx's Medication Instructions Recorded nitroglycerin 0.4 mg sublingual 0.4 mg sublingual Q5M PRN chest 03/22/21 tablet (Nitrostat) pain #25 tabs metoprolol tartrate 25 mg tablet 25 mg PO BID #180 tabs 09/12/23 hydrochlorothiazide 25 mg tablet 25 mg PO QAM #90 tabs 10/10/23 amiodarone 200 mg tablet (Pacerone) 200 mg PO DAILY #90 tabs 01/16/24 montelukast 10 mg tablet See Rx Instructions .Route 01/16/24 .COMPLEX #90 tabs pantoprazole 20 mg tablet,delayed See Rx Instructions .Route 01/16/24 release .COMPLEX #90 tabs spironolactone 25 mg tablet 25 mg PO DAILY #90 tabs 01/16/24 clotrimazole-betamethasone 1 See Rx Instructions .Route 01/22/24 %-0.05 % topical cream .COMPLEX #45 grams digoxin 125 mcg (0.125 mg) tablet 125 mcg PO UD #20 tabs 01/30/24 rosuvastatin 5 mg tablet 5 mg PO HS #90 tabs 02/15/24 methenamine hippurate 1 gram tablet 1 g PO BID #180 tabs 05/02/24 triamcinolone acetonide 0.1 % See Rx Instructions .Route 05/20/24 topical cream .COMPLEX #80 grams semaglutide 0.25 mg or 0.5 mg (2 0.5 mg (0.736 mL) subcut Q7D #3 mL 07/09/24 mg/3 mL) subcutaneous pen injector (Ozempic) apixaban 5 mg tablet (Eliquis) 2.5 mg (1/2 x 5 mg) PO BID #180 07/16/24 tabs Results & Data (ED) Vital Signs Vital Signs - 24 hr 08/13/24 11:00 08/13/24 11:45 08/13/24 11:57 Temperature 36.4 C L Temperature Source Oral Pulse Rate 70 73 73 Pulse Rate from SpO2 Sensor 73 73 Respiratory Rate 20 15 18 Respiratory Effort / Characteristics Non-Labored Respiratory Depth Normal Respiratory Pattern Regular Blood Pressure 97/66 L Blood Pressure Mean 76 Blood Pressure Position Semi-fowlers Pulse Oximetry 99 98 97 Oxygen Delivery Method Room Air Sepsis Recent Fever Within 48 Hours No Sepsis New/Unexplained Change in Mental Status No Sepsis Action Taken by Nursing No Action Required 08/13/24 12:00 08/13/24 12:04 08/13/24 12:27 Temperature Temperature Source Pulse Rate 75 70 Pulse Rate from SpO2 Sensor 70 Respiratory Rate 17 Respiratory Effort / Characteristics Respiratory Depth Respiratory Pattern Blood Pressure 92/62 L Blood Pressure Mean 67 Blood Pressure Position Pulse Oximetry 95 Oxygen Delivery Method Sepsis Recent Fever Within 48 Hours Sepsis New/Unexplained Change in Mental Status Sepsis Action Taken by Nursing 08/13/24 12:30 08/13/24 12:45 08/13/24 13:00 Temperature Temperature Source Pulse Rate 70 71 Pulse Rate from SpO2 Sensor 70 70 Respiratory Rate 17 20 Respiratory Effort / Characteristics Respiratory Depth Respiratory Pattern Blood Pressure 87/59 L Blood Pressure Mean 64 Blood Pressure Position Pulse Oximetry 94 95 Oxygen Delivery Method Sepsis Recent Fever Within 48 Hours Sepsis New/Unexplained Change in Mental Status Sepsis Action Taken by Nursing 08/13/24 13:00 08/13/24 13:27 08/13/24 13:30 Temperature Temperature Source Pulse Rate 70 Pulse Rate from SpO2 Sensor 70 Respiratory Rate 15 Respiratory Effort / Characteristics Respiratory Depth Respiratory Pattern Blood Pressure 95/63 L 83/62 L Blood Pressure Mean 68 68 Blood Pressure Position Pulse Oximetry 96 Oxygen Delivery Method Sepsis Recent Fever Within 48 Hours Sepsis New/Unexplained Change in Mental Status Sepsis Action Taken by Nursing 08/13/24 13:30 08/13/24 13:30 08/13/24 13:33 Temperature Temperature Source Pulse Rate 70 Pulse Rate from SpO2 Sensor 70 Respiratory Rate 26 H Respiratory Effort / Characteristics Respiratory Depth Respiratory Pattern Blood Pressure 83/62 L 83/62 L Blood Pressure Mean 68 68 Blood Pressure Position Pulse Oximetry 94 Oxygen Delivery Method Sepsis Recent Fever Within 48 Hours Sepsis New/Unexplained Change in Mental Status Sepsis Action Taken by Nursing 08/13/24 14:18 08/13/24 14:30 08/13/24 14:30 Temperature Temperature Source Pulse Rate 70 71 Pulse Rate from SpO2 Sensor 70 71 Respiratory Rate 16 17 Respiratory Effort / Characteristics Respiratory Depth Respiratory Pattern Blood Pressure 114/66 Blood Pressure Mean 75 Blood Pressure Position Pulse Oximetry 100 99 Oxygen Delivery Method Sepsis Recent Fever Within 48 Hours Sepsis New/Unexplained Change in Mental Status Sepsis Action Taken by Nursing 08/13/24 14:30 08/13/24 14:30 Temperature Temperature Source Pulse Rate Pulse Rate from SpO2 Sensor Respiratory Rate Respiratory Effort / Characteristics Respiratory Depth Respiratory Pattern Blood Pressure 114/66 114/66 Blood Pressure Mean 75 75 Blood Pressure Position Pulse Oximetry Oxygen Delivery Method Sepsis Recent Fever Within 48 Hours Sepsis New/Unexplained Change in Mental Status Sepsis Action Taken by Nursing Laboratory Data 08/14/24 05:47 08/14/24 05:47 Lab Results 08/13/24 08/13/24 08/13/24 Range/Units 11:13 11:40 11:50 WBC 11.17 H (4.8-10.8) K/ul RBC 4.64 (4.20-5.40) M/uL Hgb 14.9 (12.0-16.0) g/dl Hct 43.3 (37.0-47.0) % MCV 93.3 (80.0-100.0) fL MCH 32.1 (25.0-34.0) pg MCHC 34.4 (32.0-36.0) g/dL RDW Std Deviation 42.5 (36.4-46.3) fL RDW Coeff of Twan 12.6 (11.5-14.5) % Plt Count 204 (130-400) K/uL MPV 10.8 (9.4-12.4) fL Immature Gran % (Auto) 0.7 % Neut % (Auto) 84.4 % Lymph % (Auto) 7.3 % [place] % (Auto) 6.8 % Eos % (Auto) 0.4 % Baso % (Auto) 0.4 % Neut # (Auto) 9.42 H (1.40-6.50) K/uL Lymph # (Auto) 0.82 L (1.20-3.40) K/uL [place] # (Auto) 0.76 H (0.11-0.59) K/uL Eos # (Auto) 0.05 (0.00-0.50) K/uL Baso # (Auto) 0.04 (0.00-0.20) K/uL Immature Gran # (Auto) 0.08 (0.01-0.20) K/uL Sodium 132 L (136-145) mmol/L Potassium 3.8 (3.5-5.1) mmol/L Chloride 97 L (98-107) mmol/L Carbon Dioxide 24 (21-32) mmol/L Anion Gap 11 (3-11) BUN 65 H (6-23) mg/dl Creatinine 2.84 H (0.6-1.2) mg/dl Est Cr Clr Drug Dosing 16.6 ml/min eGFR 16.07 BUN/Creatinine Ratio 22.9 H (10-20) Glucose 184 H (70-99(Fasting)) mg/dl Lactate 1.4 (0.4-2.0) mmol/L Calcium 9.1 (8.6-10.3) mg/dl Magnesium 2.1 (1.7-2.4) mg/dl Total Bilirubin 0.6 (0.2-1.0) mg/dl Direct Bilirubin 0.2 (0-0.2) mg/dl AST 19 (13-39) U/L ALT 36 (7-52) U/L Alkaline Phosphatase 39 (34-104) U/L Troponin I High Sens 16.2 H (0-14) pg/ml Total Protein 6.9 (6.0-8.3) gm/dl Albumin 3.9 (3.4-5.0) gm/dl Lipase 26 (11-82) U/L Procalcitonin 0.12 (0-0.5) ng/ml Random Cortisol 17.17 mcg/dl Urine Color Urine Appearance (Clear) Urine pH (4.5-7.5) Ur Specific [place] (1.000-1.030) Urine Protein (Negative) Urine Glucose (UA) (Negative) Urine Ketones (Negative) Urine Blood (Negative) Urine Nitrite (Negative) Urine Bilirubin (Negative) Urine Urobilinogen (Negative) Ur Leukocyte Esterase (Negative) Urine WBC (Auto) (0-5) /hpf Urine RBC (Auto) (0-2) /hpf U Hyaline Cast (Auto) (0-2) /lpf U Epithel Cells (Auto) (0-2) /hpf Urine Bacteria (Auto) (None Seen) Hyaline Casts (None Presnt) /lpf 08/13/24 Range/Units 14:10 WBC (4.8-10.8) K/ul RBC (4.20-5.40) M/uL Hgb (12.0-16.0) g/dl Hct (37.0-47.0) % MCV (80.0-100.0) fL MCH (25.0-34.0) pg MCHC (32.0-36.0) g/dL RDW Std Deviation (36.4-46.3) fL RDW Coeff of Twan (11.5-14.5) % Plt Count (130-400) K/uL MPV (9.4-12.4) fL Immature Gran % (Auto) % Neut % (Auto) % Lymph % (Auto) % [place] % (Auto) % Eos % (Auto) % Baso % (Auto) % Neut # (Auto) (1.40-6.50) K/uL Lymph # (Auto) (1.20-3.40) K/uL [place] # (Auto) (0.11-0.59) K/uL Eos # (Auto) (0.00-0.50) K/uL Baso # (Auto) (0.00-0.20) K/uL Immature Gran # (Auto) (0.01-0.20) K/uL Sodium (136-145) mmol/L Potassium (3.5-5.1) mmol/L Chloride (98-107) mmol/L Carbon Dioxide (21-32) mmol/L Anion Gap (3-11) BUN (6-23) mg/dl Creatinine (0.6-1.2) mg/dl Est Cr Clr Drug Dosing ml/min eGFR BUN/Creatinine Ratio (10-20) Glucose (70-99(Fasting)) mg/dl Lactate (0.4-2.0) mmol/L Calcium (8.6-10.3) mg/dl Magnesium (1.7-2.4) mg/dl Total Bilirubin (0.2-1.0) mg/dl Direct Bilirubin (0-0.2) mg/dl AST (13-39) U/L ALT (7-52) U/L Alkaline Phosphatase (34-104) U/L Troponin I High Sens (0-14) pg/ml Total Protein (6.0-8.3) gm/dl Albumin (3.4-5.0) gm/dl Lipase (11-82) U/L Procalcitonin (0-0.5) ng/ml Random Cortisol mcg/dl Urine Color Yellow Urine Appearance Cloudy A (Clear) Urine pH 5.0 (4.5-7.5) Ur Specific [place] 1.016 (1.000-1.030) Urine Protein Trace H (Negative) Urine Glucose (UA) Negative (Negative) Urine Ketones Trace H (Negative) Urine Blood Negative (Negative) Urine Nitrite Negative (Negative) Urine Bilirubin Negative (Negative) Urine Urobilinogen Negative (Negative) Ur Leukocyte Esterase 3+ H (Negative) Urine WBC (Auto) 21-50 H (0-5) /hpf Urine RBC (Auto) 0-2 (0-2) /hpf U Hyaline Cast (Auto) >20 H (0-2) /lpf U Epithel Cells (Auto) 11-20 H (0-2) /hpf Urine Bacteria (Auto) 3+ H (None Seen) Hyaline Casts Present A (None Presnt) /lpf Administered Medications Amiodarone HCl (Amiodarone 200 Mg Tab) 200 mg PO DAILY [facility] Stop: 09/13/24 08:59 Last Admin: 08/14/24 09:30 Dose: 200 mg Documented By: JORDAN Digoxin (Digoxin 0.125 Mg Tab) 0.125 mg PO MoWeFr@0900 [facility] Stop: 09/13/24 08:59 Last Admin: 08/14/24 09:30 Dose: 0.125 mg Documented By: JORDAN Gabapentin (Gabapentin 100 Mg Cap) 100 mg PO TID [facility] Stop: 09/12/24 20:59 Last Admin: 08/14/24 09:30 Dose: 100 mg Documented By: Admin: 08/13/24 20:38 Dose: 100 mg Documented By: AYLEEN Sodium Chloride (Nss) 1,000 mls @ 80 mls/hr IV .[id number] [facility] Stop: 08/15/24 08:29 Last Admin: 08/14/24 09:27 Dose: 80 mls/hr Documented By: JORDAN Latanoprost (Latanoprost 0.005% Op Soln 2.5 Ml Btl) 1 drops OP QPM [facility] Stop: 09/12/24 20:59 Last Admin: 08/13/24 20:37 Dose: 1 drops Documented By: AYLEEN Montelukast Sodium (Montelukast Sodium 10 Mg Tablet) 10 mg PO HS [facility] Stop: 09/12/24 20:59 Last Admin: 08/13/24 20:38 Dose: 10 mg Documented By: AYLEEN Pantoprazole Sodium (Pantoprazole 40 Mg Tab) 40 mg PO BID [facility] Stop: 09/13/24 08:59 Last Admin: 08/14/24 10:11 Dose: 40 mg Documented By: JORDAN Rosuvastatin Calcium (Rosuvastatin Calcium 5 Mg Tab) 5 mg PO HS [facility] Stop: 09/12/24 20:59 Last Admin: 08/13/24 20:38 Dose: 5 mg Documented By: AYLEEN Timolol Maleate (Timolol Maleate 0.5% Op Soln 5 Ml Btl) 1 drops OP HS [facility] Stop: 09/12/24 20:59 Last Admin: 08/13/24 20:38 Dose: 1 drops Documented By: AYLEEN Discontinued Medications Sodium Chloride (Nss) 1,000 mls @ 999 mls/hr IV .Q1H1M ONE Stop: 08/13/24 13:57 Last Infusion: 08/13/24 15:55 Dose: Infused Documented By: Admin: 08/13/24 14:09 Dose: 999 mls/hr Documented By: KATERINA Pantoprazole Sodium 80 mg/ (Dextrose) 120 mls @ 480 mls/hr IV ONE STA Stop: 08/13/24 15:11 Last Infusion: 08/13/24 15:55 Dose: Infused Documented By: Admin: 08/13/24 15:32 Dose: 480 mls/hr Documented By: SUMMER Sodium Chloride (Nss) 500 mls @ 999 mls/hr IV .Q31M ONE Stop: 08/13/24 15:37 Last Infusion: 08/13/24 16:33 Dose: Infused Documented By: Admin: 08/13/24 15:31 Dose: 999 mls/hr Documented By: SUMMER Ertapenem (Invanz 500mg) 500 mg in 5 mls @ 2 mls/min IV NOW STA Stop: 08/13/24 15:53 Last Admin: 08/13/24 16:30 Dose: 2 mls/min Documented By: KARLA Imaging Data Radiologist's Impression: Chest X-Ray 08/13/24 11:30 XR chest 1V portable CLINICAL HISTORY: Sepsis. COMPARISON STUDY: Chest CT June 19, 2017. Chest radiograph January 03, 2024. FINDINGS: Left subclavian pacer is in place. There is extensive mitral annular calcification. Cardiomediastinal silhouette is stable. There is no pneumothorax or pleural effusion. There is no evidence for pulmonary edema. There is no consolidation to suggest pneumonia. IMPRESSION: No acute cardiopulmonary findings. No change in appearance of the chest. ACT 112: Negative or not required by law. Electronically signed by: Grady Brand M.D. 08/13/2024 12:21 PM Discharge Plan Visit Data Chief Complaint: Illness ED Provider: Mao Spann Discharge Problem: Complicated urinary tract infection, JOSEPH (acute kidney injury), Nausea, vomiting, and diarrhea, Hypotension Patient Disposition: Admitted As Inpatient Discharge Instructions Interventions: ED Discharge Assessment Last Done: 08/13/24 17:23
[2024-08-13] MEDS: SODIUM CHLORIDE 0.9% 1,000 ML IV ONE (14:09)
--- NOTE | 2024-08-13 14:25 | History & Physical Report ---
Date of Service August 13, 2024 Assessment & Plan (1) JOSEPH (acute kidney injury): (2) UTI (urinary tract infection): (3) Nausea, vomiting, and diarrhea: (4) Colitis: (5) Hypotension: (6) Paroxysmal atrial fibrillation: Plan Mrs. Barba is a 84-year-old female who presented on 08/13 at the behest of her PCP for N/V/D and hypotension. Continued hospital stay for JOSEPH, complicated UTI, and episodes of recurrent hypotension #JOSEPH BUN 65, creatinine 2.84 (baseline around 2.0), EGFR 16.6 on arrival Avoid nephrotoxic agents where possible Hold spironolactone, valsartan, HCTZ, and Lasix Suspect this could be prerenal (due to GI losses) or complicated UTI; no obstructive pathology on A/P CT #UTI H/o recurrent UTI infections Patient endorses burning with urination on arrival UA with 3+ bacteria on arrival UCx on 02/28/2024 grew ESBL E. coli with significant resistance Ertapenem 500 mg IV q24h (renally dosed) Follow current UCx #N/V/D, colitis Leukocytosis at 11.17 with a neutrophil predominance; afebrile on arrival A/P CT revealed a nonspecific colitis; no bowel obstruction Procalcitonin and lactate are WNL IV antiemetics PRN PCR stool/C. difficile ordered, pending #Hypotension BP 58/41 in the ED on arrival BP improved to 114/66 with NSS 1000 mL IV bolus Additional 500 mL IV bolus x 1 Patient reports she did have a steroid injection in her left hip on 08/02; random cortisol ordered, pending Given history of heart failure and normal lactate, will defer additional fluid boluses at this time Hold all antihypertensives #Paroxysmal atrial fibrillation Continue amiodarone; LFTs okay on arrival Continue digoxin Digoxin level ordered, pending Hold metoprolol for now #Melena Black stool starting on Wednesday 08/09; no pepto bismol or iron use Hgb okay at 14.9 on arrival However, given patient is on Eliquis, will cover with Protonix IV empirically Protonix 80 mg IV bolus x 1 Protonix 40 mg IV BID No heart stents; hold aspirin for now Continue to trend H&H #HFpEF Most recent echocardiogram on 12/28/2023 revealed LVEF at 55 to 60% Daily weights Strict I&O monitoring Caution for fluid overload with IVF boluses Disposition: Admit to PCU telemetry VTE PPx: Hold dose reduced Eliquis in the setting of melena; SCDs History of Present Illness Chief Complaint: Illness Primary Care Provider: Dyllan Oliveira DO Mrs. Barba is an 84-year-old female with PMH of CAD, SSS s/p pacemaker, CKD stage IV, recurrent UTIs, paroxysmal atrial fibrillation (on Eliquis), HTN, and dyslipidemia. She presented via EMS on 08/13 from her PCPs office with compl aints of hypotension, dizziness, and chest pain that started yesterday. Patient reports her symptoms started shortly after 08/04. Patient reports that she hosted a 49 people for , and then crawled to the bed and "slept for 2 days" afterwards. She also had a steroid injection in her left hip on the Monday prior to Monday. Patient reports she was feeling okay until morning when she started vomiting. She then had abdominal cramping and "the worst BM" she is ever experienced on Wednesday 08/09. Stool was black in color and liquidy. No recent Pepto-Bismol or iron use. She does take Eliquis for her history of A-fib. While her diarrhea has started to improve, she is still having abdominal cramping, mainly on the right flank. She does have a history of pyelonephritis and kidney stones as well. Patient took her regular morning medicine today. Only recent change in medication was that she was started on Ozempic on July 09 and has had 5 doses since. She does have a history of GI bleed in her 30s. Patient takes aspirin, but is unsure why; believes it is secondary to her pacemaker/heart. No prior history of heart stents. No recent antibiotic use, but she was on heavy antibiotics at the beginning of 2024 for a UTI. No prior history of C. difficile. No recent falls or injuries to her abdomen or pelvis. Patient ambulates with a cane at baseline. She denies smoking, tobacco use, recent alcohol use. Patient is mildly hypotensive at 97/66 at time of admission; vitals otherwise stable. ED course: NSS 1000 mL IV ROS: Patient endorses night-sweats x 1 night (resolved), body aches (chronic), mild headache, abdominal cramping, nausea, vomiting, liquidy diarrhea, and burning with urination (started this morning). Patient denies fever, chills, chest pain, chest palpitations, SOB, cough, hemoptysis, hematuria, or BRB in stool. Allergies Allergy/AdvReac Type Severity Reaction Status Date / Time codeine AdvReac Intermediate N/V Verified 08/13/24 09:55 lisinopril AdvReac Intermediate Cough Verified 08/13/24 09:55 morphine AdvReac Intermediate N/V Verified 08/13/24 09:55 Home Medications Medication Instructions Recorded Confirmed Type multivitamin (Daily Multi-Vitamin 1 tab PO QAM 02/04/19 08/13/24 History tablet) timolol maleate 0.5 % eye drops 1 drp OPB HS 02/24/20 08/13/24 History cholecalciferol (vitamin D3) 50 2,000 unit PO QAM 04/07/20 08/13/24 History mcg (2,000 unit) capsule nitroglycerin 0.4 mg sublingual 0.4 mg sublingual Q5M PRN chest 03/22/21 08/13/24 Rx tablet (Nitrostat) pain #25 tabs nystatin 100,000 unit/gram topical 1 applic topical TID PRN Skin 08/25/23 08/13/24 History powder Irritation metoprolol tartrate 25 mg tablet 25 mg PO BID #180 tabs 09/12/23 08/13/24 Rx hydrochlorothiazide 25 mg tablet 25 mg PO QAM #90 tabs 10/10/23 08/13/24 Rx aspirin 81 mg tablet,delayed 81 mg PO HS 12/11/23 08/13/24 History release (Bailee Low Dose Aspirin) valsartan 160 mg tablet (Diovan) 160 mg PO HS 12/11/23 08/13/24 History furosemide 20 mg tablet 20 mg PO DAILY PRN Fluid Retention 01/08/24 08/13/24 History amoxicillin 500 mg tablet 2,000 mg PO ONCE PRN dental salvador 01/10/24 08/13/24 History latanoprost 0.005 % eye drops 1 drp ophthalmic (eye) QPM 01/10/24 08/13/24 History ondansetron 4 mg disintegrating 4 mg PO TID PRN n/v 01/10/24 08/13/24 History tablet amiodarone 200 mg tablet (Pacerone) 200 mg PO DAILY #90 tabs 01/16/24 08/13/24 Rx montelukast 10 mg tablet See Rx Instructions .Route 01/16/24 08/13/24 Rx .COMPLEX #90 tabs pantoprazole 20 mg tablet,delayed See Rx Instructions .Route 01/16/24 08/13/24 Rx release .COMPLEX #90 tabs spironolactone 25 mg tablet 25 mg PO DAILY #90 tabs 01/16/24 08/13/24 Rx clotrimazole-betamethasone 1 See Rx Instructions .Route 01/22/24 08/13/24 Rx %-0.05 % topical cream .COMPLEX #45 grams digoxin 125 mcg (0.125 mg) tablet 125 mcg PO UD #20 tabs 01/30/24 08/13/24 Rx rosuvastatin 5 mg tablet 5 mg PO HS #90 tabs 02/15/24 08/13/24 Rx methenamine hippurate 1 gram tablet 1 g PO BID #180 tabs 05/02/24 08/13/24 Rx triamcinolone acetonide 0.1 % See Rx Instructions .Route 05/20/24 08/13/24 Rx topical cream .COMPLEX #80 grams semaglutide 0.25 mg or 0.5 mg (2 0.5 mg (0.736 mL) subcut Q7D #3 mL 07/09/24 08/13/24 Rx mg/3 mL) subcutaneous pen injector (Ozempic) apixaban 5 mg tablet (Eliquis) 2.5 mg (1/2 x 5 mg) PO BID #180 07/16/24 08/13/24 Rx tabs gabapentin 100 mg capsule 100 mg PO UD 08/13/24 08/13/24 History Past Med/Surg History Problem List (Updated 08/13/24 @ 16:05 by Omar Tomas PA-C) UTI (urinary tract infection) Colitis Hypotension Nausea, vomiting, and diarrhea JOSEPH (acute kidney injury) Dyslipidemia HTN (hypertension) Encounter for monitoring anti-arrhythmic therapy Paroxysmal atrial fibrillation Taking Eliquis/metoprolol Follows with [facility] cardio Shannan glabrata infection Complicated urinary tract infection Recurrent urinary tract infection (Chronic) Incontinence (Chronic) CKD (chronic kidney disease) stage 4, GFR 15-29 ml/min SSS (sick sinus syndrome) Presence of permanent cardiac pacemaker CAD (coronary artery disease) Non-obstructive > follows with Dr. Leos Encounter for monitoring diuretic therapy Encounter for monitoring digoxin therapy Kidney mass Lymphadenopathy, hilar Per remote 2019 records Medical History (Updated 08/13/24 @ 16:05 by Omar Tomas PA-C) Acute heart failure with preserved ejection fraction Colicky pain Atrial fibrillation with RVR Morbid obesity with BMI of 45.0-49.9, adult Hematuria Atrial fibrillation Cardioversion September 2023 Left ear hearing loss Per records Venous reflux Paroxysmal atrial flutter Peripheral vascular disease Morbid obesity Renal lesion Dr. Bronson monitoring GERD (gastroesophageal reflux disease) Hx of solitary pulmonary nodule PVD (peripheral vascular disease) Hx of non-ST elevation myocardial infarction (NSTEMI) (2020) pt unaware/denies > states was just an angina attack Osteoarthritis Lumbar stenosis with neurogenic claudication Type 2 diabetes mellitus Peripheral edema Asthma "Mild" No inhaler Urge incontinence of urine Urinary frequency Urinary urgency Sarcoidosis Follows with [facility] pulm Sleep apnea Does not tolerate CPAP History of kidney stones Glaucoma Surgical History (Updated 07/16/24 @ 09:54 by Ramakrishna Leos Jr, MD, FACC) History of cardioversion x4 History of cystoscopy S/P bladder tumor excision with fulguration History of cholecystectomy History of tooth extraction History of left knee surgery History of total bilateral knee replacement History of surgery on left wrist x2 History of hysterectomy with unilateral oophorectomy History of lithotripsy History of esophagogastroduodenoscopy (EGD) History of colonoscopy History of cardiac cath 2020, 2013, 2005- no stents History of cardiac radiofrequency ablation 2020 Family History Mother Atrial fibrillation Stroke Father No problems noted. Brother Lung cancer Brother Lung cancer Sister Lung cancer Other No family history of adverse response to anesthesia Social History Smoking Status: Never smoker Second Hand Exposure: No; Do You Dip or Chew Tobacco: No; Hx Alcohol Use: No Hx Substance Use: No Preferred Language: Armenian Communication Ability: Effective Visual Impairment: No Limitations Sec Accountant Required: No Beliefs That Will Affect Care: None marital status: Current Living Situation: Spouse current occupational status: retired How many Children do You have: 4 Feels Safe at Home: Yes Childhood Exposure to Second-Hand Smoke: No caffeine: Yes Dental Care, Regularly: Yes Physical Activity Frequency: Does not Exercise Seatbelt Use: always Sunscreen Use: No Assistive Devices: Cane Review of Systems Review of Systems: See HPI above Physical Exam Physical Exam: General: no acute distress; pleasant affect; non-toxic appearing; well- nourished; cooperative; SpO2 98% on RA HEENT: normocephalic, atraumatic; no scleral icterus; PERRLA; vision and hearing grossly intact Neck: supple; no lymphadenopathy; trachea midline Skin: warm, dry without signs of tenting; no cyanosis; no rashes, bruising, lesions, or erythema noted CV: chest wall NTP; RRR; S1/S2 normal; no murmurs/rubs/gallops; pulses intact and symmetric at radial, DP, and PT Lungs: no acute respiratory distress; symmetrical chest wall expansion; clear breath sounds across all lung pedro w/o adventitious sounds; no wheezing ABD: Soft, NTP; BS present; no rebound/guarding; no distention : Right CVA tenderness; right flank is TTP; right lower quadrant is mildly TTP; negative suprapubic tenderness MSK: no tics or fasciculations; no edema noted in the LEs b/l, nonerythematous Neuro: A&Ox3; normal mood and affect; fluent speech; no focal deficits; sensation intact and symmetric in the lower extremities bilaterally Results & Data Results & Data Vital Signs (Past 12 Hours) Vital Signs Temp Pulse Resp BP Pulse Ox O2 Del Method 08/13/24 12:04 75 08/13/24 11:00 36.4 C L 70 20 97/66 L 99 Room Air Laboratory Results Abnormal lab results 08/13/24 Range/Units 11:13 WBC 11.17 H (4.8-10.8) K/ul Neut # (Auto) 9.42 H (1.40-6.50) K/uL Lymph # (Auto) 0.82 L (1.20-3.40) K/uL [place] # (Auto) 0.76 H (0.11-0.59) K/uL Sodium 132 L (136-145) mmol/L Chloride 97 L (98-107) mmol/L BUN 65 H (6-23) mg/dl Creatinine 2.84 H (0.6-1.2) mg/dl BUN/Creatinine Ratio 22.9 H (10-20) Glucose 184 H (70-99(Fasting)) mg/dl Troponin I High Sens 16.2 H (0-14) pg/ml Diagnostic Findings Chest X-Ray 08/13/24 11:30 XR chest 1V portable CLINICAL HISTORY: Sepsis. COMPARISON STUDY: Chest CT June 19, 2017. Chest radiograph January 03, 2024. FINDINGS: Left subclavian pacer is in place. There is extensive mitral annular calcification. Cardiomediastinal silhouette is stable. There is no pneumothorax or pleural effusion. There is no evidence for pulmonary edema. There is no consolidation to suggest pneumonia. IMPRESSION: No acute cardiopulmonary findings. No change in appearance of the chest. ACT 112: Negative or not required by law. Electronically signed by: Grady Brand M.D. 08/13/2024 12:21 PM ECG Additional Comments: ECG revealed accelerated junctional rhythm at 71 bpm; QTc 467 Code Status & VTE Plan Code Status DNR/DNI VTE Prophylaxis Plan VTE Prophylaxis will be ordered: Yes Supervising Physician Co-Signing Physician Notes Patient seen and examined, chart reviewed, case discussed with Omar Tomas PA-C and I agree with the assessment and plan as above except as otherwise noted Labs and images reviewed Effie is an 84-year-old female with a past medical history of paroxysmal atrial fibrillation, sick sinus syndrome s/p pacemaker placement, CAD, hypertension, vertigo who presented to the ER with nausea/vomiting/diarrhea, found to have a leukocytosis of 11.17, and was profoundly hypotensive to 58/41 which improved to 90/60s following 1 L of fluid bolus. Effie reports that she had a very large Easter gathering with her family with many family members over for meals. Did well and was sleeping at the weekend however the next day started develop copious watery diarrhea. She has had liquid black diarrhea for the first time, she has never had black bowel movements before. She has subsequently had some hard bowel movements but these are again dark/black. She has no lightheadedness/dizziness. She does have very slight epigastric tenderness. She is on Eliquis and aspirin. She denies history of ulcers previously. She reports in the last day she has also had some left-sided flank pain and dysuria. UA is infected versus contaminated appearing. Suspected complicated UTI UA is infected versus contaminated appearing. Clinically with flank pain and dysuria. Treat for complicated UTI History of ESBL E. coli. Agree with ertapenem 500mg. Narrow based on cultures Following 1 L NSS patient is normotensive 114/66, no tachycardia, appears clinically improved. Given underlying HFpEF and that she does not have tachycardia, leukocytosis greater than 12, impaired tissue perfusion and exam we will defer a BW fluids of 3000 cc. IBW 1431 cc, will give another 500 cc as supplemental maintenance. Lactate normal. - + hx kidney stones - CT-A/P pending Melena - w/ abd tenderness, and new jet black both liquid and not liquid stool. Denies iron/Pepto-Bismol use - hgb wnl. No sx of anemia. Eliquis/Aspirin temporaily held. hgb trended. BUN ends elevated however this is also with associated JOSEPH - PPI bolus 80mg x1 and 40mg BID If hemoglobin stable resume Eliquis/aspirin for A-fib prophylaxis and CAD prevention/30 Paroxysmal atrial fibrillation, sick sinus syndrome, CAD, HFpEF - TTE 12/28/2023 with EF 55 to 60%. LV SF normal. No regional wall motion abnormalities EKG on admission without territorial ST segment changes. Poor quality baseline. Intermittent pacing spikes. No chest pain Clinically volume contracted. Cautious fluids due to history of HFpEF Troponin 16.2 suspect demand in the setting of hypovolemia/complicated UTI. Trended. Suspect demand. No ongoing chest pain Agree with above. PG Care Time/CCT Total # of Minutes Spent Total Time Spent with Patient: Total time spent is greater than 50% in coordination of care (as documented) at patient's floor/unit and/or counseling patient: Coding [place] [address] INT INP/OBS CARE 3/75MIN Patient Type Established History Comprehensive Exam Comprehensive Medical Decision Making High Complexity Diagnoses JOSEPH (acute kidney injury) N17.9 UTI (urinary tract infection) N39.0 Nausea, vomiting, and diarrhea R11.2; R19.7 Colitis K52.9 Hypotension I95.9 Paroxysmal atrial fibrillation I48.0
[2024-08-13 14:41] LABS: Appearance Urine Cloudy (Clear); Bacteria Urine Automated 3+ (None Seen); Bilirubin Urine Negative (Negative); Blood Urine Negative (Negative); Cast Urine Automated >20 /lpf (0-2); Color Urine Yellow; Glucose Urine UA Negative (Negative); Hyaline Casts Urine Present /lpf (None Presnt); Ketones Urine Trace (Negative); Leukocyte Esterase Urine 3+ (Negative); Nitrite Urine Negative (Negative); Protein Urine Trace (Negative); RBC Urine Automated 0-2 /hpf (0-2); Specific Gravity Urine 1.016 (1.000-1.030); Urobilinogen Urine Negative (Negative); WBC Urine Automated 21-50 /hpf (0-5)
[2024-08-13] MEDS: SODIUM CHLORIDE 0.9% 500 ML IV ONE (15:31)
[2024-08-13] MEDS: PANTOprazole 80 MG in DEXTROSE 5% 100 ML IV STA (15:32)
--- NOTE | 2024-08-13 15:43 | CT Scan Report ---
ABDOMEN AND PELVIS CT WITHOUT CONTRAST CT DOSE: 1297.37 mGy.cm HISTORY: Acute right-sided flank pain Right CVA tenderness / flank pain TECHNIQUE: Multiaxial CT images of the abdomen and pelvis were performed without contrast. A dose lo wering technique was utilized adhering to the principles of ALARA. COMPARISON STUDY: CT studies dated 01/03/2024 and 10/23/2023. FINDINGS: Cardiomegaly with mitral annular and coronary artery calcifications. Partially imaged pacer leads. Mild bibasilar atelectasis versus scarring. No free air. The unenhanced spleen, atrophic panc reas and adrenal glands are unremarkable. Cholecystectomy. Hepatic cysts redemonstrated. Cortical thinning of the kidneys. Left-sided renal cyst redemonstrated. 2.5 cm partially exophytic an terior interpolar right renal lesion and 2 cm interpolar right renal lesion seen on images 134 and 13 9 of series 3 respectively are unchanged from prior. 2 cm hypodense lesion of the inferior pole right kidney is unchanged.. There are a few punctate calcifications noted within the kidneys. No ureteral calculi or hydronephrosis. Decompressed urinary bladder with mild wall thickening. Hysterectomy. Athe rosclerosis of the aorta without aneurysm. Tiny hiatal hernia. Colonic diverticulosis. There is suggestion of mild wall thickening involving the hepatic flexure and ascending colon. Normal appendix. Severe left hip osteoarthritis. No acute fract ure. IMPRESSION: 1. Mild wall thickening of the ascending colon and hepatic flexure may be secondary to partial disten tion versus a mild nonspecific colitis. Findings could be correlated with colonoscopy. 2. No bowel obstruction or pneumoperitoneum. 3. Colonic diverticulosis. 4.Stable size of the right renal lesions, better evaluated on the contrast-enhanced study from 10/23/19 24. 5. Severe osteoarthritis of the left hip. ACT 112: Negative or not required by law. The above report was generated using voice recognition software. It may contain grammatical, syntax o r spelling errors. Electronically signed by: Neftaly Pina M.D. 08/13/2024 3:41 PM
[2024-08-13] MEDS: ERTAPENEM 500MG 500 MG/5 ML SYR IV STA (16:30)
[2024-08-13] MEDS: LATANOPROST 0.005% OP SOLN 2.5 ML BTL OP SCH (20:37)
[2024-08-13] MEDS: MONTELUKAST SODIUM 10 MG TABLET PO SCH (20:38)
[2024-08-13] MEDS: ROSUVASTATIN CALCIUM 5 MG TAB PO SCH (20:38)
[2024-08-13] MEDS: GABAPENTIN 100 MG CAP PO SCH (20:38)
[2024-08-13] MEDS: TIMOLOL MALEATE 0.5% OP SOLN 5 ML BTL OP SCH (20:38)
[2024-08-14 05:04] LABS: Adenovirus F 40/41 PCR Not Detected (NotDetected); Astrovirus PCR Not Detected (NotDetected); Campylobacter PCR Not Detected (NotDetected); Cryptosporidium PCR Not Detected (NotDetected); Cyclospora cayetanensis PCR Not Detected (NotDetected); E.coli O157 PCR Not Detected (NotDetected); Entamoeba histolytica PCR Not Detected (NotDetected); Enteroaggregative E.coli(EAEC) Not Detected (NotDetected); Enterotoxigenic E.coli (ETEC) Not Detected (NotDetected); Giardia lamblia PCR Not Detected (NotDetected); Norovirus GI/GII PCR Not Detected (NotDetected); Plesiomonas shigelloides PCR Not Detected (NotDetected); Rotavirus A PCR Not Detected (NotDetected); Salmonella PCR Not Detected (NotDetected); Sapovirus PCR Not Detected (NotDetected); Shigella/Enteroinvasive E.coli Not Detected (NotDetected); Vibrio cholerae PCR Not Detected (NotDetected); Vibrio species PCR Not Detected (NotDetected); Yersinia enterocolitica PCR Not Detected (NotDetected)
[2024-08-14 05:12] LABS: Shiga-like Toxin E.coli (STEC) DETECTED (NotDetected)
[2024-08-14 06:50] LABS: Basophils # (auto) 0.03 K/uL (0.00-0.20); Basophils % (auto) 0.3 %; Eosinophils # (auto) 0.08 K/uL (0.00-0.50); Eosinophils % (auto) 0.9 %; Hematocrit (blood only) 38.2 % (37.0-47.0); Hemoglobin 13.2 g/dl (12.0-16.0); Immature Granulocytes # (auto) 0.03 K/uL (0.01-0.20); Immature Granulocytes % (auto) 0.3 %; Lymphocytes # (auto) 0.81 K/uL (1.20-3.40); Lymphocytes % (auto) 9.4 %; Mean Corpuscular Hemoglobin 32.4 pg (25.0-34.0); Mean Corpuscular Hgb Conc 34.6 g/dL (32.0-36.0); Mean Corpuscular Volume 93.9 fL (80.0-100.0); Mean Platelet Volume 10.5 fL (9.4-12.4); Monocytes # (auto) 0.72 K/uL (0.11-0.59); Monocytes % (auto) 8.3 %; Neutrophils # (auto) 6.99 K/uL (1.40-6.50); Neutrophils % (auto) 80.8 %; Platelet Count 175 K/uL (130-400); RDW Coefficient of Variation 12.6 % (11.5-14.5); RDW Standard Deviation 43.5 fL (36.4-46.3); Red Blood Count 4.07 M/uL (4.20-5.40); White Blood Count 8.66 K/ul (4.8-10.8)
[2024-08-14 07:21] LABS: Calcium 8.2 mg/dl (8.6-10.3); Creatinine Clr Calc Pharmacy 19.5 ml/min; Potassium 3.8 mmol/L (3.5-5.1)
[2024-08-14] MEDS ORDERED: PANTOprazole 40 MG/10 ML SYR IV SCH (09:00)
[2024-08-14] MEDS: SODIUM CHLORIDE 0.9% 1,000 ML IV SCH (09:27)
[2024-08-14] MEDS: DIGOXIN 0.125 MG TAB PO SCH (09:30)
[2024-08-14] MEDS: AMIODARONE 200 MG TAB PO SCH (09:30)
[2024-08-14] MEDS: PANTOprazole 40 MG TAB PO SCH (10:11)
--- NOTE | 2024-08-14 13:29 | Hospitalist Progress Note ---
Date of Service August 14, 2024 Assessment & Plan (1) JOSEPH (acute kidney injury): Plan: Present on admission. Improving with IV fluids. Creatinine is now down to 2.4. Continue to monitor urine output and obtain daily labs (2) UTI (urinary tract infection): Plan: Suspected on admission. She remains on intravenous ertapenem, day 2. Cultures pending (3) Nausea, vomiting, and diarrhea: Plan: Present on admission. Now resolved. Suspect viral etiology (4) Colitis: Plan: Diarrhea has resolved. Suspect viral etiology. Shiga toxin assay was positive but due to rapidity of resolution I highly doubt she has an active Shiga toxin (5) Hypotension: Plan: Resolved with IV fluids (6) Paroxysmal atrial fibrillation: Plan: Currently in paced rhythm. Telemetry. Continue current medical management Plan Hopeful discharge to home within the next day or 2 Admission and Anticipated Discharge Date Admission Date: August 13, 2024 Subjective Alert and oriented. She states her nausea vomiting and diarrhea have completely resolved. C. difficile toxin assay is negative. Shiga toxin PCR is positive but this is probably an unlikely diagnosis. She probably had a viral enteritis. Hemoglobin is stable. Creatinine has improved down to 2.4 with IV fluids which we will continue. She remains on ertapenem, day 2. OT and PT assessments have been requested. Hopefully she can go home within the next day or 2 Review of Systems 2 Review of Systems: Constitutionalno fever or chills ENTno blurred vision, no double vision, no epistaxis, no sore throat Respiratoryno cough, no wheezing, no shortness of breath Cardiacno palpitations, no chest pain, no syncope GInausea vomiting and diarrhea have resolved. No melena. No hematochezia GUno urinary retention, no urinary incontinence, no dysuria, no hematuria Musculoskeletalno joint pain, no muscle tenderness Skinno bruising, no rashes, no pruritus Neurono isolated weakness, no paresthesia, no weakness Psychno depression, no anxiety Physical Exam 2 Physical Exam: General-alert and oriented x3, no fever, no chills HEENT-head atraumatic and normocephalic, pupils equal and reactive to light, extraocular muscles intact Neck-no lymphadenopathy or thyromegaly, trachea midline Chest-clear to auscultation. No rales, wheezing or rhonchi Cardiac-regular rate and rhythm, normal S1 and S2 Abdomen-normal bowel sounds, no hepatosplenomegaly Extremities-no cyanosis, clubbing, or edema Neuro-cranial nerves II through XII intact, motor and sensory function within normal limits, strength symmetrical, no focal deficits Psych-normal affect, normal mood Results & Data Results & Data Vital Signs (Past 12 Hours) Vital Signs Temp Pulse Pulse Resp BP Pulse Ox O2 Del Method 08/14/24 11:30 36.6 C 70 18 113/71 97 Room Air 08/14/24 09:30 71 08/14/24 08:03 Room Air 08/14/24 07:06 36.4 C L 73 18 123/71 98 Room Air 08/14/24 06:59 70 08/14/24 03:21 36.4 C L 71 18 100/67 99 Room Air Laboratory Results 08/14/24 05:47 08/14/24 05:47 PG Care Time/CCT Total # of Minutes Spent Total Time Spent with Patient: Total time spent is greater than 50% in coordination of care (as documented) at patient's floor/unit and/or counseling patient: Coding Level of Care Code 12190 SUB INP/OBS CARE 3/50MIN Diagnoses JOSEPH (acute kidney injury) N17.9 UTI (urinary tract infection) N39.0 Nausea, vomiting, and diarrhea R11.2; R19.7 Colitis K52.9 Hypotension I95.9 Paroxysmal atrial fibrillation I48.0
[2024-08-14] MEDS: ERTAPENEM 500MG 500 MG/5 ML SYR IV SCH (17:01)
[2024-08-15] MEDS: ACETAMINOPHEN 325 MG TAB PO PRN (00:50)
[2024-08-15 06:31] LABS: Basophils # (auto) 0.03 K/uL (0.00-0.20); Basophils % (auto) 0.4 %; Eosinophils # (auto) 0.11 K/uL (0.00-0.50); Eosinophils % (auto) 1.3 %; Hematocrit (blood only) 36.6 % (37.0-47.0); Hemoglobin 12.6 g/dl (12.0-16.0); Immature Granulocytes # (auto) 0.04 K/uL (0.01-0.20); Immature Granulocytes % (auto) 0.5 %; Lymphocytes # (auto) 0.86 K/uL (1.20-3.40); Lymphocytes % (auto) 10.4 %; Mean Corpuscular Hemoglobin 32.2 pg (25.0-34.0); Mean Corpuscular Hgb Conc 34.4 g/dL (32.0-36.0); Mean Corpuscular Volume 93.6 fL (80.0-100.0); Mean Platelet Volume 10.4 fL (9.4-12.4); Monocytes # (auto) 0.68 K/uL (0.11-0.59); Monocytes % (auto) 8.3 %; Neutrophils # (auto) 6.52 K/uL (1.40-6.50); Neutrophils % (auto) 79.1 %; Platelet Count 158 K/uL (130-400); RDW Coefficient of Variation 12.7 % (11.5-14.5); Red Blood Count 3.91 M/uL (4.20-5.40); White Blood Count 8.24 K/ul (4.8-10.8)
[2024-08-15 06:56] LABS: BUN Creatinine Ratio 24.2 (10-20); Calcium 7.7 mg/dl (8.6-10.3); Creatinine Clr Calc Pharmacy 24.1 ml/min; Potassium 3.9 mmol/L (3.5-5.1)
--- NOTE | 2024-08-15 09:33 | Electrocardiogram Report ---
Test Reason : Blood Pressure : */* mmHG Vent. Rate : 71 BPM Atrial Rate : * BPM P-R Int : * ms QRS Dur : 114 ms QT Int : 430 ms P-R-T Axes : * 30 132 degrees QTcB Int : 467 ms Accelerated Junctional rhythm Cannot rule out Anterior infarct (cited on or before 27-Dec-2023) Abnormal ECG When compared with ECG of 01-Jan-2024 08:18, Junctional rhythm has replaced Sinus rhythm T wave inversion now evident in Inferior leads T wave inversion now evident in Lateral leads Confirmed by Cricket Ahn ([id number]) on 08/15/2024 9:32:53 AM Referred By: REFERRED SELF Confirmed By: Cricket Ahn
[2024-08-15] MEDS: cefTRIAXone SODIUM 2,000 MG/50 ML BAG IV SCH (11:59)
[2024-08-15] MEDS: SODIUM CHLORIDE 0.9% 1,000 ML IV SCH (11:59)
--- NOTE | 2024-08-15 15:19 | Hospitalist Progress Note ---
Date of Service August 15, 2024 Assessment & Plan (1) JOSEPH (acute kidney injury): Plan: Present on admission. Improving with IV fluids. Creatinine is now down to 1.9. Continue to monitor urine output and obtain daily labs (2) UTI (urinary tract infection): Plan: Suspected on admission. Pansensitive E. coli isolated. Ertapenem has been switched to Rocephin. (3) Nausea, vomiting, and diarrhea: Plan: Present on admission. Now resolved. Suspect viral etiology (4) Colitis: Plan: Diarrhea has resolved. Suspect viral etiology. Shiga toxin assay was positive but due to rapidity of resolution I highly doubt she has an active Shiga toxin producing organism (5) Hypotension: Plan: Resolved with IV fluids (6) Paroxysmal atrial fibrillation: Plan: Currently in paced rhythm. Telemetry. Continue current medical management Plan Hopeful discharge to home tomorrow, August 16 Admission and Anticipated Discharge Date Admission Date: August 13, 2024 Subjective Alert and oriented. Stable overall. E. coli isolated in the urine is pansensitive. Ertapenem switched to Rocephin. Nausea vomiting and diarrhea have resolved. Hemoglobin is stable. Creatinine is downtrending, now 1.9. She remains on IV fluids. Hopefully she can go home tomorrow, August 16, on an oral antibiotic Review of Systems 2 Review of Systems: Constitutionalno fever or chills ENTno blurred vision, no double vision, no epistaxis, no sore throat Respiratoryno cough, no wheezing, no shortness of breath Cardiacno palpitations, no chest pain, no syncope GInausea vomiting and diarrhea have resolved. No melena. No hematochezia GUno urinary retention, no urinary incontinence, no dysuria, no hematuria Musculoskeletalno joint pain, no muscle tenderness Skinno bruising, no rashes, no pruritus Neurono isolated weakness, no paresthesia, no weakness Psychno depression, no anxiety Physical Exam 2 Physical Exam: General-alert and oriented x3, no fever, no chills HEENT-head atraumatic and normocephalic, pupils equal and reactive to light, extraocular muscles intact Neck-no lymphadenopathy or thyromegaly, trachea midline Chest-clear to auscultation. No rales, wheezing or rhonchi Cardiac-regular rate and rhythm, normal S1 and S2 Abdomen-normal bowel sounds, no hepatosplenomegaly Extremities-no cyanosis, clubbing, or edema Neuro-cranial nerves II through XII intact, motor and sensory function within normal limits, strength symmetrical, no focal deficits Psych-normal affect, normal mood Results & Data Results & Data Vital Signs (Past 12 Hours) Vital Signs Temp Pulse Pulse Resp BP Pulse Ox O2 Del Method 08/15/24 13:54 66 08/15/24 10:45 36.6 C 73 19 119/75 99 Room Air 08/15/24 09:00 70 08/15/24 08:03 36.7 C 69 18 127/75 96 Room Air Laboratory Results 08/15/24 05:25 08/15/24 05:25 PG Care Time/CCT Total # of Minutes Spent Total Time Spent with Patient: Total time spent is greater than 50% in coordination of care (as documented) at patient's floor/unit and/or counseling patient: Coding Level of Care Code 33454 SUB INP/OBS CARE 3/50MIN Diagnoses JOSEPH (acute kidney injury) N17.9 UTI (urinary tract infection) N39.0 Nausea, vomiting, and diarrhea R11.2; R19.7 Colitis K52.9 Hypotension I95.9 Paroxysmal atrial fibrillation I48.0
[2024-08-16 01:14] VITALS: RESP 18
[2024-08-16 06:40] LABS: Basophils # (auto) 0.03 K/uL (0.00-0.20); Basophils % (auto) 0.5 %; Eosinophils # (auto) 0.18 K/uL (0.00-0.50); Eosinophils % (auto) 2.9 %; Hematocrit (blood only) 36.1 % (37.0-47.0); Hemoglobin 12.2 g/dl (12.0-16.0); Immature Granulocytes # (auto) 0.03 K/uL (0.01-0.20); Immature Granulocytes % (auto) 0.5 %; Lymphocytes # (auto) 0.78 K/uL (1.20-3.40); Lymphocytes % (auto) 12.4 %; Mean Corpuscular Hemoglobin 32.5 pg (25.0-34.0); Mean Corpuscular Hgb Conc 33.8 g/dL (32.0-36.0); Mean Corpuscular Volume 96.3 fL (80.0-100.0); Mean Platelet Volume 10.4 fL (9.4-12.4); Monocytes # (auto) 0.62 K/uL (0.11-0.59); Monocytes % (auto) 9.9 %; Neutrophils # (auto) 4.63 K/uL (1.40-6.50); Neutrophils % (auto) 73.8 %; Platelet Count 156 K/uL (130-400); RDW Coefficient of Variation 12.8 % (11.5-14.5); RDW Standard Deviation 45.1 fL (36.4-46.3); Red Blood Count 3.75 M/uL (4.20-5.40); White Blood Count 6.27 K/ul (4.8-10.8)
[2024-08-16 06:59] LABS: BUN Creatinine Ratio 20.1 (10-20); Calcium 7.9 mg/dl (8.6-10.3); Creatinine Clr Calc Pharmacy 30.2 ml/min; Potassium 4.3 mmol/L (3.5-5.1)
[2024-08-16 07:50] VITALS: O2SAT 96
[2024-08-16 11:03] VITALS: BP 131/91; PULSE 83; TEMP 97.7
--- NOTE | 2024-08-16 11:50 | Discharge Summary ---
Discharge Summary Date of Service August 16, 2024 Principal Dx & Hospital Course #1 = Principal Diagnosis (1) JOSEPH (acute kidney injury): Present on admission. Resolving with IV fluids. Creatinine is now down to 1.9. Continue to monitor urine output and obtain daily labs (2) UTI (urinary tract infection): Suspected on admission. Pansensitive E. coli isolated. Ertapenem has been switched to Rocephin. She will continue oral cephalexin at discharge (3) Nausea, vomiting, and diarrhea: Present on admission. Now resolved. Suspect viral etiology (4) Colitis: Diarrhea has resolved. Suspect viral etiology. Shiga toxin assay was positive but due to rapidity of resolution I highly doubt she has an active Shiga toxin producing organism (5) Hypotension: Resolved with IV fluids (6) Paroxysmal atrial fibrillation: Currently in paced rhythm. Telemetry. Continue current medical management Plan Home today, August 16, on Keflex for a few more days. Admission HPI Per Admitting Provider Mrs. Barba is an 84-year-old female with PMH of CAD, SSS s/p pacemaker, CKD stage IV, recurrent UTIs, paroxysmal atrial fibrillation (on Eliquis), HTN, and dyslipidemia. She presented via EMS on 08/13 from her PCPs office with complaints of hypotension, dizziness, and chest pain that started yesterday. Patient reports her symptoms started shortly after 08/04. Patient reports that she hosted a 49 people for , and then crawled to the bed and "slept for 2 days" afterwards. She also had a steroid injection in her left hip on the Monday prior to Monday. Patient reports she was feeling okay until morning when she started vomiting. She then had abdominal cramping and "the worst BM" she is ever experienced on Wednesday 08/09. Stool was black in color and liquidy. No recent Pepto-Bismol or iron use. She does take Eliquis for her history of A-fib. While her diarrhea has started to improve, she is still having abdominal cramping, mainly on the right flank. She does have a history of pyelonephritis and kidney stones as well. Patient took her regular morning medicine today. Only recent change in medication was that she was started on Ozempic on July 09 and has had 5 doses since. She does have a history of GI bleed in her 30s. Patient takes aspirin, but is unsure why; believes it is secondary to her pacemaker/heart. No prior history of heart stents. No recent antibiotic use, but she was on heavy antibiotics at the beginning of 2024 for a UTI. No prior history of C. difficile. No recent falls or injuries to her abdomen or pelvis. Patient ambulates with a cane at baseline. She denies smoking, tobacco use, recent alcohol use. Patient is mildly hypotensive at 97/66 at time of admission; vitals otherwise stable. ED course: NSS 1000 mL IV ROS: Patient endorses night-sweats x 1 night (resolved), body aches (chronic), mild headache, abdominal cramping, nausea, vomiting, liquidy diarrhea, and burning with urination (started this morning). Patient denies fever, chills, chest pain, chest palpitations, SOB, cough, hemoptysis, hematuria, or BRB in stool. Discharge Exam General-alert and oriented x3, no fever, no chills HEENT-head atraumatic and normocephalic, pupils equal and reactive to light, extraocular muscles intact Neck-no lymphadenopathy or thyromegaly, trachea midline Chest-clear to auscultation. No rales, wheezing or rhonchi Cardiac-regular rate and rhythm, normal S1 and S2 Abdomen-normal bowel sounds, no hepatosplenomegaly Extremities-no cyanosis, clubbing, or edema Neuro-cranial nerves II through XII intact, motor and sensory function within normal limits, strength symmetrical, no focal deficits Psych-normal affect, normal mood Discharge Plan Discharge Items Patient Disposition: Home - Home Health Services Reason For Visit: UTI,JOSEPH,HYPOTENSION Discharge Diagnosis: E. coli UTI, nausea vomiting and diarrhea, volume depletion, hypotension, acute kidney injury Activity: Resume your previous activity Non-emergency contact: Primary Care Provider Call non-emergency contact if: you have any medication questions and your symptoms worsen Follow-up/Referrals: Dyllan Oliveira DO [Primary Care Provider] - Diet: Regular and Heart Healthy Addtl Attending Provider Instructions: Take cephalexin antibiotic for 3 more days. A prescription has been sent to [facility] in [place] Pending Studies at Discharge: No Stand-Alone Forms: My [employer], Smoking Cessation Medications and DC Order Prescriptions: New cephalexin 250 mg capsule 250 mg PO TID Qty: 10 0RF Continued hydrochlorothiazide 25 mg tablet 25 mg PO QAM Qty: 90 3RF montelukast 10 mg tablet See Rx Instructions .ROUTE .COMPLEX Qty: 90 3RF Dose Instruction: TAKE ONE TABLET BY MOUTH AT BEDTIME Rx Instructions: TAKE ONE TABLET BY MOUTH AT BEDTIME pantoprazole 20 mg tablet,delayed release (DR/EC) See Rx Instructions .ROUTE .COMPLEX Qty: 90 3RF Dose Instruction: TAKE ONE TABLET BY MOUTH EVERY MORNING Rx Instructions: TAKE ONE TABLET BY MOUTH EVERY MORNING clotrimazole-betamethasone 1-0.05 % cream See Rx Instructions .ROUTE .COMPLEX Qty: 45 11RF Dose Instruction: APPLY SMALL/PEA SIZED AMOUNT TOPICALLY BEFORE BED Rx Instructions: APPLY SMALL/PEA SIZED AMOUNT TOPICALLY BEFORE BED digoxin 125 mcg (0.125 mg) tablet 125 mcg PO UD Qty: 20 3RF Rx Instructions: one tab po M W F rosuvastatin 5 mg tablet 5 mg PO HS Qty: 90 3RF triamcinolone acetonide 0.1 % cream See Rx Instructions .ROUTE .COMPLEX Qty: 80 1RF Dose Instruction: APPLY CREAM TOPICALLY TWICE A DAY FOR 14 DAYS Rx Instructions: APPLY CREAM TOPICALLY TWICE A DAY FOR 14 DAYS metoprolol tartrate 25 mg tablet 25 mg PO BID Qty: 180 3RF multivitamin [Daily Multi-Vitamin] tablet 1 tab PO QAM cholecalciferol (vitamin D3) 50 mcg (2,000 unit) capsule 2,000 unit PO QAM spironolactone 25 mg tablet 25 mg PO DAILY Qty: 90 3RF amiodarone [Pacerone] 200 mg tablet 200 mg PO DAILY Qty: 90 3RF Eliquis 5 mg tablet 2.5 mg PO BID Qty: 180 0RF latanoprost 0.005 % drops 1 drp ophthalmic (eye) QPM Rx Instructions: INSTILL ONE DROP IN EACH EYE EVERY NIGHT AT BEDTIME ondansetron 4 mg tablet,disintegrating 4 mg PO TID PRN (Reason: n/v) amoxicillin 500 mg tablet 2,000 mg PO ONCE PRN (Reason: dental [facility]) Rx Instructions: TAKE 4 TABLETS BY MOUTH 1 HOUR PRIOR TO DENTAL APPOINTMENT methenamine hippurate 1 gram tablet 1 g PO BID Qty: 180 3RF furosemide 20 mg tablet 20 mg PO DAILY PRN (Reason: Fluid Retention) Patient Comments: Patient has been taking daily Ozempic 0.25 mg or 0.5 mg (2 mg/3 mL) pen injector 0.5 mg subcut Q7D Qty: 3 1RF timolol maleate 0.5 % drops 1 drp OPB HS nitroglycerin [Nitrostat] 0.4 mg Tablet, Sublingual 0.4 mg sublingual Q5M PRN (Reason: chest pain) Qty: 25 0RF nystatin 100,000 unit/gram powder 1 applic topical TID PRN (Reason: Skin Irritation) aspirin [Bailee Low Dose Aspirin] 81 mg tablet,delayed release (DR/EC) 81 mg PO HS valsartan [Diovan] 160 mg tablet 160 mg PO HS gabapentin 100 mg capsule 100 mg PO UD Rx Instructions: 100mg po tid. last filled 06/20 30 day supply Discharge Orders: Discharge Order (Routine); Ordered 08/16/24 Ordered By: Tavares Mercado Admission Data Admit Date/Time: 08/13/24 15:23 Attending Provider: Tavares Mercado Admit Provider: Edgard Hung Primary Care Provider: Dyllan Oliveira Other Providers: Oskar Capone,[facility] Stay Data Consultations 08/13/24 15:17 ED Decision to Admit Stat Diagnostic Imagining Performed 08/13/24 14:56 CT Abd and Pelvis [CT abd pelvis wo con] Stat Pending Results Patient Have Any Pending Studies at Discharge: No Discharge Instructions Given to Patient (Per Discharging Provider) Take cephalexin antibiotic for 3 more days. A prescription has been sent to your pharmacy in [place] Total Time Total Time Spent Total Time Spent (In Minutes): 45 minutes Coding Level of Care Code 83231 INP/OBS DISCH >30 MIN Diagnoses JOSEPH (acute kidney injury) N17.9 UTI (urinary tract infection) N39.0 Nausea, vomiting, and diarrhea R11.2; R19.7 Colitis K52.9 Hypotension I95.9 Paroxysmal atrial fibrillation I48.0
== END 2024-08-16 13:55 | disposition home health service (06) | DRG 392 ==
LOC: ED 11:01 → SUATTDRO 15:23 → 2S 15:23

== ENCOUNTER 2024-12-23 08:19 | Observation (INO) ==
--- NOTE | 2024-11-12 14:11 | PAT Medication Instructions ---
Medication Instructions Date of Service November 12, 2024 Home Medications Medication Instructions Recorded nitroglycerin 0.4 mg sublingual 0.4 mg sublingual Q5M PRN chest 03/22/21 tablet (Nitrostat) pain #25 tabs metoprolol tartrate 25 mg tablet 25 mg PO BID #180 tabs 09/12/23 hydrochlorothiazide 25 mg tablet 25 mg PO QAM #90 tabs 10/10/23 rosuvastatin 5 mg tablet 5 mg PO HS #90 tabs 02/15/24 methenamine hippurate 1 gram tablet 1 g PO BID #180 tabs 05/02/24 apixaban 5 mg tablet (Eliquis) 2.5 mg (1/2 x 5 mg) PO BID #180 07/16/24 tabs ondansetron 4 mg disintegrating 4 mg PO TID PRN n/v #60 tabs 08/23/24 tablet nystatin 100,000 unit/gram topical 1 applic topical TID PRN Skin 08/28/24 powder Irritation #60 grams digoxin 125 mcg (0.125 mg) tablet 125 mcg PO UD #20 tabs 09/04/24 Medication List: multivitamin (Daily Multi-Vitamin tablet) 1 tab PO QAM timolol maleate 0.5 % eye drops 1 drp OPB HS cholecalciferol (vitamin D3) 50 mcg (2,000 unit) capsule 2,000 unit PO QAM nitroglycerin 0.4 mg sublingual tablet (Nitrostat) 0.4 mg sublingual Q5M PRN chest pain metoprolol tartrate 25 mg tablet 25 mg PO BID hydrochlorothiazide 25 mg tablet 25 mg PO QAM aspirin 81 mg tablet,delayed release (Bailee Low Dose Aspirin) 81 mg PO HS valsartan 160 mg tablet (Diovan) 160 mg PO HS furosemide 20 mg tablet 20 mg PO DAILY PRN Fluid Retention amoxicillin 500 mg tablet 2,000 mg PO UD PRN dental salvador latanoprost 0.005 % eye drops 1 drp ophthalmic (eye) QPM rosuvastatin 5 mg tablet 5 mg PO HS methenamine hippurate 1 gram tablet 1 g PO BID apixaban 5 mg tablet (Eliquis) 2.5 mg (1/2 x 5 mg) PO BID gabapentin 100 mg capsule 100 mg PO UD ondansetron 4 mg disintegrating tablet 4 mg PO TID PRN n/v nystatin 100,000 unit/gram topical powder 1 applic topical TID PRN Skin Irritation digoxin 125 mcg (0.125 mg) tablet 125 mcg PO UD amiodarone 200 mg tablet (Pacerone) 200 mg PO HS clotrimazole-betamethasone 1 %-0.05 % topical cream 1 applic topical UD PRN Skin Irritation montelukast 10 mg tablet 10 mg PO HS pantoprazole 20 mg tablet,delayed release 20 mg PO QAM spironolactone 25 mg tablet 25 mg PO QAM triamcinolone acetonide 0.1 % topical cream 1 applic topical UD PRN Skin Irritation MEDICATION INSTRUCTIONS: Continue as directed triamcinolone acetonide 0.1 % topical cream 1 applic topical UD PRN Skin Irritation (do not apply after bathing prior to surgery) clotrimazole-betamethasone 1 %-0.05 % topical cream 1 applic topical UD PRN Skin Irritation (do not apply after bathing prior to surgery) nystatin 100,000 unit/gram topical powder 1 applic topical TID PRN Skin Irritation (do not apply after bathing prior to surgery) amoxicillin 500 mg tablet 2,000 mg PO UD PRN dental [place] latanoprost 0.005 % eye drops 1 drp ophthalmic (eye) QPM nitroglycerin 0.4 mg sublingual tablet (Nitrostat) 0.4 mg sublingual Q5M PRN chest pain timolol maleate 0.5 % eye drops 1 drp OPB HS ASK your prescriber and surgeon aspirin 81 mg tablet,delayed release (Bailee Low Dose Aspirin) 81 mg PO HS apixaban 5 mg tablet (Eliquis) 2.5 mg (1/2 x 5 mg) PO BID (for spinal anesthesia: will need to hold Eliquis/apixaban at least 72 hours prior to surgery) DO NOT take the morning of surgery multivitamin (Daily Multi-Vitamin tablet) 1 tab PO QAM hydrochlorothiazide 25 mg tablet 25 mg PO QAM cholecalciferol (vitamin D3) 50 mcg (2,000 unit) capsule 2,000 unit PO QAM furosemide 20 mg tablet 20 mg PO DAILY PRN Fluid Retention spironolactone 25 mg tablet 25 mg PO QAM methenamine hippurate 1 gram tablet 1 g PO BID Take morning of surgery With a small sip of water, OTHERWISE NOTHING TO EAT OR DRINK AFTER MIDNIGHT: metoprolol tartrate 25 mg tablet 25 mg PO BID ondansetron 4 mg disintegrating tablet 4 mg PO TID PRN n/v gabapentin 100 mg capsule 100 mg PO UD digoxin 125 mcg (0.125 mg) tablet 125 mcg PO UD pantoprazole 20 mg tablet,delayed release 20 mg PO QAM Take evening before surgery valsartan 160 mg tablet (Diovan) 160 mg PO HS amiodarone 200 mg tablet (Pacerone) 200 mg PO HS montelukast 10 mg tablet 10 mg PO HS rosuvastatin 5 mg tablet 5 mg PO HS metoprolol tartrate 25 mg tablet 25 mg PO BID methenamine hippurate 1 gram tablet 1 g PO BID ondansetron 4 mg disintegrating tablet 4 mg PO TID PRN n/v gabapentin 100 mg capsule 100 mg PO UD Other Notes If you have any questions please call us at [phone] or [phone] or [phone] or [phone]
--- NOTE | 2024-12-02 13:02 | Anesthesiology Consultation ---
Date of Service December 02, 2024 Assessment & Plan (1) Encounter for pre-operative examination: - Check BSG DOS - Infectious disease screening: Per assessment on 12/02/24- No known recent infectious disease contacts or current infectious disease symptoms. - Outpatient joint assessment: Pt currently scheduled for inpatient pathway. If surgeon requests review for outpatient joint pathway, patient is not a recommended candidate for outpatient joint program from anesthesia standpoint based on available information. - Eliquis/Apixaban instructions: patient made aware that for neuraxial anesthesia, Eliquis/Apixaban needs to be held 72 hours prior to surgery. Patient voiced understanding/will check if okay with prescriber. - [facility] EP visit (10/14/24): "Tachy-alexander syndrome: Patient with a history of atrial fibrillation and bradycardia when in sinus rhythm. Currently on amiodarone, digoxin and metoprolol. Device function appears normal. No atrial fibrillation on interrogation. I asked her to go to the lab for routine testing to exclude amiodarone toxicity. None detected on laboratory studies done 6 months ago. She will continue on systemic anticoagulation with apixaban.. Follow Up: Device clinic 1 Year" - [facility] PCP visit (11/14/24): "Type 2 DM- HgbA1c 6.6.. No longer on glipizide.. Ozempic was stopped about 6-7 weeks ago due to negative side effects and intolerance.. She has maintained the weight off since and has continued monitoring her diet well.. We discussed Mounjaro trial, but at this time as her sugars have been better controlled with diet and the weight loss, will hold off.. Osteoarthritis of the L Hip- Has been following with Ortho.. At this time is scheduled for replacement on 12/23/24.. Will see her universal banker on 12/11/24 prior.. From primary care standpoint sugar had significantly improved with HgbA1c now back at 6.6 with her weight loss which she has continued to maintain despite being off ozempic the past 6 weeks.. Increase Gabapentin 300mg qHS, up from 100mg prior.. Sleep Apnea.. we discussed at length in regards to resuming cpap therapy, she does not feel she would tolerate.. Patient will consider, but really does not want another sleep study.. She is agreeable to sleep medicine referral -- repeat placed.. Follow up 6 months" - [facility] medication instructions: Patient previously on Ozempic- discontinued d/t intolerance. [facility] discussed trial of Mounjaro at last visit. Patient states that they will not be doing GLP-1 medication trial until after upcoming surgery but patient was made aware that if any weekly GLP-1 started prior to surgery, to not take within 7 days of surgery- voiced understanding. - Awaiting upcoming cardiology visit (MARNIE, appt 12/11). Patient otherwise acceptable risk for surgery. Chart Review Chart Review: Patient seen in Pre Admission Testing Teaching & Discussion Pre-Anesthesia Teaching/Discussion Notes: Instructed NPO after midnight before surgery,except medications with 15 cc of water. Medication instructions provided according to the PAT guidelines. History Surgery Operation Date: 12/23/24 11:00 Proposed Procedures p Left Anterior Total Hip Arthroplasty - Ancelmo Campuzano, Height/Weight Height: 5 ft 1 in Weight: 94.9 kg Allergies Allergy/AdvReac Type Severity Reaction Status Date / Time codeine AdvReac Intermediate N/V Verified 11/14/24 09:20 lisinopril AdvReac Intermediate Cough Verified 11/14/24 09:20 morphine AdvReac Intermediate N/V Verified 11/14/24 09:20 Medications Home Medications Medication Instructions Recorded Confirmed Last Taken multivitamin (Daily Multi-Vitamin 1 tab PO QAM 02/04/19 11/14/24 12/20/23 10:00 tablet) timolol maleate 0.5 % eye drops 1 drp OPB HS 02/24/20 11/14/24 12/20/23 22:00 cholecalciferol (vitamin D3) 50 2,000 unit PO QAM 04/07/20 11/14/24 12/20/23 10:00 mcg (2,000 unit) capsule nitroglycerin 0.4 mg sublingual 0.4 mg sublingual Q5M PRN chest 03/22/21 11/14/24 Unknown tablet (Nitrostat) pain #25 tabs aspirin 81 mg tablet,delayed 81 mg PO HS 12/11/23 11/14/24 12/20/23 22:00 release (Bailee Low Dose Aspirin) valsartan 160 mg tablet (Diovan) 160 mg PO HS 12/11/23 11/14/24 12/19/23 22:00 amoxicillin 500 mg tablet 2,000 mg PO UD PRN dental salvador 01/10/24 11/14/24 Unknown latanoprost 0.005 % eye drops 1 drp ophthalmic (eye) QPM 01/10/24 11/14/24 Unknown rosuvastatin 5 mg tablet 5 mg PO HS #90 tabs 02/15/24 11/14/24 Unknown methenamine hippurate 1 gram tablet 1 g PO BID #180 tabs 05/02/24 11/14/24 Unknown apixaban 5 mg tablet (Eliquis) 2.5 mg (1/2 x 5 mg) PO BID #180 07/16/24 11/14/24 Unknown tabs ondansetron 4 mg disintegrating 4 mg PO TID PRN n/v #60 tabs 08/23/24 11/14/24 Unknown tablet nystatin 100,000 unit/gram topical 1 applic topical TID PRN Skin 08/28/24 11/14/24 Unknown powder Irritation #60 grams digoxin 125 mcg (0.125 mg) tablet 125 mcg PO UD #20 tabs 09/04/24 11/14/24 Unknown amiodarone 200 mg tablet (Pacerone) 200 mg PO HS 11/12/24 11/14/24 Unknown clotrimazole-betamethasone 1 1 applic topical UD PRN Skin 11/12/24 11/14/24 Unknown %-0.05 % topical cream Irritation montelukast 10 mg tablet 10 mg PO HS 11/12/24 11/14/24 Unknown pantoprazole 20 mg tablet,delayed 20 mg PO QAM 11/12/24 11/14/24 Unknown release triamcinolone acetonide 0.1 % 1 applic topical UD PRN Skin 11/12/24 11/14/24 Unknown topical cream Irritation hydrochlorothiazide 25 mg tablet 25 mg PO QAM #90 tabs 11/13/24 11/14/24 Unknown gabapentin 300 mg capsule 300 mg PO HS #30 caps 11/14/24 11/14/24 Unknown pneumoc 20-leanna conj-dip cr(PF) 0.5 0.5 ml IM ONCE #0.5 mL 11/14/24 11/14/24 Unknown mL IM syringe (Prevnar 20 (PF)) metoprolol tartrate 25 mg tablet See Rx Instructions .Route 11/20/24 Unknown .COMPLEX #180 tabs spironolactone 25 mg tablet 25 mg PO QAM #90 tabs 11/20/24 Unknown furosemide 20 mg tablet 20 mg PO DAILY PRN Fluid Retention 11/29/24 Unknown #90 tabs Past Medical History Medical History Asthma "Mild"/No inhaler Atrial fibrillation CKD (chronic kidney disease) stage 4, GFR 15-29 ml/min Follows with [facility] urology Dyslipidemia GERD (gastroesophageal reflux disease) Glaucoma History of colitis History of heart failure History of hypertension History of kidney stones Hx of coronary artery disease Non-obstructive Fllows with [facility] cardio Hx of sick sinus syndrome PPM placed 12/2023 Hx of solitary pulmonary nodule R/t sarcoid per patient Left ear hearing loss Per records Lumbar stenosis with neurogenic claudication Morbid obesity Osteoarthritis Paroxysmal atrial flutter Paroxysmal atrial fibrillation/flutter Taking Eliquis/metoprolol Follows with [facility] cardio Peripheral vascular disease Hx bilateral GSV ablation (2021) Presence of permanent cardiac pacemaker Implanted 12/2023, Medtronic, hx SSS Renal lesion Under surveillance Sarcoidosis Follows with [facility] pulm Sleep apnea Does not tolerate CPAP Type 2 diabetes mellitus Currently diet controlled Urinary frequency Urinary urgency Venous reflux Exercise / Class Metabolic Activity III < 4 Walking/Shop/Light housework Past Family History Family History Mother Atrial fibrillation Stroke Father No problems noted. Brother Lung cancer Brother Lung cancer Sister Lung cancer Other No family history of adverse response to anesthesia Past Surgical History Surgical History History of cardiac cath 2020, 2014, 2006- no stents History of cardiac radiofrequency ablation 2020 History of cardioversion x4; most recent 2023 History of cholecystectomy History of colonoscopy History of cystoscopy History of esophagogastroduodenoscopy (EGD) History of hysterectomy with unilateral oophorectomy History of left knee surgery Revision of TKA (after fall/breaking of prosthesis) History of lithotripsy History of surgery on left wrist x2 History of tooth extraction History of total bilateral knee replacement S/P bladder tumor excision with fulguration S/P placement of cardiac pacemaker (01/02/24) [employer] Past Anesthesia History No Hx of Anesthesia Complications and No Family Hx of Anesthesia Complications History of PONV No Hx of PONV and Hx of Motion Sickness Social History Smoking Status: Never smoker Do You Dip or Chew Tobacco: No Hx Alcohol Use: No Hx Substance Use: No substance use type: does not use Review of Systems Patient denies chest pain, shortness of breath, fever, chills, cough, wheezing, palpitations. Physical Exam Vital Signs BP 137/84 P 77 TEMP 97.2 SP02 96%RA RESP 18 Physical Decreased cervical extension range of motion. Full TMJ range of motion. TMD 3 finger breaths Mallampati Score III Dentition: partial upper plate (glued in/cannot be removed per patient) Lungs: clear throughout to auscultation Cardiac: regular rate and rhythm, faint systolic murmur Spine: normal Carotid arteries: negative bruit Extremities: non-pitting LE edema Lab Results Anesthesia Preop Results Results Anesthesia Widget: WBC 12.52 K/ul (4.8-10.8) H 12/02/24 Hgb 14.7 g/dl (12.0-16.0) 12/02/24 Hct 43.3 % (37.0-47.0) 12/02/24 Plt 220 K/uL (130-400) 12/02/24 Na 137 mmol/L (136-145) 10/30/24 K 3.8 mmol/L (3.5-5.1) 10/30/24 Cl 102 mmol/L (98-107) 10/30/24 CO2 24 mmol/L (21-32) 10/30/24 BUN 27 mg/dl (6-23) H 10/30/24 Creat 1.62 mg/dl (0.6-1.2) H 10/30/24 Glucose Level 193 mg/dl (70-99(Fasting)) H 10/30/24 PT 10.6 Seconds (9.0-12.0) 12/02/24 PTT 26 Seconds (21-31) 12/02/24 INR 1.0 (0.9-1.1) 12/02/24 TSH 0.335 uIu/ml (0.300-4.500) 10/30/24 HA1c 6.6 % (4.5-5.6) H 10/30/24 Blood Type O Negative 12/02/24 Antibody Screen NEGATIVE 12/02/24 Testing Laboratory Results Surgeon's office made aware of elevated WBC* Electrocardiogram Date: 12/02/24 Atrial paced rhythm with prolonged AV conduction. 73bpm. Rightward axis. Low voltage QRS. Cannot r/o anterior infarct (cited on or before 12/27/2023). Chest X-Ray Date: 08/13/24 FINDINGS: Left subclavian pacer is in place. There is extensive mitral annular calcification. Cardiomediastinal silhouette is stable. There is no pneumothorax or pleural effusion. There is no evidence for pulmonary edema. There is no consolidation to suggest pneumonia. IMPRESSION: No acute cardiopulmonary findings. No change in appearance of the chest. Echocardiogram Date: 12/28/23 LVEF 55-60%. No RWMA. Mild cLVH. Mild to moderate TR. Cardiac Catheterization Date: 03/22/21 LM -Short, almost separate ostia, no significant disease. LAD -medium caliber, proximal luminal irregularities. Small distal vessel with mild diffuse disease wraps around apex. Medium D1 with 50% ostial disease. Circumflex -medium caliber, no significant disease. Medium OM 2, OM 3 tortuous without disease. RCA -dominant, large caliber, 30% mid segment disease. Medium PDA, PLB's with mild disease. 1. Mild nonobstructive coronary artery disease-30% mid RCA. 50% ostial first diagonal 2. Elevated intracardiac filling pressure Other Testing Pacer check Date: 10/14/24 [employer]. Battery longevity 12.5 years. Mode AAIR <=> DDDR. AP 99.9%.
--- NOTE | 2024-12-18 13:06 | History & Physical Report ---
Date of Service December 18, 2024 Assessment & Plan (1) Osteoarthritis of left hip: We will proceed with a left anterior total arthroplasty. Postoperatively, she will be started back on Eliquis for DVT prophylaxis and kept overnight in the hospital for postop medical management. History of Present Illness Chief Complaint: Osteoarthritis of the left hip. Primary Care Provider: Dyllan OliveiraDO Chou is a pleasant 84-year-old female who has been dealing with chronic increasing left hip and groin pain. She was seen by another provider in our office. She was diagnosed with osteoarthritis of her left hip. She has received several injections. The first injection was very helpful, unfortunately, the prior injections have not helped as much. She is really struggling with her hip. She is using a cane to ambulate. After found conservative treatment, she has elected to proceed with a left anterior total arthroplasty. Allergies Allergy/AdvReac Type Severity Reaction Status Date / Time codeine AdvReac Intermediate N/V Verified 12/11/24 15:20 lisinopril AdvReac Intermediate Cough Verified 12/11/24 15:20 morphine AdvReac Intermediate N/V Verified 12/11/24 15:20 Home Medications Medication Instructions Recorded Confirmed Type multivitamin (Daily Multi-Vitamin 1 tab PO QAM 02/04/19 12/11/24 History tablet) timolol maleate 0.5 % eye drops 1 drp OPB HS 02/24/20 12/11/24 History cholecalciferol (vitamin D3) 50 2,000 unit PO QAM 04/07/20 12/11/24 History mcg (2,000 unit) capsule nitroglycerin 0.4 mg sublingual 0.4 mg sublingual Q5M PRN chest 03/22/21 12/11/24 Rx tablet (Nitrostat) pain #25 tabs aspirin 81 mg tablet,delayed 81 mg PO HS 12/11/23 12/11/24 History release (Bailee Low Dose Aspirin) valsartan 160 mg tablet (Diovan) 160 mg PO HS 12/11/23 12/11/24 History amoxicillin 500 mg tablet 2,000 mg PO UD PRN dental salvador 01/10/24 12/11/24 History latanoprost 0.005 % eye drops 1 drp ophthalmic (eye) QPM 01/10/24 12/11/24 History rosuvastatin 5 mg tablet 5 mg PO HS #90 tabs 02/15/24 12/11/24 Rx methenamine hippurate 1 gram tablet 1 g PO BID #180 tabs 05/02/24 12/11/24 Rx apixaban 5 mg tablet (Eliquis) 2.5 mg (1/2 x 5 mg) PO BID #180 07/16/24 12/11/24 Rx tabs ondansetron 4 mg disintegrating 4 mg PO TID PRN n/v #60 tabs 08/23/24 12/11/24 Rx tablet nystatin 100,000 unit/gram topical 1 applic topical TID PRN Skin 08/28/24 12/11/24 Rx powder Irritation #60 grams digoxin 125 mcg (0.125 mg) tablet 125 mcg PO UD #20 tabs 09/04/24 12/11/24 Rx amiodarone 200 mg tablet (Pacerone) 200 mg PO HS 11/12/24 12/11/24 History clotrimazole-betamethasone 1 1 applic topical UD PRN Skin 11/12/24 12/11/24 History %-0.05 % topical cream Irritation montelukast 10 mg tablet 10 mg PO HS 11/12/24 12/11/24 History pantoprazole 20 mg tablet,delayed 20 mg PO QAM 11/12/24 12/11/24 History release triamcinolone acetonide 0.1 % 1 applic topical UD PRN Skin 11/12/24 12/11/24 History topical cream Irritation hydrochlorothiazide 25 mg tablet 25 mg PO QAM #90 tabs 11/13/24 12/11/24 Rx gabapentin 300 mg capsule 300 mg PO HS #30 caps 11/14/24 12/11/24 Rx pneumoc 20-leanna conj-dip cr(PF) 0.5 0.5 ml IM ONCE #0.5 mL 11/14/24 12/11/24 Rx mL IM syringe (Prevnar 20 (PF)) metoprolol tartrate 25 mg tablet See Rx Instructions .Route 11/20/24 12/11/24 Rx .COMPLEX #180 tabs spironolactone 25 mg tablet 25 mg PO QAM #90 tabs 11/20/24 12/11/24 Rx furosemide 20 mg tablet 20 mg PO DAILY PRN Fluid Retention 11/29/24 12/11/24 Rx #90 tabs Past Med/Surg History Problem List Aortic systolic murmur on examination Encounter for pre-operative examination Osteoarthritis of left hip Colitis Hypotension (Acute) Incontinence (Chronic) CKD (chronic kidney disease) stage 4, GFR 15-29 ml/min Kidney mass HTN (hypertension) Dyslipidemia CAD (coronary artery disease) Recurrent urinary tract infection (Chronic) Lymphadenopathy, hilar Per remote 2019 records Medical History Atrial fibrillation History of heart failure Presence of permanent cardiac pacemaker Implanted 12/2023, [employer]tr[employer], hx SSS History of colitis Hx of sick sinus syndrome PPM placed 12/2023 History of hypertension Dyslipidemia CKD (chronic kidney disease) stage 4, GFR 15-29 ml/min Follows with [facility] urology Hx of coronary artery disease Non-obstructive Fllows with [facility] cardio Left ear hearing loss Per records Venous reflux Paroxysmal atrial flutter Paroxysmal atrial fibrillation/flutter Taking Eliquis/metoprolol Follows with [facility] cardio Peripheral vascular disease Hx bilateral GSV ablation (2021) Morbid obesity Renal lesion Under surveillance GERD (gastroesophageal reflux disease) Hx of solitary pulmonary nodule R/t sarcoid per patient Osteoarthritis Lumbar stenosis with neurogenic claudication Type 2 diabetes mellitus Currently diet controlled Asthma "Mild"/No inhaler Urinary frequency Urinary urgency Sarcoidosis Follows with [facility] pulm Sleep apnea Does not tolerate CPAP History of kidney stones Glaucoma Surgical History S/P placement of cardiac pacemaker (01/02/24) [employer] History of cardioversion x4; most recent 2023 History of cystoscopy S/P bladder tumor excision with fulguration History of cholecystectomy History of tooth extraction History of left knee surgery Revision of TKA (after fall/breaking of prosthesis) History of total bilateral knee replacement History of surgery on left wrist x2 History of hysterectomy with unilateral oophorectomy History of lithotripsy History of esophagogastroduodenoscopy (EGD) History of colonoscopy History of cardiac cath 2020, 2013, 2006- no stents History of cardiac radiofrequency ablation 2020 Family History Mother Atrial fibrillation Stroke Father No problems noted. Brother Lung cancer Brother Lung cancer Sister Lung cancer Other No family history of adverse response to anesthesia Social History Smoking Status: Never smoker Second Hand Exposure: No; Do You Dip or Chew Tobacco: No; Tobacco Cessation Education Requested by Patient: No Hx Alcohol Use: No Hx Substance Use: No Preferred Language: Chadian Communication Ability: Effective Visual Impairment: No Limitations Crate Repairer Required: No Beliefs That Will Affect Care: None marital status: Current Living Situation: Spouse current occupational status: retired How many Children do You have: 4 Other Information That Helps Us Care for You: No Feels Safe at Home: Yes Safety Concerns: Feels Safe At This Time Childhood Exposure to Second-Hand Smoke: No caffeine: Yes Dental Care, Regularly: Yes Physical Activity Frequency: Does not Exercise Seatbelt Use: always Sunscreen Use: No Assistive Devices: Cane and Walker Review of Systems All systems reviewed & are unremarkable except as noted in HPI & below. Physical Exam On physical exam of the left hip, she has decreased range of motion. She has pain with internal/external rotation. All of her pains located in the groin.. Constitutional WD/WN, vitals as above Eyes PERRL, conjunctivae normal, anicteric sclerae ENMT external ear and nose normal, oropharynx normal Neck trachea midline, no thyromegaly Respiratory normal respiratory effort Cardiovascular RRR, no murmur, no edema Gastrointestinal (Abdomen) normal bowel sounds, soft, nontender, no hepatosplenomegaly Psychiatric A+Ox3, euthymic affect Results & Data Results & Data Laboratory Results . Diagnostic Findings X-rays of the left hip show advanced osteoarthritis with joint space narrowing, osteophyte formation, and [id number] articulation.. PG Care Time/CCT Total # of Minutes Spent Total Time Spent with Patient: Total time spent is greater than 50% in coordination of care (as documented) at patient's floor/unit and/or counseling patient: Coding Level of Care Code None Diagnoses Osteoarthritis of left hip M16.12
[~2024-12-23 08:19] MED LIST changes: -AMLO-110 PO; -ASPI325T39 PO; -CALCTAB5 PO; -CLON0.2T11 PO; -FURO20TA PO; -HYDR25TA5 PO; -METO25TA56 PO; -MONT1TAB3 PO; -OPTIRAY 320 IV PRN; -POTA12PO5 PO; -PRLSR20 PO; +ROPIVACAINE 0.5% 5 MG/ML 30 ML VIAL ONE
[2024-12-23] MEDS ORDERED: ONDANSETRON INJ 2 MG/ML 2 ML VIAL ONE (08:29)
[2024-12-23] MEDS ORDERED: LIDOCAINE 2% 2 ML VIAL/AMP(20MG/ML) INFIL ONE (08:29)
[2024-12-23] MEDS ORDERED: GLYCOPYRROLATE 0.2 MG/ML VIAL ONE (08:29)
[2024-12-23] MEDS ORDERED: MIDAZOLAM HCL 1 MG/ML 2ML VIAL ONE (08:29)
[2024-12-23] MEDS ORDERED: PROPOFOL IV EMULSION 10 MG/ML 20 ML VIAL IV ONE (08:29)
[2024-12-23] MEDS ORDERED: ePHEDrine sulfate 50 MG/5 ML SYR ONE (08:42)
[2024-12-23] MEDS ORDERED: PHENYLEPHRINE 100MCG/ML 5ML SYR ONE (08:42)
[2024-12-23] MEDS: dexAMETHasone**PF** 10 MG/ML VIAL IV SCH (09:32)
[2024-12-23] MEDS: ACETAMINOPHEN 500 MG TAB PO SCH (09:32)
[2024-12-23] MEDS: LR 500ML BOLUS, THEN 15ML/HR IV SCH (09:32)
[2024-12-23] MEDS: GABAPENTIN 300 MG CAP PO SCH ×2 (09:33→20:26)
[2024-12-23] MEDS: LR 60ML/HR IV SCH (09:33)
[2024-12-23] MEDS: FAMOTIDINE 20 MG TAB PO SCH (09:33)
[2024-12-23] MEDS ORDERED: KETAMINE HCL 10MG/ML SYR ONE (09:34)
--- NOTE | 2024-12-23 09:39 | History & Physical Bridge Note ---
Date of Service December 23, 2024 History & Physical Bridge Note I have examined the patient, reviewed the History & Physical and in the interval since the performance of the History & Physical I have noted the following changes of clinical significance: no changes noted
[2024-12-23] MEDS ORDERED: HYDROmorphone INJ 2 MG/ML SYR/VIAL IV PRN (09:51)
[2024-12-23] MEDS ORDERED: ONDANSETRON INJ 2 MG/ML 2 ML VIAL IV PRN ×2 (09:51→16:21)
[2024-12-23] MEDS ORDERED: ATROPINE SULFATE 0.1 MG/ML 10ML SYR IV PRN (09:51)
[2024-12-23] MEDS ORDERED: DEXAMETHASONE SOD INJ 4 MG/ML VIAL ONE (10:35)
[2024-12-23] MEDS: ROPIV 0.5% 246mg, Ketorolac 30mg, EPINEPHrine 0.5mg in NSS INFIL SCH (11:11)
[2024-12-23] MEDS: ORTHO JOINT ANESTHETIC ONE (11:12)
--- NOTE | 2024-12-23 11:41 | Operative Report ---
PG Post Operative Report Pre & Post Diagnosis Operation Date: 12/23/24 10:00 Pre-Op Diagnosis: Left Hip Arthritis Post-Op Diagnosis: Left Hip Arthritis I identified the patient and participated in the time-out.: Yes Procedure Operation Date: 12/23/24 10:00 Actual Procedures p Left Anterior Total Hip Arthroplasty(Left) - Ancelmo Campuzano DO Surgeon Ancelmo Campuzano DO Can Repairer Tracy Allison PA-C Estimated Blood Loss 150 Findings Consistent with Post-Op Diagnosis Specimens Left femoral head Description of Procedure Implants used I used a [employer] total hip arthroplasty system with a size 1 standard offset Z1 stem, a 48 mm G7 cup , an E1 polyethylene liner, a 32 mm ceramic head with a +3.5 neck. Effie arrived at the hospital for the above procedure. She was seen in the preoperative holding area and the operative extremity was identified and signed. She was given a spinal anesthetic, a preoperative antibiotic, and TXA. She was then taken back to the operating room and laid on the table in the supine position. She was given basic sedation. The operative leg was secured to a Puristst leg positioner. The hip was then prepped and draped in sterile fashion. A timeout was done and the patient and the operative extremity was properly identified. An anterior approach was used. Dissection was taken down through the fascia and the tensor muscle belly was retracted laterally and the rectus was retracted medially. The circumflex vessels were identified and ligated. The capsule was then incised and tagged for later repair. The femoral neck was then cut and the femoral head was removed. The acetabulum was exposed. Time was spent doing a complete circumferential labral release. Sequential reaming of the acetabulum up to a size 47 reamer was done. Final reamings were done under fluoroscopy to ensure appropriate version. A Biomet 48 mm G7 cup was then impacted into place. The E1 polyethylene liner was then snapped into place. Surrounding soft tissues were then injected with 100 cc of an orthopedic pain control cocktail. The proximal femur was then exposed. Sequential broaching up to a size 1 broach was done. Off that broach a size 32 head with a +3.5 neck was trialed. The hip was reduced and fluoroscopic images showed anatomic alignment of the implants in acceptable length. The broach was removed. The final size 1 standard offset Z1 stem was then impacted into place. A ceramic 32 mm head with a +3.5 neck was then impacted onto the stem and the hip was reduced. Final fluoroscopic images showed anatomic alignment of the hip. The capsule was then closed with #1 Vicryl suture. A dilute betadyne lavage was then done for 3 minutes. The joint was then irrigated with normal saline solution. The fascia was closed with #1 PDS suture. Skin was closed with 2-0 Vicryl, [place] Zipline, and a Silverlon dressing. She was then transferred to a hospital bed and taken to the post anesthesia care unit in stable condition. She tolerated the procedure well. Tracy Allison PA-C, was present for the entire procedure. He was critical for patient positioning, prepping, draping, retraction exposure, wound closure and application of sterile dressing. I attest to the content of the Intraoperative Record and any orders documented therein. Any exceptions are noted below.
[2024-12-23] MEDS: PROMETHAZINE 6.25 MG/50.25 ML BAG IV STA (12:28)
[2024-12-23] MEDS: PROMETHAZINE HCL INJ 25 MG/ML 1 ML VIAL ONE (12:28)
--- NOTE | 2024-12-23 13:06 | Anesthesiology Progress Note ---
Date of Service December 23, 2024 Anesthesia Post Procedure Vital Signs Vital Signs: Temp Pulse Resp BP BP Pulse Ox O2 Del Method 12/23/24 13:00 36.3 C L 70 15 148/68 H 90 Room Air 12/23/24 12:50 70 16 131/66 93 Room Air 12/23/24 12:40 70 18 143/71 H 94 Room Air 12/23/24 12:30 70 22 139/67 92 Room Air 12/23/24 12:20 70 17 146/72 H 92 Room Air 12/23/24 12:10 36.3 C L 72 17 160/83 H 94 Room Air 12/23/24 09:08 36.5 C 70 20 137/79 98 Room Air Pain Intensity Left Hip: Pain Intensity: 10 Transfer of Care Handoff Completed per policy Notes Mental Status: alert / awake / arousable and participated in evaluation Patient Amnestic to Procedure: Yes Nausea / Vomiting: adequately controlled Pain: adequately controlled Airway Patency, RR, SpO2: stable & adequate BP & HR: stable & adequate Hydration State: stable & adequate Anesthetic Complications: no major complications apparent and Pt Satisfied with anesthetic care
--- NOTE | 2024-12-23 13:15 | XRay Report ---
XR hip 1V LT w pelvis CLINICAL HISTORY: IN PACU - Post Surgical COMPARISON: None FINDINGS: Left hip prosthesis shows no hardware complication. There is expected postoperative soft t issue gas. IMPRESSION: Unremarkable postoperative exam. ACT 112: Negative or not required by law. Electronically signed by: Crow Thayer M.D. 12/23/2024 1:14 PM
--- NOTE | 2024-12-23 14:46 | Fluoroscopy Report ---
FL hip LT 1V CLINICAL HISTORY: LT ANTERIOR VERA COMPARISON STUDY: None FLUOROSCOPY TIME: 13 seconds FLUOROSCOPY IMAGES: 1 EXPOSURE DOSE: 1.6 mGy FINDINGS: Fluoroscopy was provided for left hip prosthesis. IMPRESSION: Intraoperative fluoroscopy. ACT 112: Negative or not required by law. Electronically signed by: Crow Thayer M.D. 12/23/2024 2:44 PM
[2024-12-23] MEDS ORDERED: ACETAMINOPHEN 1,000 MG/100 ML VIAL IV PRN (16:21)
[2024-12-23] MEDS ORDERED: METOCLOPRAMIDE HCL INJ 5 MG/ML 2 ML VIAL IV PRN (16:21)
[2024-12-23] MEDS ORDERED: TRIAMCINOLONE ACET 0.1% CR 15 GM TUBE TOP PRN (16:21)
[2024-12-23] MEDS ORDERED: CLOTRIMAZOLE/BETAMETHASONE CR 15 GM TUBE EXT PRN (16:21)
[2024-12-23] MEDS ORDERED: NITROGLYCERIN SL 0.4 MG/TAB TAB SL PRN (16:21)
[2024-12-23] MEDS ORDERED: FUROSEMIDE 20 MG TAB PO PRN (16:21)
[2024-12-23] MEDS ORDERED: diphenhydrAMINE Capsule 25 MG CAP PO PRN (16:21)
[2024-12-23] MEDS ORDERED: MAGNESIUM HYDROXIDE SUSP 30 ML UDC PO PRN (16:21)
[2024-12-23] MEDS ORDERED: NALOXONE HCL 0.4 MG/1 ML VIAL/CARP IV PRN (16:21)
[2024-12-23] MEDS ORDERED: NYSTATIN POWDER 15GM BTL EXT PRN (16:21)
[2024-12-23] MEDS ORDERED: ONDANSETRON 4 MG OD TAB PO PRN (16:21)
[2024-12-23] MEDS: TRANEXAMIC ACID 1,000 MG **IV Pre-op IV SCH (16:46)
[2024-12-23] MEDS: SODIUM CHLORIDE 0.9% 1,000 ML IV SCH (17:05)
[2024-12-23] MEDS: DIGOXIN 0.125 MG TAB PO SCH (17:42)
[2024-12-23] MEDS: KETOROLAC TROMETHAMINE 15 MG/ML VIAL IV SCH (17:45)
[2024-12-23] MEDS: TIMOLOL MALEATE 0.5% OP SOLN 5 ML BTL OPB SCH (20:23)
[2024-12-23] MEDS: LATANOPROST 0.005% OP SOLN 2.5 ML BTL OP SCH (20:24)
[2024-12-23] MEDS: AMIODARONE 200 MG TAB PO SCH (20:24)
[2024-12-23] MEDS: METOPROLOL TARTRATE 25 MG TAB PO SCH (20:25)
[2024-12-23] MEDS: ROSUVASTATIN CALCIUM 5 MG TAB PO SCH (20:25)
[2024-12-23] MEDS: MONTELUKAST SODIUM 10 MG TABLET PO SCH (20:26)
[2024-12-23] MEDS: SENNA 8.6 MG TAB PO SCH (20:27)
[2024-12-23] MEDS: ASPIRIN 81 MG ECTAB PO SCH (20:27)
[2024-12-23] MEDS: DOCUSATE SODIUM 100 MG CAP PO SCH (20:27)
[2024-12-23] MEDS: VALSARTAN 80 MG TAB PO SCH (20:28)
[2024-12-23 22:56] VITALS: RESP 16; O2SAT 93
[2024-12-24 03:06] VITALS: PULSE 70
[2024-12-24 07:31] VITALS: BP 124/78; TEMP 97.7
[2024-12-24] MEDS: dexAMETHasone 10 MG in SYRINGE 0 ML IV SCH (08:03)
[2024-12-24] MEDS: APIXABAN 2.5 MG TAB PO SCH (08:04)
[2024-12-24] MEDS: CHOLECALCIFEROL 25 MCG (1000 UNITS) TAB PO SCH (08:04)
[2024-12-24] MEDS: hydroCHLOROthiazide 25 MG TAB PO SCH (08:04)
[2024-12-24] MEDS: SPIRONOLACTONE 25 MG TAB PO SCH (08:04)
[2024-12-24] MEDS: MULTIVITAMIN TAB PO SCH (08:05)
--- NOTE | 2024-12-24 09:01 | Orthopedic Progress Note ---
Date of Service December 24, 2024 Assessment & Plan (1) S/P total left hip arthroplasty: * Continue Current Treatment * Disposition: home, PT * Daily treatment: Physical Therapy/ Occupational Therapy per protocol * Weight bearing status: WBAT, no precautions * Continue to monitor for ABLA * Pain control * DVT prophylaxis, resume home dose Eliquis * Office/hospital f/u 2 weeks for progress check and staple/suture removal * Plan for discharge today pending PT/OT clearance Subjective .Active Problems: S/p L VERA POD 1 84 y/o female s/p left VERA. Doing well overall, pain managed and improved function. Denies fever/chills, chest pain/SOB, nausea/vomiting. Otherwise no complaints. Review of Systems All systems reviewed & are unremarkable except as noted in HPI & below. Physical Exam . * General: Alert and oriented, no acute distress * Constitutional: well-developed, well-nourished. * Respiratory: Normal respiratory effort, no distress * Gastrointestinal: No tenderness to palpation, no rigidity or guarding. * Skin: No rash or lesion. * Neurologic: Grossly normal * Musculoskeletal: L hip surgical dressing CDI, not removed for exam. Otherwise no obvious deformity or overlying skin changes. Diffuse TTP proximal thigh and hip region. Otherwise no specific tenderness of distal thigh, lower leg, foot/ankle. AROM hip flexion intact. AROM foot/ankle intact. Sensation intact plantar/dorsal foot. Brisk capillary refill. Results & Data Results & Data Laboratory Results . Diagnostic Findings . Hip X-Ray 12/23/24 10:00 FL hip LT 1V CLINICAL HISTORY: LT ANTERIOR VERA COMPARISON STUDY: None FLUOROSCOPY TIME: 13 seconds FLUOROSCOPY IMAGES: 1 EXPOSURE DOSE: 1.6 mGy FINDINGS: Fluoroscopy was provided for left hip prosthesis. IMPRESSION: Intraoperative fluoroscopy. ACT 112: Negative or not required by law. Electronically signed by: Crow Thayer M.D. 12/23/2024 2:44 PM Hip/Pelvis X-Ray 12/23/24 12:26 XR hip 1V LT w pelvis CLINICAL HISTORY: IN PACU - Post Surgical COMPARISON: None FINDINGS: Left hip prosthesis shows no hardware complication. There is expected postoperative soft tissue gas. IMPRESSION: Unremarkable postoperative exam. ACT 112: Negative or not required by law. Electronically signed by: Crow Thayer M.D. 12/23/2024 1:14 PM PG Care Time/CCT Total # of Minutes Spent Total Time Spent with Patient: Total time spent is greater than 50% in coordination of care (as documented) at patient's floor/unit and/or counseling patient: Coding Level of Care Code 22932 Post Operative Follow-Up Diagnoses S/P total left hip arthroplasty Z96.642
== END 2024-12-24 11:48 | disposition home health service (06) ==
LOC: ASU 08:19 → PACUINP 08:19 → 3N 16:20